=== PATIENT | female | born 1970 | race Caucasian/White ===

== ENCOUNTER 2017-10-16 14:58 | Emergency (ER) | payer MEDICAID, SELFPAY ==
[2017-10-16 15:04] VITALS: BP 108/72; PULSE 95; RESP 22; TEMP 36.6; O2SAT 100
--- NOTE | 2017-10-16 15:13 | DI.REPORT_ITS ---
SYMPTOM/DIAGNOSIS: CHEST PAIN PA AND LATERAL CHEST: Comparison is made with 03/29/12. The heart is normal in size. The lungs are clear. The mediastinal structures and pleura appear intact. CONCLUSION: Normal chest.
--- NOTE | 2017-10-16 15:18 | ED.GENADUL ---
Disposition Clinical Impression: Lightheadedness, Headache Disposition: HOME Condition: Good Instructions: Dehydration (ED), General Headache (ED) Additional Instructions: Please drink 8-10 cups of water per day. If you notice any worsening of your symptoms, or any new symptoms such as vomiting, diarrhea, fever, chills, shortness of breath, chest pain, numbness, weakness, or fainting , please return immediately to the emergency department for reevaluation. Please follow up with your primary care provider as soon as possible for reassessment and reevaluation. As always, it was a pleasure participating in your medical care today. Referrals: Margaret Luz NP [Primary Care Provider] - Medical Decision Making - Medical Decision Making This is a 47-year-old female who presents with symptoms of very mild headache, brief tingling in her fingertips, lightheadedness and mild dizziness. It occurred while she was working, and improved when she laid down. On EMS arrival her Accu-Chek was normal, vital signs are stable, no signs of tachycardia dysrhythmia, or significant physical exam findings of concern. Currently the patient's physical exam does appear benign. She denies any red flags for potential PE, cardiac disease, or intracranial aneurysm. She demonstrates no evidence of meningitis, nuchal rigidity. His headache is actually very mild compared to normal. She does have multiple allergies which does limit our central migraine cocktail that we can utilize. We will perform a cardiac workup, rehydrate the patient reevaluate. With normal neurologic exam, and symptoms which appear more vasovagal than neurologic I feel that there is no indication for CT scan at this time. Clinically the patient does not demonstrate the signs and symptoms suggestive of an intracranial aneurysm is this would be inconsistent with her current clinical presentation. EKG 15: 13 Rate 82, AR 174, QTc 439, QRS 98, sinus rhythm, no ST elevations or depressions. No Q waves. No T-wave inversions. 4: 30 Patient's laboratory workup has returned normal, her headache is significantly improved. She was rehydrated and is feeling much better. She has no cardiac risk factors, she is low risk for Wells, and negative for per criterion. I feel her symptoms are secondary to a component of anxiety, as well as mild dehydration. She is demonstrated no hemodynamic instability, she is low risk on the [place] syncope rule. I feel she can be safely discharged home with close follow-up with her primary care provider. And a long discussion with her regarding the importance of close follow-up with her PCP and the patient understands. I have extensively reviewed the treatment plan and discharge instructions with the patient. I have addressed all patient concerns at this time. The patient was made aware of what symptoms to monitor for that would warrant a return to the emergency department. Discussed the plan with the patient, they demonstrate verbal understanding and agreement with our assessment and plan at this time. History of Present Illness - General Chief complaint: Headache Stated complaint: CAS Time Seen by Provider: 10/16/17 15:03 - History of Present Illness Initial comments: This is a 47-year-old female with a past medical history of PTSD, bipolar disorder, notable anxiety, chronic headaches for which she takes Topamax, polycystic ovarian syndrome, and multiple allergies. She presents today for lightheadedness. Patient states that she was at work when she developed a mild headache that was not thunderclap or sudden in onset. It is much less severe than her normal headaches. She states that with this she eventually developed some symptoms of palpitations, mild dizziness, and eventual tingling in her fingertips and hands bilaterally. Patient laid down on the ground and her symptoms notably improved. She does note that she has not been drinking much over the last 24 hours. She did describes a brief episode of chest tightness with this, but no significant arm pain neck pain or shoulder pain. There was no exertional chest pain, no pleuritic component. Patient denies any recent medication changes, any recent trauma. She denies any history of stroke or myocardial infarction. She denies any cardiac risk factors aside from mild obesity. She does not smoke, she denies IV illicit drug use. She denies a family history of cardiac disease. Denies PE risk factors such as recent long car rides, immobilization, recent surgery, prior history of DVT or PE, family history of PE or DVT, morbid obesity, exogenous estrogen and smoking, hemoptysis, history of cancer. Past surgical history is positive for left knee surgery and hysterectomy. Patient denies any pertinent family history. Patient denies any other complaints at this time. - Related Data Epinephrine [Epipen 2-Sandeep] 0.3 mg IM ONCE #2 syringe 11/02/16 Prochlorperazine Maleate 5 mg PO Q8H PRN PRN #30 tab-cap 01/20/17 Sumatriptan Succinate 100 mg PO PRN #30 tab-cap 01/20/17 Clonazepam 0.5 mg PO PRN #30 tab-cap 03/09/17 Prazosin HCl 4 mg PO HS #30 tab-cap 03/09/17 Venlafaxine HCl [Venlafaxine HCl ER] 150 mg PO DAILY #30 tab-cap 03/09/17 Zolpidem Tartrate [Ambien] 10 mg PO HS #30 tab-cap 03/09/17 Amitriptyline [Elavil] 25 mg PO DAILY #30 tab-cap 07/22/17 Oxybutynin Chloride [Oxybutynin Chloride ER] 5 mg PO DAILY #30 tab-cap 09/02/17 Topiramate [Topamax] 100 mg PO DIRECTED #90 tab-cap 09/20/17 Allergies Allergy/AdvReac Type Severity Reaction Status Date / Time acetaminophen [From Tylenol] Allergy Severe Anaphylaxsi Unverified 07/22/17 10:35 s aspirin Allergy Severe Anaphylaxsi Unverified 07/22/17 10:35 s egg Allergy Severe Unverified 07/22/17 10:35 ibuprofen Allergy Severe Anaphylaxsi Unverified 07/22/17 10:35 s naproxen sodium [From Aleve] Allergy Severe Anaphylaxsi Unverified 07/22/17 10:35 s avocado [Avocado] Allergy Unverified 07/22/17 10:35 diphenhydramine HCl Allergy Hives Unverified 07/22/17 10:35 [From Benadryl] kiwi Allergy Unverified 07/22/17 10:35 latex Allergy Skin Rash Unverified 07/22/17 10:35 wheat Allergy throat Unverified 07/22/17 10:35 swells oxycodone [Oxycodone] AdvReac Intermediate BAD JEFFERSON Unverified 07/22/17 10:35 zonisamide AdvReac Intermediate NIGHTMARES Unverified 07/22/17 10:35 Review of Systems Other: 10 point review of systems was performed, pertinent positives and negatives are noted in the history of present illness. 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 3.ENT: Atraumatic external nose and ears. Moist MM. Neck: Symmetric, trachea midline, No thyromegaly. Patient demonstrates good movement of cervical neck. There is no nuchal rigidity, no nuchal tenderness. Patient is able to flex the neck without any difficulty or significant pain. Negative Kernig's and Brudzinski sign. Cerebellar function testing is normal. The patient demonstrates a normal hints exam with no findings concerning for a central event. No vertical nystagmus. The head impulse test is negative for any significant central abnormality. Normal test of skew. No suggestion of a central cerebellar event. 4.CVS: +S1/S2, No murmurs or gallops. Peripheral pulses 2+ and equal in all extremities. Brisk capillary refill in all extremities. Minimal reproducible sternal chest pain. 5.RESP: Unlabored respiratory effort. Clear to auscultation bilaterally. No wheezes rales or rhonchi 6.GI: Soft, Nontender/Nondistended, No hepatosplenomegaly. No guarding or rebound. 7.MSK: Normocephalic/Atraumatic, Extremities w/o deformity or ttp No cyanosis or clubbing, Normal movement of all extremities 8.Skin: Warm, Dry. No rashes or lesions. 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 Sensation grossly intact, no focal neurologic deficits. All 6 cardinal planes of vision or fully intact. No evidence of horizontal or vertical nystagmus. The patient demonstrated a normal mbhupn-sbhk-oshwoz, good dexterity. There was no evidence of dysdiadochokinesia. Patient was able to ambulate without difficulty. There was no wide-based gait. Romberg, and yznx-hq-uqof are both normal on testing. Sensation was intact bilaterally as well as muscle strength bilaterally for all extremities. Patient was able to verbalize butter cup with no slurring, or miss pronunciation. 10.Psych: (AAO) x3. Appropriate mood and affect, however the patient does appear mildly anxious. Course Vital Signs - 24 hr 10/16/17 15:04 Temperature 36.6 C Pulse 95 H Respiratory 22 Rate Blood Pressure 108/72 Pulse Oximetry 100
--- NOTE | 2017-10-16 15:21 | ED.GENADUL_ITS ---
Disposition Clinical Impression: Lightheadedness, Headache Disposition: HOME Condition: Good Instructions: Dehydration (ED), General Headache (ED) Additional Instructions: Please drink 8-10 cups of water per day. If you notice any worsening of your symptoms, or any new symptoms such as vomiting, diarrhea, fever, chills, shortness of breath, chest pain, numbness, weakness, or fainting , please return immediately to the emergency department for reevaluation. Please follow up with your primary care provider as soon as possible for reassessment and reevaluation. As always, it was a pleasure participating in your medical care today. Referrals: Margaret Luz NP [Primary Care Provider] - Medical Decision Making - Medical Decision Making This is a 47-year-old female who presents with symptoms of very mild headache, brief tingling in her fingertips, lightheadedness and mild dizziness. It occurred while she was working, and improved when she laid down. On EMS arrival her Accu-Chek was normal, vital signs are stable, no signs of tachycardia dysrhythmia, or significant physical exam findings of concern. Currently the patient's physical exam does appear benign. She denies any red flags for potential PE, cardiac disease, or intracranial aneurysm. She demonstrates no evidence of meningitis, nuchal rigidity. His headache is actually very mild compared to normal. She does have multiple allergies which does limit our central migraine cocktail that we can utilize. We will perform a cardiac workup, rehydrate the patient reevaluate. With normal neurologic exam , and symptoms which appear more vasovagal than neurologic I feel that there is no indication for CT scan at this time. Clinically the patient does not demonstrate the signs and symptoms suggestive of an intracranial aneurysm is this would be inconsistent with her current clinical presentation. EKG 15: 13 Rate 82, IN 174, QTc 439, QRS 98, sinus rhythm, no ST elevations or depressions. No Q waves. No T-wave inversions. 4: 30 Patient's laboratory workup has returned normal, her headache is significantly improved. She was rehydrated and is feeling much better. She has no cardiac risk factors, she is low risk for Wells, and negative for per criterion. I feel her symptoms are secondary to a component of anxiety, as well as mild dehydration. She is demonstrated no hemodynamic instability, she is low risk on the [place] syncope rule. I feel she can be safely discharged home with close follow-up with her primary care provider. And a long discussion with her regarding the importance of close follow-up with her PCP and the patient understands. I have extensively reviewed the treatment plan and discharge instructions with the patient. I have addressed all patient concerns at this time. The patient was made aware of what symptoms to monitor for that would warrant a return to the emergency department. Discussed the plan with the patient, they demonstrate verbal understanding and agreement with our assessment and plan at this time. History of Present Illness - General Chief complaint: Headache Stated complaint: CAS Time Seen by Provider: 10/16/17 15:03 - History of Present Illness Initial comments: This is a 47-year-old female with a past medical history of PTSD, bipolar disorder, notable anxiety, chronic headaches for which she takes Topamax , polycystic ovarian syndrome, and multiple allergies. She presents today for lightheadedness. Patient states that she was at work when she developed a mild headache that was not thunderclap or sudden in onset. It is much less severe than her normal headaches. She states that with this she eventually developed some symptoms of palpitations, mild dizziness, and eventual tingling in her fingertips and hands bilaterally. Patient laid down on the ground and her symptoms notably improved. She does note that she has not been drinking much over the last 24 hours. She did describes a brief episode of chest tightness with this, but no significant arm pain neck pain or shoulder pain. There was no exertional chest pain, no pleuritic component. Patient denies any recent medication changes, any recent trauma. She denies any history of stroke or myocardial infarction. She denies any cardiac risk factors aside from mild obesity. She does not smoke, she denies IV illicit drug use. She denies a family history of cardiac disease. Denies PE risk factors such as recent long car rides, immobilization, recent surgery, prior history of DVT or PE, family history of PE or DVT, morbid obesity, exogenous estrogen and smoking, hemoptysis , history of cancer. Past surgical history is positive for left knee surgery and hysterectomy. Patient denies any pertinent family history. Patient denies any other complaints at this time. - Related Data Epinephrine [Epipen 2-Sandeep] 0.3 mg IM ONCE #2 syringe 11/02/16 Prochlorperazine Maleate 5 mg PO Q8H PRN PRN #30 tab-cap 01/20/17 Sumatriptan Succinate 100 mg PO PRN #30 tab-cap 01/20/17 Clonazepam 0.5 mg PO PRN #30 tab-cap 03/09/17 Prazosin HCl 4 mg PO HS #30 tab-cap 03/09/17 Venlafaxine HCl [Venlafaxine HCl ER] 150 mg PO DAILY #30 tab-cap 03/09/17 Zolpidem Tartrate [Ambien] 10 mg PO HS #30 tab-cap 03/09/17 Amitriptyline [Elavil] 25 mg PO DAILY #30 tab-cap 07/22/17 Oxybutynin Chloride [Oxybutynin Chloride ER] 5 mg PO DAILY #30 tab-cap 09/02/17 Topiramate [Topamax] 100 mg PO DIRECTED #90 tab-cap 09/20/17 Allergies Allergy/AdvReac Type Severity Reaction Status Date / Time acetaminophen [From Tylenol] Allergy Severe Anaphylaxsi Unverified 07/22/17 10: 35 s aspirin Allergy Severe Anaphylaxsi Unverified 07/22/17 10:35 s egg Allergy Severe Unverified 07/22/17 10:35 ibuprofen Allergy Severe Anaphylaxsi Unverified 07/22/17 10:35 s naproxen sodium [From Aleve] Allergy Severe Anaphylaxsi Unverified 07/22/17 10: 35 s avocado [Avocado] Allergy Unverified 07/22/17 10:35 diphenhydramine HCl Allergy Hives Unverified 07/22/17 10:35 [From Benadryl] kiwi Allergy Unverified 07/22/17 10:35 latex Allergy Skin Rash Unverified 07/22/17 10:35 wheat Allergy throat Unverified 07/22/17 10:35 swells oxycodone [Oxycodone] AdvReac Intermediate BAD JEFFERSON Unverified 07/22/17 10:35 zonisamide AdvReac Intermediate NIGHTMARES Unverified 07/22/17 10:35 Review of Systems Other: 10 point review of systems was performed, pertinent positives and negatives are noted in the history of present illness. 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 3.ENT: Atraumatic external nose and ears. Moist MM. Neck: Symmetric, trachea midline, No thyromegaly. Patient demonstrates good movement of cervical neck. There is no nuchal rigidity, no nuchal tenderness. Patient is able to flex the neck without any difficulty or significant pain. Negative Kernig's and Brudzinski sign. Cerebellar function testing is normal. The patient demonstrates a normal hints exam with no findings concerning for a central event. No vertical nystagmus. The head impulse test is negative for any significant central abnormality. Normal test of skew. No suggestion of a central cerebellar event. 4.CVS: +S1/S2, No murmurs or gallops. Peripheral pulses 2+ and equal in all extremities. Brisk capillary refill in all extremities. Minimal reproducible sternal chest pain. 5.RESP: Unlabored respiratory effort. Clear to auscultation bilaterally. No wheezes rales or rhonchi 6.GI: Soft, Nontender/Nondistended, No hepatosplenomegaly. No guarding or rebound. 7.MSK: Normocephalic/Atraumatic, Extremities w/o deformity or ttp No cyanosis or clubbing, Normal movement of all extremities 8.Skin: Warm, Dry. No rashes or lesions. 9.Neuro: tire layer II-XII grossly intact. Sensation grossly intact, no focal neurologic deficits. All 6 cardinal planes of vision or fully intact. No evidence of horizontal or vertical nystagmus. The patient demonstrated a normal mvreby-ykzg-ftnuch, good dexterity. There was no evidence of dysdiadochokinesia. Patient was able to ambulate without difficulty. There was no wide-based gait. Romberg, and dexk-eu-tboz are both normal on testing. Sensation was intact bilaterally as well as muscle strength bilaterally for all extremities. Patient was able to verbalize butter cup with no slurring, or miss pronunciation. 10.Psych: (AAO) x3. Appropriate mood and affect, however the patient does appear mildly anxious. Course Vital Signs - 24 hr 10/16/17 15:04 Temperature 36.6 C Pulse 95 H Respiratory 22 Rate Blood Pressure 108/72 Pulse Oximetry 100
[2017-10-16] MEDS: Normal Saline 1,000 ML 1000 ML IV (15:22)
[2017-10-16] MEDS: methylPREDNISolone SUCC 125 MG VIAL IVP (15:23)
[2017-10-16] MEDS: Metoclopramide 10 MG/2 ML VIAL IVP (15:23)
[2017-10-16 15:26] LABS: Absolute Basophil Count 0.02 k/cumm (0.0-0.2); Absolute Eosinophil Count 0.15 k/cumm (0.0-0.7); Absolute Lymphocyte Count 1.85 k/cumm (1.2-3.4); Absolute Monocyte Count 0.41 k/cumm (0.11-0.7); Absolute Neutrophil Count 2.19 k/cumm (1.2-6.7); Basophils % 0.4; Eosinophils % 3.2; HCT 38.6 % (36.0-46.0); HGB 13.1 g/dL (12.0-15.5); Mean Corp. HGB Concentration 33.9 g/dL (32.0-36.0); Mean Corpuscular Hemoglobin 31.7 pg (27.0-33.0); Mean Corpuscular Volume 93.5 fL (80-95); Mean Platelet Volume 10.1 fL (8.0-11.0); Monocytes % 8.9; Neutrophils % 47.5; Platelet Count 139 x1000/uL (130-400); RBC 4.13 m/cumm (4.00-5.20); RBC Distribution Width 12.6 % (11.7-14.6); White Blood Cell Count 4.62 k/cumm (4.4-10.8)
[2017-10-16 15:46] LABS: ALT 21 U/L (12-78); AST 14 U/L (15-37); Albumin 3.1 g/dL (3.4-5.0); Alkaline Phosphatase 115 U/L (46-116); BUN 9 mg/dL (7-18); Bilirubin, Total 0.2 mg/dL (0.2-1.0); CREATININE 0.86 mg/dL (0.55-1.02); Calcium 8.1 mg/dL (8.5-10.1); Chloride 111 mmol/L (98-107); Glucose 149 mg/dL (70-100); Potassium 3.6 mmol/L (3.5-5.1); Sodium 144 mmol/L (136-145); TSH 1.66 uIU/mL (0.358-3.74); Total Protein 6.2 g/dL (6.4-8.2)
[2017-10-16 15:50] LABS: Troponin I < 0.02 ng/mL (0.00-0.06)
--- NOTE | 2017-10-16 16:35 | DI.VRAD_ITS ---
EXAM: XR Chest, 2 Views CLINICAL HISTORY: 47 years old, female; Pain; Chest pain; Type not specified TECHNIQUE: Frontal and lateral views of the chest. COMPARISON: CR - CHEST 2 VIEWS PA,LAT 2012-03-29 08:17 FINDINGS: Lungs: Hilar shadows unchanged. No focal consolidation. Pleural space: No pneumothorax. Heart: Cardiac shadow unchanged. Mediastinum: Mediastinal contour is unchanged. Bones/joints: Mild skeletal degenerative changes. Soft tissues: Metallic structures overlie the breasts bilaterally which may be related to jewelry. Correlation suggested. IMPRESSION: 1. No focal consolidation or pneumothorax. 2.Metallic structures overlie the breasts bilaterally which may be related to jewelry. Correlation suggested. Dictated and Authenticated by: Hyacinth Hunt MD. Ordering:SAM BAILON MD
== END 2017-10-16 17:10 | disposition home or self-care (01) ==
PROVIDERS: Emergency Provider Student in an Organized Health Care Education/Training Program; PCP Nurse Practitioner
DX: R42 Dizziness and giddiness (principal); R51 Headache; R20.2 Paresthesia of skin; R00.2 Palpitations
CPT/HCPCS: 36415; 80053; 93005; 96361; 96374; 96375; 99285; 71046; 84443; 84484; 85025; 93010; 99284; J2765; J2930

== ENCOUNTER 2017-11-11 08:03 | Outpatient (RCR) | payer MEDICAID, SELFPAY ==
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
== END 2017-11-12 23:59 | disposition home or self-care (01) ==
LOC: PT 08:03
PROVIDERS: PCP Nurse Practitioner; Referring Provider Urology; Visit Provider Urology
DX: N36.44 Muscular disorders of urethra (principal); N39.3 Stress incontinence (female) (male)
CPT/HCPCS: 97161

== ENCOUNTER 2018-01-25 14:05 | Outpatient (CLI) | payer MEDICAID, SELFPAY ==
--- NOTE | 2018-01-25 14:52 | DI.RAD_ITS ---
SYMPTOMS/DIAGNOSIS: LEFT SHOULDER PAIN, M25.512; RIGHT SHOULDER PAIN, M25.511 LEFT SHOULDER: Five views. No bone or joint abnormality is identified. The soft tissues are unremarkable. No radiopaque foreign bodies are seen in the soft tissues. IMPRESSION: Negative left shoulder. RIGHT SHOULDER: Four views. Mild hypertrophic changes are seen at the acromioclavicular joint. The glenohumeral joint appears well maintained. The bones are intact and normally mineralized. The soft tissues are unremarkable. IMPRESSION: Mild degenerative changes of the right AC joint.
== END 2018-01-25 14:25 ==
PROVIDERS: PCP Nurse Practitioner; Visit Provider Nurse Practitioner
DX: M25.512 Pain in left shoulder (principal); M25.511 Pain in right shoulder; M19.011 Primary osteoarthritis, right shoulder
CPT/HCPCS: 73030

== ENCOUNTER 2018-05-12 09:19 | Outpatient (CLI) | payer MEDICAID, SELFPAY ==
[2018-05-12 10:52] LABS: ALT 21 U/L (12-78); AST 14 U/L (15-37); Albumin 3.5 g/dL (3.4-5.0); Alkaline Phosphatase 136 U/L (46-116); Anion Gap 6.2 mmol/L (3-11); BUN 8 mg/dL (7-18); Bilirubin, Total 0.6 mg/dL (0.2-1.0); CO2 27.8 mmol/L (21.0-32.0); CREATININE 0.86 mg/dL (0.55-1.02); Calcium 8.8 mg/dL (8.5-10.1); Chloride 108 mmol/L (98-107); Cholesterol 259 mg/dL (50-200); Glucose 130 mg/dL (70-100); HDL Cholesterol 46 mg/dL (40-60); LDL CHOLESTEROL 178 mg/dL (<100); Potassium 4.4 mmol/L (3.5-5.1); Sodium 142 mmol/L (136-145); Total Protein 6.7 g/dL (6.4-8.2); Triglyceride 203 mg/dL (30-150)
== END 2018-05-12 09:39 ==
PROVIDERS: PCP Nurse Practitioner; Visit Provider Nurse Practitioner
DX: E11.9 Type 2 diabetes mellitus without complications (principal); E78.00 Pure hypercholesterolemia, unspecified; F32.9 Major depressive disorder, single episode, unspecified; R73.01 Impaired fasting glucose; E66.9 Obesity, unspecified
CPT/HCPCS: 36415; 80053; 80061; 83721; 83036

== ENCOUNTER 2018-06-06 07:05 | Day surgery (SDC) | payer MEDICAID, SELFPAY ==
--- NOTE | 2018-06-06 07:00 | W.COLOREPORT ---
Date of service: 06/06/18 Time of Service: 08:06 Colonoscopy Report Date of procedure: 06/06/18 Pre-op diagnosis general: Colon Cancer Screening Post-op diagnosis procedure note: other (Colorectal polyps) Procedure: Colonoscopy with polypectomy by hot snare and cold forceps Surgeon: Xiao Shah Anesthesia proc note operative: other (General/ ASA 2/ Kelly Tapia, CARY) Estimated blood loss (mL): 5 Pathology: other (Ascending polyp, transverse polyp, sigmoid polyps x3) Complications: None Disposition: same day Indications: Mrs. Hensley is a pleasant 48 year old female seen in the office for a screening colonoscopy. Risks, benefits and complications have been reviewed. Complications include but are not limited to bleeding, pain, perforation, missed small lesion/polyp, sore throat, aspiration and adverse reaction to the medications. Questions were entertained and answered to their satisfaction and they wished to proceed. No guarantees were given or implied. She did have some trouble with the prep. She ended doing 2 x the amount of Miralax to get her bowel moving. Will either need Go-lytley or add Mag Citrate to her miralax prep for the next colonoscopy Prep: Miralax/Dulcolax Procedure Start Time: 08:06 Procedure End Time: 08:51 Retraction Time: 21 minutes Findings: 5 polyps removed. No diverticula and no hemorrhoids Procedure Description: After informed consent was obtained the patient was taken to the procedure room and placed in a left decubitous position. Monitors were applied and a time out was done. The patients name, date of , procedure, allergies to medications and metal in their body was reviewed. The patient was then sedated. Once sedated and comfortable a rectal exam was done. External exam was normal. Internal exam revealed a normal sphincter tone and no palpable masses. The scope was then introduced and retro-flexed. No internal hemorrhoids were identified. The scope was then advanced to the cecum with some difficulty. The patient had to have abdominal pressre, and we had to place her on her back in order to be able to move the scope to the cecum. The TI and appendiceal orifice were identified. The prep was good. The scope was then slowly retracted over 21 minutes back into the rectum. Polyps were removed with a hot snare in the ascending and transverse colon and with cold forceps in the sigmoid colon. The scope was removed and the patient was woken up and taken back to Same day surgery in stable condition. The patient tolerated the procedure well and there were no immediate complications. Follow up: The patient should follow up in 3-5 years depending on final pathology, unless they develop changes in bowel habits or other new gastrointestinal complaints.
--- NOTE | 2018-06-06 07:02 | W.PM.DSUDISC ---
Discharge Plan Disposition Patient Disposition: HOME Condition: Good Discharge Details Reason For Visit: Colon Cancer Screening Attending Provider: Xiao Shah Primary Care Provider: Margaret Luz Home Meds and New Rx's Prescriptions: Continued lamotrigine [Lamictal] 25 mg tablet 100 mg PO HS RF: 0 omeprazole 40 mg capsule,delayed release(DR/EC) 40 mg PO DAILY RF: 0 venlafaxine [Effexor XR] 150 mg capsule,extended release 24hr 150 mg PO DAILY RF: 0 atorvastatin 20 mg tablet 20 mg PO QHS Qty: 90 RF: 3 epinephrine [EpiPen 2-Sandeep] 0.3 MG/0.3 ML auto-injector 0.3 mg IM ONCE Qty: 2 RF: 12 prochlorperazine maleate 5 MG tablet 5 mg PO Q8H PRN PRNQty: 30 RF: 3 zolpidem [Ambien] 10 MG tablet 10 mg PO HS Qty: 30 RF: 1 clonazepam 0.5 MG tablet,disintegrating 0.5 mg PO PRN Qty: 30 RF: 0 amitriptyline 25 mg tablet 25 mg PO DAILY Qty: 30 RF: 3 topiramate [Topamax] 100 mg tablet 100 mg PO .QAM RF: 0 topiramate [Topamax] 200 mg Tablet 200 mg PO HS RF: 0 sumatriptan succinate 100 mg tablet 100 mg PO PRN RF: 0 Discontinued polyethylene glycol 3350 17 gram/dose powder 238 g PO ONCE Qty: 238 RF: 0 bisacodyl [Dulcolax (bisacodyl)] 5 mg tablet,delayed release (DR/EC) 5 mg PO ONCE Qty: 4 RF: 0 Discharge Instructions Instructions: Colonoscopy (DC), Colorectal Polyps (DC) Additional Instructions: Findings: 5 polyps Follow up: 3-5 years depending on final pathology results. I will send a letter with results Please call if you develop: fevers >101.5 Nausea or Vomiting Abdominal pain that is not transient DAY SURGERY UNIT POST COLONOSCOPY INSTRUCTIONS 1. Because there will be medication in your system for the next 24 hours, you may feel a little sleepy. Your coordination will be affected. Therefore: a. Do not drive or operate dangerous equipment for 24 hours. b. Do not drink alcohol beverages for 24 hours (not even beer). c. Plan to go home and rest for the day. 2. Generally there are no restrictions on your activity after a day or so has gone by, but you may feel a bit fatigued for a few days. 3 After you arrive home you may have a light meal and return to a normal diet as you can tolerate it without feeling sick to your stomach. 4. After surgery, you may feel pain or discomfort. This should be only transient, but if it persists please contact your doctor. 5. If there are any questions regarding the findings of your procedure, please feel free to contact your doctor. 6. If you are unable to contact your doctor with a problem, contact the hospital at [phone]. 7. Continue all your regular medications unless directed otherwise. I understand the above instructions and have no questions. Signature of Patient or Responsible Adult Escort Date/Time Name of Responsible Adult Escort Signature of Nurse Date/Time Activity:: Activity as Tolerated Diet:: As Tolerated Discharge Orders Discharge Orders: Discharge Order (Routine); Ordered 06/06/18 Ordered By: Xiao Shah DS: Diagnosis Discharge Diagnosis (1) S/P colonoscopy: Status: Acute (2) Colorectal polyps: Status: Acute
[2018-06-06 07:15] VITALS: BP 129/78; PULSE 87; RESP 16; TEMP 36; O2SAT 99
[2018-06-06] MEDS: Lactated Ringers 1,000 ML 80 ML IV (07:53)
--- NOTE | 2018-06-06 08:35 | BOWEL_PTH ---
PATIENT: Chely Michael LOC: [facility] U#:[id number] AGE/SX: 48/F ROOM: RE06/06/[address]: Xiao Shah MD : 1970 BED: DIS: 06/06/2018 SPEC #: [id number] RECD: 06/06/18 13:02 STATUS: RICK LAGUERRE #: [id number] PATTI: 06/06/18 08:[address]: Xiao Shah DEPT: Surgical Specimen RECD BY: Gala Britt ENTERED: 06/06/18 13:03 SP TYPE: Bowel OTHR DR: Margaret Luz APRN Tissues: 1 - BIOPSY BOWEL 2 - BIOPSY BOWEL 3 - BIOPSY BOWEL Procedures: GROSS AND MICRO LEVEL 4 Comments: [id number]
[2018-06-06 09:40] VITALS: BP 112/75; PULSE 64; RESP 16; TEMP 36.2; O2SAT 99
== END 2018-06-06 10:00 | disposition home or self-care (01) ==
LOC: SUR 07:05
PROVIDERS: PCP Nurse Practitioner; Visit Provider Surgery
PROC: 0DJD8ZZ Inspection of Lower Intestinal Tract, Via Natural or Artificial Opening Endoscopic (ICD-10-PCS; CPT 45378; principal; 2018-06-06 08:00)
DX: Z12.11 Encounter for screening for malignant neoplasm of colon (principal); D12.2 Benign neoplasm of ascending colon; K63.5 Polyp of colon; K21.9 Gastro-esophageal reflux disease without esophagitis; G47.33 Obstructive sleep apnea (adult) (pediatric)
CPT/HCPCS: 45385; 45380; 88305

== ENCOUNTER 2018-06-07 18:41 | Emergency (ER) | payer MEDICAID, SELFPAY ==
[2018-06-07 18:35] VITALS: BP 119/71; PULSE 75; RESP 18; TEMP 36.6; O2SAT 100
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
--- NOTE | 2018-06-07 19:44 | DI.CT_ITS ---
SYMPTOMS/DIAGNOSIS: LEFT RIB AND UPPER ABDOMINAL PAIN S/P TRAUMA/FALL CT OF THE CHEST, ABDOMEN AND PELVIS: CHEST CT: There is no evidence of pneumothorax, pleural or pericardial effusion. The heart size is normal. There is no evidence of aortic aneurysm or dissection. No infiltrates are seen. IMPRESSION: Negative chest CT. ABDOMINAL AND PELVIC CT: The liver, gallbladder, pancreas, spleen and kidneys are unremarkable. Small nodules are noted on the adrenal glands, likely adenomas. The bladder is unremarkable. The patient is status post hysterectomy. No fractures are identified. There is no free air or free fluid. IMPRESSION: Negative CT of the abdomen and pelvis. CT OF THE LUMBAR SPINE: The exam was reconstructed from the abdominal and pelvic CT. There is no evidence of fracture. Degenerative disc changes are seen at L5-S1. There are also facet degenerative changes, greatest at L5-S1. There is no significant central canal stenosis. There is bilateral neural foraminal narrowing at L5-S1. IMPRESSION: Degenerative changes. No acute abnormality. CT OF THE THORACIC SPINE: The exam was reconstructed from the chest CT. There is no evidence of fracture. The alignment appears normal. No paraspinal soft tissue swelling is seen. There is no central canal stenosis or gross evidence of disc herniation. There are mild degenerative changes in the mid thoracic spine. IMPRESSION: Mild degenerative changes. No acute abnormality.
[2018-06-07] MEDS: MORPHine 10 MG/ML VIAL 2 MG IVP (20:20)
[2018-06-07 20:54] LABS: ALT 24 U/L (12-78); AST 10 U/L (15-37); Albumin 3.2 g/dL (3.4-5.0); Alkaline Phosphatase 141 U/L (46-116); Anion Gap 9.9 mmol/L (3-11); BUN 14 mg/dL (7-18); Bilirubin, Total 0.2 mg/dL (0.2-1.0); CO2 23.1 mmol/L (21.0-32.0); Calcium 8.4 mg/dL (8.5-10.1); Chloride 109 mmol/L (98-107); Glucose 162 mg/dL (70-100); Potassium 3.6 mmol/L (3.5-5.1); Sodium 142 mmol/L (136-145); Total Protein 6.2 g/dL (6.4-8.2)
[2018-06-07 20:56] LABS: Abs Immature Grans 0.01 k/cumm (0.0-0.09); Absolute Basophil Count 0.02 k/cumm (0.0-0.2); Absolute Eosinophil Count 0.13 k/cumm (0.0-0.7); Absolute Lymphocyte Count 1.88 k/cumm (1.2-3.4); Absolute Neutrophil Count 3.36 k/cumm (1.2-6.7); Basophils % 0.3; Eosinophils % 2.2; HCT 40.9 % (36.0-46.0); Immature Grans % 0.2; Lymphocytes % 31.3; Mean Corp. HGB Concentration 34.2 g/dL (32.0-36.0); Mean Corpuscular Hemoglobin 31.7 pg (27.0-33.0); Mean Corpuscular Volume 92.5 fL (80-95); Mean Platelet Volume 11.1 fL (8.0-11.0); Platelet Count 145 x1000/uL (130-400); RBC 4.42 m/cumm (4.00-5.20)
[2018-06-07] MEDS: Omnipaque 350 MG/ML 100 ML BTL IV (21:32)
[2018-06-07] MEDS: Normal Saline Flush 10 ML SYR IVP (21:35)
[2018-06-07] MEDS: Omnipaque 350 MG/ML 50 ML BTL IJ (21:36)
--- NOTE | 2018-06-07 22:04 | DI.VRAD_ITS ---
EXAM: CT Chest With Contrast EXAM DATE/TIME: 06/07/2018 7:51 PM CLINICAL HISTORY: 48 years old, female; Injury or trauma; Fall; Initial encounter; Blunt; Llq; Blunt trauma (contusions or hematomas); Injury date: 06/07/18; Injury details: Fell on ice landing on left side, left rib pain and luq pain; Prior surgery; Surgery date: 6+ months; Surgery type: Hysterectomy 10 years ago, colonoscopy yesterday; Patient HX: Fall on ice with l side rib pain TECHNIQUE: Imaging protocol: Axial computed tomography images of the chest with intravenous contrast. Coronal and sagittal reformatted images were created and reviewed. Radiation optimization: All CT scans at this facility use at least one of these dose optimization techniques: automated exposure control; mA and/or kV adjustment per patient size (includes targeted exams where dose is matched to clinical indication); or iterative reconstruction. Contrast material: Omnipaque 350 Contrast volume: 125 ml Contrast route: IV COMPARISON: CT ABD/PELVIS WO W CONTRAST 07/19/2017 8:25 AM FINDINGS: Lungs: Normal. No consolidation. No masses. Pleural space: Normal. No pneumothorax. No pleural effusion. Heart: Normal. No cardiomegaly. No pericardial effusion. Aorta: Normal. No aortic aneurysm. Lymph nodes: Unremarkable. No enlarged lymph nodes. Bones/joints: Unremarkable. No acute fracture. Soft tissues: Unremarkable. IMPRESSION: No acute findings. EXAM: CT Abdomen and Pelvis With Contrast EXAM DATE/TIME: 06/07/2018 7:51 PM CLINICAL HISTORY: 48 years old, female; Injury or trauma; Fall; Initial encounter; Blunt; Llq; Blunt trauma (contusions or hematomas); Injury date: 06/07/18; Injury details: Fell on ice landing on left side, left rib pain and luq pain; Prior surgery; Surgery date: 6+ months; Surgery type: Hysterectomy 10 years ago, colonoscopy yesterday; Patient HX: Fall on ice with l side rib pain TECHNIQUE: Imaging protocol: Axial computed tomography images of the abdomen and pelvis with intravenous contrast. Coronal and sagittal reformatted images were created and reviewed. Radiation optimization: All CT scans at this facility use at least one of these dose optimization techniques: automated exposure control; mA and/or kV adjustment per patient size (includes targeted exams where dose is matched to clinical indication); or iterative reconstruction. Contrast material: Omnipaque 350 Contrast volume: 125 ml Contrast route: IV COMPARISON: CT ABD/PELVIS WO W CONTRAST 07/19/2017 8:25 AM FINDINGS: Lower thorax: No acute findings. ABDOMEN: Liver: Normal. No mass. Gallbladder and bile ducts: Normal. No calcified stones. No ductal dilation. Pancreas: Normal. No ductal dilation. Spleen: Normal. No splenomegaly. Adrenals: Indeterminate bilateral adrenal nodules possibly adenomas, 9 mm on the right and 1.5 cm on the left. Kidneys and ureters: Normal. No hydronephrosis. Stomach and bowel: Normal. No obstruction. No mucosal thickening. Appendix: No evidence of appendicitis. PELVIS: Bladder: Unremarkable as visualized. Reproductive: Unremarkable as visualized. ABDOMEN and PELVIS: Intraperitoneal space: Small amount of free pelvic fluid. Bones/joints: No acute fracture. No dislocation. Soft tissues: Unremarkable. Vasculature: Normal. No abdominal aortic aneurysm. Lymph nodes: Normal. No enlarged lymph nodes. IMPRESSION: No acute abnormality identified. Dictated and Authenticated by: Myles Shahid MD. Ordering:CHAMP Perez MD
[2018-06-07 22:22] VITALS: BP 116/79; PULSE 86; TEMP 36.7; O2SAT 100
--- NOTE | 2018-06-07 22:22 | NUR.NOTE ---
patient sleeping upon reassessment,patient voided on bedside commode with assistance Nursing Note:
== END 2018-06-07 23:06 | disposition home or self-care (01) ==
PROVIDERS: Emergency Provider Emergency Medicine; PCP Nurse Practitioner
DX: S20.212A Contusion of left front wall of thorax, initial encounter (principal); W00.0XXA Fall on same level due to ice and snow, initial encounter
CPT/HCPCS: 36415; 74177; 80053; 96374; 99285; 71260; 85025; 99284; J2270; J3490; Q9967

== ENCOUNTER 2018-07-20 12:51 | Emergency (ER) | payer MEDICAID, SELFPAY ==
--- NOTE | 2018-07-20 13:02 | ED.GENADUL_ITS ---
Discharge Plan Disposition Patient Disposition: HOME Condition: Good Discharge Details Chief Complaint: FlankPain Clinical Impression: Muscle strain, Abdominal pain Primary Care Provider: Margaret Luz ED Provider: Osmani [place] Home Meds and New Rx's Prescriptions: New cyclobenzaprine 10 mg tablet 10 mg PO TID Qty: 14 RF: 0 lidocaine [Lidoderm] 1 PATCH patch 1 patch Topical Q24H Qty: 4 RF: 0 No Action lamotrigine [Lamictal] 25 mg tablet 100 mg PO HS RF: 0 omeprazole 40 mg capsule,delayed release(DR/EC) 40 mg PO DAILY RF: 0 venlafaxine [Effexor XR] 150 mg capsule,extended release 24hr 150 mg PO DAILY RF: 0 atorvastatin 20 mg tablet 20 mg PO QHS Qty: 90 RF: 3 prochlorperazine maleate 5 mg tablet 5 mg PO Q8H PRN PRN (Reason: headache and nausea) Qty: 30 RF: 6 sumatriptan succinate 100 mg tablet 100 mg PO PRN Qty: 10 RF: 6 topiramate [Topamax] 100 mg tablet 100 mg PO .QAM Qty: 90 RF: 5 epinephrine [EpiPen 2-Sandeep] 0.3 MG/0.3 ML auto-injector 0.3 mg IM ONCE Qty: 2 RF: 12 zolpidem [Ambien] 10 MG tablet 10 mg PO HS Qty: 30 RF: 1 clonazepam 0.5 MG tablet,disintegrating 0.5 mg PO PRN Qty: 30 RF: 0 amitriptyline 25 mg tablet 25 mg PO DAILY Qty: 30 RF: 3 Discharge Instructions Instructions: Muscle Strain (ED), Abdominal Pain (ED) Additional Instructions: Your CT scan is negative at this time for any life-threatening etiology, your laboratory work-up shows no concerning signs of severe infection, bad urinary tract infection or other abnormality. Calcium is slightly low we recommend that you take a daily calcium supplement. Please take the medication as directed. Please follow-up closely with your primary care provider for reassessment in the next 7 days. If you notice any worsening of your symptoms, or any new symptoms such as vomiting, diarrhea, fever, chills, shortness of breath, chest pain, numbness, weakness, or fainting , please return immediately to the emergency department for reevaluation. Please follow up with your primary care provider as soon as possible for reassessment and reevaluation. As always, it was a pleasure participating in your medical care today. Referrals: Margaret Luz NP [Primary Care Provider] - Discharge Data Discharge Date/Time-TO BE ENTERED AT DEPARTURE: 07/20/18 15:27 Medical Decision Making This is a pleasant 48-year-old female who presents for evaluation of left flank pain. Patient states that the pain is been present for the last 3 days. She did suffer an injury to her left ribs greater than a week ago, she states that this pain is separate from that. It is located in her left lower abdomen and left flank. It is particularly worse with movement. Seems to be improved by nothing. She has not taken any NSAIDs secondary to multiple allergies. SHe denies any symptoms of dysuria, hematuria or frequency. She denies any vomiting or bike diarrhea. She denies any neurologic symptoms of numbness tingling or weakness. Signs and symptoms appear clinically inconsistent with ACS, dissection, mesenteric ischemia, or severe pneumothorax. However because of her atypical pain symptoms CT scan was ordered for evaluation of acute infectious or traumatic process. She has a history of a total hysterectomy and so portion and pelvic pathology currently unlikely to the differential. Laboratory work-up demonstrates no drop in hemoglobin, no significant leukocytosis. No renal dysfunction. The calcium is slightly low, however no other significant abnormalities. CT scan of the abdomen and pelvis with the lower component of the chest demonstrates no acute traumatic or infectious process. There is bilateral kidney stones, however there is no evidence of stone in the ureters bladder. Patient was given a Lidoderm patch, and she is feeling slightly better at this time. I discussed potential musculoskeletal etiologies with the patient and this certainly may be a cause of her symptoms. No evidence of acute life-threatening pathology, no clinical evidence of surgical abdomen otherwise benign laboratory work-up and negative urinalysis feel that she can be safely discharged home. I did discuss with her the absolute importance of close follow-up as well as prompt return if she has any change or worsening of her symptoms. I have extensively reviewed the treatment plan and discharge instructions with the patient. I have addressed all patient concerns at this time. The patient was made aware of what symptoms to monitor for that would warrant a return to the emergency department. Discussed the plan with the patient, they demonstrate verbal understanding and agreement with our assessment and plan at this time. HPI General Date/Time Provider Initiated Documentation: 07/20/18 13:00 . HPI Narrative: This is a 48-year-old female with a past medical history of PTSD, bipolar disorder, notable anxiety, chronic headaches for which she takes Topamax, polycystic ovarian syndrome, hysterectomy with oophorectomy, And multiple allergies. She presents today for evaluation of left-sided abdominal pain. She presents with 3 days of left-sided flank pain. She does not recall the specific inciting event. She did bruise her ribs few weeks ago in that similar space. Symptoms are worse with movement, due to her multiple allergies she has not taken NSAIDs. She denies any associated vomiting or diarrhea. She denies any pleuritic chest pain, cough, hemoptysis, fever, chills. She denies any dysuria or hematuria. She does have a history of kidney stones and states that this feels very different. She denies any other recent traumas to the area or other complaints. No other modifying factors. She denies any tearing sensation or ripping sensation. She denies any radiation to the right side, groin, or any other areas Related Data Home Medications Medication Instructions Recorded Confirmed epinephrine [EpiPen 2-Sandeep] 0.3 mg IM ONCE #2 syringe 11/02/16 07/20/18 clonazepam 0.5 mg PO PRN #30 tab-cap 03/09/17 07/20/18 zolpidem [Ambien] 10 mg PO HS #30 tab-cap 03/09/17 07/20/18 amitriptyline 25 mg tablet 25 mg PO DAILY #30 tab-cap 04/28/18 07/20/18 atorvastatin 20 mg tablet 20 mg PO QHS #90 tab 05/18/18 07/20/18 lamotrigine 25 mg tablet 100 mg PO HS tab 05/30/18 07/20/18 omeprazole 40 mg capsule,delayed 40 mg PO DAILY 05/30/18 07/20/18 release venlafaxine ER 150 mg 150 mg PO DAILY 05/30/18 07/20/18 capsule,extended release 24 hr cyclobenzaprine 10 mg PO TID #14 tab 07/20/18 lidocaine [Lidoderm] 1 patch TOPICAL Q24H #4 patch 07/20/18 prochlorperazine maleate 5 mg 5 mg PO Q8H PRN PRN #30 tab-cap 07/20/18 07/20/18 tablet sumatriptan 100 mg tablet 100 mg PO PRN #10 tab 07/20/18 07/20/18 topiramate 100 mg tablet 100 mg PO .QAM #90 tab 07/20/18 07/20/18 Previous Rx's Medication Instructions Recorded clonazepam 0.5 mg PO PRN #30 tab-cap 03/09/17 zolpidem [Ambien] 10 mg PO HS #30 tab-cap 03/09/17 amitriptyline 25 mg tablet 25 mg PO DAILY #30 tab-cap 04/28/18 atorvastatin 20 mg tablet 20 mg PO QHS #90 tab 05/18/18 cyclobenzaprine 10 mg PO TID #14 tab 07/20/18 lidocaine [Lidoderm] 1 patch TOPICAL Q24H #4 patch 07/20/18 prochlorperazine maleate 5 mg 5 mg PO Q8H PRN PRN #30 tab-cap 07/20/18 tablet sumatriptan 100 mg tablet 100 mg PO PRN #10 tab 07/20/18 topiramate 100 mg tablet 100 mg PO .QAM #90 tab 07/20/18 Allergies Allergy/AdvReac Type Severity Reaction Status Date / Time acetaminophen [From Tylenol] Allergy Severe Anaphylaxsi Verified 07/20/18 13:06 s aspirin Allergy Severe Anaphylaxsi Verified 07/20/18 13:06 s diphenhydramine HCl Allergy Severe Hives, Verified 07/20/18 13:06 [From Benadryl] throat closes egg Allergy Severe Verified 07/20/18 13:06 ibuprofen Allergy Severe Anaphylaxsi Verified 07/20/18 13:06 s lactase [From Dairy Aid] Allergy Severe anaphylaxis Verified 07/20/18 13:06 naproxen sodium [From Aleve] Allergy Severe Anaphylaxsi Verified 07/20/18 13:06 s rice Allergy Severe Anaphylaxsi Verified 07/20/18 13:06 s wheat Allergy Severe throat Verified 07/20/18 13:06 swells avocado [Avocado] Allergy Intermediate unknown Verified 07/20/18 13:06 latex Allergy Intermediate Skin Rash Verified 07/20/18 13:06 kiwi Allergy Unknown unknown Verified 07/20/18 13:06 gluten AdvReac Severe throat Verified 07/20/18 13:06 closes up oxycodone [Oxycodone] AdvReac Intermediate BAD JEFFERSON Verified 07/20/18 13:06 zonisamide AdvReac Intermediate NIGHTMARES Verified 07/20/18 13:06 General LIBBY: 2 Review of Systems Review of Systems All systems reviewed & are unremarkable except as noted in HPI and below PFSH Social History Smoking/Tobacco Use Status: Never Alcohol Intake: never Drug use: Occasionally Substance use type: does not use Household members: other Details: 3 adults Housing: house Number of Children: 2 current occupation: works at [email or web address] What type of physical activity do you participate in: walking and regular exercise Duration: 15-30 minutes/day Frequency: 1-2 times per week Do you feel safe at home: Yes Do you feel safe in your relationship?: Yes Exam Narrative Exam Narrative: 1.Const: Well-nourished, Well-developed, appearing stated age 2.Eyes: PERRL, no conjunctival injection, and symmetrical lids. 3.ENT: Atraumatic external nose and ears. Moist MM. Neck: Symmetric, trachea midline, No thyromegaly. 4.CVS: +S1/S2, No murmurs or gallops. Peripheral pulses 2+ and equal in all extremities. Brisk capillary refill in all extremities. 5.RESP: Unlabored respiratory effort. Clear to auscultation bilaterally. No wheezes rales or rhonchi 6.GI: Soft, Nondistended, No hepatosplenomegaly. No guarding or rebound. Mild left-sided abdominal tenderness. No pain at McBurney's point, negative Sands sign. No CVA tenderness. No evidence of significant deformity or abnormality. No pain out of proportion. No suprapubic tenderness or pelvic tenderness on palpation. 7.MSK: Normocephalic/Atraumatic, Extremities w/o deformity or ttp No cyanosis or clubbing, Normal movement of all extremities 8.Skin: Warm, Dry. No rashes or lesions. 9.Neuro: circuit court judge II-XII grossly intact. Sensation grossly intact, no focal neurologic deficits. 10.Psych: (AAO) x3. Appropriate mood and affect
[2018-07-20 13:03] VITALS: BP 126/81; PULSE 96; RESP 20; TEMP 36.8; O2SAT 98
--- NOTE | 2018-07-20 13:13 | DI.CT_ITS ---
SYMPTOMS/DIAGNOSIS: NOTABLE LEFT FLANK PAIN AND LEFT LOWER QUADRANT PAIN CT SCAN OF THE ABDOMEN AND PELVIS: CT scan of the abdomen and pelvis was performed without intravenous or oral contrast material. Comparison is 07/19/17. The visualized lung bases are clear. The lack of IV contrast does limit evaluation of the abdominal and pelvic organs. The unenhanced liver, spleen and pancreas are unremarkable. The gallbladder is negative. There is no biliary ductal dilatation. There are hypodense nodules seen on the adrenal glands, which appear stable and likely reflect adenomas. There is a single nonobstructing stone in each kidney, the largest is in the left mid pole and measures 3 mm in diameter. No ureterolithiasis or hydronephrosis is identified. The urinary bladder is intact. The patient appears to be status post hysterectomy. The bowel shows no evidence of obstruction or inflammation. There is a normal appendix present. No significant abdominal or pelvic adenopathy, ascites or pneumoperitoneum is seen. The aorta is of normal caliber. Degenerative changes are seen in the spine, particularly at L5-S1. IMPRESSION: 1. Bilateral nephrolithiasis. 2. No evidence of renal obstruction. 3. No evidence of an acute abdomen. The findings were discussed with the Emergency Department on the date of the examination.
[2018-07-20] MEDS: Normal Saline 1,000 ML 1000 ML IV (13:51)
[2018-07-20] MEDS: MORPHine 10 MG/ML VIAL 4 MG IVP (13:55)
[2018-07-20 13:59] LABS: Abs Immature Grans 0.01 k/cumm (0.0-0.09); Absolute Basophil Count 0.02 k/cumm (0.0-0.2); Absolute Lymphocyte Count 1.43 k/cumm (1.2-3.4); Absolute Neutrophil Count 5.37 k/cumm (1.2-6.7); Basophils % 0.3; Eosinophils % 2.7; HCT 41.6 % (36.0-46.0); HGB 13.9 g/dL (12.0-15.5); Immature Grans % 0.1; Mean Corp. HGB Concentration 33.4 g/dL (32.0-36.0); Mean Corpuscular Hemoglobin 31.6 pg (27.0-33.0); Mean Corpuscular Volume 94.5 fL (80-95); Mean Platelet Volume 10.4 fL (8.0-11.0); Monocytes % 6.6; Neutrophils % 71.3; Platelet Count 166 x1000/uL (130-400); White Blood Cell Count 7.53 k/cumm (4.4-10.8)
[2018-07-20 14:16] LABS: ALT 30 U/L (12-78); AST 16 U/L (15-37); Albumin 3.3 g/dL (3.4-5.0); Alkaline Phosphatase 175 U/L (46-116); Anion Gap 4.5 mmol/L (3-11); BUN 13 mg/dL (7-18); Bilirubin, Total 0.4 mg/dL (0.2-1.0); CO2 28.5 mmol/L (21.0-32.0); CREATININE 0.86 mg/dL (0.55-1.02); Chloride 108 mmol/L (98-107); Glucose 139 mg/dL (70-100); Lipase 185 U/L (73-393); Potassium 3.7 mmol/L (3.5-5.1); Sodium 141 mmol/L (136-145); Total Protein 6.5 g/dL (6.4-8.2)
[2018-07-20 14:23] LABS: Calcium 8.1 mg/dL (8.5-10.1)
[2018-07-20 14:34] LABS: Bilirubin Negative (Negative); Blood Negative (Negative); Clarity Cloudy; Glucose Negative (Negative); Ketones Negative (Negative); Leukocyte Esterase Negative (Negative); Nitrite Negative (Negative)
[2018-07-20] MEDS: Lidocaine 5% Patch 1 PATCH TP (14:34)
[2018-07-20 15:13] VITALS: BP 115/71; PULSE 75; RESP 18; TEMP 36.6; O2SAT 98
[2018-07-20] MEDS: Cyclobenzaprine 10 MG TAB PO (15:24)
== END 2018-07-20 15:27 | disposition home or self-care (01) ==
PROVIDERS: Emergency Provider Student in an Organized Health Care Education/Training Program; PCP Nurse Practitioner
DX: R10.12 Left upper quadrant pain (principal); R10.32 Left lower quadrant pain; S39.012A Strain of muscle, fascia and tendon of lower back, initial encounter; X58.XXXA Exposure to other specified factors, initial encounter; E83.51 Hypocalcemia; Z87.442 Personal history of urinary calculi
CPT/HCPCS: 36415; 80053; 83690; 96361; 96374; 99284; 74176; 81003; 85025; J2270

== ENCOUNTER 2018-08-18 02:00 | Outpatient (CLI) | payer MEDICAID, SELFPAY ==
[2018-08-18 13:51] LABS: ALT 35 U/L (12-78); AST 21 U/L (15-37); Albumin 3.4 g/dL (3.4-5.0); Alkaline Phosphatase 189 U/L (46-116); Anion Gap 7.9 mmol/L (3-11); BUN 10 mg/dL (7-18); Bilirubin, Total 0.6 mg/dL (0.2-1.0); CO2 26.1 mmol/L (21.0-32.0); CREATININE 0.84 mg/dL (0.55-1.02); Calcium 8.4 mg/dL (8.5-10.1); Calculated LDL 110; Chloride 110 mmol/L (98-107); Cholesterol 189 mg/dL (50-200); Glucose 126 mg/dL (70-100); HDL Cholesterol 63 mg/dL (40-60); Potassium 4.3 mmol/L (3.5-5.1); Sodium 144 mmol/L (136-145); Total Protein 6.3 g/dL (6.4-8.2); Triglyceride 80 mg/dL (30-150)
== END 2018-08-18 02:20 ==
PROVIDERS: PCP Nurse Practitioner; Visit Provider Nurse Practitioner
DX: E78.00 Pure hypercholesterolemia, unspecified (principal)
CPT/HCPCS: 36415; 80053; 80061; 83721

== ENCOUNTER 2018-08-24 00:51 | Outpatient (CLI) | payer MEDICAID, SELFPAY ==
--- NOTE | 2018-08-24 11:45 | DI.MAMMO_ITS ---
SYMPTOM/DIAGNOSIS: SCREENING, Z12.31 MAMMOGRAMS: Mammograms were interpreted according to the usual protocol including computer analysis with CAD system, tomosynthesis and C view imaging. Comparison is with prior examinations. There are scattered fibronodular densities in the breast, which appear stable. No suspicious masses or microcalcifications are seen. There has been no significant change compared to the prior examinations. IMPRESSION: No evidence for malignancy. Yearly mammography is recommended. Category 1, breast density B. SA ASSESSMENT OF FINDINGS: Negative. Category 1. Patient will receive a letter notifying them of these results. BI-RADS category B. There are scattered areas of fibroglandular density.
== END 2018-08-24 01:11 ==
PROVIDERS: PCP Nurse Practitioner; Visit Provider Nurse Practitioner
DX: Z12.31 Encounter for screening mammogram for malignant neoplasm of breast (principal)
CPT/HCPCS: 77063; 77067

== ENCOUNTER 2018-08-31 15:25 | Outpatient (CLI) | payer MEDICAID, SELFPAY | END 2018-08-31 15:45 | PROVIDERS: PCP Nurse Practitioner; Visit Provider Nurse Practitioner | DX: R74.8 Abnormal levels of other serum enzymes (principal); R79.9 Abnormal finding of blood chemistry, unspecified | CPT/HCPCS: 36415; 82977; 84075; 84080 ==

== ENCOUNTER 2018-09-05 14:24 | Outpatient (CLI) | payer MEDICAID, SELFPAY ==
[2018-09-05 17:11] LABS: Vitamin D 25 Total 21.6 ng/ml (30-100)
[2018-09-06 10:13] LABS: Parathyroid Hormone,Intact 70 pg/ml (19-88)
== END 2018-09-05 14:44 ==
PROVIDERS: PCP Nurse Practitioner; Visit Provider Nurse Practitioner
DX: R74.8 Abnormal levels of other serum enzymes (principal); R79.9 Abnormal finding of blood chemistry, unspecified
CPT/HCPCS: 36415; 82306; 83970

== ENCOUNTER 2018-12-06 00:34 | Emergency (ER) | payer MEDICAID, SELFPAY ==
[2018-12-06 00:37] VITALS: BP 150/85; PULSE 75; RESP 18; TEMP 36.6; O2SAT 98
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
[2018-12-06] MEDS: Lactated Ringers 1,000 ML 1000 ML IV (00:58)
[2018-12-06] MEDS: Ketorolac 30 MG/ML VIAL IVP (00:58)
[2018-12-06 01:19] LABS: Abs Immature Grans 0.01 k/cumm (0.0-0.09); Absolute Basophil Count 0.04 k/cumm (0.0-0.2); Absolute Eosinophil Count 0.24 k/cumm (0.0-0.7); Absolute Lymphocyte Count 2.84 k/cumm (1.2-3.4); Absolute Monocyte Count 0.66 k/cumm (0.11-0.7); Absolute Neutrophil Count 2.73 k/cumm (1.2-6.7); Basophils % 0.6; Eosinophils % 3.7; HCT 40.9 % (36.0-46.0); Immature Grans % 0.2; Lymphocytes % 43.6; Mean Corp. HGB Concentration 34.2 g/dL (32.0-36.0); Mean Corpuscular Hemoglobin 31.4 pg (27.0-33.0); Mean Corpuscular Volume 91.7 fL (80-95); Mean Platelet Volume 10.6 fL (8.0-11.0); Monocytes % 10.1; Neutrophils % 41.8; Platelet Count 168 x1000/uL (130-400); RBC 4.46 m/cumm (4.00-5.20); White Blood Cell Count 6.52 k/cumm (4.4-10.8)
[2018-12-06 01:24] LABS: ALT 25 U/L (14-59); AST 23 U/L (15-37); Albumin 3.7 g/dL (3.4-5.0); Alkaline Phosphatase 153 U/L (46-116); Anion Gap 8.6 mmol/L (3-11); BUN 15 mg/dL (7-18); Bilirubin, Total 0.5 mg/dL (0.2-1.0); CO2 25.4 mmol/L (21.0-32.0); Calcium 8.6 mg/dL (8.5-10.1); Chloride 108 mmol/L (98-107); Glucose 141 mg/dL (70-100); Lipase 245 U/L (73-393); Potassium 3.8 mmol/L (3.5-5.1); Sodium 142 mmol/L (136-145); Total Protein 6.8 g/dL (6.4-8.2)
[2018-12-06 01:35] LABS: Bilirubin Negative (Negative); Blood Negative (Negative); Clarity Clear (Clear); Glucose Negative (Negative); Ketones Negative (Negative); Leukocyte Esterase Small (Negative); Nitrite Negative (Negative)
[2018-12-06 01:42] LABS: Bacteria Rare HPF (Negative); C & S Indicated? No/Sq. Contamination; Casts Negative LPF (Negative); Crystals Many Amorphous HPF (Negative); Epithelial Cells Moderate HPF (Negative); Mucus Negative (Negative); RBC 0-2 (0-2); WBC 0-2 HPF (0-5)
[2018-12-06] MEDS: ACETAMINOPHEN 1,000 MG/100 ML BTL 400 MG IVPB (01:57)
[2018-12-06 02:49] VITALS: BP 124/77; PULSE 87; RESP 18; TEMP 36.9; O2SAT 97
== END 2018-12-06 02:48 | disposition home or self-care (01) ==
PROVIDERS: Emergency Provider Emergency Medicine; PCP Nurse Practitioner
DX: R10.11 Right upper quadrant pain (principal)
CPT/HCPCS: 36415; 80053; 83690; 96361; 96374; 96375; 99284; 81003; 81015; 85025; J0131; J1885

== ENCOUNTER 2018-12-07 01:03 | Outpatient (CLI) | payer MEDICAID, SELFPAY ==
--- NOTE | 2018-12-07 07:20 | DI.US_ITS ---
EXAM: US ABDOMEN CLINICAL HISTORY: Generalized abdominal pain after eating,R10.9, RUQ AND EPIGASTRIC PAIN TECHNIQUE: Ultrasound performed using standard protocol. COMPARISON: RENAL ULTRASOUND(P) from 07/09/2017 FINDINGS: The aorta and vena cava are normal. The liver is echogenic consistent with fatty infiltration and no evidence of hepatomegaly. The gallbladder wall is 3-5 mm in thickness. There is a positive Sands's sign. There are multiple small gallstones in the gallbladder, the largest measuring up to 7 mm. There is no evidence of pericholecystic fluid. There is no evidence of ductal dilatation. The pancreas is unremarkable. The spleen is top limits of normal size in size to mildly enlarged. The kidneys are unremarkable. There is no evidence of abdomin al mass or free fluid. IMPRESSION: Note is made of multiple small gallstones in the gallbladder. There is no evidence of pericholecystic fluid. Fatty infiltration of the liver is evident.
[2018-12-07 08:18] LABS: HCT 41.2 % (36.0-46.0); Mean Corpuscular Hemoglobin 31.4 pg (27.0-33.0); Mean Corpuscular Volume 92.4 fL (80-95); Mean Platelet Volume 10.1 fL (8.0-11.0); Platelet Count 137 x1000/uL (130-400); RBC 4.46 m/cumm (4.00-5.20); RBC Distribution Width 12.8 % (11.7-14.6); White Blood Cell Count 5.38 k/cumm (4.4-10.8)
[2018-12-07 08:32] LABS: PTT Activated 25.9 sec (21.0-31.4); Prothrombin Time 10.1 sec (9.3-11.0)
== END 2018-12-07 01:23 ==
PROVIDERS: PCP Nurse Practitioner; Visit Provider Nurse Practitioner
DX: T14.8XXA Other injury of unspecified body region, initial encounter; R10.11 Right upper quadrant pain; R10.13 Epigastric pain; K80.70 Calculus of gallbladder and bile duct without cholecystitis without obstruction; K76.0 Fatty (change of) liver, not elsewhere classified
CPT/HCPCS: 36415; 85027; 76700; 85610; 85730

== ENCOUNTER 2018-12-20 06:17 | Day surgery (SDC) | payer MEDICAID, SELFPAY ==
[2018-12-20] VITALS (9 sets, daily range): BP systolic 107–127; BP diastolic 60–78; PULSE 73–86; RESP 16–23; TEMP 36.1–36.6; O2SAT 95–100
[2018-12-20] MEDS: Lactated Ringers 1,000 ML 80 ML IV (07:00)
[2018-12-20] MEDS: ceFAZolin 2 GM/50 ML BAG IVPB (07:42)
--- NOTE | 2018-12-20 08:35 | GB_PTH ---
PATIENT: Chely Michael LOC: [facility] U#:[id number] AGE/SX: 48/F ROOM: RE12/20/[address]: Bhargavi Menjivar MD : [id number] BED: DIS: 12/20/2018 SPEC #: [id number] RECD: 12/20/18 12:39 STATUS: RICK REQ #: [id number] PATTI: 12/20/18 08:[address]: Bhargavi Menjivar DEPT: Surgical Specimen RECD BY: Gala Britt ENTERED: 12/20/18 12:39 SP TYPE: GB OTHR DR: Margaret Luz APRN Tissues: 1 - GALLBLADDER Procedures: GROSS AND MICRO LEVEL 3 Comments: [id number]
--- NOTE | 2018-12-20 08:46 | PDOC.DSDIS_ITS ---
Discharge Plan Disposition Patient Disposition: HOME Condition: Good Discharge Details Reason For Visit: Laparoscopic cholecystectomy Attending Provider: Bhargavi Menjivar Primary Care Provider: Margaret Luz Home Meds and New Rx's Prescriptions: New acetaminophen-codeine 120 mg-12 mg /5 mL (5 mL) Solution 10 ml PO Q4H PRN PRN (Reason: pain) Qty: 200 RF: 0 Continued lamotrigine [Lamictal] 25 mg tablet 100 mg PO HS RF: 0 omeprazole 40 mg capsule,delayed release(DR/EC) 40 mg PO DAILY RF: 0 venlafaxine [Effexor XR] 150 mg capsule,extended release 24hr 150 mg PO DAILY RF: 0 atorvastatin 20 mg tablet 20 mg PO QHS Qty: 90 RF: 3 prochlorperazine maleate 5 mg tablet 5 mg PO Q8H PRN PRN (Reason: headache and nausea) Qty: 30 RF: 6 sumatriptan succinate 100 mg tablet 100 mg PO PRN Qty: 10 RF: 6 topiramate [Topamax] 100 mg tablet 100 mg PO .QAM Qty: 90 RF: 5 zolpidem [Ambien] 10 MG tablet 10 mg PO HS Qty: 30 RF: 1 clonazepam 0.5 MG tablet,disintegrating 0.5 mg PO PRN Qty: 30 RF: 0 epinephrine [EpiPen 2-Sandeep] 0.3 mg/0.3 mL auto-injector 0.3 mg IM DAILY PRN (Reason: hypersensitivity reaction) Qty: 2 RF: 6 amitriptyline 25 mg tablet 25 mg PO DAILY Qty: 30 RF: 3 cholecalciferol (vitamin D3) [Vitamin D3] 2,000 unit Tablet 2,000 unit PO DAILY RF: 0 calcium carbonate [Calcium 500] 500 mg calcium (1,250 mg) Tablet 500 mg PO DAILY RF: 0 Discharge Instructions Additional Instructions: The top bandage can be removed tomorrow. The steri strips will usually stick for about a week. When the edges start to curl up, they can be removed. It is okay to shower tomorrow, the water can run over the steri strips Do not swim or soak in a tub for two weeks Call for any concerns including fever, increased pain, vomiting, incision redness or drainage. Do not lift more than 15 pounds for two weeks. Walking and stairs are fine. Do not drive if on narcotic pain meds or if limited by pain. May use Tylenol alternating with ibuprofen for pain control. Ice is also an option. The maximum dose for Tylenol is 4000 mg/day. May use ibuprofen 800 mg every 8 hours as needed. If concerned about constipation, you may use a stool softener or milk of magnesia. Referrals: Bhargavi Menjivar MD [ [facility] STAFF PHYSICIAN] - (Return in 10-14 days for postop check) Activity:: Do not lift more than 15 pounds for two weeks Remove Dressings/Wound Care:: 24 hours Shower/Bathe:: 24 hours Diet:: Low fat for two weeks Discharge Orders Discharge Orders: Discharge Order (Routine); Ordered 12/20/18 Ordered By: Bhargavi Menjivar DS: Diagnosis Discharge Diagnosis (1) Cholelithiasis: Status: Acute
--- NOTE | 2018-12-20 10:26 | ROE_ITS ---
DATE OF PROCEDURE: December 20, 2018 PREOPERATIVE DIAGNOSIS: Symptomatic cholelithiasis. POSTOPERATIVE DIAGNOSIS: Same. PROCEDURE: Laparoscopic cholecystectomy. SURGEON: Bhargavi Menjivar M.D. POSTAL DELIVERY OFFICER: Sheryl Shepherd ANESTHESIA: Local and general. INDICATIONS: This is a 48-year-old woman with right upper quadrant pain worsened by eating. Gallbladder ultrasound shows stones. PROCEDURE: She was placed supine on the operating table and under general anesthetic was prepped and draped sterilely. A 5 mm incision was made to the left of the umbilicus and the abdomen entered under direct visualization. A CO2 pneumoperitoneum was begun and she was placed in reverse Trendelenburg position. The epigastric and two lateral ports were placed under direct visualization after injecting local anesthetic. The gallbladder was not acutely inflamed. The patient was noted to have a large left liver lobe, but this did not significantly impact visualization. The fundus was pulled up over the liver. Some omental adhesions were taken down with hook cautery. The peritoneum overlying the [place] of [place] was dissected free with hook cautery. The infundibulum was retracted laterally. The cystic artery was visualized going directly onto the gallbladder and was isolated using [place] instrument. Two clips were applied proximally and one distally and the artery divided. The cystic duct was isolated and visualized going directly onto the gallbladder. There were some stones within the neck of the gallbladder that were milked out with a [place] dissector. The cystic duct was slightly wide at this point, probably because I was close to the infundibulum. I used the large clip dry cell assembly supervisor to place two clips distally, one proximally and then divided it. There was also a small vascular branch that was clipped and may have been actually part of the omentum that had been adherent. The gallbladder was then dissected off the liver bed with hook cautery. A small vascular branch in the gallbladder fossa was clipped. Inspection of the operative site revealed no bleeding or bile leak. The gallbladder was removed through the epigastric incision in an EndoCatch bag. The ports were removed with no evidence of port site bleeding. The CO2 was released. The skin at all port sites was closed with a #4-0 Monocryl subcuticular stitch. She tolerated the procedure well and was stable to recovery. cc: Margaret Luz N.P.
== END 2018-12-20 11:40 | disposition home or self-care (01) ==
PROVIDERS: PCP Nurse Practitioner; Visit Provider Surgery
PROC: 0FT44ZZ Resection of Gallbladder, Percutaneous Endoscopic Approach (ICD-10-PCS; CPT 47562; principal; 2018-12-20 07:30)
DX: K80.10 Calculus of gallbladder with chronic cholecystitis without obstruction (principal); K21.9 Gastro-esophageal reflux disease without esophagitis; G47.33 Obstructive sleep apnea (adult) (pediatric)
CPT/HCPCS: 47562; 88304; J0131; J0690; J1100; J1885; J2405; J3475

== ENCOUNTER 2018-12-21 16:02 | Emergency (ER) | payer MEDICAID, SELFPAY ==
[2018-12-21 16:11] VITALS: BP 154/89; PULSE 90; RESP 16; TEMP 36.5; O2SAT 99
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
--- NOTE | 2018-12-21 17:40 | W.PM.PROGNOT ---
Date of Service Date of service: 12/21/18 Time of Service: 17:40 Assessment and Plan Assessment and plan (1) Cholelithiasis: Status: Acute (2) GERD (gastroesophageal reflux disease): Status: Chronic (3) S/P laparoscopic cholecystectomy: Status: Acute Assessment and plan: labs and CT are nl. Favor poor postOp pain control. Pt should get Rx for ultram filled in am. She is going to get fluids/ pain meds and antiemetics tonight. I don't see any signs of infections- I don't see that she requires abx. I don't see any concern for DVT or UTI. Will check back w/ her tomorrow and see how she is feeling. -She is also very constipated on CT and needs to take some MOM. Will also add in stool softner Subjective Subjective Interval history since last seen: pt is crying; appears to be in lost of pain. She c/o pain from chest to lower abdom. She has been vomiting and can't keep fluids down. She was on codeine for pain control. She has intolerance of tylenol and NSAID's. She is also intolerant of oxycodone. I did call in an Rx for ultram 50mg earlier today. Her abdom is not distended. Incisions are c/d/i. Her bowel sounds are hypoactive. She is c/o chest pain. Her lungs are CTA b/l. she denies any burning when she urinates. She is not c/o pain in her LE. Exam Narrative Exam Narrative: see above Objective Objective Clinical Data: Vital Signs Temperature 36.5 C 12/21/18 16:11 Temperature Source Temporal Artery Scan 12/21/18 16:11 Pulse 90 12/21/18 16:11 Respiratory Rate 16 12/21/18 16:11 Respiratory Effort 12/21/18 16:16 Blood Pressure 154/89 H 12/21/18 16:11 Blood Pressure Position Sitting 12/21/18 16:11 Pulse Oximetry 99 12/21/18 16:11 Oxygen Delivery Method Room Air 12/21/18 16:11 Oxygen Flow Rate 0 12/21/18 16:11 Pain Level 10 12/21/18 16:11 Intake & Output 12/20/18 12/21/18 12/21/18 23:59 11:59 23:59 Weight 104.78 kg
[2018-12-21] MEDS: Ondansetron 4 MG/2 ML VIAL IVP (17:51)
[2018-12-21] MEDS: Normal Saline 1,000 ML 1000 ML IV (17:52)
[2018-12-21 17:53] LABS: Abs Immature Grans 0.02 k/cumm (0.0-0.09); Absolute Basophil Count 0.03 k/cumm (0.0-0.2); Absolute Eosinophil Count 0.28 k/cumm (0.0-0.7); Absolute Lymphocyte Count 2.32 k/cumm (1.2-3.4); Absolute Monocyte Count 0.79 k/cumm (0.11-0.7); Absolute Neutrophil Count 5.85 k/cumm (1.2-6.7); Basophils % 0.3; HCT 43.2 % (36.0-46.0); HGB 14.7 g/dL (12.0-15.5); Immature Grans % 0.2; Mean Corpuscular Hemoglobin 31.3 pg (27.0-33.0); Mean Corpuscular Volume 91.9 fL (80-95); Mean Platelet Volume 10.6 fL (8.0-11.0); Monocytes % 8.5; Platelet Count 150 x1000/uL (130-400); RBC Distribution Width 12.5 % (11.7-14.6); White Blood Cell Count 9.29 k/cumm (4.4-10.8)
[2018-12-21 18:04] LABS: ALT 44 U/L (14-59); AST 49 U/L (15-37); Albumin 3.4 g/dL (3.4-5.0); Alkaline Phosphatase 154 U/L (46-116); Anion Gap 7.6 mmol/L (3-11); BUN 9 mg/dL (7-18); Bilirubin, Total 0.7 mg/dL (0.2-1.0); CO2 26.4 mmol/L (21.0-32.0); CREATININE 0.91 mg/dL (0.55-1.02); Calcium 8.3 mg/dL (8.5-10.1); Chloride 110 mmol/L (98-107); Glucose 122 mg/dL (70-100); Lipase 149 U/L (73-393); Magnesium 1.9 mg/dL (1.8-2.4); Potassium 3.6 mmol/L (3.5-5.1); Sodium 144 mmol/L (136-145); Total Protein 6.5 g/dL (6.4-8.2)
[2018-12-21] MEDS: Omnipaque 350 MG/ML 100 ML BTL IJ (19:07)
--- NOTE | 2018-12-21 19:15 | DI.CT_ITS ---
EXAM: CT ABDOMEN PELVIS W CLINICAL HISTORY: Postoperative abdominal pain. TECHNIQUE: COMPARISON: CT ABDOMEN PELVIS W from 07/20/2018 FINDINGS: CT examination of the abdomen and pelvis was performed with intravenous infusion of 100 cc of Omnipaq ue 350. Trace pneumoperitoneum and gas in the anterior abdominal wall noted consistent with recent c holecystectomy. Lung bases are clear except for minimal atelectasis. Mild edema in gallbladder gricelda a with vascular clips present. No fluid collection seen in the gallbladder fossa or elsewhere in the abdominal cavity. Liver spleen and pancreas appear normal. No biliary dilatation. Nonobstructing left renal stone noted. Low-attenuation bilateral subcentimeter adrenal nodules noted consistent wit h adenoma. Abdominal aorta of normal diameter with no major vascular abnormality seen. No significa nt abdominal wall hernia seen. No abdominal or pelvic adenopathy. Normal appendix. No focal bowel pathology seen. IMPRESSION: Findings consistent with recent cholecystectomy. No significant fluid collection or other evidence o f pathologic process.
--- NOTE | 2018-12-21 19:28 | DI.VRAD_ITS ---
PROCEDURE INFORMATION: Exam: CT Abdomen And Pelvis With Contrast Exam date and time: 12/21/2018 19:09 Clinical history: 48 years old, female; Abdominal pain; Generalized; Prior surgery; Surgery date: Post-operative (0-2 days); Surgery type: S/P elise yesterday. TECHNIQUE: Imaging protocol: Computed tomography of the abdomen and pelvis with intravenous contrast. Radiation optimization: All CT scans at this facility use at least one of these dose optimization techniques: automated exposure control; mA and/or kV adjustment per patient size (includes targeted exams where dose is matched to clinical indication); or iterative reconstruction. Contrast material: OMNIPAQUE 350; Contrast volume: 100 ml; Contrast route: IV; COMPARISON: CT ABDOMEN PELVIS W 07/20/2018 13:53 FINDINGS: Lungs: Minimal dependent subsegmental atelectasis. Liver: No hepatic masses. Minimal periportal edema in the liver. Gallbladder and bile ducts: Cholecystectomy. Expected mild edema in the gallbladder fossa, no biloma, seroma, abscess or hematoma. Small amount of pneumoperitoneum consistent with recent cholecystectomy. No significant biliary dilation or radiopaque stones in the biliary tree. Pancreas: No ductal dilation. No masses. Spleen: Mild splenomegaly is again seen. Adrenals: Subcentimeter nodules in the adrenal glands, statistically probably adenomas. Follow-up as per institutional protocol. Kidneys and ureters: Subcentimeter left nephrolithiasis. No renal masses or hydronephrosis bilaterally. Nonobstructive right nephrolithiasis. Stomach and bowel: No obstruction. No mucosal thickening. Appendix: No evidence of appendicitis. Intraperitoneal space: No free air. No significant fluid collection. Vasculature: No abdominal aortic aneurysm. Lymph nodes: No significantly enlarged lymph nodes. Bladder: Unremarkable as visualized. Reproductive: Hysterectomy. Bones/joints: Degenerative changes in the spine. No acute fracture or subluxation. Soft tissues: Minor subcutaneous edema in the ventral abdominal wall compatible with recent surgery. IMPRESSION: 1. Cholecystectomy. Expected mild edema in the gallbladder fossa, no postoperative collections. 2. Small amount of pneumoperitoneum consistent with recent cholecystectomy. 3. Incidental findings as described. Dictated and Authenticated by: Stacy Walsh MD. Ordering:WINSOME Pedro MD
[2018-12-21 19:58] LABS: Amylase 47 U/L (25-115)
[2018-12-21 20:09] LABS: Bilirubin Negative (Negative); Blood Negative (Negative); Clarity Clear (Clear); Glucose Negative (Negative); Ketones Negative (Negative); Leukocyte Esterase Negative (Negative); Nitrite Negative (Negative); Urobilinogen 0.2 EU/dL (Up TO 0.2)
== END 2018-12-21 20:30 | disposition home or self-care (01) ==
PROVIDERS: Emergency Provider Nurse Practitioner Family; PCP Nurse Practitioner
DX: G89.18 Other acute postprocedural pain (principal); R10.9 Unspecified abdominal pain
CPT/HCPCS: 36415; 80053; 83690; 96361; 96374; 96375; 99285; NC; 74177; 81003; 82150; 83735; 85025; 99284; J2405; J3490

== ENCOUNTER 2019-01-04 00:26 | Outpatient (CLI) | payer MEDICAID, SELFPAY ==
--- NOTE | 2019-01-04 16:27 | DI.DEXA_ITS ---
EXAM: XR DEXA BONE DENSITY W/WO LAMBERTO INDICATION: elevated bone alk phos, R79.89 ABNORMAL FINDINGS BLOOD CHEMISTRY. COMPARISON: No exams were available for comparison TECHNIQUE: 2D digital imaging was performed. FINDINGS: The scanogram is unremarkable. For the left hip, a T-score of 0 and a Z-score of 0.5 are within the n ormal range. For the lumbar spine, a T-score of 1.0 and a Z-score of 1.8 are within the normal range . For the left forearm, a T-score of 1.1 and a Z-score of 1.8 are within the normal range.
== END 2019-01-04 00:46 ==
PROVIDERS: PCP Nurse Practitioner; Visit Provider Nurse Practitioner
DX: R79.89 Other specified abnormal findings of blood chemistry (principal); Z13.820 Encounter for screening for osteoporosis
CPT/HCPCS: 77080

== ENCOUNTER 2019-02-23 11:10 | Outpatient (CLI) | payer MEDICAID, SELFPAY ==
[2019-02-23 13:11] LABS: Alkaline Phosphatase 126 U/L (46-116)
== END 2019-02-23 11:30 ==
PROVIDERS: PCP Nurse Practitioner; Visit Provider Nurse Practitioner
DX: R79.89 Other specified abnormal findings of blood chemistry (principal)
CPT/HCPCS: 36415; 84075

== ENCOUNTER 2019-03-28 10:50 | Outpatient (REF) | payer MEDICAID, SELFPAY | END 2019-03-28 11:10 | LOC: LBN 10:50 | PROVIDERS: PCP Nurse Practitioner; Visit Provider Nurse Practitioner Gerontology | DX: N30.10 Interstitial cystitis (chronic) without hematuria (principal); N32.89 Other specified disorders of bladder | CPT/HCPCS: 87077; 87086; 87186 ==

== ENCOUNTER 2019-04-05 16:54 | Inpatient (IN) | payer MEDICAID, SELFPAY ==
[2019-04-05 16:59] VITALS: BP 136/85; PULSE 84; RESP 18; TEMP 35.3; O2SAT 99
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
[2019-04-05 18:29] LABS: Abs Immature Grans 0.01 k/cumm (0.0-0.09); Absolute Basophil Count 0.04 k/cumm (0.0-0.2); Absolute Eosinophil Count 0.25 k/cumm (0.0-0.7); Absolute Monocyte Count 0.53 k/cumm (0.11-0.7); Absolute Neutrophil Count 3.42 k/cumm (1.2-6.7); Basophils % 0.6; Eosinophils % 3.8; HCT 42.9 % (36.0-46.0); HGB 14.5 g/dL (12.0-15.5); Immature Grans % 0.2 %; Lymphocytes % 35.1; Mean Corp. HGB Concentration 33.8 g/dL (32.0-36.0); Mean Corpuscular Hemoglobin 30.6 pg (27.0-33.0); Mean Corpuscular Volume 90.5 fL (80-95); Mean Platelet Volume 10.3 fL (8.0-11.0); Monocytes % 8.1; Neutrophils % 52.2; Platelet Count 161 x1000/uL (130-400); RBC 4.74 m/cumm (4.00-5.20); RBC Distribution Width 12.8 % (11.7-14.6); White Blood Cell Count 6.55 k/cumm (4.4-10.8)
[2019-04-05 18:43] LABS: Salicylate < 2.8 mg/dL (2.8-20.0)
[2019-04-05 18:44] LABS: ALT 31 U/L (14-59); AST 19 U/L (15-37); Albumin 3.8 g/dL (3.4-5.0); Alkaline Phosphatase 155 U/L (46-116); Anion Gap 9.6 mmol/L (3-11); BUN 11 mg/dL (7-18); Bilirubin, Total 0.7 mg/dL (0.2-1.0); CO2 24.4 mmol/L (21.0-32.0); CREATININE 0.72 mg/dL (0.55-1.02); Calcium 8.5 mg/dL (8.5-10.1); Chloride 109 mmol/L (98-107); Glucose 134 mg/dL (74-106); Potassium 3.5 mmol/L (3.5-5.1); Sodium 143 mmol/L (136-145); TSH (W/Ref FT4) 1.14 uIU/mL (0.36-3.74); Total Protein 6.7 g/dL (6.4-8.2)
[2019-04-05 18:57] LABS: Acetaminophen < 2 ug/mL (10-30)
[2019-04-05 19:09] LABS: Bilirubin Negative (Negative); Blood Negative (Negative); Clarity Cloudy (Clear); Glucose Negative (Negative); Ketones Negative (Negative); Leukocyte Esterase Negative (Negative); Nitrite Negative (Negative)
--- NOTE | 2019-04-05 19:14 | PDOC.MHCN_ITS ---
Mental Health Crisis Note Presenting Issue How did you arrive at the ED and why did you come: Nuria came with SI. Nuria has Dissociative Identity Disorder. One of the clt's others was cutting herself in [facility] parking lot in [place], [place]. Nuria lives in [facility] and was taken to [facility] for further assessment. Precipitating Factors Clsonya doesn't think in her current state of mind that she is unable to contract for safety in an unsecured settings. Nuria is requesting to be placed in a secure psych to keep herself safe. Disposition BEHAVIOR: Nuria has been cooperative but withdrawn at times. EYE CONTACT: Eye contact was intermittent. MOOD: The clt appeared anxious. AFFECT: clt's affect was sad. APPETITE: Appetite unk SLEEP(trouble falling/staying asleep: Unk Plan Clt is willing to be voluntarily placed in a secure psych to get appropriate treatment.
[2019-04-05 19:20] LABS: *AMPHETAMINES SCREEN URINE Negative (Negative); *BARBITURATES SCREEN URINE Negative (Negative); *BENZODIAZEPINES SCREEN URINE Negative (Negative); Cannabinoids THC POSITIVE (Negative); Cocaine Screen,Urine Negative (Negative); METHADONE URINE SCREEN Negative (Negative); OPIATES URINE SCREEN Negative (Negative)
--- NOTE | 2019-04-05 19:30 | PDOC.MHCN ---
Mental Health Crisis Note <Annie Manning - Last Filed: 04/12/19 11:50> Presenting Issue How did you arrive at the ED and why did you come: Nuria came to ED with SI issues with a plan to cut. Clt had made superficial cuts on arm. Clt has a dx of Dissociative Disorder. Clt claims that one of the alters is suicidal. Precipitating Factors Clsonya has been claiming that her alters have been hijacking her body causing her cut. Disposition BEHAVIOR: Nuria's behavior has been erratic. She was fairly stable initially but started having bounds of tearful and displaying an anxious sad affect. EYE CONTACT: Eye contact was intermittent. MOOD: Anxious AFFECT: Her affect has been sad at times APPETITE: Good appetite SLEEP(trouble falling/staying asleep: Sleeping good Plan Nuria is willing to go to psych unit under voluntary status. We are presently looking. Em Joyner appears to be interested.
[2019-04-05 19:33] LABS: Tricyclic Antidepressants POSITIVE (Negative)
--- NOTE | 2019-04-05 20:29 | NUR.NOTE ---
Nursing Note: Assumed care at 1999. In with mental health care worker to check patient's sports bra. Nothing found in bra. Patient given her colored paper and felt tip pen. Cap to pen kept with patient's belongings.
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
[2019-04-05 22:41] VITALS: BP 145/87; PULSE 79; RESP 18; TEMP 36.4; O2SAT 99
[2019-04-05] MEDS: Zolpidem 10 MG TAB PO (23:55)
[2019-04-05] MEDS: lamoTRIgine 100 MG TAB PO (23:55)
[2019-04-05] MEDS: Atorvastatin 20 MG TAB PO (23:55)
[2019-04-06] MEDS: Topiramate 100 MG TAB 200 MG PO ×2 (00:13→23:01)
[2019-04-06 00:42] VITALS: BP 145/87; PULSE 79; RESP 18; TEMP 36.4; O2SAT 99
[2019-04-06] MEDS: Omeprazole 20 MG CAPCR 40 MG PO (07:39)
[2019-04-06] MEDS: Cholecalciferol (Vitamin D3) 1,000 UNIT TAB 2000 UNITS PO (07:39)
[2019-04-06] MEDS: Calcium Carbonate 1.25 GM TAB PO (07:40)
[2019-04-06] MEDS: Topiramate 100 MG TAB PO (07:40)
[2019-04-06] MEDS: Amitriptyline 25 MG TAB 50 MG PO (07:40)
[2019-04-06] MEDS: Cephalexin 500 MG CAP PO ×3 (07:41→19:37)
--- NOTE | 2019-04-06 08:01 | PHARADMIT ---
Addendum entered by Dang Lema 04/11/19 13:36: HR-109 other VS okay no labs nursing mentioned pt wanted estrogen cream ordered during morning report, no med changes so far today but watch for possible order if pt remains here waiting for bed to become available Addendum entered by Dang Lema 04/10/19 16:13: HR-92 other VS okay no labs lidocaine patch discontinued yesterday, no med changes so far today waiting for be to open up for placement Addendum entered by Dang Lema 04/08/19 13:21: BP-140/95 HR-96 other VS okay no labs cephalexin continues, per nursing note on home med this should have been completed 04/05/2019. Made DOOR WORKER aware, watch for possible d/c. no med changes so far today waiting for placement Original Note: Admission Pharmacy Clinical Review SUICIDAL Code Status Full Code Current Weight Wgt-103.4 kg Renally Cleared and Narrow Therapeutic Index Meds CrCl~ 80.9 mL/min Meds-OK QTc Value / Action Taken QTc-445 (Elavil,Prilosec,Effexor, Tramadol) BP Control, Fever BP-145/87 Tmax- 36.4C Electrolytes reviewed Na-143 K+3.3 DVT Prophylaxis NONE Opiate Usage / Scheduled Bowel Regimen Ordered Yes NoNONE Plt/SCr for Heparin / Enoxaparin Plts-161 SCr-0.72 INR for Warfarin NA H/H stable, WBC/Bands H&H- 14.5/42.9 WBC-6.55 Antibiotic appropriateness Keflex Cultures and Sensitivities none Surgical ABX d/c within 24 hr NA DM control / Insulin Dosing BP-134 Heart Failure (Check EF%) (MAYI's, B-Block, Diuretics) none IV to PO Switch No Home Meds Reviewed Yes Home Meds Not Ordered Oxybutinin, Prazosin, Sumatriptan, EpiPen, Premarin tabs Comments
[2019-04-06 08:30] VITALS: BP 115/83; PULSE 83; RESP 18; TEMP 36.1; O2SAT 100
[2019-04-06] MEDS: Venlafaxine 150 MG CAPCR PO (08:40)
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
[2019-04-06 16:10] VITALS: BP 124/70; PULSE 76; RESP 18; TEMP 36.6; O2SAT 99
--- NOTE | 2019-04-06 17:09 | PGE_ITS ---
Date of Service Date of service: 04/06/19 Time of Service: 16:30 Assessment and Plan Assessment and plan (1) Depression: Status: Chronic Assessment and plan: patient has agreed to voluntary inpatient psychiatric care at [facility]. patient remains medically stable. is on suicidal precautions. there have been no behavioral issues. bed availability pending. will continue current medications and close monitoring (2) Discharge planning issues: Status: Acute Assessment and plan: [facility] when bed available. case management and mental health following. Subjective Subjective Patient reports: no new complaints Interval history since last seen: patient remains medically stable and denies any c/o. Exam Const General: cooperative, comfortable and no acute distress Nutritional Appearance: overweight Orientation: alert, awake, oriented to person and oriented to place HENMT Head: normal to inspection, normocephalic and atraumatic Mouth: oral mucosae normal Resp Effort & Inspection: normal respiratory effort Cardio Rate: regular rate Rhythm: regular rhythm GI Inspection: normal to inspection Palpation: soft Auscultation: normal bowel sounds Neuro General: alert, awake and oriented x3 Extrem General: normal to inspection and full ROM Psych Appearance: grossly normal Speech and Movement: speech and movement normal Affect: blunted Attitude: cooperative Thought Process: loose association Insight: poor Judgment: poor Objective Objective Clinical Data: Abnormal lab results 04/05/19 04/05/19 04/05/19 Range/Units 18:13 19:05 19:05 Chloride 109 H (98-107) mmol/L Glucose 134 H (74-106) mg/dL Alkaline Phosphatase 155 H (46-116) U/L Urine Urobilinogen 2.0 H (Up TO 0.2) EU/dL Ur Tricyclics Screen Positive A (Negative) Ur THC Screen Positive A (Negative) Vital Signs Temperature 36.6 C 04/06/19 16:10 Temperature Source Tympanic 04/06/19 16:10 Pulse 76 04/06/19 16:10 Pulse Rhythm Regular 04/06/19 14:53 Respiratory Rate 18 04/06/19 16:10 Respiratory Effort Non-Labored 04/06/19 14:53 Respiratory Depth Normal 04/06/19 14:53 Respiratory Pattern Normal 04/06/19 14:53 Blood Pressure 124/70 04/06/19 16:10 Pulse Oximetry 99 04/06/19 16:10 Oxygen Delivery Method Room Air 04/06/19 16:10 Oxygen Flow Rate 0 04/06/19 16:10 Pain Level 0 04/06/19 16:10 Intake & Output 04/05/19 04/06/19 04/06/19 23:59 11:59 23:59 Weight 103.419 kg Other: Urine Appearance Clear Clear Comment void x 1 in toilet during the night. Voiding Methods Toilet Laboratory Results WBC 6.55 k/cumm (4.4-10.8) 04/05/19 18:13 RBC 4.74 m/cumm (4.00-5.20) 04/05/19 18:13 Hgb 14.5 g/dL (12.0-15.5) 04/05/19 18:13 Hct 42.9 % (36.0-46.0) 04/05/19 18:13 MCV 90.5 fL (80-95) 04/05/19 18:13 MCH 30.6 pg (27.0-33.0) 04/05/19 18:13 MCHC 33.8 g/dL (32.0-36.0) 04/05/19 18:13 RDW 12.8 % (11.7-14.6) 04/05/19 18:13 Plt Count 161 x1000/uL (130-400) 04/05/19 18:13 MPV 10.3 fL (8.0-11.0) 04/05/19 18:13 Immature Gran % 0.2 % 04/05/19 18:13 Neutrophils % 52.2 04/05/19 18:13 Lymphocytes % 35.1 04/05/19 18:13 Monocytes % 8.1 04/05/19 18:13 Eosinophils % 3.8 04/05/19 18:13 Basophils % 0.6 04/05/19 18:13 Absolute Neutrophils 3.42 k/cumm (1.2-6.7) 04/05/19 18:13 Absolute Lymphocytes 2.30 k/cumm (1.2-3.4) 04/05/19 18:13 Absolute Monocytes 0.53 k/cumm (0.11-0.7) 04/05/19 18:13 Absolute Eosinophils 0.25 k/cumm (0.0-0.7) 04/05/19 18:13 Absolute Basophils 0.04 k/cumm (0.0-0.2) 04/05/19 18:13 Sodium 143 mmol/L (136-145) 04/05/19 18:13 Potassium 3.5 mmol/L (3.5-5.1) 04/05/19 18:13 Chloride 109 mmol/L (98-107) H 04/05/19 18:13 Carbon Dioxide 24.4 mmol/L (21.0-32.0) 04/05/19 18:13 Anion Gap 9.6 mmol/L (3-11) 04/05/19 18:13 BUN 11 mg/dL (7-18) 04/05/19 18:13 Creatinine 0.72 mg/dL (0.55-1.02) 04/05/19 18:13 Estimated GFR/1.73 m2 >= 60.00 (mL/min/1.73m2) 04/05/19 18:13 Glucose 134 mg/dL (74-106) H 04/05/19 18:13 Calcium 8.5 mg/dL (8.5-10.1) 04/05/19 18:13 Total Bilirubin 0.7 mg/dL (0.2-1.0) 04/05/19 18:13 AST 19 U/L (15-37) 04/05/19 18:13 ALT 31 U/L (14-59) 04/05/19 18:13 Alkaline Phosphatase 155 U/L (46-116) H 04/05/19 18:13 Total Protein 6.7 g/dL (6.4-8.2) 04/05/19 18:13 Albumin 3.8 g/dL (3.4-5.0) 04/05/19 18:13 TSH 1.14 uIU/mL (0.36-3.74) 04/05/19 18:13 Urine Color Yellow (Yellow) 04/05/19 19:05 Urine Clarity Cloudy (Clear) 04/05/19 19:05 Urine pH 7.0 (5-8) 04/05/19 19:05 Ur Specific [place] 1.020 (1.005-1.025) 04/05/19 19:05 Urine Protein Negative mg/dL (Negative) 04/05/19 19:05 Urine Ketones Negative mg/dL (Negative) 04/05/19 19:05 Urine Blood Negative (Negative) 04/05/19 19:05 Urine Nitrite Negative (Negative) 04/05/19 19:05 Urine Bilirubin Negative (Negative) 04/05/19 19:05 Urine Urobilinogen 2.0 EU/dL (Up TO 0.2) H 04/05/19 19:05 Ur Leukocyte Esterase Negative (Negative) 04/05/19 19:05 Urine Glucose Negative mg/dL (Negative) 04/05/19 19:05 Salicylates < 2.8 mg/dL (2.8-20.0) 04/05/19 18:13 Urine Opiates Screen Negative (Negative) 04/05/19 19:05 Urine Methadone Screen Negative (Negative) 04/05/19 19:05 Acetaminophen < 2 ug/mL (10-30) 04/05/19 18:13 Ur Barbiturates Screen Negative (Negative) 04/05/19 19:05 Ur Tricyclics Screen Positive (Negative) A 04/05/19 19:05 Ur Amphetamines Screen Negative (Negative) 04/05/19 19:05 U Benzodiazepines Scrn Negative (Negative) 04/05/19 19:05 Urine Cocaine Screen Negative (Negative) 04/05/19 19:05 Ur THC Screen Positive (Negative) A 04/05/19 19:05
[2019-04-06] MEDS: Atorvastatin 20 MG TAB PO (19:36)
[2019-04-06] MEDS: traMADol 50 MG TAB PO (19:36)
[2019-04-06 21:55] VITALS: BP 122/71; PULSE 78; RESP 18; TEMP 36.8; O2SAT 99
[2019-04-06] MEDS: lamoTRIgine 100 MG TAB PO (23:00)
[2019-04-06] MEDS: Zolpidem 10 MG TAB PO (23:00)
[2019-04-07] MEDS: Amitriptyline 25 MG TAB 50 MG PO (08:01)
[2019-04-07] MEDS: Omeprazole 20 MG CAPCR 40 MG PO (08:01)
[2019-04-07] MEDS: Calcium Carbonate 1.25 GM TAB PO (08:02)
[2019-04-07] MEDS: Cholecalciferol (Vitamin D3) 1,000 UNIT TAB 2000 UNITS PO (08:03)
[2019-04-07] MEDS: Cephalexin 500 MG CAP PO ×3 (08:03→20:54)
[2019-04-07] MEDS: Venlafaxine 150 MG CAPCR PO (08:04)
[2019-04-07] MEDS: Topiramate 100 MG TAB PO (08:04)
[2019-04-07 08:25] VITALS: BP 115/76; PULSE 94; RESP 20; TEMP 36.6; O2SAT 100
--- NOTE | 2019-04-07 09:18 | W.INMHPGNOTE ---
Date of service: 04/07/19 Time of Service: 09:19 Mental Health Crisis Note Presenting Issue How did you arrive at the ED and why did you come: Edelmira came to the ER via her ex-'s [id number]. She was seeking hospital placement. Precipitating Factors Today I spoke with Ivon who reports that she still has thoughts on not being here and that she needs treatment. Disposition BEHAVIOR: Ivon is quiet and tearful and excessively worried about her medications, children, car, work, alters, court and finances. She wants Francine and Millie to be gone from her. She reported that Millie came out last night and was worried about what she may have done. After checking with care management I learned that Millie might have just been angry internally because nursing notes say cooperative and guarded on the 2nd shift and slept uninterrupted on the 3rd. Ivon became a bit agitated when she noticed her communication pen not with her paperwork. The nurse asked if the pen she had was it and Ivon told her yes. Nurse said it needs to be a felt tip pen and she needs to check to be sure it is okay she have this. I reassured the nurse the pen is approved and in Yesica's safety plan. Nurse was satisfied with this. EYE CONTACT: Eye contact is good. MOOD: Ivon presents as depressed and withdrawn as well as soft spoken. AFFECT: Her affect is tearful and withdrawn. APPETITE: Ivon reported they have been eating. SLEEP(trouble falling/staying asleep: Ivon believes they slept and nursing notes confirm restful sleep. Plan Will continue to seek hospital admission. As of this morning, No availability due to accuity of unit, no beds and [facility] is still reviewing. Signature Clinician's Name/Title: Daisy Low MS, [facility] Emergency Services Clinician
[2019-04-07] MEDS: traMADol 50 MG TAB PO (09:48)
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
--- NOTE | 2019-04-07 14:03 | W.NUTCONSULT ---
Date of service: 04/07/19 Time of Service: 14:03 Nutritional Consult ASSESSMENT: 49 year old female with depression awaiting discharge to [facility]. Following gluten free, lactose free diet with excellent intake. Not considered at nutritional risk. Time Spent in Nutritional Counseling and Treatment: 0 time spent face to face
[2019-04-07 15:46] VITALS: BP 101/69; PULSE 89; RESP 17; TEMP 36.6; O2SAT 100
--- NOTE | 2019-04-07 15:48 | W.PM.PROGNOT ---
Date of Service Date of service: 04/07/19 Time of Service: 15:48 Assessment and Plan Assessment and plan (1) Depression: Status: Chronic Assessment and plan: patient has agreed to voluntary inpatient psychiatric care at [facility]. patient remains medically stable. is on suicidal precautions. there have been no behavioral issues. bed availability pending. will continue current medications and close monitoring (2) Discharge planning issues: Status: Acute Assessment and plan: [facility] when bed available. case management and mental health following Subjective Subjective Patient reports: no new complaints Interval history since last seen: eating and drinking, remains medically stable, hemodynamically stable. Exam Const General: cooperative, healthy appearing, comfortable and no acute distress Nutritional Appearance: average body habitus Orientation: alert and oriented x3 HENMT Head: normal to inspection, normocephalic and atraumatic Mouth: oral mucosae normal Resp Effort & Inspection: normal respiratory effort and able to speak in complete sentences Auscultation: clear to auscultation bilaterally Cardio Rate: regular rate Rhythm: regular rhythm GI Inspection: normal to inspection Palpation: soft Auscultation: normal bowel sounds Skin General skin exam: no rashes or lesions noted Lesions: no lesions Rashes: no rashes Neuro General: alert, awake and oriented x3 Cognition: normal cognition Speech: speech normal Extrem General: normal to inspection, full ROM and no pedal edema Objective Objective Clinical Data: Vital Signs Temperature 36.6 C 04/07/19 15:46 Temperature Source Tympanic 04/07/19 15:46 Pulse 89 04/07/19 15:46 Pulse Rhythm Regular 04/07/19 15:43 Respiratory Rate 17 04/07/19 15:46 Respiratory Effort 04/07/19 15:43 Respiratory Depth Normal 04/07/19 15:43 Respiratory Pattern Normal 04/07/19 15:43 Blood Pressure 101/69 04/07/19 15:46 Pulse Oximetry 100 04/07/19 15:46 Oxygen Delivery Method Room Air 04/07/19 15:46 Oxygen Flow Rate 0 04/07/19 15:46 Pain Level 6 04/07/19 15:46 Intake & Output 04/06/19 04/07/19 04/07/19 23:59 11:59 23:59 Intake Total 240 / 240 300 / 540 240 / 540 Balance 240 / 240 300 / 540 240 / 540 Intake: Oral 240 / 240 300 / 540 240 / 540 Other: Urine Appearance Clear Comment voids independently Voiding Methods Toilet Toilet Laboratory Results WBC 6.55 k/cumm (4.4-10.8) 04/05/19 18:13 RBC 4.74 m/cumm (4.00-5.20) 04/05/19 18:13 Hgb 14.5 g/dL (12.0-15.5) 04/05/19 18:13 Hct 42.9 % (36.0-46.0) 04/05/19 18:13 MCV 90.5 fL (80-95) 04/05/19 18:13 MCH 30.6 pg (27.0-33.0) 04/05/19 18:13 MCHC 33.8 g/dL (32.0-36.0) 04/05/19 18:13 RDW 12.8 % (11.7-14.6) 04/05/19 18:13 Plt Count 161 x1000/uL (130-400) 04/05/19 18:13 MPV 10.3 fL (8.0-11.0) 04/05/19 18:13 Immature Gran % 0.2 % 04/05/19 18:13 Neutrophils % 52.2 04/05/19 18:13 Lymphocytes % 35.1 04/05/19 18:13 Monocytes % 8.1 04/05/19 18:13 Eosinophils % 3.8 04/05/19 18:13 Basophils % 0.6 04/05/19 18:13 Absolute Neutrophils 3.42 k/cumm (1.2-6.7) 04/05/19 18:13 Absolute Lymphocytes 2.30 k/cumm (1.2-3.4) 04/05/19 18:13 Absolute Monocytes 0.53 k/cumm (0.11-0.7) 04/05/19 18:13 Absolute Eosinophils 0.25 k/cumm (0.0-0.7) 04/05/19 18:13 Absolute Basophils 0.04 k/cumm (0.0-0.2) 04/05/19 18:13 Sodium 143 mmol/L (136-145) 04/05/19 18:13 Potassium 3.5 mmol/L (3.5-5.1) 04/05/19 18:13 Chloride 109 mmol/L (98-107) H 04/05/19 18:13 Carbon Dioxide 24.4 mmol/L (21.0-32.0) 04/05/19 18:13 Anion Gap 9.6 mmol/L (3-11) 04/05/19 18:13 BUN 11 mg/dL (7-18) 04/05/19 18:13 Creatinine 0.72 mg/dL (0.55-1.02) 04/05/19 18:13 Estimated GFR/1.73 m2 >= 60.00 (mL/min/1.73m2) 04/05/19 18:13 Glucose 134 mg/dL (74-106) H 04/05/19 18:13 Calcium 8.5 mg/dL (8.5-10.1) 04/05/19 18:13 Total Bilirubin 0.7 mg/dL (0.2-1.0) 04/05/19 18:13 AST 19 U/L (15-37) 04/05/19 18:13 ALT 31 U/L (14-59) 04/05/19 18:13 Alkaline Phosphatase 155 U/L (46-116) H 04/05/19 18:13 Total Protein 6.7 g/dL (6.4-8.2) 04/05/19 18:13 Albumin 3.8 g/dL (3.4-5.0) 04/05/19 18:13 TSH 1.14 uIU/mL (0.36-3.74) 04/05/19 18:13 Urine Color Yellow (Yellow) 04/05/19 19:05 Urine Clarity Cloudy (Clear) 04/05/19 19:05 Urine pH 7.0 (5-8) 04/05/19 19:05 Ur Specific [place] 1.020 (1.005-1.025) 04/05/19 19:05 Urine Protein Negative mg/dL (Negative) 04/05/19 19:05 Urine Ketones Negative mg/dL (Negative) 04/05/19 19:05 Urine Blood Negative (Negative) 04/05/19 19:05 Urine Nitrite Negative (Negative) 04/05/19 19:05 Urine Bilirubin Negative (Negative) 04/05/19 19:05 Urine Urobilinogen 2.0 EU/dL (Up TO 0.2) H 04/05/19 19:05 Ur Leukocyte Esterase Negative (Negative) 04/05/19 19:05 Urine Glucose Negative mg/dL (Negative) 04/05/19 19:05 Salicylates < 2.8 mg/dL (2.8-20.0) 04/05/19 18:13 Urine Opiates Screen Negative (Negative) 04/05/19 19:05 Urine Methadone Screen Negative (Negative) 04/05/19 19:05 Acetaminophen < 2 ug/mL (10-30) 04/05/19 18:13 Ur Barbiturates Screen Negative (Negative) 04/05/19 19:05 Ur Tricyclics Screen Positive (Negative) A 04/05/19 19:05 Ur Amphetamines Screen Negative (Negative) 04/05/19 19:05 U Benzodiazepines Scrn Negative (Negative) 04/05/19 19:05 Urine Cocaine Screen Negative (Negative) 04/05/19 19:05 Ur THC Screen Positive (Negative) A 04/05/19 19:05
[2019-04-07] MEDS: Prochlorperazine 5 MG TAB PO (16:00)
[2019-04-07] MEDS: clonazePAM 0.5 MG TAB PO (16:01)
[2019-04-07] MEDS: Zolpidem 10 MG TAB PO (20:53)
[2019-04-07] MEDS: Atorvastatin 20 MG TAB PO (20:54)
[2019-04-07] MEDS: lamoTRIgine 100 MG TAB PO (20:54)
[2019-04-07] MEDS: Topiramate 100 MG TAB 200 MG PO (21:00)
[2019-04-08 08:00] VITALS: BP 140/95; PULSE 96; RESP 16; TEMP 36.9; O2SAT 96
[2019-04-08] MEDS: Topiramate 100 MG TAB PO (09:07)
[2019-04-08] MEDS: Cephalexin 500 MG CAP PO (09:07)
[2019-04-08] MEDS: Venlafaxine 150 MG CAPCR PO (09:07)
[2019-04-08] MEDS: Calcium Carbonate 1.25 GM TAB PO (09:07)
[2019-04-08] MEDS: Cholecalciferol (Vitamin D3) 1,000 UNIT TAB 2000 UNITS PO (09:07)
[2019-04-08] MEDS: Amitriptyline 25 MG TAB 50 MG PO (09:07)
[2019-04-08] MEDS: Omeprazole 20 MG CAPCR 40 MG PO (09:08)
--- NOTE | 2019-04-08 12:42 | W.PM.PROGNOT ---
Date of Service Date of service: 04/08/19 Time of Service: 12:42 Assessment and Plan Assessment and plan (1) Depression: Start date: 04/08/19 Start time: 12:44 Status: Chronic Assessment and plan: voluntary. patient remains medically stable. is on suicidal precautions. there have been no behavioral issues. bed availability pending for [place]. will continue current medications and close monitoring (2) Discharge planning issues: Status: Acute [facility]. case management and mental health following Subjective Subjective Patient reports: no new complaints Interval history since last seen: Does not want to talk to anyone today. Medically stable. Waiting bed placement. Exam Const General: cooperative, healthy appearing, comfortable and no acute distress Nutritional Appearance: average body habitus and overweight Orientation: alert, awake, oriented x3, oriented to person and oriented to place HENMO Head: normal to inspection, normocephalic and atraumatic Mouth: oral mucosae normal Resp Effort & Inspection: normal respiratory effort and able to speak in complete sentences Auscultation: clear to auscultation bilaterally Cardio Rate: regular rate Rhythm: regular rhythm GI Inspection: normal to inspection Palpation: soft Auscultation: normal bowel sounds Skin General skin exam: no rashes or lesions noted Lesions: no lesions Rashes: no rashes Neuro General: alert, awake and oriented x3 Cognition: normal cognition Speech: speech normal Extrem General: normal to inspection, full ROM and no pedal edema Psych Appearance: grossly normal Speech and Movement: speech and movement normal Affect: blunted Attitude: cooperative Thought Process: loose association Insight: poor Judgment: poor Objective Objective Clinical Data: Vital Signs Temperature 36.9 C 04/08/19 08:00 Temperature Source Tympanic 04/08/19 08:00 Pulse 96 H 04/08/19 08:00 Pulse Rhythm Regular 04/08/19 01:46 Respiratory Rate 16 04/08/19 08:00 Respiratory Effort Non-Labored 04/08/19 01:46 Respiratory Depth Normal 04/08/19 01:46 Respiratory Pattern Normal 04/08/19 01:46 Blood Pressure 140/95 H 04/08/19 08:00 Pulse Oximetry 96 04/08/19 08:00 Oxygen Delivery Method Room Air 04/08/19 08:00 Oxygen Flow Rate 0 04/08/19 08:00 Pain Level 0 04/08/19 08:00 Intake & Output 04/07/19 04/08/19 04/08/19 23:59 11:59 23:59 Intake Total 600 / 900 550 / 550 Balance 600 / 900 550 / 550 Intake: Oral 600 / 900 550 / 550 Other: Urine Appearance Clear Voiding Methods Toilet Toilet Laboratory Results WBC 6.55 k/cumm (4.4-10.8) 04/05/19 18:13 RBC 4.74 m/cumm (4.00-5.20) 04/05/19 18:13 Hgb 14.5 g/dL (12.0-15.5) 04/05/19 18:13 Hct 42.9 % (36.0-46.0) 04/05/19 18:13 MCV 90.5 fL (80-95) 04/05/19 18:13 MCH 30.6 pg (27.0-33.0) 04/05/19 18:13 MCHC 33.8 g/dL (32.0-36.0) 04/05/19 18:13 RDW 12.8 % (11.7-14.6) 04/05/19 18:13 Plt Count 161 x1000/uL (130-400) 04/05/19 18:13 MPV 10.3 fL (8.0-11.0) 04/05/19 18:13 Immature Gran % 0.2 % 04/05/19 18:13 Neutrophils % 52.2 04/05/19 18:13 Lymphocytes % 35.1 04/05/19 18:13 Monocytes % 8.1 04/05/19 18:13 Eosinophils % 3.8 04/05/19 18:13 Basophils % 0.6 04/05/19 18:13 Absolute Neutrophils 3.42 k/cumm (1.2-6.7) 04/05/19 18:13 Absolute Lymphocytes 2.30 k/cumm (1.2-3.4) 04/05/19 18:13 Absolute Monocytes 0.53 k/cumm (0.11-0.7) 04/05/19 18:13 Absolute Eosinophils 0.25 k/cumm (0.0-0.7) 04/05/19 18:13 Absolute Basophils 0.04 k/cumm (0.0-0.2) 04/05/19 18:13 Sodium 143 mmol/L (136-145) 04/05/19 18:13 Potassium 3.5 mmol/L (3.5-5.1) 04/05/19 18:13 Chloride 109 mmol/L (98-107) H 04/05/19 18:13 Carbon Dioxide 24.4 mmol/L (21.0-32.0) 04/05/19 18:13 Anion Gap 9.6 mmol/L (3-11) 04/05/19 18:13 BUN 11 mg/dL (7-18) 04/05/19 18:13 Creatinine 0.72 mg/dL (0.55-1.02) 04/05/19 18:13 Estimated GFR/1.73 m2 >= 60.00 (mL/min/1.73m2) 04/05/19 18:13 Glucose 134 mg/dL (74-106) H 04/05/19 18:13 Calcium 8.5 mg/dL (8.5-10.1) 04/05/19 18:13 Total Bilirubin 0.7 mg/dL (0.2-1.0) 04/05/19 18:13 AST 19 U/L (15-37) 04/05/19 18:13 ALT 31 U/L (14-59) 04/05/19 18:13 Alkaline Phosphatase 155 U/L (46-116) H 04/05/19 18:13 Total Protein 6.7 g/dL (6.4-8.2) 04/05/19 18:13 Albumin 3.8 g/dL (3.4-5.0) 04/05/19 18:13 TSH 1.14 uIU/mL (0.36-3.74) 04/05/19 18:13 Urine Color Yellow (Yellow) 04/05/19 19:05 Urine Clarity Cloudy (Clear) 04/05/19 19:05 Urine pH 7.0 (5-8) 04/05/19 19:05 Ur Specific [place] 1.020 (1.005-1.025) 04/05/19 19:05 Urine Protein Negative mg/dL (Negative) 04/05/19 19:05 Urine Ketones Negative mg/dL (Negative) 04/05/19 19:05 Urine Blood Negative (Negative) 04/05/19 19:05 Urine Nitrite Negative (Negative) 04/05/19 19:05 Urine Bilirubin Negative (Negative) 04/05/19 19:05 Urine Urobilinogen 2.0 EU/dL (Up TO 0.2) H 04/05/19 19:05 Ur Leukocyte Esterase Negative (Negative) 04/05/19 19:05 Urine Glucose Negative mg/dL (Negative) 04/05/19 19:05 Salicylates < 2.8 mg/dL (2.8-20.0) 04/05/19 18:13 Urine Opiates Screen Negative (Negative) 04/05/19 19:05 Urine Methadone Screen Negative (Negative) 04/05/19 19:05 Acetaminophen < 2 ug/mL (10-30) 04/05/19 18:13 Ur Barbiturates Screen Negative (Negative) 04/05/19 19:05 Ur Tricyclics Screen Positive (Negative) A 04/05/19 19:05 Ur Amphetamines Screen Negative (Negative) 04/05/19 19:05 U Benzodiazepines Scrn Negative (Negative) 04/05/19 19:05 Urine Cocaine Screen Negative (Negative) 04/05/19 19:05 Ur THC Screen Positive (Negative) A 04/05/19 19:05
[2019-04-08] MEDS: traMADol 50 MG TAB PO ×2 (13:16→19:14)
[2019-04-08 15:50] VITALS: BP 116/82; PULSE 93; RESP 20; TEMP 37; O2SAT 98
[2019-04-08] MEDS: Lidocaine 5% Patch 1 PATCH TP (16:26)
--- NOTE | 2019-04-08 17:50 | CMSP_ITS ---
- If Service Date Differs Date of service: 04/08/19 Time of Service: 17:50 Care Management Safety Plan Safety plan has been established with patient, and care team, to adhere to patient goals, identify restrictions based on behavioral status, address nutrition, and determine allowed personal belongings, tools for hygiene and personal care, and to determine level of activity including ambulation, level of supervision, visitors, and determine privileges based on behaviors and level of engagement by pt. Huddle participants: Radha, Nursing Electrical Panel Builder; Saniya RN; ALYSSIA Clements and WINNIE Goodwin. Placement: Referrals have been faxed to [facility] (no beds), [facility] (no beds), [place] and [place]: declined referral or review and consideration. [facility] [place] is still reviewing the application but also has no beds. Follow up phone calls were made by [place] screener both morning and afternoon with no change in bed status.. SAFETY PLAN: 1. Will remain on suicide precautions, in paper clothes, permitted her sports bra. 2. Will remain under direct supervision of one-on-one staff at all times provided by CPSO; KVNG, JAVA SECURITY ARCHITECT tennis camp instructor, able to ambulate outside of room, in transition area per RN discretion. 3. May have paper cups, paper plates, and finger foods. 4. Follow [facility] Management of the Admitted Behavioral Health Patient policy. 5. Permitted use of shower room with escort at RN discretion. 6. Permitted to wear her sports bra, and have her soft art materials per RN discretion; NO SHARPS, No clipboards or any metal. She may also have crayons. 7. Visitors- No visitors at this time 8. Activities: Television, remote, felt tip pen and paper permitted, no sharps, no metals. [place] tip pen is identified by pt as a 'talking stick' and helps to regulate her behaviors and keep her calm. 9. Bathroom available in room without limitations. 10. Phone: incoming and outgoing phone calls permitted per RN discretion with supervision. 11. Due to trauma history, only female staff support should be prioritized and utilized whenever possible. Due to VOLUNTARY status, if patient wishes to leave [facility], the [facility] early childhood worker must be contacted to re-evaluate patient prior to patient exiting the building. Patient is currently voluntarily at [facility] and seeking inpatient admission when a bed becomes available. [facility] Frontline Narrative Writer will continue seeking placement. Please contact the Insulating Machine Operator Wet Pour Mixer ([phone]) and [facility] Narrative Writer ([phone]) for any needed changes in the Safety Plan. Safety plan has been provided to interdepartmental care team.
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
[2019-04-08] MEDS: Atorvastatin 20 MG TAB PO (20:59)
[2019-04-08] MEDS: Zolpidem 10 MG TAB PO (20:59)
[2019-04-08] MEDS: lamoTRIgine 100 MG TAB PO (20:59)
[2019-04-08] MEDS: Topiramate 100 MG TAB 200 MG PO (20:59)
[2019-04-09 00:10] VITALS: BP 110/73; PULSE 80; RESP 16; TEMP 37.1; O2SAT 95
[2019-04-09] MEDS: clonazePAM 0.5 MG TAB PO ×2 (00:17→18:41)
[2019-04-09] MEDS: Patch Removal 1 EACH TD (03:18)
[2019-04-09 07:45] VITALS: BP 125/84; PULSE 78; RESP 16; TEMP 36.6; O2SAT 97
[2019-04-09] MEDS: Cholecalciferol (Vitamin D3) 1,000 UNIT TAB 2000 UNITS PO (09:20)
[2019-04-09] MEDS: Calcium Carbonate 1.25 GM TAB PO (09:20)
[2019-04-09] MEDS: Venlafaxine 150 MG CAPCR PO (09:20)
[2019-04-09] MEDS: Omeprazole 20 MG CAPCR 40 MG PO (09:20)
[2019-04-09] MEDS: Amitriptyline 25 MG TAB 50 MG PO (09:20)
[2019-04-09] MEDS: traMADol 50 MG TAB PO (09:21)
[2019-04-09] MEDS: Topiramate 100 MG TAB PO (09:24)
[2019-04-09] MEDS: Polyethylene Glycol 3350 17 GM PACKET PO (11:18)
[2019-04-09] MEDS: predniSONE 20 MG TAB 60 MG PO (11:19)
--- NOTE | 2019-04-09 13:08 | W.PM.PROGNOT ---
Date of Service Date of service: 04/09/19 Time of Service: 13:09 Assessment and Plan Assessment and plan (1) Depression: Start date: 04/09/19 Start time: 13:10 Status: Chronic Assessment and plan: voluntary. patient remains medically stable. is on suicidal precautions. there have been no behavioral issues. did c/o cramping to legs with sciatic pain. Given 60 mg steroid burst. Slo mag BID for cramping. [facility] will continue current medications and close monitoring (2) Discharge planning issues: Start date: 04/09/19 Start time: 13:12 Status: Acute Assessment and plan: [facility] when bed available. case management and mental health following Subjective Subjective Patient reports: other Interval history since last seen: C/o cramping and sciatic pain to back radiating down buttock to hip. States 2 of her personalities are complaining of pain and other c/o constipation. Will give 60 mg PO steroid for sciatic with magnesium PO for cramps, and mirlax for constipation. Exam Const General: cooperative, healthy appearing, comfortable and no acute distress Nutritional Appearance: average body habitus and overweight Orientation: alert, awake, oriented x3, oriented to person and oriented to place HENPR Head: normal to inspection, normocephalic and atraumatic Mouth: oral mucosae normal Resp Effort & Inspection: normal respiratory effort and able to speak in complete sentences Auscultation: clear to auscultation bilaterally Cardio Rate: regular rate Rhythm: regular rhythm GI Inspection: normal to inspection Palpation: soft Auscultation: normal bowel sounds Skin General skin exam: no rashes or lesions noted Lesions: no lesions Rashes: no rashes Neuro General: alert, awake and oriented x3 Cognition: normal cognition Speech: speech normal Extrem General: normal to inspection, full ROM and no pedal edema Psych Appearance: grossly normal Speech and Movement: speech and movement normal Affect: blunted Attitude: cooperative Thought Process: loose association Insight: poor Judgment: poor Objective Objective Clinical Data: Vital Signs Temperature 36.6 C 04/09/19 07:45 Temperature Source Tympanic 04/09/19 07:45 Pulse 78 04/09/19 07:45 Pulse Rhythm Regular 04/09/19 10:05 Respiratory Rate 16 04/09/19 07:45 Respiratory Effort Non-Labored 04/09/19 10:05 Respiratory Depth Normal 04/09/19 10:05 Respiratory Pattern Normal 04/09/19 10:05 Blood Pressure 125/84 04/09/19 07:45 Pulse Oximetry 97 04/09/19 07:45 Oxygen Delivery Method Room Air 04/09/19 07:45 Oxygen Flow Rate 0 04/09/19 07:45 Pain Level 10 04/09/19 10:21 Intake & Output 04/08/19 04/09/19 04/09/19 23:59 11:59 23:59 Intake Total 1350 / 1900 500 / 500 Balance 1350 / 1900 500 / 500 Intake: Oral 1350 / 1900 500 / 500 Other: Comment pt voiding independently in the bathroom Voiding Methods Toilet Toilet Laboratory Results WBC 6.55 k/cumm (4.4-10.8) 04/05/19 18:13 RBC 4.74 m/cumm (4.00-5.20) 04/05/19 18:13 Hgb 14.5 g/dL (12.0-15.5) 04/05/19 18:13 Hct 42.9 % (36.0-46.0) 04/05/19 18:13 MCV 90.5 fL (80-95) 04/05/19 18:13 MCH 30.6 pg (27.0-33.0) 04/05/19 18:13 MCHC 33.8 g/dL (32.0-36.0) 04/05/19 18:13 RDW 12.8 % (11.7-14.6) 04/05/19 18:13 Plt Count 161 x1000/uL (130-400) 04/05/19 18:13 MPV 10.3 fL (8.0-11.0) 04/05/19 18:13 Immature Gran % 0.2 % 04/05/19 18:13 Neutrophils % 52.2 04/05/19 18:13 Lymphocytes % 35.1 04/05/19 18:13 Monocytes % 8.1 04/05/19 18:13 Eosinophils % 3.8 04/05/19 18:13 Basophils % 0.6 04/05/19 18:13 Absolute Neutrophils 3.42 k/cumm (1.2-6.7) 04/05/19 18:13 Absolute Lymphocytes 2.30 k/cumm (1.2-3.4) 04/05/19 18:13 Absolute Monocytes 0.53 k/cumm (0.11-0.7) 04/05/19 18:13 Absolute Eosinophils 0.25 k/cumm (0.0-0.7) 04/05/19 18:13 Absolute Basophils 0.04 k/cumm (0.0-0.2) 04/05/19 18:13 Sodium 143 mmol/L (136-145) 04/05/19 18:13 Potassium 3.5 mmol/L (3.5-5.1) 04/05/19 18:13 Chloride 109 mmol/L (98-107) H 04/05/19 18:13 Carbon Dioxide 24.4 mmol/L (21.0-32.0) 04/05/19 18:13 Anion Gap 9.6 mmol/L (3-11) 04/05/19 18:13 BUN 11 mg/dL (7-18) 04/05/19 18:13 Creatinine 0.72 mg/dL (0.55-1.02) 04/05/19 18:13 Estimated GFR/1.73 m2 >= 60.00 (mL/min/1.73m2) 04/05/19 18:13 Glucose 134 mg/dL (74-106) H 04/05/19 18:13 Calcium 8.5 mg/dL (8.5-10.1) 04/05/19 18:13 Total Bilirubin 0.7 mg/dL (0.2-1.0) 04/05/19 18:13 AST 19 U/L (15-37) 04/05/19 18:13 ALT 31 U/L (14-59) 04/05/19 18:13 Alkaline Phosphatase 155 U/L (46-116) H 04/05/19 18:13 Total Protein 6.7 g/dL (6.4-8.2) 04/05/19 18:13 Albumin 3.8 g/dL (3.4-5.0) 04/05/19 18:13 TSH 1.14 uIU/mL (0.36-3.74) 04/05/19 18:13 Urine Color Yellow (Yellow) 04/05/19 19:05 Urine Clarity Cloudy (Clear) 04/05/19 19:05 Urine pH 7.0 (5-8) 04/05/19 19:05 Ur Specific [place] 1.020 (1.005-1.025) 04/05/19 19:05 Urine Protein Negative mg/dL (Negative) 04/05/19 19:05 Urine Ketones Negative mg/dL (Negative) 04/05/19 19:05 Urine Blood Negative (Negative) 04/05/19 19:05 Urine Nitrite Negative (Negative) 04/05/19 19:05 Urine Bilirubin Negative (Negative) 04/05/19 19:05 Urine Urobilinogen 2.0 EU/dL (Up TO 0.2) H 04/05/19 19:05 Ur Leukocyte Esterase Negative (Negative) 04/05/19 19:05 Urine Glucose Negative mg/dL (Negative) 04/05/19 19:05 Salicylates < 2.8 mg/dL (2.8-20.0) 04/05/19 18:13 Urine Opiates Screen Negative (Negative) 04/05/19 19:05 Urine Methadone Screen Negative (Negative) 04/05/19 19:05 Acetaminophen < 2 ug/mL (10-30) 04/05/19 18:13 Ur Barbiturates Screen Negative (Negative) 04/05/19 19:05 Ur Tricyclics Screen Positive (Negative) A 04/05/19 19:05 Ur Amphetamines Screen Negative (Negative) 04/05/19 19:05 U Benzodiazepines Scrn Negative (Negative) 04/05/19 19:05 Urine Cocaine Screen Negative (Negative) 04/05/19 19:05 Ur THC Screen Positive (Negative) A 04/05/19 19:05
--- NOTE | 2019-04-09 17:13 | CMSP_ITS ---
- If Service Date Differs Date of service: 04/09/19 Time of Service: 17:13 Care Management Safety Plan Safety plan has been established with patient, and care team, to adhere to patient goals, identify restrictions based on behavioral status, address nutrition, and determine allowed personal belongings, tools for hygiene and personal care, and to determine level of activity including ambulation, level of supervision, visitors, and determine privileges based on behaviors and level of engagement by pt. Huddle participants: Radha, Nursing Edge Inker Uppers; Yang RN; ALYSSIA Clements and WINNIE Goodwin. Placement: Referrals have been faxed to [facility] (no beds), [facility] (no beds), [place] and [place]: declined referral or review and consideration. Per Devonte from [facility], [facility] has completed their review and feel that [facility] would be a good fit. They have no bed today but hope to have one tomorrow. SAFETY PLAN: 1. Will remain on suicide precautions, in paper clothes, permitted her sports bra. 2. Will remain under direct supervision of one-on-one staff at all times provided by [employer]; KVNG, LABORER BROODER FARM radio station operator, able to ambulate outside of room, in transition area per RN discretion. 3. May have paper cups, paper plates, and finger foods. 4. Follow [facility] Management of the Admitted Behavioral Health Patient policy. 5. Permitted use of shower room with escort at RN discretion. 6. Permitted to wear her sports bra, and have her soft art materials per RN discretion; NO SHARPS, No clipboards or any metal. She may also have crayons. 7. Visitors- No visitors at this time 8. Activities: Television, remote, felt tip pen and paper permitted, no sharps, no metals. [place] tip pen is identified by pt as a 'talking stick' and helps to regulate her behaviors and keep her calm. 9. Bathroom available in room without limitations. 10. Phone: incoming and outgoing phone calls permitted per RN discretion with supervision. 11. Due to trauma history, only female staff support should be prioritized and utilized whenever possible. Due to VOLUNTARY status, if patient wishes to leave [facility], the [facility] wallboard worker must be contacted to re-evaluate patient prior to patient exiting the building. Patient is currently voluntarily at [facility] and seeking inpatient admission when a bed becomes available. [facility] Frontline Or Nurse Manager will continue seeking placement. Please contact the Fabrication And Assembly Supervisor Bearing Maker ([phone]) and [facility] Or Nurse Manager ([phone]) for any needed changes in the Safety Plan. Safety plan has been provided to interdepartmental care team.
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
[2019-04-09] MEDS: Magnesium Chloride 64 MG TABCR PO (20:58)
[2019-04-09] MEDS: Zolpidem 10 MG TAB PO (20:58)
[2019-04-09] MEDS: Atorvastatin 20 MG TAB PO (20:58)
[2019-04-09] MEDS: lamoTRIgine 100 MG TAB PO (20:58)
[2019-04-09] MEDS: Topiramate 100 MG TAB 200 MG PO (20:58)
[2019-04-09 21:16] VITALS: BP 122/75; PULSE 101; RESP 18; TEMP 36.8; O2SAT 96
[2019-04-10 08:08] VITALS: BP 124/84; PULSE 92; RESP 18; TEMP 36.6; O2SAT 99
[2019-04-10] MEDS: Cholecalciferol (Vitamin D3) 1,000 UNIT TAB 2000 UNITS PO (09:16)
[2019-04-10] MEDS: Magnesium Chloride 64 MG TABCR PO ×2 (09:17→20:02)
[2019-04-10] MEDS: Topiramate 100 MG TAB PO (09:17)
[2019-04-10] MEDS: Omeprazole 20 MG CAPCR 40 MG PO (09:18)
[2019-04-10] MEDS: Calcium Carbonate 1.25 GM TAB PO (09:18)
[2019-04-10] MEDS: Venlafaxine 150 MG CAPCR PO (09:18)
[2019-04-10] MEDS: Polyethylene Glycol 3350 17 GM PACKET PO (09:18)
[2019-04-10] MEDS: Amitriptyline 25 MG TAB 50 MG PO (09:19)
--- NOTE | 2019-04-10 11:23 | W.INMHPGNOTE ---
Date of service: 04/10/19 Time of Service: 11:23 Mental Health Crisis Note Presenting Issue How did you arrive at the ED and why did you come: Edelmira was admitted on 04/05/2019 after reporting SI and seeking a psychiatric admission. Precipitating Factors Edelmira still endorses SI at this time. She rates her SI on a scale of 0-10 at a 10 today. Disposition BEHAVIOR: Edelmira has been reported to have been a non behavioral Pt all weekend. When I entered the room Edelmira was asleep. She reports that she is Ivon this morning. She reported that she has extra food for snacks in the room. It is obsserved she has fruit. EYE CONTACT: Edelmira makes good eye contact. MOOD: Edelmira's mood is tired and child like. She is also very depressed. AFFECT: Her affect appears tired. APPETITE: Edelmira reports she has been eating. SLEEP(trouble falling/staying asleep: Edelmira reported that she did not sleep well last night. Plan I will continue to seek placement but as of late this morning there are no beds available. Signature Clinician's Name/Title: Daisy Low MS, [facility] Emergency Services Clinician
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
--- NOTE | 2019-04-10 16:33 | PGE_ITS ---
Date of Service Date of service: 04/10/19 Time of Service: 16:33 Assessment and Plan Assessment and plan (1) Depression: Status: Chronic Assessment and plan: voluntary. patient remains medically stable. is on suicidal precautions. there have been no behavioral issues. awaiting bed at [facility]. (2) Discharge planning issues: Status: Acute Assessment and plan: discharge to [facility] for inpatient psychiatric treatment once bed available. Subjective Subjective Patient reports: no new complaints Interval history since last seen: medically stable, awaiting psychiatric bed. Exam Const General: cooperative, healthy appearing, comfortable and no acute distress Nutritional Appearance: average body habitus Orientation: alert, awake and oriented x3 HENMT Head: normal to inspection, normocephalic and atraumatic Mouth: oral mucosae normal Resp Effort & Inspection: normal respiratory effort Auscultation: clear to auscultation bilaterally Cardio Rate: regular rate Rhythm: regular rhythm GI Inspection: normal to inspection Palpation: soft Auscultation: normal bowel sounds Skin General skin exam: no rashes or lesions noted Neuro General: alert, awake and oriented x3 Extrem General: normal to inspection, full ROM and no pedal edema Objective Objective Clinical Data: Vital Signs Temperature 36.6 C 04/10/19 08:08 Temperature Source Tympanic 04/10/19 08:08 Pulse 92 H 04/10/19 08:08 Pulse Rhythm Regular 04/09/19 21:16 Respiratory Rate 18 04/10/19 08:08 Respiratory Effort Non-Labored 04/09/19 21:16 Respiratory Depth Normal 04/09/19 21:16 Respiratory Pattern Normal 04/09/19 21:16 Blood Pressure 124/84 04/10/19 08:08 Pulse Oximetry 99 04/10/19 08:08 Oxygen Delivery Method Room Air 04/10/19 08:08 Oxygen Flow Rate 0 04/10/19 08:08 Pain Level 0 04/10/19 08:08 Comment 04/09/19 21:16 Intake & Output 04/09/19 04/10/19 04/10/19 23:59 11:59 23:59 Intake Total 480 / 480 Balance 480 / 480 Intake: Oral 480 / 480 Other: Urine Color Yellow Urine Appearance Clear Comment Voiding independently in toilet Stool Size Small Stool Characteristics Hard Voiding Methods Toilet Laboratory Results WBC 6.55 k/cumm (4.4-10.8) 04/05/19 18:13 RBC 4.74 m/cumm (4.00-5.20) 04/05/19 18:13 Hgb 14.5 g/dL (12.0-15.5) 04/05/19 18:13 Hct 42.9 % (36.0-46.0) 04/05/19 18:13 MCV 90.5 fL (80-95) 04/05/19 18:13 MCH 30.6 pg (27.0-33.0) 04/05/19 18:13 MCHC 33.8 g/dL (32.0-36.0) 04/05/19 18:13 RDW 12.8 % (11.7-14.6) 04/05/19 18:13 Plt Count 161 x1000/uL (130-400) 04/05/19 18:13 MPV 10.3 fL (8.0-11.0) 04/05/19 18:13 Immature Gran % 0.2 % 04/05/19 18:13 Neutrophils % 52.2 04/05/19 18:13 Lymphocytes % 35.1 04/05/19 18:13 Monocytes % 8.1 04/05/19 18:13 Eosinophils % 3.8 04/05/19 18:13 Basophils % 0.6 04/05/19 18:13 Absolute Neutrophils 3.42 k/cumm (1.2-6.7) 04/05/19 18:13 Absolute Lymphocytes 2.30 k/cumm (1.2-3.4) 04/05/19 18:13 Absolute Monocytes 0.53 k/cumm (0.11-0.7) 04/05/19 18:13 Absolute Eosinophils 0.25 k/cumm (0.0-0.7) 04/05/19 18:13 Absolute Basophils 0.04 k/cumm (0.0-0.2) 04/05/19 18:13 Sodium 143 mmol/L (136-145) 04/05/19 18:13 Potassium 3.5 mmol/L (3.5-5.1) 04/05/19 18:13 Chloride 109 mmol/L (98-107) H 04/05/19 18:13 Carbon Dioxide 24.4 mmol/L (21.0-32.0) 04/05/19 18:13 Anion Gap 9.6 mmol/L (3-11) 04/05/19 18:13 BUN 11 mg/dL (7-18) 04/05/19 18:13 Creatinine 0.72 mg/dL (0.55-1.02) 04/05/19 18:13 Estimated GFR/1.73 m2 >= 60.00 (mL/min/1.73m2) 04/05/19 18:13 Glucose 134 mg/dL (74-106) H 04/05/19 18:13 Calcium 8.5 mg/dL (8.5-10.1) 04/05/19 18:13 Total Bilirubin 0.7 mg/dL (0.2-1.0) 04/05/19 18:13 AST 19 U/L (15-37) 04/05/19 18:13 ALT 31 U/L (14-59) 04/05/19 18:13 Alkaline Phosphatase 155 U/L (46-116) H 04/05/19 18:13 Total Protein 6.7 g/dL (6.4-8.2) 04/05/19 18:13 Albumin 3.8 g/dL (3.4-5.0) 04/05/19 18:13 TSH 1.14 uIU/mL (0.36-3.74) 04/05/19 18:13 Urine Color Yellow (Yellow) 04/05/19 19:05 Urine Clarity Cloudy (Clear) 04/05/19 19:05 Urine pH 7.0 (5-8) 04/05/19 19:05 Ur Specific [place] 1.020 (1.005-1.025) 04/05/19 19:05 Urine Protein Negative mg/dL (Negative) 04/05/19 19:05 Urine Ketones Negative mg/dL (Negative) 04/05/19 19:05 Urine Blood Negative (Negative) 04/05/19 19:05 Urine Nitrite Negative (Negative) 04/05/19 19:05 Urine Bilirubin Negative (Negative) 04/05/19 19:05 Urine Urobilinogen 2.0 EU/dL (Up TO 0.2) H 04/05/19 19:05 Ur Leukocyte Esterase Negative (Negative) 04/05/19 19:05 Urine Glucose Negative mg/dL (Negative) 04/05/19 19:05 Salicylates < 2.8 mg/dL (2.8-20.0) 04/05/19 18:13 Urine Opiates Screen Negative (Negative) 04/05/19 19:05 Urine Methadone Screen Negative (Negative) 04/05/19 19:05 Acetaminophen < 2 ug/mL (10-30) 04/05/19 18:13 Ur Barbiturates Screen Negative (Negative) 04/05/19 19:05 Ur Tricyclics Screen Positive (Negative) A 04/05/19 19:05 Ur Amphetamines Screen Negative (Negative) 04/05/19 19:05 U Benzodiazepines Scrn Negative (Negative) 04/05/19 19:05 Urine Cocaine Screen Negative (Negative) 04/05/19 19:05 Ur THC Screen Positive (Negative) A 04/05/19 19:05
[2019-04-10 18:15] VITALS: BP 113/74; PULSE 94; RESP 18; TEMP 36.8; O2SAT 99
[2019-04-10 18:46] LABS: Bilirubin Negative (Negative); Blood Trace-intact (Negative); Clarity Cloudy (Clear); Glucose Negative (Negative); Ketones Negative (Negative); Leukocyte Esterase Trace (Negative); Nitrite Negative (Negative); Specific Gravity >= 1.030 (1.005-1.025); Urobilinogen 0.2 EU/dL (Up TO 0.2); pH 5.5 (5-8)
[2019-04-10 18:54] LABS: Bacteria Moderate HPF (Negative); C & S Indicated? No/Sq. Contamination; Epithelial Cells Many HPF (Negative); WBC 20-50 HPF (0-5)
[2019-04-10] MEDS: Atorvastatin 20 MG TAB PO (20:02)
[2019-04-10] MEDS: clonazePAM 0.5 MG TAB PO (20:02)
[2019-04-10] MEDS: Topiramate 100 MG TAB 200 MG PO (20:10)
[2019-04-10] MEDS: Zolpidem 10 MG TAB PO (20:11)
[2019-04-10] MEDS: lamoTRIgine 100 MG TAB PO (20:11)
[2019-04-11] VITALS: BP 118/77; PULSE 80; RESP 16; TEMP 37; O2SAT 96
[2019-04-11] MEDS: traMADol 50 MG TAB PO (02:12)
[2019-04-11] MEDS: Topiramate 100 MG TAB PO (08:39)
[2019-04-11] MEDS: Omeprazole 20 MG CAPCR 40 MG PO (08:39)
[2019-04-11] MEDS: Cholecalciferol (Vitamin D3) 1,000 UNIT TAB 2000 UNITS PO (08:39)
[2019-04-11] MEDS: Magnesium Chloride 64 MG TABCR PO ×2 (08:39→22:02)
[2019-04-11] MEDS: Venlafaxine 150 MG CAPCR PO (08:40)
[2019-04-11] MEDS: Calcium Carbonate 1.25 GM TAB PO (08:40)
[2019-04-11] MEDS: Amitriptyline 25 MG TAB 50 MG PO (08:40)
[2019-04-11] MEDS: Polyethylene Glycol 3350 17 GM PACKET PO (08:41)
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
--- NOTE | 2019-04-11 10:02 | MHPN_ITS ---
Date of service: 04/11/19 Time of Service: 10:02 Mental Health Crisis Note Presenting Issue How did you arrive at the ED and why did you come: Edelmira arrived on Wednesday of last week for a voluntary admission to a psychiatric admission. Precipitating Factors Edelmira continues to endorse SI rating her SI on a scale of 0-10 at a 6. Disposition BEHAVIOR: Ivon who I am speaking wiht today had a personality change last night due to nursing not reading her safety plan prior to entering her room and removing her communication stick. They read her safety plan after and returned the communication stick (i.e. pen) and all was fine again. Dispite Millie emerging she was not physically aggressive only verbally upset. This was no fault of hers. EYE CONTACT: Ivon makes good eye contact today. MOOD: Ivon still appears depressed and endorses SI. AFFECT: Ivon's affect is flat and withdrawn. APPETITE: Ivon is eating well. SLEEP(trouble falling/staying asleep: Ivon reported her sleep is poor as she was in pain and she believes she passed a kidney stone last night. Plan Ivon is still seeking a voluntary admission. Signature Clinician's Name/Title: Daisy Stephen MS, [facility] Emergency Services Clinician
[2019-04-11 10:08] VITALS: BP 136/83; PULSE 109; RESP 18; TEMP 37.4; O2SAT 97
--- NOTE | 2019-04-11 16:31 | PGE_ITS ---
Date of Service Date of service: 04/11/19 Time of Service: 16:31 Assessment and Plan Assessment and plan (1) Depression: Status: Chronic Assessment and plan: voluntary. patient remains medically stable. is on suicidal precautions. there have been no behavioral issues. awaiting bed at [facility]. (2) Vaginal dryness: Status: Acute Assessment and plan: restart estogen cream (3) Discharge planning issues: Status: Acute Assessment and plan: discharge to [facility] for inpatient psychiatric treatment once bed available. Subjective Subjective Patient reports: no new complaints Interval history since last seen: patient remains medically stable. she reports she is eating and drinking and bowels and bladder functioning well. she denies nausea or abdominal pain or constipation. Exam Const General: cooperative, healthy appearing, comfortable and no acute distress Nutritional Appearance: average body habitus and well nourished Orientation: alert, awake and oriented x3 HENMT Head: normal to inspection, normocephalic and atraumatic Mouth: oral mucosae normal Resp Effort & Inspection: normal respiratory effort Auscultation: clear to auscultation bilaterally Cardio Rate: regular rate Rhythm: regular rhythm GI Inspection: normal to inspection Palpation: soft Auscultation: normal bowel sounds Skin General skin exam: no rashes or lesions noted Neuro General: alert, awake and oriented x3 Psych Appearance: grossly normal Affect: sad and blunted Attitude: cooperative Thought Process: loose association Insight: poor Judgment: poor Objective Objective Clinical Data: Abnormal lab results 04/10/19 Range/Units 18:30 Ur Specific [place] >= 1.030 H (1.005-1.025) Urine Blood Trace-intact H (Negative) Ur Leukocyte Esterase Trace H (Negative) Urine WBC 20-50 H (0-5) HPF Vital Signs Temperature 37.4 C 04/11/19 10:08 Temperature Source Tympanic 04/11/19 00:00 Pulse 109 H 04/11/19 10:08 Pulse Rhythm Regular 04/11/19 10:56 Respiratory Rate 18 04/11/19 10:08 Respiratory Effort Non-Labored 04/11/19 10:56 Respiratory Depth Normal 04/11/19 10:56 Respiratory Pattern Normal 04/11/19 10:56 Blood Pressure 136/83 04/11/19 10:08 Pulse Oximetry 97 04/11/19 10:08 Oxygen Delivery Method Room Air 04/11/19 10:08 Oxygen Flow Rate 0 04/11/19 10:08 Pain Level 3 04/11/19 10:08 Comment 04/09/19 21:16 Intake & Output 04/10/19 04/11/19 04/11/19 23:59 11:59 23:59 Intake Total 250 / 500 250 / 500 Output Total 100 / 100 Balance -100 / 380 250 / 500 250 / 500 Intake: Oral 250 / 500 250 / 500 Output: Urine 100 / 100 Other: Urine Color Yellow Urine Appearance Clear Comment pT independent with bathroom use. Voiding Methods Toilet Toilet Laboratory Results WBC 6.55 k/cumm (4.4-10.8) 04/05/19 18:13 RBC 4.74 m/cumm (4.00-5.20) 04/05/19 18:13 Hgb 14.5 g/dL (12.0-15.5) 04/05/19 18:13 Hct 42.9 % (36.0-46.0) 04/05/19 18:13 MCV 90.5 fL (80-95) 04/05/19 18:13 MCH 30.6 pg (27.0-33.0) 04/05/19 18:13 MCHC 33.8 g/dL (32.0-36.0) 04/05/19 18:13 RDW 12.8 % (11.7-14.6) 04/05/19 18:13 Plt Count 161 x1000/uL (130-400) 04/05/19 18:13 MPV 10.3 fL (8.0-11.0) 04/05/19 18:13 Immature Gran % 0.2 % 04/05/19 18:13 Neutrophils % 52.2 04/05/19 18:13 Lymphocytes % 35.1 04/05/19 18:13 Monocytes % 8.1 04/05/19 18:13 Eosinophils % 3.8 04/05/19 18:13 Basophils % 0.6 04/05/19 18:13 Absolute Neutrophils 3.42 k/cumm (1.2-6.7) 04/05/19 18:13 Absolute Lymphocytes 2.30 k/cumm (1.2-3.4) 04/05/19 18:13 Absolute Monocytes 0.53 k/cumm (0.11-0.7) 04/05/19 18:13 Absolute Eosinophils 0.25 k/cumm (0.0-0.7) 04/05/19 18:13 Absolute Basophils 0.04 k/cumm (0.0-0.2) 04/05/19 18:13 Sodium 143 mmol/L (136-145) 04/05/19 18:13 Potassium 3.5 mmol/L (3.5-5.1) 04/05/19 18:13 Chloride 109 mmol/L (98-107) H 04/05/19 18:13 Carbon Dioxide 24.4 mmol/L (21.0-32.0) 04/05/19 18:13 Anion Gap 9.6 mmol/L (3-11) 04/05/19 18:13 BUN 11 mg/dL (7-18) 04/05/19 18:13 Creatinine 0.72 mg/dL (0.55-1.02) 04/05/19 18:13 Estimated GFR/1.73 m2 >= 60.00 (mL/min/1.73m2) 04/05/19 18:13 Glucose 134 mg/dL (74-106) H 04/05/19 18:13 Calcium 8.5 mg/dL (8.5-10.1) 04/05/19 18:13 Total Bilirubin 0.7 mg/dL (0.2-1.0) 04/05/19 18:13 AST 19 U/L (15-37) 04/05/19 18:13 ALT 31 U/L (14-59) 04/05/19 18:13 Alkaline Phosphatase 155 U/L (46-116) H 04/05/19 18:13 Total Protein 6.7 g/dL (6.4-8.2) 04/05/19 18:13 Albumin 3.8 g/dL (3.4-5.0) 04/05/19 18:13 TSH 1.14 uIU/mL (0.36-3.74) 04/05/19 18:13 Urine Color Yellow (Yellow) 04/10/19 18:30 Urine Clarity Cloudy (Clear) 04/10/19 18:30 Urine pH 5.5 (5-8) 04/10/19 18:30 Ur Specific [place] >= 1.030 (1.005-1.025) H 04/10/19 18:30 Urine Protein Negative mg/dL (Negative) 04/10/19 18:30 Urine Ketones Negative mg/dL (Negative) 04/10/19 18:30 Urine Blood Trace-intact (Negative) H 04/10/19 18:30 Urine Nitrite Negative (Negative) 04/10/19 18:30 Urine Bilirubin Negative (Negative) 04/10/19 18:30 Urine Urobilinogen 0.2 EU/dL (Up TO 0.2) 04/10/19 18:30 Ur Leukocyte Esterase Trace (Negative) H 04/10/19 18:30 Urine RBC Not Applicable 04/10/19 18:30 Urine WBC 20-50 HPF (0-5) H 04/10/19 18:30 Ur Epithelial Cells Many HPF (Negative) 04/10/19 18:30 Urine Crystals Not Applicable 04/10/19 18:30 Urine Bacteria Moderate HPF (Negative) 04/10/19 18:30 Urine Mucus Not Applicable 04/10/19 18:30 Ur Culture Indicated? No/sq. contamination 04/10/19 18:30 Urine Glucose Negative mg/dL (Negative) 04/10/19 18:30 Salicylates < 2.8 mg/dL (2.8-20.0) 04/05/19 18:13 Urine Opiates Screen Negative (Negative) 04/05/19 19:05 Urine Methadone Screen Negative (Negative) 04/05/19 19:05 Acetaminophen < 2 ug/mL (10-30) 04/05/19 18:13 Ur Barbiturates Screen Negative (Negative) 04/05/19 19:05 Ur Tricyclics Screen Positive (Negative) A 04/05/19 19:05 Ur Amphetamines Screen Negative (Negative) 04/05/19 19:05 U Benzodiazepines Scrn Negative (Negative) 04/05/19 19:05 Urine Cocaine Screen Negative (Negative) 04/05/19 19:05 Ur THC Screen Positive (Negative) A 04/05/19 19:05
[2019-04-11 18:00] VITALS: BP 105/71; PULSE 93; RESP 18; TEMP 36.5; O2SAT 97
[2019-04-11] MEDS: Atorvastatin 20 MG TAB PO (22:01)
[2019-04-11] MEDS: Zolpidem 10 MG TAB PO (22:01)
[2019-04-11] MEDS: Topiramate 100 MG TAB 200 MG PO (22:01)
[2019-04-11] MEDS: lamoTRIgine 100 MG TAB PO (22:02)
[2019-04-12 05:23] VITALS: BP 112/81; PULSE 88; RESP 16; TEMP 36.7; O2SAT 97
[2019-04-12 07:40] VITALS: BP 140/93; PULSE 87; RESP 16; TEMP 36.8; O2SAT 98
[2019-04-12] MEDS: Cholecalciferol (Vitamin D3) 1,000 UNIT TAB 2000 UNITS PO (08:21)
[2019-04-12] MEDS: Venlafaxine 150 MG CAPCR PO (08:22)
[2019-04-12] MEDS: Amitriptyline 25 MG TAB 50 MG PO (08:22)
[2019-04-12] MEDS: Omeprazole 20 MG CAPCR 40 MG PO (08:22)
[2019-04-12] MEDS: Magnesium Chloride 64 MG TABCR PO (08:22)
[2019-04-12] MEDS: Polyethylene Glycol 3350 17 GM PACKET PO (08:23)
[2019-04-12] MEDS: Topiramate 100 MG TAB PO (08:23)
[2019-04-12] MEDS: Calcium Carbonate 1.25 GM TAB PO (08:25)
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
--- NOTE | 2019-04-12 11:54 | PDOC.MHCN ---
Mental Health Crisis Note Presenting Issue How did you arrive at the ED and why did you come: Clt came because of cutting behavior and SI. Precipitating Factors The clt has a dx of dissociative disorder. She claimed that her alters have been exhibiting SI. Disposition BEHAVIOR: Clt was cooperative and supportive of voluntary placement. AFFECT: Sad somewhat guarded APPETITE: Eating good SLEEP(trouble falling/staying asleep: Sleeping good. Plan Placement under voluntary status at [facility]. Transport will be done with [employer]. One of the [employer] will be female because the clt was issues with males.
--- NOTE | 2019-04-12 14:01 | CMDISCH_ITS ---
LACE Index Scoring Tool - Questions: Length of Stay (in days): 7 - 13 Acuity (Admit via E.D.?): Yes E.D. Visits: 5 - Answers: Total Score: 12 Risk of Readmission: High Risk Care Management Discharge Reason for Hospitalization: Suicidal Ideation Discharge Plan: Chely eugene transfer to [facility] via [employer] transport coordinated by this auto service writer and funded by [facility]. Patient/Family Education Needs: Review discharge instructions, discuss Ask Me Three. Services Needed at Discharge: Psychiatric Facility ([facility]), Transportation ([facility] coordinated by this auto service writer, funded by [facility]) - MH Services (Omit if N/A) Current MH Services: [facility])
--- NOTE | 2019-04-12 14:01 | PDOC.CMDIS ---
LACE Index Scoring Tool - Questions: Length of Stay (in days): 7 - 13 Acuity (Admit via E.D.?): Yes E.D. Visits: 5 - Answers: Total Score: 12 Risk of Readmission: High Risk Care Management Discharge Reason for Hospitalization: Suicidal Ideation Discharge Plan: Chely eugene transfer to [facility] via [employer] transport coordinated by this conventional mortgage underwriter and funded by [facility]. Patient/Family Education Needs: Review discharge instructions, discuss Ask Me Three. Services Needed at Discharge: Psychiatric Facility ([facility]), Transportation ([facility] coordinated by this conventional mortgage underwriter, funded by [facility]) - MH Services (Omit if N/A) Current MH Services: [facility])
== END 2019-04-12 14:45 | disposition short-term general hospital (02) | DRG 881 ==
LOC: ER 21:58 → MS 22:29
PROVIDERS: Internal Medicine; Student in an Organized Health Care Education/Training Program; Admitting Provider General Practice; Emergency Provider Emergency Medicine; PCP Nurse Practitioner; Visit Provider Family Medicine
DX: F32.9 Major depressive disorder, single episode, unspecified (principal); R45.851 Suicidal ideations; F44.81 Dissociative identity disorder; F31.9 Bipolar disorder, unspecified; K59.00 Constipation, unspecified; R25.2 Cramp and spasm; N95.9 Unspecified menopausal and perimenopausal disorder; Z75.1 Person awaiting admission to adequate facility elsewhere; S41.119A Laceration without foreign body of unspecified upper arm, initial encounter; X78.9XXA Intentional self-harm by unspecified sharp object, initial encounter
CPT/HCPCS: 36415; 80053; 80307; 93005; 99222; 99225; 99232; 99233; 99239; 99285; 80329; 81003; 81015; 84443; 85025; 93010; 99218; 99224; 99226; 99284; G0378; J3490; J7512

== ENCOUNTER 2019-04-18 16:17 | Outpatient (CLI) | payer MEDICAID, SELFPAY | END 2019-04-18 16:37 | PROVIDERS: PCP Nurse Practitioner; Visit Provider Nurse Practitioner Gerontology | DX: R30.0 Dysuria (principal) | CPT/HCPCS: 36415; 87077; 87086; 87186 ==

== ENCOUNTER 2019-05-08 10:03 | Outpatient (REF) | payer MEDICAID, SELFPAY | END 2019-05-08 10:23 | LOC: LBN 10:03 | PROVIDERS: PCP Nurse Practitioner; Visit Provider Nurse Practitioner Gerontology | DX: R30.0 Dysuria (principal) | CPT/HCPCS: 87077; 87086; 87186 ==

== ENCOUNTER 2019-05-12 10:05 | Emergency (ER) | payer MEDICAID, SELFPAY ==
[2019-05-12 10:08] VITALS: BP 158/79; PULSE 101; RESP 18; TEMP 36.7; O2SAT 99
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
[2019-05-12 10:37] LABS: Bilirubin Negative (Negative); Blood Negative (Negative); Clarity Clear (Clear); Glucose Negative (Negative); Ketones Negative (Negative); Leukocyte Esterase Negative (Negative); Nitrite Negative (Negative); Specific Gravity 1.025 (1.005-1.025); Urobilinogen 0.2 EU/dL (Up TO 0.2); pH 7.5 (5-8)
[2019-05-12] MEDS: cefTRIAXone 1 GM VIAL IM (11:07)
--- NOTE | 2019-05-12 11:28 | NUR.NOTE ---
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
--- NOTE | 2019-05-12 14:58 | NUR.NOTE ---
Referral faxed to specialty clinic, urology Claribel Rodríguez.Nursing Note:
== END 2019-05-12 11:26 | disposition home or self-care (01) ==
PROVIDERS: Emergency Provider Emergency Medicine; PCP Nurse Practitioner
DX: R30.0 Dysuria (principal)
CPT/HCPCS: 96372; 99284; 81003; 87086; 99283; J0696

== ENCOUNTER 2019-05-18 11:26 | Outpatient (REF) | payer MEDICAID, SELFPAY ==
[2019-05-19 15:17] LABS: Chlamydia Result Negative (Negative); GC Result Negative (Negative)
== END 2019-05-18 11:46 ==
LOC: LBN 11:26
PROVIDERS: PCP Nurse Practitioner; Visit Provider Nurse Practitioner Gerontology
DX: R30.0 Dysuria (principal); Z11.3 Encounter for screening for infections with a predominantly sexual mode of transmission
CPT/HCPCS: 87491; 87591

== ENCOUNTER 2019-07-14 08:44 | Outpatient (CLI) | payer MEDICAID, SELFPAY ==
[2019-07-15 14:01] LABS: COVID-19 RT-PCR UVMMC Result Negative (Negative)
== END 2019-07-14 09:04 ==
PROVIDERS: PCP Nurse Practitioner; Visit Provider Nurse Practitioner
DX: J02.9 Acute pharyngitis, unspecified (principal); R51 Headache
CPT/HCPCS: U0003

== ENCOUNTER 2019-07-25 13:33 | Outpatient (CLI) | payer MEDICAID, SELFPAY | END 2019-07-25 13:53 | PROVIDERS: PCP Nurse Practitioner; Visit Provider Nurse Practitioner | DX: R00.2 Palpitations (principal); R00.0 Tachycardia, unspecified; E78.5 Hyperlipidemia, unspecified | CPT/HCPCS: 93225 ==

== ENCOUNTER 2019-07-28 08:38 | Outpatient (CLI) | payer MEDICAID, SELFPAY ==
--- NOTE | 2019-07-31 08:48 | W.HOLTRPT ---
Date of service: 07/31/19 Time of Service: 08:48 Holter Monitor Report Holter Monitor Note: This is a 48-hour Holter monitor ordered for indication of palpitations. ?Patient was in normal sinus rhythm for majority of the recording. ?There were rare PACs and no episodes of SVT. ?There were no episodes of ventricular tachycardia and 5 total single ventricular ectopic beats. ?There was no evidence of atrial fibrillation no pauses greater than 3 seconds and no episodes of high degree heart block. ?There were no patient triggered events.
== END 2019-07-28 08:58 ==
PROVIDERS: PCP Nurse Practitioner; Visit Provider Nurse Practitioner
DX: R00.2 Palpitations (principal); R00.0 Tachycardia, unspecified; E78.5 Hyperlipidemia, unspecified
CPT/HCPCS: 93226

== ENCOUNTER 2019-08-14 01:27 | Outpatient (CLI) | payer MEDICAID, SELFPAY ==
--- NOTE | 2019-08-14 07:33 | DI.US_ITS ---
APPROVED REPORT EXAM: Comprehensive 2D, Doppler, and color-flow Echocardiogram Patient Location: Out-Patient Lawn Technician: Brooklyn Reaves RDCS (AE) Conclusion Normal left ventricular wall thickness and chamber size. Normal left ventricular systolic function. Estimated ejection fraction is 55 to 60%. There are no segmental wall motion abnormalities There is no chamber enlargement There are no structural valvular abnormalities Wall motion Left Ventricle The left ventricle is normal size. The left ventricular systolic function is normal. The left ventric ular ejection fraction is within the normal range. There is normal left ventricular wall thickness. T here is normal LV segmental wall motion. There is no ventricular septal defect visualized. LVEF is 55 %.-60% Right Ventricle The right ventricle is normal size. The right ventricular systolic function is normal. Atria The left atrium size is normal. The right atrium size is normal. The interatrial septum is intact wit h no evidence for an atrial septal defect. Aortic Valve Aortic valve is trileaflet. There is no aortic valvular stenosis. No aortic regurgitation is present. Mitral Valve The mitral valve is normal in structure. No evidence of mitral valve stenosis. Trace mitral regurgita tion. Tricuspid Valve The tricuspid valve is normal in structure. There is no tricuspid valve stenosis. Trace tricuspid reg urgitation. Pulmonic Valve The pulmonary valve is normal in structure. There is no pulmonic valvular stenosis. There is no pulmo ruth valvular regurgitation. Great Vessels The aortic root is normal in size. The ascending aorta is mildly dilated. Aortic arch is normal in ca liber. IVC is normal in size and collapses >50% with inspiration. Pericardium There is no pericardial effusion. 2D Dimensions IVSD d PLAX 0.84 cm F: 0.6-1.0 LV Vol A2C d MOD 114.3 mL LVPW d PLAX 0.84 cm F: 0.6 - 1.0 LV Vol A4C d MOD 96.7 mL LVID d PLAX 4.94 cm F: 3.8 - 5.2 LA vol/ BSA A2C s A-L 32.9 mL/m2 LVDs 3.45 cm F: 2.2 - 3.5 LA vol/ BSA A4C s A-L 16.7 mL/m2 Ao Root d 2.58 cm F: 2.7 - 3.3 LA Vol/ BSA Biplane s A-L 24.6 mL/m2 RA Area A4C 11.23 cm2 LA Area A4C s MOD 14.51 cm2 RA Vol/ BSA A4C s A-L 12.4 mL/m2 LA Area A2C s MOD 21.44 cm2 Ao Asc Diam d 3.43 cm F: 2.3 - 3.1 LV EF A4C MOD 54.8 % LV EF Teichholz 56.9 % LV EF A2C MOD 53.6 % LVEF (Schulz's) 52.98 % F: 54 - 74 LV EF Biplane MOD 53.0 % LV Volume 77.58 mL F: 46 - 106 SV 56.40 mL LV Volume Index 35.58 mL/m2 F: 29 - 61 SV Index 25.81 mL/m2 LV Vol Biplane MOD 106.5 mL FS 29.90 % M-Mode TAPSE 2.51 cm (M/F) >1.7 LV Diastology MV E' lateral 0.140 (>0.1 m/s) Aortic Valve LVOT Area 3.59 cm2 AoV Area Vmax 2.99 cm2 LVOT Vmax 1.21 m/s AoV Area/ BSA (Vmax) 1.37 cm2/m2 LVOT Mean Jadon. 0.70 m/s TESS Mean Jadon. 2.45 cm2 LVOT Peak Grad 5.9 mmHg TESS Mean Jadon. Index 1.12 cm2/m2 LVOT Mean Grad 2.4 mmHg LVOT VTI 0.203 m LVOT Diam s 2.10 cm AoV Vmax 1.45 m/s Velocity Ratio 0.83 AoV Mean Jadon. 1.03 m/s AoV Peak Grad 8.5 mmHg LVOT SV 73.07 mL AoV Mean Grad 4.8 mmHg AoV VTI 0.252 m AoV Area VTI 2.90 cm2 AoV Area/ BSA (VTI) 1.33 cm/m2 Pulmonary Valve PV Vmax 1.09 (0.5-1.5 m/s) RVOT Peak Gr. 2.08 mmHg PV Peak Grad 4.8 mmHg RVOT Mean Gr. 1.10 mmHg PV Mean Grad 2.4 mmHg RVOT VTI 0.154 m PV VTI 0.190 m RVOT Vmax 0.72 m/s Tricuspid Valve TR Peak Grad 18.7 mmHg TR Vmax 2.16 m/s RA Pressure 3.00 mmHg RVSP (TR) 21.7 mmHg
--- NOTE | 2019-08-14 09:00 | ETT_ITS ---
APPROVED REPORT Exam: Exercise Treadmill Patient Location: Out-Patient Room/Bed: Stress Nurse: Randee Mercado RN BMI: 37.58 Baseline Rhythm: Sinus Rhythm Indications: Patient reports palpitations over the last 6-8 months that happen ???out of the blue??? and feels like she cannot breathe. She states she also gets dizzy and has to sit down otherwise she f eels like she is going to fall to the floor. She reports these episodes occur approximately 3 times p er month and last between 5-15 minutes; they will go away with sitting down, relaxing and trying not to panic. 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 Cardiac Medications: Atorvastatin. Allergies: Acetaminophen, Aspirin, Diphenhydramine, Ibuprofen, Lactase, Gluten, Oxycodone, Zonisamide , Rice. Cardiac Risk Factors: Hyperlipidemia Previous Cardiac Procedures: None Pretest Chest Pain Characteristics: None Exercise History: Physically active Physical Disabilities: None Lung Sounds: Clear to auscultation Heart Sounds: Regular Stress Test Details Test: Exercise stress testing was performed using a Ralph protocol. Rest Stress HR Resting HR Supine: 92 bpm Max Heart Rate (APMHR): 169 bpm Resting HR Standin bpm Target HR (85% APMHR): 143 bpm Max HR Achieved: 164 bpm % of APMHR: 97 HR response to stress: Normal HR response to stress BP Resting BP Supine: 130/84 mmHg Resting BP Standin/90 mmHg Max BP: 170/80 mmHg BP response to stress: Abnormal hypotensive response to stress. ECG Resting ECG: Sinus Rhythm Stress ECG: Sinus Tachycardia ST Change: Normal Arrhythmia: None Recovery ECG: Sinus Rhythm, normal EKG Recovery Arrhythmia: None Clinical Reason for Termination: Fatigue Stress Symptoms: None Exercise duration: 6 min4 sec Highest Stage Reached: Stage 3: 3.4 mph at 14% grade. Exercise capacity: 7.15 METs Functional Capacity: Average Capacity Stress ECG Conclusion 1. Patient exercised on a Ralph protocol and completed a workload of 7.15 METS and achieved 97% of pr edicted heart rate for age 2. There were no symptoms to suggest angina 3. Normal heart rate and blood pressure response to exercise 4. Electrocardiographically negative for myocardial ischemia 5. There were no dysrhythmias 6. Szymanski treadmill score is 7 which is low risk Stress Test Summary STAGE Time (mins) Speed (mph) Grade (%) HR BP SYMPTOMS METS Supine 92 130/84 Standing 111 130/90 1 3 1.7 10 148 120/68 4.6 2 6 2.5 12 164 122/70 7 1 min recovery 160 150/76 3 min recovery 121 170/80 6 min recovery 110 140/80
== END 2019-08-14 01:47 ==
PROVIDERS: PCP Nurse Practitioner; Visit Provider Nurse Practitioner
DX: R00.2 Palpitations (principal); R00.0 Tachycardia, unspecified; E78.5 Hyperlipidemia, unspecified; R42 Dizziness and giddiness; K21.9 Gastro-esophageal reflux disease without esophagitis; F31.9 Bipolar disorder, unspecified
CPT/HCPCS: 93017; 93306

== ENCOUNTER 2019-08-22 09:19 | Outpatient (CLI) | payer MEDICAID, SELFPAY ==
--- NOTE | 2019-09-25 12:22 | W.ZIOMONITOR ---
Date of service: 09/25/19 Time of Service: 12:22 [employer] Patch Insurance Billing Specialist Note: This was a ZIO Patch monitor ordered for a duration of 14 days Predominant rhythm was sinus. Average heart rate was 93 bpm. Minimum heart rate was 63 and maximum 182 There were very rare atrial and ventricular ectopic beats There were 2 runs of supraventricular tachycardia, the longest of which was 14 beats in length Patient symptoms corresponded to SVT There was no atrial fibrillation There were no pauses greater than 2 seconds
== END 2019-08-22 09:39 ==
PROVIDERS: PCP Nurse Practitioner; Visit Provider Nurse Practitioner
DX: R00.0 Tachycardia, unspecified (principal); R00.2 Palpitations; E78.5 Hyperlipidemia, unspecified
CPT/HCPCS: 0296T

== ENCOUNTER 2019-09-12 15:48 | Outpatient (REF) | payer MEDICAID, SELFPAY | END 2019-09-12 16:08 | LOC: LBN 15:48 | PROVIDERS: PCP Nurse Practitioner; Visit Provider Nurse Practitioner Gerontology | DX: N30.10 Interstitial cystitis (chronic) without hematuria (principal) | CPT/HCPCS: 87077; 87086; 87186 ==

== ENCOUNTER 2019-10-01 17:49 | Emergency (ER) | payer MEDICAID, SELFPAY ==
[2019-10-01] VITALS (32 sets, daily range): BP systolic 107–129; BP diastolic 66–92; PULSE 70–107; RESP 9–29; TEMP 36.8; O2SAT 96–100
--- NOTE | 2019-10-01 17:45 | RT.EKG_ITS ---
APPROVED REPORT Exam: Resting ECG Patient Location: E HR:97 bpm ECG Measurements Heart Rate 97 AXIS TX 152 P 51 QRSd 87 QRS -7 QT 347 T 37 QTc 442 <Conclusion> Sinus rhythm...normal P axis, V-rate 50- 99 nondiagnostic
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
[2019-10-01] MEDS: Normal Saline 1,000 ML 1000 ML IV (18:52)
--- NOTE | 2019-10-01 19:05 | DI.RAD_ITS ---
EXAM: XR PORTABLE CHEST AP CLINICAL HISTORY: palpitation TECHNIQUE: 2D digital imaging was performed. COMPARISON: No exams were available for comparison FINDINGS: MEDIASTINUM: Normal. HEART: Normal. PULMONARY VASCULATURE: Normal. LUNGS: Clear. PLEURAL SPACE: No pleural effusion or pneumothorax. BONE:Normal. OTHER FINDINGS:Normal. IMPRESSION: No acute pulmonary findings. DATA REPOSITORY: RADIATION DOSE DELIVERED:
--- NOTE | 2019-10-01 19:17 | DI.VRAD_ITS ---
PROCEDURE INFORMATION: Exam: XR Chest, 1 View Exam date and time: 10/01/2019 7:03 PM Age: 49 years old Clinical indication: Other: Palpitations TECHNIQUE: Imaging protocol: XR of the chest Views: 1 view. COMPARISON: CR CHEST 2 VIEWS PA,LAT 10/16/2017 4:02 PM FINDINGS: Lungs: No significant consolidation. Pleural space: No pleural effusion. No pneumothorax. Heart/Mediastinum: No significant cardiomegaly. Bones/joints: Unremarkable. IMPRESSION: No acute findings. Dictated and Authenticated by: Florencio Carpio MD. Ordering:PIEDAD Hogan MD
[2019-10-01 19:29] LABS: Abs Immature Grans 0.01 k/cumm (0.0-0.09); Absolute Basophil Count 0.02 k/cumm (0.0-0.2); Absolute Eosinophil Count 0.06 k/cumm (0.0-0.7); Absolute Lymphocyte Count 2.26 k/cumm (1.2-3.4); Absolute Monocyte Count 0.59 k/cumm (0.11-0.7); Absolute Neutrophil Count 3.15 k/cumm (1.2-6.7); Basophils % 0.3; HGB 14.9 g/dL (12.0-15.5); Immature Grans % 0.2 %; Lymphocytes % 37.1; Mean Corp. HGB Concentration 34.7 g/dL (32.0-36.0); Mean Corpuscular Hemoglobin 31.8 pg (27.0-33.0); Mean Corpuscular Volume 91.9 fL (80-95); Mean Platelet Volume 10.9 fL (8.0-11.0); Monocytes % 9.7; Neutrophils % 51.7; Platelet Count 140 x1000/uL (130-400); RBC 4.68 m/cumm (4.00-5.20); RBC Distribution Width 12.9 % (11.7-14.6); White Blood Cell Count 6.09 k/cumm (4.4-10.8)
[2019-10-01 20:39] LABS: ALT 68 U/L (14-59); AST 51 U/L (15-37); Albumin 3.3 g/dL (3.4-5.0); Alkaline Phosphatase 137 U/L (46-116); Anion Gap 9.2 mmol/L (3-11); BUN 13 mg/dL (7-18); Bilirubin, Total 0.3 mg/dL (0.2-1.0); CO2 25.8 mmol/L (21.0-32.0); CREATININE 0.92 mg/dL (0.55-1.02); Calcium 8.2 mg/dL (8.5-10.1); Chloride 107 mmol/L (98-107); Glucose 141 mg/dL (74-106); Potassium 3.8 mmol/L (3.5-5.1); Sodium 142 mmol/L (136-145); TSH 4.17 uIU/mL (0.36-3.74); Total Protein 6.3 g/dL (6.4-8.2)
[2019-10-01 20:41] LABS: Troponin I < 0.05 ng/mL (<0.06)
== END 2019-10-01 21:55 | disposition home or self-care (01) ==
PROVIDERS: Emergency Provider Nurse Practitioner Acute Care; PCP Nurse Practitioner
DX: R00.2 Palpitations (principal)
CPT/HCPCS: 36415; 80053; 93005; 96360; 99285; 71045; 83735; 84443; 84484; 85025; 93010; 99284

== ENCOUNTER 2019-10-17 07:53 | Outpatient (CLI) | payer MEDICAID, SELFPAY ==
[2019-10-18 22:24] LABS: SARS-CoV-2 RNA Undetected (Undetected)
== END 2019-10-17 08:13 ==
PROVIDERS: PCP Nurse Practitioner; Visit Provider Nurse Practitioner
DX: Z11.59 Encounter for screening for other viral diseases (principal)
CPT/HCPCS: U0003

== ENCOUNTER 2019-12-12 07:24 | Outpatient (CLI) | payer MEDICAID, SELFPAY ==
[2019-12-15 07:39] LABS: Patient Race White; SARS-CoV-2 RNA Undetected (Undetected); SARS-CoV-2 Specimen Source Nasal
== END 2019-12-12 07:44 ==
PROVIDERS: PCP Nurse Practitioner; Visit Provider Nurse Practitioner Family
DX: Z11.59 Encounter for screening for other viral diseases (principal)
CPT/HCPCS: U0003

== ENCOUNTER 2019-12-22 21:35 | Inpatient (IN) | payer MEDICAID, SELFPAY ==
--- NOTE | 2019-12-22 21:45 | DI.CT_ITS ---
EXAM: CT ABDOMEN PELVIS W CLINICAL HISTORY: rlq pain, r/o appe / cysts TECHNIQUE: Imaging Protocol: Axial computed tomography images with coronal and sagittal reformatted images were created and reviewed CONTRAST MATERIAL: Intravenous: Omnipaque 350 Contrast volume:100 mL Oral: No COMPARISON: CT CT ABDOMEN PELVIS W from 12/21/2018 FINDINGS: ABDOMEN: Lung Bases: Normal where visualized. Liver: Diffuse fatty infiltration. No measurable mass. Portal, Superior Mesenteric, and Splenic Veins: Unremarkable. Gallbladder and Biliary Tract: Status post cholecystectomy. No significant biliary ductal dilatation . Pancreas: Normal density, no abnormal calcifications or inflammatory process. Spleen: Normal. Adrenals: Stable adrenal nodules. These likely reflect adenomas. Kidneys: Normal size, contour and axis. Nonobstructing 3 mm left renal stone. A 4 mm right UVJ stone causing [id number] hydronephrosis. No masses seen. Abdominal Aorta: Abdominal portion non-dilated. Bowel: No obstruction or bowel wall thickening. Appendix is unremarkable. Peritoneal Cavity: No ascites, collection or mesenteric inflammatory response. Lymph Nodes: Within normal limits. Bones: Unremarkable. Soft Tissues: Unremarkable. PELVIS: Bladder: Incompletely distended but no gross abnormality is identified. Reproductive Organs: Status post hysterectomy. Lymph Nodes: Within normal limits. Bones: Degenerative changes. Mild left convex thoracolumbar scoliosis. IMPRESSION: 4 mm right UVJ stone causing [id number] hydronephrosis. Normal appendix. RADIATION DOSE DELIVERED: 1,493.63mGy.cm Total DLP DATA REPOSITORY: All CT scans at this facility are submitted to the National Radiology Data Registry (NRDR) Dose Index Registry (DIR) with the [employer] (A[employer]). RADIATION OPTIMIZATION: All CT scans at this facility use at least one of these dose optimization te chniques: automated exposure control; mA and/or kV adjustment per patient size (includes targeted exa ms where dose is matched to clinical indication); or iterative reconstruction.
[2019-12-22 21:51] VITALS: BP 151/88; PULSE 79; RESP 16; TEMP 36.5; O2SAT 96
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
[2019-12-22 21:54] LABS: Bilirubin Small (Negative); Blood Large (Negative); Clarity Sl Cloudy (Clear); Glucose Negative (Negative); Ketones Negative (Negative); Leukocyte Esterase Negative (Negative); Nitrite Negative (Negative); Specific Gravity >= 1.030 (1.005-1.025); pH 5.5 (5-8)
[2019-12-22 21:56] LABS: Bacteria Rare HPF (Negative); C & S Indicated? No; Casts Negative LPF (Negative); Crystals Negative HPF (Negative); Epithelial Cells Rare HPF (Negative); Mucus Negative (Negative); WBC Negative HPF (0-5)
[2019-12-22 22:17] LABS: Abs Immature Grans 0.02 10^3/uL (0.0-0.06); Absolute Basophil Count 0.04 10^3/uL (0.0-0.2); Absolute Eosinophil Count 0.06 10^3/uL (0.0-0.7); Absolute Monocyte Count 0.53 10^3/uL (0.1-0.8); Absolute Neutrophil Count 4.63 10^3/uL (1.2-6.7); Basophils % 0.5; Eosinophils % 0.8; HCT 44.4 % (36.0-46.0); HGB 15.1 g/dL (11.2-15.7); Immature Grans % 0.3; Lymphocytes % 28.5; MCH 31.5 pg (27.0-33.0); MCV 92.7 fL (80-95); MPV 10.8 fL (8.0-11.0); Monocytes % 7.2; Neutrophils % 62.7; Nucleated RBC 0 %; Platelet Count 150 10^3/uL (130-400); RBC 4.79 10^6/uL (3.93-5.22); RDW 12.3 % (11.7-14.6); RDW-SD 42.1 fL; WBC 7.38 10^3/uL (4.4-10.8)
[2019-12-22] MEDS: Normal Saline 1,000 ML 1000 ML IV (22:17)
[2019-12-22] MEDS: Normal Saline Flush 10 ML SYR IVP (22:22)
[2019-12-22] MEDS: Normal Saline - Diluent 50 ML VIAL IV (22:23)
[2019-12-22] MEDS: Ondansetron 4 MG/2 ML VIAL (22:24)
[2019-12-22 22:38] LABS: ALT 32 U/L (14-59); AST 39 U/L (15-37); Albumin 3.5 g/dL (3.4-5.0); Alkaline Phosphatase 151 U/L (46-116); BUN 18 mg/dL (7-18); Bilirubin, Total 0.4 mg/dL (0.2-1.0); CREATININE 1.02 mg/dL (0.55-1.02); Calcium 8.9 mg/dL (8.5-10.1); Chloride 106 mmol/L (98-107); Estimated GFR 57.13 (mL/min/1.73m2); Glucose 219 mg/dL (74-106); Lipase 121 U/L (73-393); Potassium 4.9 mmol/L (3.5-5.1); Sodium 139 mmol/L (136-145); Total Protein 7.1 g/dL (6.4-8.2)
[2019-12-22] MEDS: Omnipaque 350 MG/ML 100 ML BTL IJ (22:48)
[2019-12-22] MEDS: Tamsulosin 0.4 MG CAPCR PO (23:10)
[2019-12-22] MEDS: HYDROmorphone 2 MG/ML VIAL 1 MG IVP (23:11)
[2019-12-22 23:14] VITALS: BP 158/91; PULSE 93; RESP 20; O2SAT 100
--- NOTE | 2019-12-23 | DI.US_ITS ---
EXAM: US RENAL CLINICAL HISTORY: r/o hydronephrosis. TECHNIQUE: Downs scale, color and spectral Doppler were used. COMPARISON: CT CT ABDOMEN PELVIS W from 12/22/[address] ABDOMEN PELVIS W from 12/22/2019 FINDINGS: Renal size in cm: Right: 12. Left: 11.6. Echogenicity: Normal. Hydronephrosis: Mild to moderate right hydronephrosis Cyst or mass: No. Nephrolithiasis: No. Other findings: None. Bladder:Normal. Ureteral jets: Right: Not visualized. This is likely secondary to the patient's known right UVJ calculus. Left: Visualized and unremarkable. Prevoid vol:247 cc Postvoid vol:The patient was unable to void. Renal color flow: Symmetric and within normal limits. IMPRESSION: Persistent right hydronephrosis. The degree of dilatation appears decreased compared to the examinat ion from 12/22/2019. DATA REPOSITORY:
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
[2019-12-23] MEDS: Normal Saline 1,000 ML 150 ML IV ×4 (00:37→19:42)
[2019-12-23 00:58] VITALS: BP 160/99; PULSE 98; RESP 17; TEMP 36.1; O2SAT 99
[2019-12-23] MEDS: HYDROmorphone 2 MG/ML VIAL IVP ×5 (01:32→19:39)
[2019-12-23 07:34] VITALS: BP 127/81; PULSE 90; RESP 20; TEMP 36.6; O2SAT 96
[2019-12-23 09:15] LABS: Magnesium 2.2 mg/dL (1.8-2.4)
[2019-12-23 09:15] LABS: Anion Gap 4.9 mmol/L (3-11); BUN 15 mg/dL (7-18); CO2 27.1 mmol/L (21.0-32.0); CREATININE 0.99 mg/dL (0.55-1.02); Calcium 7.9 mg/dL (8.5-10.1); Chloride 112 mmol/L (98-107); Estimated GFR 59.14 (mL/min/1.73m2); Glucose 170 mg/dL (74-106); Potassium 3.8 mmol/L (3.5-5.1); Sodium 144 mmol/L (136-145)
[2019-12-23] MEDS: Amitriptyline 25 MG TAB 50 MG PO (09:21)
[2019-12-23] MEDS: Venlafaxine 150 MG CAPCR PO (09:21)
[2019-12-23] MEDS: Topiramate 100 MG TAB PO (09:21)
[2019-12-23] MEDS: Omeprazole 20 MG CAPCR 40 MG PO (09:21)
[2019-12-23] MEDS: Venlafaxine 37.5 MG CAPCR 75 MG PO (09:22)
--- NOTE | 2019-12-23 09:38 | RESPIRATORY ---
RT spoke with patient concerning her history of sleep apnea to see if she uses a machine for it. Patient reported she does have a machine but doesn't use it as its very uncomfortable to wear and she doesn't like anything around her head. RT asked if she wanted to bring the machine in and have RT try to better fit her mask. Patient refused and is not interested in wearing any device during her hospital stay. RT informed patient that her best bet is to contact her DME concerning the mask being uncomfortable to see if they can fit her for a different type.
--- NOTE | 2019-12-23 11:21 | PGE_ITS ---
Date of Service Date of service: 12/23/19 Time of Service: 11:21 Assessment and Plan Assessment and plan (1) Kidney stone on right side: Start date: 12/23/19 Start time: 11:27 Status: Acute Assessment and plan: She has not passed stone yet. CT showing 4 mm stone on the RT UVJ with mild to moderate hydronephrosis. Will obtain renal u/s PVR if greater than 300 notify provider Analgesics for pain She may require transfer to tertiary center if she has severe hydronephrosis. Though her BUN and creatinine are normal. BMP in am. (2) Hyperlipidemia: Start date: 12/23/19 Start time: 11:29 Status: Acute Assessment and plan: Continue statins (3) Multiple personalities: Start date: 12/23/19 Start time: 11:30 Status: Acute Assessment and plan: No behavioral at this time, continue home psych medications (4) Anxiety: Start date: 12/23/19 Start time: 11:30 Status: Acute Assessment and plan: Continue medication for anxiety. Above case discussed with Dr. Russell who is in agreement. Subjective Subjective Patient reports: still having pain Interval history since last seen: C/o pain to CVA on right side. She also states she feels like after she voids she still has to go. Will check PVR, if retaining we will need to consider tertiary care at this time urology is not available. CT showed mild - moderate hydronephrosis. Renal u/s to see if hydronephrosis present and how much. If she is able to void with little residual, pain improves, she could stay in house. At this time she is comfortable, she has just received pain medication. Exam Const General: cooperative, healthy appearing and no acute distress Orientation: alert, oriented x3 and oriented to person Eyes Sclera: sclerae normal Pupils: PERRL EOM: EOM intact bilaterally Neck Neck: normal visual inspection, full ROM and no JVD Lymphatic: no lymphadenopathy noted Resp Effort & Inspection: normal respiratory effort Auscultation: clear to auscultation bilaterally Cardio Jugular venous pressure: no JVD Rate: regular rate Rhythm: regular rhythm GI Palpation: soft and no hepatosplenomegaly General: CVA tenderness on the right Back/Spine/Pelvis Back: CVA tenderness and back tenderness Thoracic/Lumbar Spine: thoracic and lumbar spine normal to inspection Skin General skin exam: no rashes or lesions noted Wounds: no wounds Neuro General: patient alert, patient awake and patient oriented x3 Extrem General: normal to inspection, full ROM and no clubbing, cyanosis or edema Psych Appearance: grossly normal Mental Status: mental status grossly normal Mood: congruent mood Affect: normal affect Attitude: cooperative Objective Last Vital Signs Temp 36.6 C 12/23/19 07:34 Pulse 90 12/23/19 07:34 Resp 20 12/23/19 07:34 BP 127/81 12/23/19 07:34 Pulse Ox 96 12/23/19 07:34 Laboratory Results - last 24 hr 12/22/19 12/22/19 12/22/19 21:45 22:05 22:05 WBC 7.38 RBC 4.79 Hgb 15.1 Hct 44.4 MCV 92.7 MCH 31.5 MCHC 34.0 RDW 12.3 Plt Count 150 MPV 10.8 Immature Gran % 0.3 Neutrophils % 62.7 Lymphocytes % 28.5 Monocytes % 7.2 Eosinophils % 0.8 Basophils % 0.5 Nucleated RBC % 0 Absolute Neutrophils 4.63 Absolute Lymphocytes 2.10 Absolute Monocytes 0.53 Absolute Eosinophils 0.06 Absolute Basophils 0.04 Sodium 139 Potassium 4.9 Chloride 106 Carbon Dioxide 22.0 Anion Gap 11.0 BUN 18 Creatinine 1.02 Estimated GFR/1.73 m2 57.13 Glucose 219 H Calcium 8.9 Magnesium Total Bilirubin 0.4 AST 39 H ALT 32 Alkaline Phosphatase 151 H Total Protein 7.1 Albumin 3.5 Lipase 121 Free T4 Urine Color Yellow Urine Clarity Sl cloudy Urine pH 5.5 Ur Specific [place] >= 1.030 H Urine Protein 30 H Urine Ketones Negative Urine Blood Large H Urine Nitrite Negative Urine Bilirubin Small H Urine Urobilinogen 1.0 H Ur Leukocyte Esterase Negative Urine RBC 10-20 H Urine WBC Negative Ur Epithelial Cells Rare Urine Crystals Negative Urine Bacteria Rare Urine Casts Negative Urine Mucus Negative Ur Culture Indicated? No Urine Glucose Negative 12/23/19 12/23/19 12/23/19 08:39 08:53 08:53 WBC RBC Hgb Hct MCV MCH MCHC RDW Plt Count MPV Immature Gran % Neutrophils % Lymphocytes % Monocytes % Eosinophils % Basophils % Nucleated RBC % Absolute Neutrophils Absolute Lymphocytes Absolute Monocytes Absolute Eosinophils Absolute Basophils Sodium 144 Potassium 3.8 D Chloride 112 H Carbon Dioxide 27.1 Anion Gap 4.9 BUN 15 Creatinine 0.99 Estimated GFR/1.73 m2 59.14 Glucose 170 H Calcium 7.9 L Magnesium 2.2 Total Bilirubin AST ALT Alkaline Phosphatase Total Protein Albumin Lipase Free T4 0.70 L Urine Color Urine Clarity Urine pH Ur Specific [place] Urine Protein Urine Ketones Urine Blood Urine Nitrite Urine Bilirubin Urine Urobilinogen Ur Leukocyte Esterase Urine RBC Urine WBC Ur Epithelial Cells Urine Crystals Urine Bacteria Urine Casts Urine Mucus Ur Culture Indicated? Urine Glucose
[2019-12-23 12:18] LABS: COVID-19 RT-PCR UVMMC Result Negative (Negative)
[2019-12-23] MEDS: Normal Saline Flush 10 ML SYR IVP ×2 (13:23→19:41)
--- NOTE | 2019-12-23 13:54 | PHA.REVIEW ---
Pharmacy Admission Review - Admission Clinical Review (Last Reviewed 12/23/19 @ 00:04 by Myles Last MD) Kidney stone on right side (Acute) Hyperlipidemia (Acute) Multiple personalities (Acute) Anxiety (Acute 03/12/16) acetaminophen [From Tylenol] Allergy (Severe, Verified 07/20/19 11:56) Anaphylaxsis aspirin Allergy (Severe, Verified 07/20/19 11:56) Anaphylaxsis bee venom protein (honey bee) Allergy (Severe, Unverified 10/01/19 18:09) Anaphylaxsis diphenhydramine HCl [From Benadryl] Allergy (Severe, Verified 07/20/19 11:56) Hives, throat closes ibuprofen Allergy (Severe, Verified 07/20/19 11:56) Anaphylaxsis lactase [From Dairy Aid] Allergy (Severe, Verified 07/20/19 11:56) anaphylaxis naproxen sodium [From Aleve] Allergy (Severe, Verified 07/20/19 11:56) Anaphylaxsis latex Allergy (Verified 07/20/19 11:56) gluten Adverse Reaction (Severe, Verified 07/20/19 11:56) throat closes up oxycodone [Oxycodone] Adverse Reaction (Intermediate, Verified 07/20/19 11:56) zonisamide Adverse Reaction (Intermediate, Verified 07/20/19 11:56) NIGHTMARES Height 5 ft 7 in Weight 112.491 kg - Renal Dosing Renal Dosing: BUN 15 mg/dL (7-18) 12/23/19 08:39 Creatinine 0.99 mg/dL (0.55-1.02) 12/23/19 08:39 Medications needing adjustments: Reviewed (crcl ~63ml/min) - Anticoagulation Anticoagulation: Hgb 15.1 g/dL (11.2-15.7) 12/22/19 22:05 Hct 44.4 % (36.0-46.0) 12/22/19 22:05 Plt Count 150 10^3/uL (130-400) 12/22/19 22:05 Creatinine 0.99 mg/dL (0.55-1.02) 12/23/19 08:39 DVT Prohphylaxis: Intervened (will ask provider if appropriate) Therapeutic Anticoagulation: N/A - Relevant Labs Sodium 144 mmol/L (136-145) 12/23/19 08:39 Potassium 3.8 mmol/L (3.5-5.1) D 12/23/19 08:39 Chloride 112 mmol/L (98-107) H 12/23/19 08:39 Magnesium 2.2 mg/dL (1.8-2.4) 12/23/19 08:53 Electrolytes, C-Reactive P, ESR: Reviewed - DM Control DM Control: Glucose 170 mg/dL (74-106) H 12/23/19 08:39 Insulin Dosing: N/A - BP Control BP Control: Blood Pressure 127/81 If elevated: N/A - Home Meds Home Med List reviewed: Intervened (lamotrigine dose different than last dose filled. notified provider) - Current meds Current Medication Order Review: Intervened (tamsulosin daily started after one dose in ED) - Comments Comments/Follow Ups: may need to transfer to another facility
[2019-12-23] MEDS: Tamsulosin 0.4 MG CAPCR PO (15:01)
[2019-12-23 15:12] VITALS: BP 94/60; PULSE 100; RESP 18; TEMP 36.8; O2SAT 92
[2019-12-23] MEDS: lamoTRIgine 100 MG TAB PO (21:57)
[2019-12-24] MEDS: Normal Saline 1,000 ML 150 ML IV ×4 (02:05→21:29)
[2019-12-24 03:30] VITALS: BP 127/77; PULSE 101; RESP 18; TEMP 37; O2SAT 95
[2019-12-24 07:22] LABS: BUN 10 mg/dL (7-18); CREATININE 0.87 mg/dL (0.55-1.02); Calcium 7.5 mg/dL (8.5-10.1); Chloride 108 mmol/L (98-107); Glucose 176 mg/dL (74-106); Potassium 3.5 mmol/L (3.5-5.1); Sodium 138 mmol/L (136-145)
[2019-12-24] MEDS: HYDROmorphone 2 MG/ML VIAL IVP (07:22)
[2019-12-24] MEDS: Normal Saline Flush 10 ML SYR IVP (07:23)
[2019-12-24 07:40] VITALS: BP 125/80; PULSE 91; RESP 17; TEMP 36.9; O2SAT 94
[2019-12-24] MEDS: Amitriptyline 25 MG TAB 50 MG PO (07:42)
[2019-12-24] MEDS: Topiramate 100 MG TAB PO (07:42)
[2019-12-24] MEDS: Venlafaxine 150 MG CAPCR PO (07:42)
[2019-12-24] MEDS: Omeprazole 20 MG CAPCR 40 MG PO (07:42)
[2019-12-24] MEDS: Venlafaxine 37.5 MG CAPCR 75 MG PO (07:42)
[2019-12-24] MEDS: Tamsulosin 0.4 MG CAPCR PO (07:42)
--- NOTE | 2019-12-24 09:25 | W.PM.PROGNOT ---
Date of Service Date of service: 12/24/19 Time of Service: 09:25 Assessment and Plan Assessment and plan (1) Kidney stone on right side: Start date: 12/24/19 Start time: 09:30 Status: Acute Assessment and plan: She has not passed stone yet. CT showing 4 mm stone on the RT UVJ with mild to moderate hydronephrosis. u/s retained revealing Persistent right hydronephrosis. The degree of dilatation appears decreased compared to the examination from 12/22/2019. Flomax started Trial Ketorlac for pain, PVR less than 100 ml over 24 hours. not retaining. will d/c At this time I don't feel she needs to be transferred, BUN and Creatinine normal. Symptoms improving will consult Dr. Mares for recommendations. BMP in am (2) Hyperlipidemia: Start date: 12/24/19 Start time: 09:32 Status: Acute Assessment and plan: Continue statins (3) Multiple personalities: Start date: 12/24/19 Start time: 09:33 Status: Acute Assessment and plan: No behavioral at this time, continue home psych medications (4) Anxiety: Start date: 12/24/19 Start time: 09:33 Status: Acute Assessment and plan: Continue medication for anxiety. Above case discussed with Dr. Russell who is in agreement. Subjective Subjective Patient reports: feels better Interval history since last seen: Sitting up in chair feeling better. Pain is improved. Tolerating diet. PVR with 17 ml. She has not passed stone at this time. she denies CP, SOB, N/v/d Exam Const General: cooperative, healthy appearing and no acute distress Orientation: alert, oriented x3 and oriented to person Eyes Sclera: sclerae normal Pupils: PERRL EOM: EOM intact bilaterally Neck Neck: normal visual inspection, full ROM and no JVD Lymphatic: no lymphadenopathy noted Resp Effort & Inspection: normal respiratory effort Auscultation: clear to auscultation bilaterally Cardio Jugular venous pressure: no JVD Rate: regular rate Rhythm: regular rhythm GI Palpation: soft and no hepatosplenomegaly General: CVA tenderness on the right Back/Spine/Pelvis Back: CVA tenderness and back tenderness Thoracic/Lumbar Spine: thoracic and lumbar spine normal to inspection Skin General skin exam: no rashes or lesions noted Wounds: no wounds Neuro General: patient alert, patient awake and patient oriented x3 Extrem General: normal to inspection, full ROM and no clubbing, cyanosis or edema Psych Appearance: grossly normal Mental Status: mental status grossly normal Mood: congruent mood Affect: normal affect Attitude: cooperative Objective Last Vital Signs Temp 36.9 C 12/24/19 07:40 Pulse 91 H 12/24/19 07:40 Resp 17 12/24/19 07:40 BP 125/80 12/24/19 07:40 Pulse Ox 94 12/24/19 07:40 Laboratory Results - last 24 hr 12/23/19 12/23/19 12/24/19 00:40 08:53 06:09 Sodium 138 Potassium 3.5 Chloride 108 H Carbon Dioxide 22.0 Anion Gap 8.0 BUN 10 Creatinine 0.87 Estimated GFR/1.73 m2 >= 60.00 Glucose 176 H Calcium 7.5 L Free T4 0.70 L COVID-19 PCR Negative Nasopharyn COVID-19 PCR Not Applicable Ref Test Perform Site [facility]
[2019-12-24] MEDS: Levothyroxine 175 MCG TAB PO (10:12)
[2019-12-24] MEDS: Ketorolac 30 MG/ML VIAL IVP ×3 (10:12→21:10)
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
[2019-12-24 15:25] VITALS: BP 124/80; PULSE 76; RESP 17; TEMP 36.6; O2SAT 98
[2019-12-24] MEDS: Topiramate 100 MG TAB 200 MG PO (20:00)
[2019-12-24 20:06] VITALS: BP 130/74; PULSE 83; RESP 18; TEMP 36.5; O2SAT 96
[2019-12-24] MEDS: lamoTRIgine 100 MG TAB PO (21:10)
[2019-12-24] MEDS: lamoTRIgine 25 MG TAB 50 MG PO (21:10)
[2019-12-25] MEDS: Normal Saline 1,000 ML 150 ML IV (03:30)
[2019-12-25] MEDS: Ketorolac 30 MG/ML VIAL IVP ×2 (03:31→10:02)
[2019-12-25 03:35] VITALS: BP 102/65; PULSE 69; RESP 17; TEMP 36.7; O2SAT 95
[2019-12-25] MEDS: Levothyroxine 100 MCG TAB PO (06:03)
[2019-12-25] MEDS: HYDROmorphone 2 MG/ML VIAL IVP (06:18)
[2019-12-25 06:37] LABS: Anion Gap 9.1 mmol/L (3-11); BUN 11 mg/dL (7-18); CO2 20.9 mmol/L (21.0-32.0); CREATININE 0.88 mg/dL (0.55-1.02); Calcium 7.6 mg/dL (8.5-10.1); Chloride 112 mmol/L (98-107); Glucose 171 mg/dL (74-106); Potassium 3.8 mmol/L (3.5-5.1); Sodium 142 mmol/L (136-145)
[2019-12-25 07:40] VITALS: BP 129/84; PULSE 81; RESP 18; TEMP 36.1; O2SAT 97
[2019-12-25] MEDS: Tamsulosin 0.4 MG CAPCR PO (07:59)
[2019-12-25] MEDS: Amitriptyline 25 MG TAB 50 MG PO (07:59)
[2019-12-25] MEDS: Venlafaxine 150 MG CAPCR PO (07:59)
[2019-12-25] MEDS: Topiramate 100 MG TAB PO (07:59)
[2019-12-25] MEDS: Venlafaxine 37.5 MG CAPCR 75 MG PO (07:59)
[2019-12-25] MEDS: Omeprazole 20 MG CAPCR 40 MG PO (07:59)
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
[2019-12-25] MEDS: Normal Saline Flush 10 ML SYR IVP (10:02)
--- NOTE | 2019-12-25 13:54 | PDOC.CMDIS ---
- If Service Date Differs Date of service: 12/25/19 Time of Service: 13:54 LACE Index Scoring Tool - Questions: Length of Stay (in days): 2 Acuity (Admit via E.D.?): Yes E.D. Visits: 4 - Answers: Total Score: 9 Risk of Readmission: Low Risk Care Management Discharge Reason for Hospitalization: Renal calculi Discharge Plan: Chely will return home with no additional services at this time. Her daughter will drive her home via private vehicle when ready. She will follow up with her PCP and discharge plan of care. Patient/Family Education Needs: Review discharge instructions regarding activity levels and medications, discussion of self care needs including ask me three.
[2019-12-25 15:29] VITALS: BP 118/64; PULSE 75; RESP 18; TEMP 36.8; O2SAT 94
--- NOTE | 2019-12-28 16:03 | DI.VRAD_ITS ---
PROCEDURE INFORMATION: Exam: US Retroperitoneal; Complete; Kidneys and Bladder Exam date and time: 12/23/2019 8:54 AM Age: 49 years old Clinical indication: Other: Right flank pain, known stone, R/O hydronephrosis TECHNIQUE: Imaging protocol: Real-time ultrasound of the retroperitoneum with image documentation. Complete exam focused on the kidneys and bladder. COMPARISON: CT of the abdomen and pelvis from 12/22/2019. FINDINGS: Right kidney: The kidneys are normal in size and echogenicity. There continues to be hydronephrosis on the right. Although compared to the from yesterday this appears less prominent. Renal calculus is again seen on the right side. Left kidney: Normal. No stones. No hydronephrosis. Bladder: The bladder demonstrated a left ureteral jet but No right ureteral jet is identified. The pre void bladder volume measures 247.4 cm 3. IMPRESSION: Hydronephrosis on the right kidney without a right ureteral jet identified consistent with the distal right UVJ calculus diagnosed on CT. However the hydronephrosis appears decreased compared to CT. Dictated and Authenticated by: Ava Feliz MD. Ordering:COLT Beltrán MD
--- NOTE | 2019-12-28 16:03 | DI.VRAD_ITS ---
PROCEDURE INFORMATION: Exam: CT Abdomen And Pelvis With Contrast Exam date and time: 12/22/2019 10:43 PM Age: 49 years old Clinical indication: Other: Rlq pain, R/O appe / cysts TECHNIQUE: Imaging protocol: Computed tomography of the abdomen and pelvis with intravenous contrast. Contrast material: OMNIPAQUE 350; Contrast volume: 100 ml; Contrast route: INTRAVENOUS (IV); COMPARISON: CT ABDOMEN PELVIS W 11/22/2018 19:07 FINDINGS: Liver: Normal. No mass. Gallbladder and bile ducts: Cholecystectomy. Pancreas: Normal. No ductal dilation. Spleen: Normal. No splenomegaly. Adrenals: Normal. No mass. Kidneys and ureters: Left nephrolithiasis. Right hydroureteronephrosis secondary to distal ureteral vesicle junction stone series 4, image 82. The distal right ureteral vesicle junction stone measures 0.4 cm. Right perirenal and periureteral fat infiltration. Stomach and bowel: Unremarkable. No obstruction. No mucosal thickening. Appendix: No evidence of appendicitis. Intraperitoneal space: Unremarkable. No free air. No significant fluid collection. Vasculature: Unremarkable. No abdominal aortic aneurysm. Lymph nodes: Unremarkable. No enlarged lymph nodes. Urinary bladder: Decompressed urinary bladder. Reproductive: The uterus and ovaries are not identified. Bones/joints: Multilevel degenerative changes of the thoracic and lumbar spine. Degenerative changes of the thoracic and lumbar spine. Soft tissues: Umbilical hernia. IMPRESSION: Right hydroureteronephrosis secondary to distal right ureteral vesicle junction stone. Dictated and Authenticated by: María Elena Carlisle MD. Ordering:SAM Keen MD
== END 2019-12-25 16:09 | disposition home or self-care (01) | DRG 694 ==
LOC: ER 12-23 00:22 → MS 12-23 00:43
PROVIDERS: Nurse Practitioner Family; Admitting Provider General Practice; Emergency Provider Student in an Organized Health Care Education/Training Program; PCP Nurse Practitioner; Visit Provider General Practice
DX: N13.2 Hydronephrosis with renal and ureteral calculous obstruction (principal); E03.9 Hypothyroidism, unspecified; E78.5 Hyperlipidemia, unspecified; F41.9 Anxiety disorder, unspecified; F44.81 Dissociative identity disorder; G43.909 Migraine, unspecified, not intractable, without status migrainosus; R33.9 Retention of urine, unspecified; R73.9 Hyperglycemia, unspecified; F31.9 Bipolar disorder, unspecified; G47.33 Obstructive sleep apnea (adult) (pediatric); K21.9 Gastro-esophageal reflux disease without esophagitis; E55.9 Vitamin D deficiency, unspecified; E50.9 Vitamin A deficiency, unspecified; G43.109 Migraine with aura, not intractable, without status migrainosus; F43.10 Post-traumatic stress disorder, unspecified; E66.9 Obesity, unspecified
CPT/HCPCS: 36415; 76770; 80048; 80053; 83690; 96361; 96374; 96375; 99222; 99233; 99239; 99285; U0003; 74177; 81003; 81015; 83735; 84439; 85025; 99219; 99226; G0378; J1885; J2405; J3490

== ENCOUNTER 2020-01-16 01:15 | Outpatient (CLI) | payer MEDICAID, SELFPAY ==
--- NOTE | 2020-01-16 07:15 | DI.US_ITS ---
EXAM: US RENAL CLINICAL HISTORY: monitoring hydronephrosis,calculus of kidney,n13.30,n20.0. TECHNIQUE: Downs scale, color and spectral Doppler were used. COMPARISON: US US RENAL from 12/23/2019 FINDINGS: Renal size in cm: Right: 9.9. Left: 11.2. Echogenicity: Normal. Hydronephrosis: No. Cyst or mass: No. Nephrolithiasis: 0.6 cm echogenic focus in the midpole of the left kidney which may represent a nonob structing stone. Other findings: None. Bladder:Inadequately prepped. Prevoid volume was only 11 cc. The ureteral jets were not visualized during this examination. Renal color flow: Symmetric and within normal limits. IMPRESSION: 1. No evidence of hydronephrosis. Resolution of the previously noted right hydronephrosis. 2. Urinary bladder was not well visualized due to low volume. DATA REPOSITORY:
[2020-01-19 07:58] LABS: Source: Passed Stone
== END 2020-01-16 01:35 ==
PROVIDERS: PCP Nurse Practitioner; Visit Provider Nurse Practitioner Gerontology
DX: N20.0 Calculus of kidney (principal); Z87.448 Personal history of other diseases of urinary system
CPT/HCPCS: 76770; 82365

== ENCOUNTER 2020-02-16 20:54 | Emergency (ER) | payer MEDICAID, SELFPAY ==
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
[2020-02-16 21:13] VITALS: BP 149/81; PULSE 102; RESP 18; TEMP 36.5; O2SAT 97
[2020-02-16] MEDS: Ondansetron O.D.T. 4 MG TABEF PO (21:35)
[2020-02-16 21:55] LABS: Abs Immature Grans 0.01 10^3/uL (0.0-0.06); Absolute Basophil Count 0.04 10^3/uL (0.0-0.2); Absolute Eosinophil Count 0.31 10^3/uL (0.0-0.7); Absolute Lymphocyte Count 2.43 10^3/uL (1.2-3.4); Absolute Monocyte Count 0.54 10^3/uL (0.1-0.8); Absolute Neutrophil Count 3.22 10^3/uL (1.2-6.7); Basophils % 0.6; Eosinophils % 4.7; HCT 40.1 % (36.0-46.0); HGB 13.5 g/dL (11.2-15.7); Immature Grans % 0.2; Lymphocytes % 37.1; MCH 31.1 pg (27.0-33.0); MCHC 33.7 % (32.0-36.0); MCV 92.4 fL (80-95); MPV 10.5 fL (8.0-11.0); Monocytes % 8.2; Neutrophils % 49.2; Nucleated RBC 0 %; Platelet Count 158 10^3/uL (130-400); RBC 4.34 10^6/uL (3.93-5.22); RDW 11.9 % (11.7-14.6); RDW-SD 40.1 fL; WBC 6.55 10^3/uL (4.4-10.8)
[2020-02-16 22:02] LABS: Bilirubin Negative (Negative); Blood Negative (Negative); Clarity Clear (Clear); Glucose 100 mg/dL (Negative); Ketones Negative (Negative); Leukocyte Esterase Negative (Negative); Nitrite Positive (Negative); Specific Gravity >= 1.030 (1.005-1.025); Urobilinogen 0.2 EU/dL (Up TO 0.2); pH 5.5 (5-8)
[2020-02-16 22:03] LABS: Anion Gap 5.6 mmol/L (3-11); BUN 15 mg/dL (7-18); CO2 27.4 mmol/L (21.0-32.0); CREATININE 1.08 mg/dL (0.55-1.02); Calcium 8.4 mg/dL (8.5-10.1); Chloride 103 mmol/L (98-107); Estimated GFR 53.28 (mL/min/1.73m2); Glucose 212 mg/dL (74-106); Potassium 3.8 mmol/L (3.5-5.1); Sodium 136 mmol/L (136-145)
[2020-02-16 22:04] LABS: Bacteria Moderate HPF (Negative); C & S Indicated? No/Sq. Contamination; Casts Negative LPF (Negative); Crystals Negative HPF (Negative); Epithelial Cells Moderate HPF (Negative); Mucus Negative (Negative); RBC Negative HPF (0-2)
[2020-02-16 22:09] LABS: *AMPHETAMINES SCREEN URINE Negative (Negative); *BARBITURATES SCREEN URINE Negative (Negative); *BENZODIAZEPINES SCREEN URINE Negative (Negative); Cannabinoids THC Negative (Negative); Cocaine Screen,Urine Negative (Negative); METHADONE URINE SCREEN Negative (Negative); OPIATES URINE SCREEN Negative (Negative)
[2020-02-16 22:13] LABS: Tricyclic Antidepressants POSITIVE (Negative)
--- NOTE | 2020-02-16 22:17 | DI.CT_ITS ---
EXAM: CT HEAD CERVICAL SPINE WO COMPARISON: No exams were available for comparison FINDINGS: CT examination of the cervical spine was performed without contrast administration. Mild degenerative changes of the midcervical spine noted. There is no evidence of acute cervical spine fracture or dislocation. Intervertebral disc spaces are well maintained. Tracheolaryngeal structures appear intact. No cervical mass or adenopathy. Noncontrast cranial CT was performed. Ventricular system is normal in appearance. No evidence of acute intracranial hemorrhage, mass effect, or midline shift. No calvarial fracture. The orbital and temporal bone structures appear intact. Visualized mastoid air cells and paranasal sinuses appear clear. IMPRESSION: No evidence of acute cervical spine injury. No evidence of acute intracranial injury. RADIATION DOSE DELIVERED: 1,472.04mGy.cm Total DLP 1,472.04mGy.cm Total DLP DATA REPOSITORY: All CT scans at this facility are submitted to the National Radiology Data Registry (NRDR) Dose Index Registry (DIR) with the [employer] (A[employer]). RADIATION OPTIMIZATION: All CT scans at this facility use at least one of these dose optimization te chniques: automated exposure control; mA and/or kV adjustment per patient size (includes targeted exa ms where dose is matched to clinical indication); or iterative reconstruction.
[2020-02-16 22:20] LABS: ETHANOL BLOOD < 3.0 mg/dL (<3)
--- NOTE | 2020-02-16 22:25 | DI.VRAD_ITS ---
PROCEDURE INFORMATION: Exam: CT Head Without Contrast Exam date and time: 02/16/2020 9:08 PM Age: 50 years old Clinical indication: Injury or trauma; Fall; Blunt trauma (contusions or hematomas); Injury date: 02/16/20; Injury details: Chair broke while sitting in it, PT fell backwards onto floor. TECHNIQUE: Imaging protocol: Computed tomography of the head without contrast. Radiation optimization: All CT scans at this facility use at least one of these dose optimization techniques: automated exposure control; mA and/or kV adjustment per patient size (includes targeted exams where dose is matched to clinical indication); or iterative reconstruction. COMPARISON: [email or web address] HD 3D/C SCREEN BILAT 08/13/2015 7:17 AM FINDINGS: Brain: Normal. No hemorrhage. Unremarkable white matter. No mass effect. Cerebral ventricles: No ventriculomegaly. Bones/joints: Unremarkable. No acute fracture. Paranasal sinuses: Visualized sinuses are unremarkable. No fluid levels. Mastoid air cells: Visualized mastoid air cells are well aerated. Soft tissues: Unremarkable. IMPRESSION: No acute intracranial abnormality. PROCEDURE INFORMATION: Exam: CT Cervical Spine Without Contrast Exam date and time: 02/16/2020 9:08 PM Age: 50 years old Clinical indication: Injury or trauma; Fall; Blunt trauma (contusions or hematomas); Injury date: 02/16/20; Injury details: Chair broke while sitting in it, PT fell backwards onto floor. TECHNIQUE: Imaging protocol: Computed tomography images of the cervical spine without contrast. Radiation optimization: All CT scans at this facility use at least one of these dose optimization techniques: automated exposure control; mA and/or kV adjustment per patient size (includes targeted exams where dose is matched to clinical indication); or iterative reconstruction. COMPARISON: [email or web address] [facility] HD 3D/C SCREEN BILAT 08/13/2015 7:17 AM FINDINGS: Vertebrae: No acute fracture. Normal alignment. Lower cervical predominant degenerative disk disease and facet arthropathy with neuroforaminal and canal stenosis. Soft tissues: Unremarkable. Lungs: Lung apices are normal. IMPRESSION: No acute findings. Dictated and Authenticated by: Yonis Medrano MD. Ordering:PIEDAD Hogan MD
--- NOTE | 2020-02-16 22:25 | DI.RAD_ITS ---
EXAM: XR LUMBAR SPINE AP, LAT CLINICAL HISTORY: trauma low back pain TECHNIQUE: COMPARISON: CR XR DEXA BONE DENSITY W/WO LAMBERTO from 01/04/2019 FINDINGS: Three views were obtained. There is a mild right convex lumbar scoliosis. There are mild degenerati ve changes of the SI joints bilaterally. There is some loss of disc height of L4-5 and L5-S1 consist ent with disc degeneration. There are mild degenerative hypertrophic changes of the lower lumbar spi ne involving the facet joints and endplates. There is no evidence of acute fracture or dislocation. IMPRESSION: RADIATION DOSE DELIVERED: Total DLP Total DLP
--- NOTE | 2020-02-16 22:33 | DI.VRAD_ITS ---
PROCEDURE INFORMATION: Exam: XR Lumbosacral Spine, 2 or 3 Views Exam date and time: 02/16/2020 10:26 PM Age: 50 years old Clinical indication: Injury or trauma; Fall; Blunt trauma (contusions or hematomas); Injury date: 02/16/20; Injury details: Chair broke while sitting in it, fell backwards onto floor. Lower back pain TECHNIQUE: Imaging protocol: XR of the lumbosacral spine, 2 or 3 views. COMPARISON: CT ABDOMEN PELVIS W 12/22/2019 10:22 PM FINDINGS: Bones/joints: Lower lumbar discogenic change and facet arthropathy. No acute fracture. Normal alignment. Soft tissues: Unremarkable. IMPRESSION: No acute findings. Dictated and Authenticated by: Yonis Medrano MD. Ordering:PIEDAD Hogan MD
== END 2020-02-16 23:10 | disposition home or self-care (01) ==
PROVIDERS: Emergency Provider Nurse Practitioner Acute Care; PCP Nurse Practitioner
DX: S09.8XXA Other specified injuries of head, initial encounter (principal); M54.2 Cervicalgia; M54.5 Low back pain; R51.9 Headache, unspecified; W07.XXXA Fall from chair, initial encounter; E11.9 Type 2 diabetes mellitus without complications; Z79.84 Long term (current) use of oral hypoglycemic drugs
CPT/HCPCS: 36415; 80048; 80307; 99284; 70450; 72100; 72125; 80320; 81003; 81015; 85025

== ENCOUNTER 2020-03-12 03:26 | Outpatient (CLI) | payer MEDICAID, SELFPAY ==
[2020-03-12 16:08] LABS: Anion Gap 7.8 mmol/L (3-11); BUN 12 mg/dL (7-18); CO2 27.2 mmol/L (21.0-32.0); CREATININE 0.97 mg/dL (0.55-1.02); Calcium 8.8 mg/dL (8.5-10.1); Chloride 105 mmol/L (98-107); FREE T4 0.85 ng/dL (0.76-1.46); Glucose 142 mg/dL (74-106); Sodium 140 mmol/L (136-145); TSH 2.02 uIU/mL (0.36-3.74)
== END 2020-03-12 03:46 ==
PROVIDERS: PCP Nurse Practitioner; Visit Provider Nurse Practitioner
DX: R79.89 Other specified abnormal findings of blood chemistry (principal)
CPT/HCPCS: 36415; 80048; 84439; 84443

== ENCOUNTER 2020-03-19 18:17 | Inpatient (IN) | payer MEDICAID, SELFPAY ==
[2020-03-19] VITALS (29 sets, daily range): BP systolic 117–130; BP diastolic 81–88; PULSE 89–123; RESP 15–27; TEMP 36.4; O2SAT 96–128
--- NOTE | 2020-03-19 18:15 | RT.EKG_ITS ---
APPROVED REPORT Exam: Resting ECG Patient Location: E HR:117 bpm ECG Measurements Heart Rate 117 AXIS AK 158 P 63 QRSd 84 QRS 9 QT 323 T 50 QTc 450 Conclusion Sinus tachycardia...rate> 99 Anteroseptal infarct, old...Q >40mS, V1-V2 I have reviewed and interpreted ECG and agree with software generated interpretation.
--- NOTE | 2020-03-19 18:45 | DI.RAD_ITS ---
EXAM: XR CHEST 2V PA LATERAL CLINICAL HISTORY: palpitatoins TECHNIQUE: 2D digital imaging was performed. COMPARISON: No exams were available for comparison FINDINGS: MEDIASTINUM: Normal. HEART: Normal. PULMONARY VASCULATURE: Normal. LUNGS: Clear. PLEURAL SPACE: No pleural effusion or pneumothorax. BONE:Within normal limits for the patient's age. OTHER FINDINGS:Normal. IMPRESSION: No acute pulmonary findings. DATA REPOSITORY: RADIATION DOSE DELIVERED:
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
[2020-03-19 19:14] LABS: Abs Immature Grans 0.03 10^3/uL (0.0-0.06); Absolute Basophil Count 0.05 10^3/uL (0.0-0.2); Absolute Eosinophil Count 0.25 10^3/uL (0.0-0.7); Absolute Lymphocyte Count 2.39 10^3/uL (1.2-3.4); Absolute Monocyte Count 0.48 10^3/uL (0.1-0.8); Absolute Neutrophil Count 5.42 10^3/uL (1.2-6.7); Basophils % 0.6; Eosinophils % 2.9; HGB 14.6 g/dL (11.2-15.7); Immature Grans % 0.3; Lymphocytes % 27.7; MCHC 33.2 % (32.0-36.0); MCV 93.4 fL (80-95); MPV 10.7 fL (8.0-11.0); Monocytes % 5.6; Neutrophils % 62.9; Nucleated RBC 0 %; Platelet Count 157 10^3/uL (130-400); RBC 4.71 10^6/uL (3.93-5.22); RDW-SD 41.4 fL; WBC 8.62 10^3/uL (4.4-10.8)
[2020-03-19 19:33] LABS: ALT 48 U/L (14-59); AST 21 U/L (15-37); Albumin 3.6 g/dL (3.4-5.0); Alkaline Phosphatase 166 U/L (46-116); Anion Gap 8.1 mmol/L (3-11); BUN 18 mg/dL (7-18); Bilirubin, Total 0.3 mg/dL (0.2-1.0); CO2 26.9 mmol/L (21.0-32.0); CREATININE 1.25 mg/dL (0.55-1.02); Calcium 8.7 mg/dL (8.5-10.1); Chloride 104 mmol/L (98-107); Estimated GFR 45.01 (mL/min/1.73m2); Glucose 227 mg/dL (74-106); Magnesium 1.7 mg/dL (1.8-2.4); Potassium 3.7 mmol/L (3.5-5.1); Sodium 139 mmol/L (136-145); TSH 2.73 uIU/mL (0.36-3.74); Total Protein 6.9 g/dL (6.4-8.2)
--- NOTE | 2020-03-19 19:33 | DI.VRAD_ITS ---
PROCEDURE INFORMATION: Exam: XR Chest, 2 Views Exam date and time: 03/19/2020 6:59 PM Age: 50 years old Clinical indication: Other: Chest tightness TECHNIQUE: Imaging protocol: XR of the chest Views: 2 views. COMPARISON: CR XR PORTABLE CHEST AP 10/01/2019 6:56 PM FINDINGS: Lungs: Unremarkable. No consolidation. Pleural space: Unremarkable. No pleural effusion. No pneumothorax. Heart/Mediastinum: Unremarkable. No cardiomegaly. Bones/joints: Mild bilateral acromioclavicular joint degenerative changes. IMPRESSION: No acute cardiopulmonary abnormality. Dictated and Authenticated by: Myles Sorto MD. Ordering:ASHLYN Tinoco MD
[2020-03-19 19:35] LABS: Troponin I < 0.05 ng/mL (<0.06)
[2020-03-19] MEDS: Normal Saline Flush 10 ML SYR IVP (20:23)
[2020-03-19] MEDS: Normal Saline 1,000 ML 1000 ML IV (20:24)
[2020-03-19 20:43] LABS: D-Dimer 558 ng/mlFEU (<500)
--- NOTE | 2020-03-19 20:45 | DI.CT_ITS ---
EXAM: CT CHEST PE CTA CLINICAL HISTORY: elevated dimer, pleuritic CP. TECHNIQUE: Imaging Protocol: CT angiography of the chest was performed using pulmonary embolus madelyn col. Multi planar reconstructions were performed. CONTRAST MATERIAL: Intravenous: Omnipaque 350 Contrast volume: 100 cc COMPARISON: CT CT ABDOMEN PELVIS W from 12/22/2019. visualized lower lung walker at that time appe ar unremarkable FINDINGS: CHEST: PULMONARY ARTERIES: There are no intraluminal filling defects to suggest acute pulmonary emboli. LUNGS: There is no evidence of pulmonary infarction.. There are increased markings in both lung base s posterior basal segment both lower lobes, symmetrical in appearance. No associated pleural effusio ns. No nodules. None no significant focal findings in the trachea and mainstem bronchi. MEDIASTINUM: There is no hilar nor mediastinal adenopathy. Visualized thyroid unremarkable. CARDIAC: Heart size is normal. There is no pericardial effusion.Caliber of the thoracic aorta is wit hin normal limits. There is no evidence of shift of the interventricular septum. PARTIALLY VISUALIZED UPPERMOST ABDOMEN: There is a nodule in the left adrenal gland which is unchange d from the prior CT scan of December 2019, this measuring 2 centimetres by 1.6 centimetres. The oppos ite-right adrenal gland is unremarkable. Gallbladder surgically absent. OSSEOUS: No significant osseous lesions.. IMPRESSION: 1. No evidence of acute pulmonary emboli. No evidence of pulmonary infarction.However, there are mil d increased markings in both lung bases. These appear quite symmetrical and are not associated with pleural effusions. Possibly related to mild infiltrates +less than optimal inspiratory effort. Russ mmend follow-up noninfused CT scan after appropriate clinical interval. 2. There is no intrathoracic adenopathy. 3. Unchanged 2 x 1.6 cm left adrenal gland nodule. RADIATION DOSE DELIVERED: LINK-TO-SR Total DLP DATA REPOSITORY: All CT scans at this facility are submitted to the National Radiology Data Registry (NRDR) Dose Index Registry (DIR) with the [employer] (A[employer]). RADIATION OPTIMIZATION: All CT scans at this facility use at least one of these dose optimization te chniques: automated exposure control; mA and/or kV adjustment per patient size (includes targeted exa ms where dose is matched to clinical indication); or iterative reconstruction.
[2020-03-19 20:48] LABS: Bilirubin Negative (Negative); Blood Negative (Negative); Clarity Clear (Clear); Glucose Negative (Negative); Ketones Negative (Negative); Leukocyte Esterase Trace (Negative); Nitrite Positive (Negative); pH 5.5 (5-8)
[2020-03-19 21:00] LABS: Bacteria Many HPF (Negative); C & S Indicated? Yes; Casts Negative LPF (Negative); Crystals Negative HPF (Negative); Epithelial Cells Negative HPF (Negative); Mucus Negative (Negative); Other Cells Negative (Negative); RBC Negative HPF (0-2)
--- NOTE | 2020-03-19 21:45 | RT.EKG_ITS ---
APPROVED REPORT Exam: Resting ECG Patient Location: E HR:93 bpm ECG Measurements Heart Rate 93 AXIS HI 165 P 45 QRSd 94 QRS -2 QT 370 T 39 QTc 460 Conclusion Sinus rhythm...normal P axis, V-rate 60- 99
[2020-03-19] MEDS: Omnipaque 350 MG/ML 100 ML BTL IJ (21:50)
[2020-03-19] MEDS: Normal Saline - Diluent 50 ML VIAL IV (22:05)
--- NOTE | 2020-03-19 22:30 | DI.VRAD_ITS ---
PROCEDURE INFORMATION: Exam: CT Angiography Chest With Contrast Exam date and time: 03/19/2020 10:02 PM Age: 50 years old Clinical indication: Pain and abnormal findings; Abnormal diagnostic tests; Elevated d-dimer; Pleuordynia; Patient HX: Elevated d dimer 558 TECHNIQUE: Imaging protocol: Computed tomographic angiography of the chest with intravenous contrast. 3D rendering (Not supervised by radiologist): MIP and/or 3D reconstructed images were created by the technologist. COMPARISON: CT CHEST/ABD/PEL W 06/07/2018 9:07 PM FINDINGS: Pulmonary arteries: Normal. No pulmonary emboli. Aorta: Unremarkable. No aortic aneurysm. No aortic dissection. Lungs: Patchy ground-glass opacities in bilateral lower lobes. Pleural space: Unremarkable. No pneumothorax. No pleural effusion. Heart: Unremarkable. No cardiomegaly. No pericardial effusion. Lymph nodes: Unremarkable. No enlarged lymph nodes. Gallbladder and bile ducts: Prior cholecystectomy. Bones/joints: Unremarkable. No acute fracture. Soft tissues: Unremarkable. IMPRESSION: 1. No pulmonary embolism. 2. Bilateral lower lobe ground-glass opacities, concerning for multifocal pneumonia. Dictated and Authenticated by: Myles Sorto MD. Ordering:ASHLYN Tinoco MD
[2020-03-19 23:02] LABS: Troponin I 0.19 ng/mL (<0.06)
[2020-03-19] MEDS: nitroGLYcerin 0.4 MG TAB SL (23:22)
[2020-03-20] VITALS (57 sets, daily range): BP systolic 91–156; BP diastolic 36–91; PULSE 78–144; RESP 14–29; TEMP 36.3–36.6; O2SAT 91–100
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
[2020-03-20] MEDS: AZITHROMYCIN 500 MG in Normal Saline 250 ML 250 MG IVPB (00:29)
[2020-03-20] MEDS: Clopidogrel 300 MG TAB PO (00:30)
[2020-03-20 00:47] LABS: Source Nasopharynx
[2020-03-20 00:50] LABS: PTT Activated 23.5 sec (21.0-27.5)
--- NOTE | 2020-03-20 00:51 | NUR.NOTE ---
Pt reports pain 7/10 across chest, nitro titrated per protocol. meds infusing a/o. plan for admission to ICU. pt aware of and agreeable to plan
[2020-03-20 01:25] LABS: Influenza A PCR Negative (Negative); Influenza B PCR Negative (Negative); RSV PCR Negative (Negative)
[2020-03-20 01:35] LABS: COVID-19 PCR Negative (Negative)
[2020-03-20] MEDS: cefTRIAXone 2 GM/50 ML BAG IVPB (01:46)
[2020-03-20 03:08] LABS: Troponin I 0.27 ng/mL (<0.06)
[2020-03-20] MEDS: lamoTRIgine 100 MG TAB PO (03:24)
[2020-03-20] MEDS: lamoTRIgine 25 MG TAB 50 MG PO (03:24)
[2020-03-20 06:59] LABS: Anion Gap 8.2 mmol/L (3-11); BUN 13 mg/dL (7-18); CO2 25.8 mmol/L (21.0-32.0); CREATININE 0.88 mg/dL (0.55-1.02); Calcium 7.9 mg/dL (8.5-10.1); Chloride 106 mmol/L (98-107); Glucose 178 mg/dL (74-106); Potassium 3.8 mmol/L (3.5-5.1); Sodium 140 mmol/L (136-145)
--- NOTE | 2020-03-20 07:45 | RT.EKG_ITS ---
APPROVED REPORT Exam: Resting ECG Patient Location: I HR:86 bpm ECG Measurements Heart Rate 86 AXIS NC 159 P 52 QRSd 86 QRS -6 QT 377 T 36 QTc 452 Conclusion Sinus rhythm...normal P axis, V-rate 60- 99
[2020-03-20] MEDS: Omeprazole 20 MG CAPCR 40 MG PO (07:59)
[2020-03-20] MEDS: Venlafaxine 150 MG CAPCR PO (07:59)
[2020-03-20] MEDS: Amitriptyline 25 MG TAB 50 MG PO (07:59)
[2020-03-20 08:00] LABS: Abs Immature Grans 0.03 10^3/uL (0.0-0.06); Absolute Basophil Count 0.03 10^3/uL (0.0-0.2); Absolute Eosinophil Count 0.29 10^3/uL (0.0-0.7); Absolute Lymphocyte Count 2.72 10^3/uL (1.2-3.4); Absolute Monocyte Count 0.65 10^3/uL (0.1-0.8); Absolute Neutrophil Count 3.38 10^3/uL (1.2-6.7); Basophils % 0.4; Eosinophils % 4.1; HCT 36.8 % (36.0-46.0); HGB 12.3 g/dL (11.2-15.7); Immature Grans % 0.4; Lymphocytes % 38.3; MCH 31.1 pg (27.0-33.0); MCHC 33.4 % (32.0-36.0); MCV 92.9 fL (80-95); MPV 11.3 fL (8.0-11.0); Monocytes % 9.2; Neutrophils % 47.6; Nucleated RBC 0 %; Platelet Count 146 10^3/uL (130-400); RBC 3.96 10^6/uL (3.93-5.22); RDW 12.2 % (11.7-14.6); RDW-SD 41.7 fL
[2020-03-20] MEDS: Cholecalciferol (Vitamin D3) 1,000 UNIT TAB 2000 UNITS PO (08:01)
[2020-03-20] MEDS: Venlafaxine 37.5 MG CAPCR 75 MG PO (08:01)
[2020-03-20 08:17] LABS: NT-proBNP 79 pg/mL (<300)
--- NOTE | 2020-03-20 08:17 | W.PM.PROGNOT ---
Subjective Subjective Interval history since last seen: 5-10 chest pain. On nitro drip - uptitration did not relieve chest pain. On heparin gtt. Thinks it is related to pneumonia, worse with a deep breath. Has a headache. No cough, 96% on RA, no fever. 36.6. No arrhythmias, in NSR, 88 currently, 80s to 90's, highest 102. 124/69. COVID-neg, but PUI for now. Objective Last Vital Signs Temp 36.6 C 03/20/20 03:43 Pulse 86 03/20/20 07:30 Resp 19 03/20/20 07:30 BP 120/75 03/20/20 07:30 Pulse Ox 97 03/20/20 03:43 Laboratory Results - last 24 hr 03/19/20 03/19/20 03/19/20 18:50 18:50 18:50 WBC 8.62 RBC 4.71 Hgb 14.6 Hct 44.0 MCV 93.4 MCH 31.0 MCHC 33.2 RDW 12.0 Plt Count 157 MPV 10.7 Immature Gran % 0.3 Neutrophils % 62.9 Lymphocytes % 27.7 Monocytes % 5.6 Eosinophils % 2.9 Basophils % 0.6 Nucleated RBC % 0 Absolute Neutrophils 5.42 Absolute Lymphocytes 2.39 Absolute Monocytes 0.48 Absolute Eosinophils 0.25 Absolute Basophils 0.05 PT INR APTT D-Dimer 558 H Sodium 139 Potassium 3.7 Chloride 104 Carbon Dioxide 26.9 Anion Gap 8.1 BUN 18 Creatinine 1.25 H Estimated GFR/1.73 m2 45.01 Glucose 227 H Calcium 8.7 Magnesium 1.7 L Total Bilirubin 0.3 AST 21 ALT 48 Alkaline Phosphatase 166 H Troponin I < 0.05 Total Protein 6.9 Albumin 3.6 TSH 2.73 Urine Color Urine Clarity Urine pH Ur Specific [place] Urine Protein Urine Ketones Urine Blood Urine Nitrite Urine Bilirubin Urine Urobilinogen Ur Leukocyte Esterase Urine RBC Urine WBC Ur Epithelial Cells Urine Crystals Urine Bacteria Urine Casts Urine Mucus Urine Other Ur Culture Indicated? Urine Glucose COVID-19 Source SARS-CoV-2 (PCR) Influenza Type A (PCR) Influenza Type B (PCR) RSV (PCR) 03/19/20 03/19/20 03/20/20 20:37 21:58 00:15 WBC RBC Hgb Hct MCV MCH MCHC RDW Plt Count MPV Immature Gran % Neutrophils % Lymphocytes % Monocytes % Eosinophils % Basophils % Nucleated RBC % Absolute Neutrophils Absolute Lymphocytes Absolute Monocytes Absolute Eosinophils Absolute Basophils PT 10.0 INR 1.0 APTT 23.5 D-Dimer Sodium Potassium Chloride Carbon Dioxide Anion Gap BUN Creatinine Estimated GFR/1.73 m2 Glucose Calcium Magnesium Total Bilirubin AST ALT Alkaline Phosphatase Troponin I 0.19 H* Total Protein Albumin TSH Urine Color Yellow Urine Clarity Clear Urine pH 5.5 Ur Specific [place] 1.020 Urine Protein Negative Urine Ketones Negative Urine Blood Negative Urine Nitrite Positive H Urine Bilirubin Negative Urine Urobilinogen 1.0 H Ur Leukocyte Esterase Trace H Urine RBC Negative Urine WBC 5-10 Ur Epithelial Cells Negative Urine Crystals Negative Urine Bacteria Many Urine Casts Negative Urine Mucus Negative Urine Other Negative Ur Culture Indicated? Yes Urine Glucose Negative COVID-19 Source SARS-CoV-2 (PCR) Influenza Type A (PCR) Influenza Type B (PCR) RSV (PCR) 03/20/20 03/20/20 03/20/20 00:37 01:00 02:30 WBC RBC Hgb Hct MCV MCH MCHC RDW Plt Count MPV Immature Gran % Neutrophils % Lymphocytes % Monocytes % Eosinophils % Basophils % Nucleated RBC % Absolute Neutrophils Absolute Lymphocytes Absolute Monocytes Absolute Eosinophils Absolute Basophils PT INR APTT D-Dimer Sodium Potassium Chloride Carbon Dioxide Anion Gap BUN Creatinine Estimated GFR/1.73 m2 Glucose Calcium Magnesium Total Bilirubin AST ALT Alkaline Phosphatase Troponin I Cancelled 0.27 H* Total Protein Albumin TSH Urine Color Urine Clarity Urine pH Ur Specific [place] Urine Protein Urine Ketones Urine Blood Urine Nitrite Urine Bilirubin Urine Urobilinogen Ur Leukocyte Esterase Urine RBC Urine WBC Ur Epithelial Cells Urine Crystals Urine Bacteria Urine Casts Urine Mucus Urine Other Ur Culture Indicated? Urine Glucose COVID-19 Source Nasopharynx SARS-CoV-2 (PCR) Negative Influenza Type A (PCR) Negative Influenza Type B (PCR) Negative RSV (PCR) Negative 03/20/20 03/20/20 03/20/20 03:19 06:25 06:25 WBC RBC Hgb Hct MCV MCH MCHC RDW Plt Count MPV Immature Gran % Neutrophils % Lymphocytes % Monocytes % Eosinophils % Basophils % Nucleated RBC % Absolute Neutrophils Absolute Lymphocytes Absolute Monocytes Absolute Eosinophils Absolute Basophils PT INR APTT D-Dimer Sodium 140 Potassium 3.8 Chloride 106 Carbon Dioxide 25.8 Anion Gap 8.2 BUN 13 Creatinine 0.88 Estimated GFR/1.73 m2 >= 60.00 Glucose 178 H Calcium 7.9 L Magnesium Total Bilirubin AST ALT Alkaline Phosphatase Troponin I Cancelled 0.20 H* Total Protein Albumin TSH Urine Color Urine Clarity Urine pH Ur Specific [place] Urine Protein Urine Ketones Urine Blood Urine Nitrite Urine Bilirubin Urine Urobilinogen Ur Leukocyte Esterase Urine RBC Urine WBC Ur Epithelial Cells Urine Crystals Urine Bacteria Urine Casts Urine Mucus Urine Other Ur Culture Indicated? Urine Glucose COVID-19 Source SARS-CoV-2 (PCR) Influenza Type A (PCR) Influenza Type B (PCR) RSV (PCR) 03/20/20 06:25 WBC 7.10 RBC 3.96 Hgb 12.3 D Hct 36.8 MCV 92.9 MCH 31.1 MCHC 33.4 RDW 12.2 Plt Count 146 MPV 11.3 H Immature Gran % 0.4 Neutrophils % 47.6 Lymphocytes % 38.3 Monocytes % 9.2 Eosinophils % 4.1 Basophils % 0.4 Nucleated RBC % 0 Absolute Neutrophils 3.38 Absolute Lymphocytes 2.72 Absolute Monocytes 0.65 Absolute Eosinophils 0.29 Absolute Basophils 0.03 PT INR APTT D-Dimer Sodium Potassium Chloride Carbon Dioxide Anion Gap BUN Creatinine Estimated GFR/1.73 m2 Glucose Calcium Magnesium Total Bilirubin AST ALT Alkaline Phosphatase Troponin I Total Protein Albumin TSH Urine Color Urine Clarity Urine pH Ur Specific [place] Urine Protein Urine Ketones Urine Blood Urine Nitrite Urine Bilirubin Urine Urobilinogen Ur Leukocyte Esterase Urine RBC Urine WBC Ur Epithelial Cells Urine Crystals Urine Bacteria Urine Casts Urine Mucus Urine Other Ur Culture Indicated? Urine Glucose COVID-19 Source SARS-CoV-2 (PCR) Influenza Type A (PCR) Influenza Type B (PCR) RSV (PCR)
[2020-03-20 08:27] LABS: Procalcitonin < 0.1 ng/mL
[2020-03-20 08:28] LABS: PTT Activated 43.9 sec (21.0-27.5)
[2020-03-20] MEDS: MAGNESIUM SULFATE 2 GM/50 ML BAG IVPB (09:34)
[2020-03-20] MEDS: Normal Saline Flush 10 ML SYR IVP ×3 (09:34→21:38)
[2020-03-20] MEDS: Insulin Aspart 300 UNITS/3 ML PEN SC ×2 (11:59→17:03)
[2020-03-20] MEDS: MORPHine 2 MG/ML SYR IVP ×3 (12:24→21:17)
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
[2020-03-20] MEDS: cefTRIAXone 1 GM/50 ML BAG IVPB (13:48)
--- NOTE | 2020-03-20 14:16 | CMPROGNOTE_ITS ---
- If Service Date Differs Date of service: 03/20/20 Time of Service: 14:16 Care Management Progress Note S/O: Chely presented with chest pain with palpatations. She was on PUI precautions, therefore CM was unable to meet with her. Per RN, she did have a phone in the room, and was communicating with family members. While inpatient, her triponins were trending up, so a transfer was initiated. She was accepted for transfer at [facility], and was transported via ambulance. Per RN, the patient does not have any concerns at this time. CM will continue to follow. A: Chely is a 50 year old female admitted to [facility] on 03/20/19 with Chest Pain. P: Chely was transferred to [facility], as she is having either an NSTEMI vs myocarditis. She was transported via ambulance. She was stable for transfer, and agreed to transfer. CM will continue to follow, in case concerns arise prior to her departure.
--- NOTE | 2020-03-20 15:51 | CHAPLAIN ---
Chely is a PUI, so I did not visit with her. Her nurse, Jaky Ram RN, said she has been accepted to [facility] and is awaiting transfer. I gave Jaky a prayer shawl to give to Chely.
[2020-03-20] MEDS: clonazePAM 0.5 MG TAB PO (21:38)
== END 2020-03-20 20:30 | disposition short-term general hospital (02) | DRG 281 ==
LOC: ER 03-20 00:44 → ICU 03-20 02:11
PROVIDERS: Internal Medicine; Admitting Provider Family Medicine; Emergency Provider Physician Assistant; PCP Nurse Practitioner; Visit Provider Family Medicine
DX: I21.4 Non-ST elevation (NSTEMI) myocardial infarction (principal); N39.0 Urinary tract infection, site not specified; N17.9 Acute kidney failure, unspecified; F31.30 Bipolar disorder, current episode depressed, mild or moderate severity, unspecified; E11.9 Type 2 diabetes mellitus without complications; Z79.84 Long term (current) use of oral hypoglycemic drugs; F41.9 Anxiety disorder, unspecified; G43.909 Migraine, unspecified, not intractable, without status migrainosus; K21.9 Gastro-esophageal reflux disease without esophagitis; E58 Dietary calcium deficiency; E78.5 Hyperlipidemia, unspecified; G47.00 Insomnia, unspecified; E66.9 Obesity, unspecified; F43.10 Post-traumatic stress disorder, unspecified
CPT/HCPCS: 36415; 71275; 80048; 80053; 84145; 87077; 93005; 96361; 96365; 96375; 99223; 99239; 99285; 71046; 81003; 81015; 83735; 83880; 84443; 84484; 85025; 85379; 85610; 85730; 87086; 87186; 93010; 93306; 99236; J0456; J0696; J2270; J3490

== ENCOUNTER 2020-05-02 02:55 | Outpatient (CLI) | payer MEDICAID, SELFPAY ==
[2020-05-02 09:59] LABS: HGB 14.5 g/dL (11.2-15.7); MCH 32.1 pg (27.0-33.0); MCHC 33.7 % (32.0-36.0); MCV 95.1 fL (80-95); MPV 10.4 fL (8.0-11.0); Platelet Count 146 10^3/uL (130-400); RBC 4.52 10^6/uL (3.93-5.22); RDW 12.8 % (11.7-14.6); RDW-SD 44.7 fL; WBC 7.52 10^3/uL (4.4-10.8)
[2020-05-02 10:51] LABS: ALT 50 U/L (14-59); AST 21 U/L (15-37); Albumin 3.7 g/dL (3.4-5.0); Alkaline Phosphatase 160 U/L (46-116); Anion Gap 10.1 mmol/L (3-11); BUN 11 mg/dL (7-18); Bilirubin, Total 0.5 mg/dL (0.2-1.0); CO2 24.9 mmol/L (21.0-32.0); CREATININE 1.1 mg/dL (0.55-1.02); Calcium 9.1 mg/dL (8.5-10.1); Chloride 107 mmol/L (98-107); Estimated GFR 52.16 (mL/min/1.73m2); Glucose 117 mg/dL (74-106); Sodium 142 mmol/L (136-145); Total Protein 6.5 g/dL (6.4-8.2)
== END 2020-05-02 02:56 | disposition home or self-care (01) ==
LOC: LBO 02:55
PROVIDERS: PCP Nurse Practitioner; Visit Provider Nurse Practitioner
DX: E11.9 Type 2 diabetes mellitus without complications (principal); N17.9 Acute kidney failure, unspecified; I47.1 Supraventricular tachycardia
CPT/HCPCS: 36415; 80053; 85027

== ENCOUNTER 2020-05-02 08:37 | Outpatient (CLI) | payer MEDICAID, SELFPAY ==
--- NOTE | 2020-05-02 08:15 | DI.RAD_ITS ---
EXAM: XR KNEE RT 3V AP,LAT,CULLEN CLINICAL HISTORY: right knee pain. TECHNIQUE: 2D digital imaging was performed. COMPARISON: CR XR KNEE LT 3V AP,LAT,CULLEN from 05/02/2020 FINDINGS: There is no evidence of fracture. There is a small joint effusion. Mild-moderate degenerative garcia es. No osseous lesions. IMPRESSION: DATA REPOSITORY: RADIATION DOSE DELIVERED:
--- NOTE | 2020-05-02 08:15 | DI.RAD_ITS ---
EXAM: XR KNEE LT 3V AP,LAT,CULLEN CLINICAL HISTORY: left knee pain. TECHNIQUE: 2D digital imaging was performed. COMPARISON: CR LEFT KNEE 3 VIEW COMPLETE from 10/18/2013 FINDINGS: There is stable appearance of the components of the prosthesis with no fracture or loosening no radio graphic evidence of osteomyelitis. However, there are now calcified loose intra-articular bodies rianna dent in the anterior suprapatellar bursa region just behind the quadriceps. Also another similar siz e calcification is seen related to the articular side of the inferior pole of the patella, either bon y excrescence at this level extending into the region of the Hoffa fat pad or another calcified intra -articular body at this level. No evidence of loosening of the prosthesis seen. IMPRESSION: DATA REPOSITORY: RADIATION DOSE DELIVERED:
--- NOTE | 2020-05-02 09:00 | DI.RAD_ITS ---
EXAM: XR HIP LT COMPLETE AP PELVIS CLINICAL HISTORY: left hip pain. TECHNIQUE: 2D digital imaging was performed. COMPARISON: CR XR DEXA BONE DENSITY W/WO LAMBERTO from 01/04/2019 FINDINGS: There is no evidence of pelvic or hip fracture. No obvious degenerative changes in the hips. Additi onal lateral view of the left hip appears unremarkable. Bone density is normal. No osseous lesions. IMPRESSION: DATA REPOSITORY: RADIATION DOSE DELIVERED:
== END 2020-05-02 08:38 | disposition home or self-care (01) ==
PROVIDERS: PCP Nurse Practitioner; Referring Provider Nurse Practitioner; Visit Provider Student in an Organized Health Care Education/Training Program
DX: M25.552 Pain in left hip (principal); M25.561 Pain in right knee; M25.461 Effusion, right knee; M17.11 Unilateral primary osteoarthritis, right knee; M25.562 Pain in left knee; Z96.652 Presence of left artificial knee joint
CPT/HCPCS: 73562; 73502

== ENCOUNTER 2020-05-28 11:23 | Outpatient (REF) | payer MEDICAID, SELFPAY | END 2020-05-28 11:24 | disposition home or self-care (01) | LOC: LBN 11:23 | PROVIDERS: PCP Nurse Practitioner; Visit Provider Nurse Practitioner | DX: R10.2 Pelvic and perineal pain (principal); R82.998 Other abnormal findings in urine | CPT/HCPCS: 87077; 87086; 87186 ==

== ENCOUNTER 2020-05-29 02:29 | Outpatient (CLI) | payer MEDICAID, SELFPAY ==
[2020-05-29 13:43] LABS: Abs Immature Grans 0.01 10^3/uL (0.0-0.06); Absolute Basophil Count 0.04 10^3/uL (0.0-0.2); Absolute Eosinophil Count 0.39 10^3/uL (0.0-0.7); Absolute Lymphocyte Count 1.95 10^3/uL (1.2-3.4); Absolute Monocyte Count 0.45 10^3/uL (0.1-0.8); Absolute Neutrophil Count 3.45 10^3/uL (1.2-6.7); Basophils % 0.6; Eosinophils % 6.2; HCT 43.8 % (36.0-46.0); HGB 14.7 g/dL (11.2-15.7); Immature Grans % 0.2; MCH 32.2 pg (27.0-33.0); MCHC 33.6 % (32.0-36.0); MCV 95.8 fL (80-95); MPV 10.5 fL (8.0-11.0); Monocytes % 7.2; Neutrophils % 54.8; Nucleated RBC 0 %; Platelet Count 145 10^3/uL (130-400); RBC 4.57 10^6/uL (3.93-5.22); RDW 12.6 % (11.7-14.6); RDW-SD 44.6 fL; WBC 6.29 10^3/uL (4.4-10.8)
[2020-05-29 15:41] LABS: ALT 52 U/L (14-59); AST 28 U/L (15-37); Albumin 3.7 g/dL (3.4-5.0); Alkaline Phosphatase 151 U/L (46-116); Anion Gap 10.6 mmol/L (3-11); BUN 12 mg/dL (7-18); Bilirubin, Total 0.4 mg/dL (0.2-1.0); CO2 25.4 mmol/L (21.0-32.0); CREATININE 1.1 mg/dL (0.55-1.02); Calcium 8.5 mg/dL (8.5-10.1); Chloride 106 mmol/L (98-107); Estimated GFR 52.16 (mL/min/1.73m2); Glucose 136 mg/dL (74-106); Lipase 133 U/L (73-393); Potassium 3.7 mmol/L (3.5-5.1); Sodium 142 mmol/L (136-145); Total Protein 6.5 g/dL (6.4-8.2)
== END 2020-05-29 02:30 | disposition home or self-care (01) ==
LOC: LBO 02:29
PROVIDERS: PCP Nurse Practitioner; Visit Provider Nurse Practitioner
DX: R10.9 Unspecified abdominal pain (principal); R10.2 Pelvic and perineal pain; R11.0 Nausea; R68.81 Early satiety
CPT/HCPCS: 36415; 80053; 83690; 85025

== ENCOUNTER 2020-07-22 01:41 | Outpatient (CLI) | payer MEDICAID, SELFPAY ==
--- NOTE | 2020-07-22 14:47 | DI.MAMMO_ITS ---
Exam(s) MAMMO SCREENING EXAM: MAMMO SCREENING CLINICAL HISTORY: screening,Z12.39. TECHNIQUE: Bilateral full field digital CC and MLO mammographic images were obtained with 3D tomosyn thesis and utilizing computer aided detection (CAD). COMPARISON: Prior mammograms dating back to 2011, the most recent being August 2018. FINDINGS: Asymmetric tissue laterally in the left breast is unchanged from prior studies. Benign-appearing microcalcification group medially in the right breast is unchanged. There are no new spiculated masses nor malignant appearing microcalcification groups. There is no significant architectural distortion nor skin thickening-retraction. IMPRESSION: No radiographic evidence of malignancy. Stable benign findings BI-RADS Category 2 - Benign Findings Breast Density - Category B - Scattered areas of fibroglandular density Breast density Category C or D implies that the patient has dense breast tissue. Dense breast tissue can make it harder to find cancer on a mammogram. Dense breast tissue is also associated with an incr eased risk of breast cancer. This information about the result of the mammogram report was provided to the patient to raise their awareness. Use this report when you speak with the patient about their risks for breast cancer, which includes their family history. At that time, you may recommend additional screening tests (Ultrasoun d or MRI) as these tests may add significant information. A negative radiographic report should not delay biopsy if a dominant or clinically suspicious mass is present. Up to ten percent of cancers are not identified on mammography. A negative report may reinforce clinical impression. Adenosis and dense breasts may obscure an underlying neoplasm. False positive reports average 6 to 10%. Patient will receive a letter notifying them of these results.
== END 2020-07-22 02:01 ==
PROVIDERS: PCP Nurse Practitioner; Visit Provider Nurse Practitioner
DX: Z12.31 Encounter for screening mammogram for malignant neoplasm of breast (principal); N60.81 Other benign mammary dysplasias of right breast
CPT/HCPCS: 77063; 77067

== ENCOUNTER 2020-08-12 23:11 | Outpatient (REF) | payer MEDICAID, SELFPAY ==
[2020-08-14 14:59] LABS: COVID-19 RT-PCR UVMMC Result Negative (Negative)
== END 2020-08-12 23:12 | disposition home or self-care (01) ==
LOC: NCHCN 23:11
PROVIDERS: PCP Nurse Practitioner; Visit Provider Nurse Practitioner Family
DX: Z20.822 Contact with and (suspected) exposure to COVID-19 (principal); J02.9 Acute pharyngitis, unspecified
CPT/HCPCS: U0003

== ENCOUNTER 2020-11-28 01:32 | Outpatient (CLI) | payer MEDICAID, SELFPAY ==
--- NOTE | 2020-11-28 14:40 | DI.RAD_ITS ---
Exam(s) RF JOINT INJECTION FLUORO GUID EXAM: RF JOINT INJECTION FLUORO GUID CLINICAL HISTORY: L HIP INJECTION UNDER FLUORO, LEFT HIP PAIN, M25.552 TECHNIQUE: 2D and realtime digital imaging was performed. CONTRAST MATERIAL: Water soluble contrast was administered. COMPARISON: No exams were available for comparison FINDINGS: Fluoroscopy was provided for Dr. Reid during the performance of a left hip injection. Please re ella to the procedure report for complete details. RADIATION DOSE DELIVERED: jody Magallanes=14.5 mGy
[2020-11-28] MEDS: methylPREDNISolone ACETATE 80 MG/ML VIAL IM (16:22)
[2020-11-28] MEDS: Omnipaque 300 MG/ML 10 ML BTL IJ (16:22)
[2020-11-28] MEDS: Bupivacaine 0.5% Pres-Free 10 ML VIAL 5 ML IJ (16:23)
--- NOTE | 2020-11-30 06:12 | OPPNE_ITS ---
Date of service: 11/28/20 Time of Service: 15:12 Procedure Note Date of procedure: 11/30/20 Procedure: Left Hip Injection with Fluoroscopic Guidance Surgeon/Proceduralist/Physician: Asad Reid Procedure Diagnosis: Left Hip Impingement Procedure Indications: Yesica has had persistent pain of the LEFT hip and groin. Noninvasive measures have been tried. To serve as both diagnostic and therapeutic, an injection under fluoroscopy was recommended. I had discussed the risks of the procedure and the patient elected to proceed. Procedure Description: Yesica was greeted in the flouroscopy room. The correct side was identified and the consent was reviewed with the patient and signed. The patient was then placed in the supine position on the fluoroscopy table. The LEFT hip was then prepped with Chloraprep. The anterolateral injection starting point was identiifed by bony landmarks and fluoroscopy. The skin and soft tissue in the tract of the injection was anesthetized with 1% Lidocaine. A spinal needle was then inserted deep into the hip joint at the level of the lateral femoral neck under fluoroscopic guidance. A small amount of Omnipaque solution was injected to confirm intraarticular placement. Once confirmed, the hip was injected with 6cc of 0.5% Bupivicaine and 80mg of Depo- Medrol. A bandaid was placed on the injection site.
== END 2020-11-28 01:52 ==
PROVIDERS: PCP Nurse Practitioner; Visit Provider Student in an Organized Health Care Education/Training Program
DX: M25.552 Pain in left hip (principal); M25.852 Other specified joint disorders, left hip; R10.32 Left lower quadrant pain
CPT/HCPCS: 20610; 77002; J1040

== ENCOUNTER 2021-02-21 10:14 | Outpatient (CLI) | payer MEDICAID, SELFPAY ==
--- NOTE | 2021-02-21 09:45 | DI.RAD_ITS ---
Exam(s) XR PELVIS AP EXAM: XR PELVIS AP CLINICAL HISTORY: L WILDA planning. TECHNIQUE: 2D digital imaging was performed. COMPARISON: CR XR HIP LT COMPLETE AP PELVIS from 05/02/2020 CR XR HIP LT COMPLETE AP PELVIS from 05/02/2020 FINDINGS: BONES: No acute fracture is present. No bony destructive lesion is seen. JOINTS: No dislocation present. No joint space narrowing is present. SOFT TISSUE: Normal. IMPRESSION: Stable appearance of the pelvis. DATA REPOSITORY: RADIATION DOSE DELIVERED:
== END 2021-02-21 10:15 | disposition home or self-care (01) ==
LOC: DIORS 10:14
PROVIDERS: PCP Nurse Practitioner; Referring Provider Nurse Practitioner; Visit Provider Physician Assistant
DX: M25.851 Other specified joint disorders, right hip (principal); M25.852 Other specified joint disorders, left hip
CPT/HCPCS: 72170

== ENCOUNTER 2021-02-24 03:53 | Outpatient (CLI) | payer MEDICAID, SELFPAY ==
[2021-02-24 10:51] LABS: HCT 44.2 % (36.0-46.0); HGB 14.5 g/dL (11.2-15.7); MCHC 32.8 % (32.0-36.0); MCV 94.6 fL (80-95); MPV 10.9 fL (8.0-11.0); Platelet Count 161 10^3/uL (130-400); RBC 4.67 10^6/uL (3.93-5.22); RDW 12.2 % (11.7-14.6); RDW-SD 42.5 fL; WBC 4.78 10^3/uL (4.4-10.8)
[2021-02-24 16:13] LABS: Source Nasal/Nares
[2021-02-24 21:40] LABS: COVID-19 PCR Negative (Negative)
== END 2021-02-24 03:54 | disposition home or self-care (01) ==
LOC: LBO 03:53
PROVIDERS: PCP Nurse Practitioner; Visit Provider Student in an Organized Health Care Education/Training Program
DX: M16.12 Unilateral primary osteoarthritis, left hip (principal); Z01.818 Encounter for other preprocedural examination; Z20.822 Contact with and (suspected) exposure to COVID-19
CPT/HCPCS: 36415; 85027; 86850; 86900; 86901; 87635

== ENCOUNTER 2021-02-25 06:06 | Day surgery (SDC) | payer MEDICAID, SELFPAY ==
[2021-02-25] VITALS (9 sets, daily range): BP systolic 87–128; BP diastolic 54–87; PULSE 73–101; RESP 15–23; TEMP 36–36.5; O2SAT 98–100; BMI 35.5
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
[2021-02-25] MEDS: Lactated Ringers 1,000 ML 80 ML IV (06:56)
--- NOTE | 2021-02-25 07:00 | DI.RAD_ITS ---
Exam(s) XR HIP LT IN OR EXAM: XR HIP LT IN OR CLINICAL HISTORY: FEMOROACETABULAR IMPINGEMENT LEFT HIP TECHNIQUE: 2D and realtime digital imaging was performed. CONTRAST MATERIAL: Refer to procedure report. COMPARISON: CR XR PELVIS AP from 02/21/2021 CR XR PELVIS AP from 02/21/2021 FINDINGS: Fluoroscopy was provided for Dr. Reid during the performance of a left hip prosthesis placement. Please refer to the procedure report for complete details. Ka,r=7.28 mGy IMPRESSION: RADIATION DOSE DELIVERED:
--- NOTE | 2021-02-25 07:37 | W.PM.DSUDISC ---
Discharge Plan Disposition Patient Disposition: HOME Condition: Improving Discharge Details Reason For Visit: Left Hip IFRAH and Arthritis Attending Provider: Asad Reid Primary Care Provider: Margaret Luz Home Meds and New Rx's Prescriptions: New docusate sodium [Colace] 100 mg capsule 100 mg PO BID PRNQty: 10 RF: 0 oxycodone 5 mg tablet 5 mg PO Q4H Qty: 18 RF: 0 dexamethasone [Decadron] 4 mg tablet 4 mg PO DAILY Qty: 2 RF: 0 rivaroxaban 10 mg tablet 10 mg PO DAILY Qty: 35 RF: 0 Continued amitriptyline 50 mg tablet 50 mg PO DAILY Qty: 90 RF: 3 (DME) blood-glucose meter Misc See Rx Instructions .ROUTE .MEDSUPPLY Qty: 1 RF: 0 (DME) Blood Glucose Test Strip See Rx Instructions .ROUTE .MEDSUPPLY Qty: 100 RF: 3 (DME) lancets Misc See Rx Instructions .ROUTE .MEDSUPPLY Qty: 100 RF: 3 venlafaxine 75 mg capsule,extended release 24hr 75 mg PO DAILY RF: 0 atorvastatin 40 mg tablet 40 mg PO QHS Qty: 90 RF: 3 metformin 500 mg tablet 1,000 mg PO BID Qty: 180 RF: 3 ondansetron HCl [Zofran] 4 mg tablet 4 mg PO TID PRN (Reason: nausea and vomiting) RF: 0 prochlorperazine maleate 10 mg tablet 10 mg PO Q8H PRN (Reason: headaches) Qty: 30 RF: 3 Aimovig Autoinjector 140 mg/mL auto-injector 140 mg subcut QMONTH Qty: 3 RF: 3 calcium carbonate [Calcium 500] 500 mg calcium (1,250 mg) tablet 500 mg PO DAILY Qty: 90 RF: 3 cholecalciferol (vitamin D3) [Vitamin D3] 50 mcg (2,000 unit) tablet 2,000 unit PO DAILY Qty: 90 RF: 3 epinephrine [EpiPen 2-Sandeep] 0.3 mg/0.3 mL auto-injector 0.3 mg IM DAILY PRN (Reason: hypersensitivity reaction) Qty: 2 RF: 0 Premarin 0.625 mg/gram cream 0.625 mg VG DIRECTED Qty: 90 RF: 4 omeprazole 40 mg capsule,delayed release(DR/EC) 40 mg PO DAILY Qty: 90 RF: 3 topiramate 100 mg tablet 100 mg PO QHS Qty: 90 RF: 3 clonazepam 0.5 mg tablet 0.5 mg PO BID PRNRF: 0 trazodone 150 mg tablet 150 mg PO QHS PRNRF: 0 Discharge Instructions Additional Instructions: Total Hip Discharge Instructions Activity: The most important activity is to walk. You should try to take short walks a few times a day. You have no restrictions on movement or positioning, but do not try to force what you do. You will find some stiffness and weakness with hip flexion (lifting your knee). Do not try to strengthen this too early, continue to practice walking and stairs and this will come. - Outpatient physical therapy can be helpful to help return you to a normal gait and improve your flexibility and strength. This can start around 2 weeks. For some patients, it?s not necessary. Usually this is determined at the time of discharge or at the first post-operative visit. - You should wear the CORY hose on both legs for 2 weeks. Dressing: Keep the surgical dressing in place for at least one week. After the first week it may be removed and replace with light gauze and tape or nothing. It may get wet after 3 days but avoid soaking the dressing. If it gets wet, just lightly pat dry. It is important to always keep some gauze between skin folds, especially when you are sitting. Spend some time with the wound exposed when you are lying flat as the incision does wrinkle onto itself. Medications: - You have been prescribed a stronger pain medication Oxycodone for breakthrough pain, take as needed as prescribed. - You may apply ice and/or heat as well as massage or use topical Voltaren for other pain management. - You should continue your stomach acid reduction agent Omeprazole to help reduce stomach acid and reflux. - You will be taking Rivaroxaban for DVT prevention unless instructed otherwise. - If you have constipation you should take Colace or Miralax (both [id number]). It takes most people 3-4 days to have a bowel movement. Follow-up: 2 weeks If you have any acute concerns or questions, please do not hesitate to contact the office at [phone]. You may contact Dr. Reid with any questions after hours through the hospital at [phone] or on his cell phone at [phone]. Stand Alone Forms: Anesthesia Discharge Inst. Referrals: Asad Reid MD [ [facility]YSICIAN] - Activity:: Activity as Tolerated Remove Dressings/Wound Care:: Do Not Remove Shower/Bathe:: Cover Diet:: As Tolerated Discharge Orders Discharge Orders: Discharge Order (Routine); Ordered 02/25/21 Ordered By: Asad Reid DS: Diagnosis Discharge Diagnosis (1) Femoroacetabular impingement of left hip: Status: Acute
--- NOTE | 2021-02-25 07:46 | NUR.NOTE ---
Refused Tylenol and Celebrex Pre-op. Nursing Note:
[2021-02-25] MEDS: ceFAZolin 2 GM/50 ML BAG IVPB (07:47)
[2021-02-25] MEDS: Bupivacaine 0.25% Pres-Free 30 ML VIAL (08:54)
[2021-02-25] MEDS: Ketorolac 30 MG/ML VIAL (08:54)
--- NOTE | 2021-02-25 09:09 | W.PM.OP ---
Date of service: 02/25/21 Time of Service: 09:09 Operative Note Operative Note DATE OF PROCEDURE: 02/25/21 PRE-OP DIAGNOSIS: Left Hip Osteoarthritis and Femoroacetabular Impingement POST-OP DIAGNOSIS: same PROCEDURE: Left Anterior Total Hip Arthroplasty with Intraoperative Navigation SURGEON: Asad Reid DOUBLE BOTTOM DRIVER: Sergio Palafox ANESTHESIA TYPE: Spinal Refer to Anesthesia Record ESTIMATED BLOOD LOSS: 200 PATHOLOGY: none sent TOURNIQUET TIME: 0 COMPLICATIONS: None Patient was transported to: PACU Patient's condition: stable Implants: 1. Depuy Adams Run Acetabular Component, 52mm 2. Depuy Acetabular Liner, [id number] 3. Depuy Corail Standard Collared Femoral Stem, Size 12 4. Depuy Altrx Ceramic Femoral Head, Size 36+1.5mm Indications: I have seen Yesica in clinic for symptoms of focal hip arthritis from IFRAH, confirmed with radiographic findings and intra-articular injection. Yesica has exhausted nonoperative methods and was having significant limitations in daily function and desired better function and less pain. I discussed the technical details of a hip replacement. I explained the risks of the procedure to include, but not limited to, bleeding, infection, pain, stiffness, fracture, damage to nerves and vessels, damage to muscles and tendons, loosening, instability, leg length inequality, need for repeat procedure, blood clot and cardiopulmonary demise. Despite these risks, Yesica elected to proceed. Findings: There was focal area of complete cartilage loss over the superior femoral head. Procedure Description: Yesica was greeted in the preoperative holding area where the correct side was identified and marked. The consent was reviewed with the patient and signed. The history and physical was updated. All questions were answered. She was taken back to the operating room. A spinal anesthestic was then administered. The feet were wrapped with cast padding and Coban and then placed into the boot liners and then into the boots. Care was taken to protect the skin and make sure the heels were fully down and the boots were stable. The patient was then positioned onto the HANA table. Both legs were held in a neutral position. SCDs were applied. The patient was then slid down onto a peroneal post. Prophylactic antibiotics in the form of Cefazolin were administered. 1g of Tranxemic Acid was given intravenously within 30 minutes of incision. The left leg was then prepped with Chloraprep and draped in a standard fashion. A second prep with Chloraprep was performed prior to placement of a shower-curtain type drape with Iodine impregnated skin protection. A timeout to confirm correct identity, side and site, procedure, allergies, anesthesia, and medical concerns was performed. An obliquely oriented incision was made starting lateral to the ASIS and running distal over the Tensor Fascia Brook (TFL) muscle belly toward the fibular head, approximately 10cm. The skin and soft tissue was dissected sharply, through Tung?s fascia, and to the fascia of the TFL. With the fascia and superior border of the IT band identified, the fascia was incised with a new knife just above any perforators from the IT band. The TFL muscle belly was bluntly dissected away from the fascia and moved laterally. The fat between TFL and rectus was identified to ensure the dissection was not within the TFL. Blunt dissection created space between abductors and the capsule and retractor was placed over the lateral femoral neck. The fibers of the rectus femoris tendon were identified and these were freed from the anterior capsule. A second cobra retractor was placed around the medial femoral neck. The TFL was further retracted laterally to show the deep fascia. Careful dissection through this layer identified three main crossing vessels of the lateral femoral circumflex. These were cauterized in multiple locations and then cut without any noticeable bleeding. The TFL was further released bluntly from the deep fascia to expose anterior hip capsule and fat The Mike orthopaedic retractor was then placed beneath the TFL and against sartorius and medial soft tissues to protect and retract the soft tissues. A T-capsulotomy was then performed starting at the superior lateral acetabulum and moving distally to the intertrochanteric ridge. These capsular flaps were tagged with a No. 1 Ethibond and elevated from within. The capsular flaps were released to the shoulder of the lateral neck and to the lesser trochanter to give excellent visualization of the proximal femur. A neck osteotomy was performed using an oscillating saw based on preoperative templates. This cut started in the shoulder and of the lateral neck and exited medially. The saw was at all times directed medially to avoid injury to the greater trochanter. Gross traction was applied to the leg and the osteotomy opened. The femoral head was removed with a corkscrew, making sure to protect the TFL on its exit. Traction was released after head removal. This was measured on the back table to determine the starting reamer size. Portions of the rectus obscuring visualization were minimally elevated off the superior acetabulum. An anterior retractor was placed over the anterior wall between capsule and labrum and attached to the Gripper retraction system. The femur was rotated to 90 degrees and medial capsule was fully released until the lesser trochanter was palpable and visible; the femur was returned to 30 degrees. A posterior retractor was placed similarly between capsule and labrum. This provided excellent visualization. The contents of the cotyloid fossa were removed with electrocautery and the labrum was removed with a knife. There was some chondromalacia of the superior/lateral aspect of the acetabulum. Acetabular reaming began with a 46mm reamer. This first reaming was directed anterior to posterior and medial to get down to the true floor. This was inspected and reamed until the true floor was reached. The anterior retractor was then released and entry and exit was provided by traction on the capsular flaps. I then reamed sequentially up to a 52mm reamer where good fit was obtained. The larger reamers were oriented based on anatomical reference of the anterior and lateral milan to ensure proper abduction and anteversion. Positioning and size was confirmed with the fluoroscopy. A 52mm Depuy Adams Run acetabular component was selected. The acetabulum was reamed around the periphery with the selected acetabular size to prevent a rim fit. The deep tissues were irrigated. The acetabular component was then impacted in a position of about 40-45 degrees of abduction and 15-20 degrees of anteversion, using the patient?s anatomy as the ultimate landmark. Fluoroscopy was used to confirm this. There was excellent director of institutional research of the acetabular component and the inserting handle was removed. The acetabular liner, Depuy [id number] polyethylene liner, was inserted and lined up with the tines of the acetabular component. There was no soft tissue interposition. The liner was then impacted into position and confirmed to be well-seated. A portion of the magalie-articular cocktail was then injected around the acetabulum into the capsule and periosteum. This cocktail consisted of 50cc of 0.25% Bupivicaine and 20cc of Exparel and 30mg of Ketorolac. The leg was rotated to 120 degrees. Any remaining medial capsule was released until the lesser trochanter was easily palpable. A retractor was placed medially. The lateral capsule was further released into the shoulder to allow access to the greater trochanter. A Harrison retractor was placed over the greater trochanter which allowed the trochanter to flip in front of the capsule for excellent exposure. The leg was brought down into maximal extension and 20 degrees of adduction while ensuring there was no impingement on the acetabulum. Any remnant capsule within the trochanter was released. Piriformis and obturator externis were identified and protected. There was excellent access to the proximal femur. The lateral neck remnant was removed with a rongeur. A blunt canal probe was used to identify the canal and trajectory for later broaching. A box osteotome initiated the broach course. A small curved rasp and a curved curette were used to work laterally. Broaching then began with a size 8 Corail broach. This was inserted manually around the trochanter and into the canal before mallet blows. The broach was seated to a few millimeters below the cut level based on the neck cut and the preoperative template. Sequential broaching was continued with the [employer] pneumatic broaching device until a tight fit was obtained with good rotational control of the femur. A trial 135 short neck was inserted along with a +5 trial head. The leg was brought out of extension and adduction and then reduced with traction and internal rotation. The leg was stable anteriorly in a position of 30 degrees of extension and 90 degrees of external rotation. Fluoroscopy was used to ensure there was no fracture and the stem was seated well. Leg lengths were checked with an AP pelvis and pelvic reference points. [employer] navigation system was used to confirm appropriate positioning and leg length and offset. This corrected the offset but under-corrected leglength but this would be improved by going to a +8.5 with a short neck or a +1.5 on a standard stem. Once content with the desired offset and leg lengths, the leg was brought back into extension, external rotation and adduction. The periosteum and surrounding tissue was injected with remaining portion of the magalie-articular cocktail. The proximal femur was irrigated as well as the deep tissues. The Depuy Corail standard collared stem, size 12, was then manually inserted into the proximal femur making sure to control rotation. It was then malleted into position with light blows, giving breaks to allow bone expansion and decrease risk of fracture. The selected Depuy Altrx Ceramic Head, size 36+1.5mm, was then placed onto the clean and dry trunnion and secured with impaction onto the tapered fit. The leg was brought back out of extension and adduction and reduced with traction and internal rotation. Stability was confirmed with no shuck at 90 degrees of external rotation and 30 degrees of extension. No impingement through range of motion arc. Final x-ray images were obtained with fluoroscopy to confirm adequate positioning and no intraoperative fracture. The deep tissues were thoroughly irrigated with Irrisept chlorhexadine solution. The second dose of TXA 1g was administered intravenously.The capsule was then reapproximated with the previously placed Ethibond sutures. The TFL fascia was finally closed with a No. 2 Stratafix, barbed suture. Deep tissues were then reapproximated with 0 Vicryl and a running 2-0 Vicryl. The skin was closed with a running 4-0 Monocryl in a subcuticular fashion. This was reinforced with skin glue. A Mepilex silver dressing was applied. At the end of the case, all counts were correct. Yesica was transferred to the hospital bed without difficulty and suffering no apparent complication. Yesica has a good prognosis. Physical therapy will start today and without restrictions, weight-bearing as tolerated. Rivaroxaban 10mg daily will be used for DVT prophylaxis.
--- NOTE | 2021-02-25 10:00 | W.ANESPOSTOP ---
Postoperative Evaluation Date, Time and Location Date Performed: 02/25/21 Time Performed: 10:00 Patient Location: PACU Vital Signs Most Recent Imported Vital Signs: Most Recent Vital Signs Temp Pulse Resp BP Pulse Ox 36.2 C L 76 17 96/63 L 98 02/25/21 09:46 02/25/21 09:46 02/25/21 09:46 02/25/21 09:46 02/25/21 09:46 Pain Score Most Recent Pain Score: Most Recent Pain Score Pain Level 0 02/25/21 09:46 Assessment Mental Status: Awake (Alert & Oriented to Patient Baseline) Airway and Respiratory Function: Patent airway with normal (patient baseline) respiratory exam Cardiovascular Function: Hemodynamically Stable Hydration Status: Adequately Hydrated Nausea & Vomiting: No Nausea or Vomiting Pain: Pt. Denies Any Pain Peripheral Nerve Block: Patient did not receive a nerve block
--- NOTE | 2021-02-25 12:30 | PT.INIE ---
Date of service: 02/25/21 Time of Service: 11:15 PT Notes Visit Reasons: Left Hip IFRAH and Arthritis Physical Therapy Day Surgery Initial Evaluation Date: 02/25/2021 Referring Doctor: GRETCHEN Allen PT Orders: PT CONSULT: S/P Ortho Surgery Precautions: WBAT on left LE with AD. Patient Profile/Admitting Diagnosis: Perla is a 51-year-old female with left hip femoroacetabular impingement and arthritis status post left total hip arthroplasty on postoperative day 0. PMHX: Medical History (Updated 02/21/21 @ 10:34 by GRETCHEN Allen) Anxiety Calcium deficiency Chronic migraine (08/22/14) CPAP (continuous positive airway pressure) dependence (10/28/16) mild RUPERT Dysuria GERD (gastroesophageal reflux disease) Obesity RUPERT (obstructive sleep apnea) Vitamin D deficiency Surgical History Arthroplasty of knee (02/22/13) Left EGD - MAC (04/23/17) 04/23/17 Dr Henderson, eosinophilic esophagitis S/P laparoscopic cholecystectomy 12/20/18 Tonsillectomy Total Hysterectomy (08/13/09) Social History/Home Situation: Lives with ex- in a private home with no steps to enter. Has 9 steps leading to a landing and another 4-5 steps to the bedroom on the second floor. Independent with all ADLs prior to surgery. No longer works. Equipment Owned/DME: [facility] Subjective: On the first attempt at mobility assessment, patient reported that the lower half of her body was floating and expressed that she does not feel safe taking any step from where she was standing. Reported numbness and awkwardness of both her legs and is anxious about walking. On the second attempt after about an hour, patient felt okay and was agreeeable to trying out her walker. Objective: . General Observation: Mepilex Ag over surgical incision. IV in L UE. TEDS on B LE. Mental Status: Alert and oriented x 4 Pain: Denies ROM: Right Lower Extremity: Hip flexion WFL. Hip abduction WFL. Knee flexion WFL. Ankle dorsiflexion WFL. Ankle plantarflexion WFL. Left Lower Extremity: Hip flexion WFL. Hip abduction WFL. Knee flexion WFL. Ankle dorsiflexion WFL. Ankle plantarflexion WFL. Strength: Right Lower Extremity: Hip flexors 4/5. Hip abductors 4/5. Knee flexors 5/5. Knee extensors 4/5. Ankle dorsiflexors 5/5. Ankle plantarflexors 5/5. Left Lower Extremity:Hip flexors 5/5. Hip abductors 5/5. Knee flexors 5/5. Knee extensors 5/5. Ankle dorsiflexors 5/5. Ankle plantarflexors 5/5. Sensation: Reported numbness from the waist down on first attempt, almost resolved numbness on second attempt after an hour Bed Mobility/Transfers: Supine to sit standby assist Sit to stand contact-guard assist Stand to sit standby assist Bed to chair standby assist Gait: Was initially anxious about taking a step on the first attempt at mobility assessment. Was more confident after some encouragement at trying out her walker on the second attempt and was able to cover a distance of 100 feet with stand by assist only, step through gait pattern with no report of pain, dizziness, lightheadedness and chest pain. Stairs: Up and down 6 x 4-inch steps and 4 x 6-inch steps while holding onto B rails with step-to gait pattern. Balance: Static Sitting: Normal Dynamic Sitting: Normal Static Standing: Fair Dynamic Standing: Fair Special Tests: Mobility Limitations Standardized Measure [facility] 6 clicks Basic Mobility Inpatient Short Form: Raw Score: 24 CMS Score: 0% deficit Informed Consent/Education: Patient instructed in purpose of PT consult. Education and training on initial set of exercises that can be done at home have been completed with patient. Assessment: Perla requires the use of a front wheeled walker to maximize independence and reduce fall risk during all mobility ADL performance. Will have the support of her ex- each as she recovers at home. Patient presents with clinical signs and symptoms consistent with current/admitting diagnoses that have resulted to mobility limitations, gait instability, generalized weakness, and impairment of motor control as demonstrated by the following impairment level findings: 1. Decreased strength to left hip major muscle groups 2. Impaired standing balance Impairments are contributing to the following functional limitations: 1. Inability to safely ambulate without assistive device 2. Increase completion time for mobility ADL performance 3. Increased fall risk Patient is assessed as a 36400 moderate complexity based on the following: History: 51-year-old female with impairment level findings, functional limitations, and past medical history as indicated above Examination: Demonstrable impairment in strength, balance, and mobility level with underlying impairments and functional limitations as documented above Presentation: Evolving Decision Makin moderate complexity Goals: N/A. PT evaluation and 1-2 treatment sessions only for functional mobility training using recommended AD and for HEP instruction. Plan of Care/Treatment Plan: N/A. PT evaluation and 1-2 treatment session only for functional mobility training using recommended AD and for HEP instruction. DISCHARGE RECOMMENDATIONS: [] Home with no services [] [] Home with services [specify] [X] Home with outpatient PT. Home when medically cleared by orthopedics to regain premorbid independent community ambulation without an assistive and maximize overall functional outcome. [] SNF for continued rehabilitation [] [] [facility] [] [] SNF versus LTC based on ability to participate and progress [] TREATMENT CODE/TIME: 9716 2 x 25 minutes, 9753 0 x 20 minutes beginning at 11:15 AM and 12:30 PM. Thank you for the opportunity to participate in the care of this patient. Tamica Priest PT, DPT, CLT [facility] [place], [place]
--- NOTE | 2021-02-25 13:50 | NUR.NOTE ---
Up to BR independently with walker. Voided. States ride will take up to an hour to arrive. Anesthesia notified for final assessment of spinal anesthesia. Taking juice well. Nursing Note:
--- NOTE | 2021-02-28 07:59 | PDOC.ANES ---
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 Hensley has residual numbness. In my followup phone call, I learned that Ms. Hensley is walking laps around the inside of her house as well as completing all her Physical Therapy. She has no incontinence or parathesia type pain. Her numbness to the touch is in buttocks down through her thighs and stops at her knees bilaterally. She does describe pain in my hip bones, more so on the left. Educated patient about spinal anesthesia. I discussed my findings with Dr. Reid. Will call the patient on Wednesday.
--- NOTE | 2021-03-03 12:01 | PDOC.ANES ---
Date of service: 03/03/21 Time of Service: 12:01 Anesthesia Note Report Anesthesia Note: I called to follow up with Yesica in regards to her residual numbness. Since her last phone call (see note from DH below) her right sided numbness has resolved, but she still has left sided numbness. She states that it is her left upper leg on the sides/buttocks/front/back. She denies any motor involvement and is not having any issues getting around. I discussed that I am unsure as to why she still has residual numbness in that type of distribution to her leg. We discussed that it should come back, but that it may not. She is okay with this answer at this time, she states that with her previous knee surgery she was left with a lot of numbness on the outside of her leg and that this just happens to her. I told her we may follow back up with her after her upcoming appointment with Jeanette on 03/11. 02/28/21 DH: TRAVEL REGISTERED NURSE ONCOLOGY learned in post op day 1 follow up phone call, that Ms. Hensley has residual numbness. In my followup phone call, I learned that Ms. Hensley is walking laps around the inside of her house as well as completing all her Physical Therapy. She has no incontinence or parathesia type pain. Her numbness to the touch is in buttocks down through her thighs and stops at her knees bilaterally. She does describe pain in my hip bones, more so on the left. Educated patient about spinal anesthesia. I discussed my findings with Dr. Reid. Will call the patient on Wednesday.
== END 2021-02-25 14:35 | disposition home or self-care (01) ==
PROVIDERS: PCP Nurse Practitioner; Visit Provider Student in an Organized Health Care Education/Training Program
PROC: (CPT 27130; principal; 2021-02-25 07:30)
DX: M16.12 Unilateral primary osteoarthritis, left hip (principal); M25.852 Other specified joint disorders, left hip
CPT/HCPCS: 27130; 20985; 97162; 97530; 73501; J0690; J1885; J2001; J2250; J2405

== ENCOUNTER 2021-03-13 08:06 | Outpatient (CLI) | payer MEDICAID, SELFPAY ==
--- NOTE | 2021-03-13 08:00 | DI.RAD_ITS ---
Exam(s) XR HIP LT COMPLETE AP PELVIS EXAM: XR HIP LT COMPLETE AP PELVIS CLINICAL HISTORY: 1st post op L WILDA. TECHNIQUE: 2D digital imaging was performed. COMPARISON: CR XR HIP LT COMPLETE AP PELVIS from 05/02/2020 CR XR PELVIS AP from 02/21/2021 CR XR PELVIS AP from 02/21/2021 FINDINGS: There is satisfactory position alignment of the components of the recently placed left hip prosthesis . There is no fracture nor loosening evident. IMPRESSION: DATA REPOSITORY: RADIATION DOSE DELIVERED:
== END 2021-03-13 08:07 | disposition home or self-care (01) ==
LOC: DIORS 08:06
PROVIDERS: PCP Nurse Practitioner; Referring Provider Nurse Practitioner; Visit Provider Physician Assistant
DX: Z96.642 Presence of left artificial hip joint (principal); Z47.1 Aftercare following joint replacement surgery
CPT/HCPCS: 73502

== ENCOUNTER → 2021-04-23 10:02 | Outpatient (BNVA) | payer MEDICARE, MEDICAID, SELFPAY | PROVIDERS: PCP Nurse Practitioner; Referring Provider Nurse Practitioner; Visit Provider Nurse Practitioner Adult Health | DX: G43.009 Migraine without aura, not intractable, without status migrainosus (principal); G43.109 Migraine with aura, not intractable, without status migrainosus | CPT/HCPCS: 99214 ==

== ENCOUNTER 2021-04-24 15:21 | Outpatient (REF) | payer MEDICARE, MEDICAID, SELFPAY | END 2021-04-24 15:22 | disposition home or self-care (01) | LOC: LBN 15:21 | PROVIDERS: PCP Nurse Practitioner; Visit Provider Physician Assistant Medical | DX: R82.998 Other abnormal findings in urine (principal) | CPT/HCPCS: 87077; 87086; 87186 ==

== ENCOUNTER 2021-05-30 01:34 | Outpatient (CLI) | payer MEDICARE, MEDICAID, SELFPAY ==
[2021-05-30 10:40] LABS: Abs Immature Grans 0.01 10^3/uL (0.0-0.06); Absolute Basophil Count 0.04 10^3/uL (0.0-0.2); Absolute Eosinophil Count 0.56 10^3/uL (0.0-0.7); Absolute Lymphocyte Count 2.01 10^3/uL (1.2-3.4); Absolute Monocyte Count 0.45 10^3/uL (0.1-0.8); Absolute Neutrophil Count 3.22 10^3/uL (1.2-6.7); Basophils % 0.6; Eosinophils % 8.9; HCT 42.3 % (36.0-46.0); HGB 13.9 g/dL (11.2-15.7); Immature Grans % 0.2; MCH 31.2 pg (27.0-33.0); MCHC 32.9 % (32.0-36.0); MCV 95.1 fL (80-95); MPV 10.5 fL (8.0-11.0); Monocytes % 7.2; Neutrophils % 51.1; Nucleated RBC 0 %; Platelet Count 159 10^3/uL (130-400); RBC 4.45 10^6/uL (3.93-5.22); RDW 11.9 % (11.7-14.6); RDW-SD 41.9 fL; WBC 6.29 10^3/uL (4.4-10.8)
[2021-05-30 11:26] LABS: Hemoglobin A1C 6.7 % (<5.7)
[2021-05-30 11:38] LABS: ALT 43 U/L (14-59); AST 21 U/L (15-37); Albumin 3.5 g/dL (3.4-5.0); Alkaline Phosphatase 153 U/L (46-116); Anion Gap 9.5 mmol/L (3-11); BUN 10 mg/dL (7-18); Bilirubin, Total 0.6 mg/dL (0.2-1.0); CO2 26.5 mmol/L (21.0-32.0); CREATININE 1.2 mg/dL (0.55-1.02); Calcium 9.2 mg/dL (8.5-10.1); Calculated LDL 104 mg/dL (<100); Chloride 106 mmol/L (98-107); Cholesterol 193 mg/dL (<200); Estimated GFR 46.99 (mL/min/1.73m2); Glucose 169 mg/dL (74-106); HDL Cholesterol 41 mg/dL (40-60); Potassium 4.6 mmol/L (3.5-5.1); Sodium 142 mmol/L (136-145); Total Protein 6.3 g/dL (6.4-8.2); Triglyceride 244 mg/dL (<150)
[2021-06-02 09:41] LABS: HIV-1/2 Ag & Ab Screen Negative (Negative)
[2021-06-02 12:04] LABS: Hepatitis C Ab w Rflx HCV PCR Negative (Negative)
[2021-06-02 13:09] LABS: IgA 433 mg/dL (85-499); Interpretation (See Note); Tissue Transglutaminase IgA <1.2 U/mL (<4.0)
== END 2021-05-30 01:35 | disposition home or self-care (01) ==
LOC: LBO 01:34
PROVIDERS: PCP Nurse Practitioner; Visit Provider Nurse Practitioner
DX: E11.9 Type 2 diabetes mellitus without complications (principal); E78.5 Hyperlipidemia, unspecified; J45.909 Unspecified asthma, uncomplicated; Z11.59 Encounter for screening for other viral diseases; R10.9 Unspecified abdominal pain; Z11.4 Encounter for screening for human immunodeficiency virus [HIV]
CPT/HCPCS: 36415; 80053; 80061; 82784; 83516; 86803; 87389; 83036; 85025

== ENCOUNTER → 2021-06-10 08:59 | Outpatient (BNVA) | payer MEDICARE, MEDICAID, SELFPAY | PROVIDERS: PCP Nurse Practitioner; Referring Provider Nurse Practitioner; Visit Provider Nurse Practitioner Gerontology | DX: N28.9 Disorder of kidney and ureter, unspecified (principal) | CPT/HCPCS: 99443 ==

== ENCOUNTER 2021-08-23 16:18 | Emergency (ER) | payer MEDICARE, MEDICAID, SELFPAY ==
[2021-08-23 16:30] VITALS: BP 157/99; PULSE 90; RESP 18; TEMP 36.3; O2SAT 98
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
[2021-08-23] MEDS: Amoxicillin 875/Clav. 125 TAB PO (16:53)
[2021-08-23 17:15] VITALS: BP 157/99; PULSE 90; RESP 18; TEMP 36.3; O2SAT 98
== END 2021-08-23 17:28 | disposition home or self-care (01) ==
PROVIDERS: Emergency Provider Emergency Medicine; PCP Nurse Practitioner
DX: R68.84 Jaw pain (principal); K08.89 Other specified disorders of teeth and supporting structures; E11.9 Type 2 diabetes mellitus without complications
CPT/HCPCS: 99283

== ENCOUNTER 2021-08-24 15:08 | Emergency (ER) | payer MEDICARE, MEDICAID, SELFPAY ==
[2021-08-24] VITALS (10 sets, daily range): BP systolic 140–176; BP diastolic 80–103; PULSE 74–91; RESP 2–16; TEMP 36.3; O2SAT 95–98
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
[2021-08-24 15:33] LABS: Abs Immature Grans 0.03 10^3/uL (0.0-0.06); Absolute Basophil Count 0.06 10^3/uL (0.0-0.2); Absolute Eosinophil Count 0.22 10^3/uL (0.0-0.7); Absolute Lymphocyte Count 1.96 10^3/uL (1.2-3.4); Absolute Monocyte Count 0.41 10^3/uL (0.1-0.8); Absolute Neutrophil Count 5.87 10^3/uL (1.2-6.7); Basophils % 0.7; Eosinophils % 2.6; HCT 46.4 % (36.0-46.0); HGB 15.5 g/dL (11.2-15.7); Immature Grans % 0.4; Lymphocytes % 22.9; MCH 30.3 pg (27.0-33.0); MCHC 33.4 % (32.0-36.0); MCV 91 fL (80-95); MPV 10.6 fL (8.0-11.0); Monocytes % 4.8; Neutrophils % 68.6; Platelet Count 192 10^3/uL (130-400); RBC 5.11 10^6/uL (3.93-5.22); RDW 11.7 % (11.7-14.6); WBC 8.55 10^3/uL (4.4-10.8)
[2021-08-24] MEDS: Normal Saline 1,000 ML 1000 ML IV (15:34)
[2021-08-24] MEDS: Ondansetron 4 MG/2 ML VIAL IVP (15:34)
[2021-08-24] MEDS: HYDROmorphone 2 MG/ML VIAL 0.5 MG IVP ×2 (15:34→19:53)
[2021-08-24 15:35] LABS: Source Nasal/Nares
[2021-08-24 15:49] LABS: ALT 22 U/L (14-59); AST 16 U/L (15-37); Albumin 3.6 g/dL (3.4-5.0); Alkaline Phosphatase 131 U/L (46-116); Anion Gap 10.7 mmol/L (3-11); BUN 12 mg/dL (7-18); Bilirubin, Direct 0.2 mg/dL (0.0-0.2); Bilirubin, Total 0.7 mg/dL (0.2-1.0); CO2 25.3 mmol/L (21.0-32.0); CREATININE 1.3 mg/dL (0.55-1.02); Calcium 9.1 mg/dL (8.5-10.1); Chloride 104 mmol/L (98-107); Estimated GFR 42.85 (mL/min/1.73m2); Glucose 271 mg/dL (74-106); Lipase 154 U/L (73-393); Magnesium 1.8 mg/dL (1.8-2.4); Potassium 4.1 mmol/L (3.5-5.1); Sodium 140 mmol/L (136-145); Total Protein 7.5 g/dL (6.4-8.2)
--- NOTE | 2021-08-24 15:50 | DI.CT_ITS ---
Exam(s) CT RENAL COLIC WO EXAM: CT RENAL COLIC WO CLINICAL HISTORY: left sided abdominal pain and back pain. TECHNIQUE: Imaging Protocol: Axial computed tomography images with coronal and sagittal reformatted images were created and reviewed. CONTRAST MATERIAL: Noncontrast COMPARISON: CT CT ABDOMEN PELVIS W from 12/22/[address] CHEST PE CTA from 03/19/2020 FINDINGS: ABDOMEN: Lung Bases: Normal where visualized. Small hiatal hernia. Liver: Normal attenuation. No measurable mass. Gallbladder and biliary tract: Status post cholecystectomy. No radiodense calculus or dilation. Pancreas: Normal density, no calcifications or inflammatory process. Spleen: Normal. Kidneys: Normal size, contour and axis. Not there is a 9 x 5 millimeter stone in the proximal left ur eter causing moderate hydronephrosis. There is a small small amount of stranding around the left kid kirstie. Bilateral nonobstructing renal calculi.. 5 millimeter calcification within or adjacent to the the right distal ureter, near the UVJ. No masses seen. Adrenal glands: 1.3 centimeter left adrenal adenoma. 1.4 centimeter right adrenal adenoma.. Abdominal Aorta: Abdominal portion non-dilated. PELVIS: Bladder: Nearly empty. No gross wall thickening. No visible calculi. Bowel: No obstruction or bowel wall thickening. Appendix normal. Peritoneal cavity: No ascites, collection or mesenteric inflammatory response. Bones: Left hip prosthesis. Degenerative changes lower lumbar spine. IMPRESSION: Moderate left hydronephrosis secondary to a 9 millimeter stone in the upper left ureter. Calcificati on at the distal right ureter without hydronephrosis versus phlebolith. RADIATION DOSE DELIVERED: 999.06mGy.cm Total DLP DATA REPOSITORY: All CT scans at this facility are submitted to the National Radiology Data Registry (NRDR) Dose Index Registry (DIR) with the [employer] (ACR). RADIATION OPTIMIZATION: All CT scans at this facility use at least one of these dose optimization te chniques: automated exposure control; mA and/or kV adjustment per patient size (includes targeted exa ms where dose is matched to clinical indication); or iterative reconstruction.
[2021-08-24] MEDS: Ketorolac 15 MG/ML VIAL IVP ×2 (16:22→19:54)
--- NOTE | 2021-08-24 16:22 | DI.VRAD_ITS ---
PROCEDURE INFORMATION: Exam: CT Abdomen And Pelvis Without Contrast Exam date and time: 08/24/2021 3:45 PM Age: 51 years old Clinical indication: Abdominal pain; Flank; Patient HX: Left sided pain and back pain. TECHNIQUE: Imaging protocol: Computed tomography of the abdomen and pelvis without contrast. Radiation optimization: All CT scans at this facility use at least one of these dose optimization techniques: automated exposure control; mA and/or kV adjustment per patient size (includes targeted exams where dose is matched to clinical indication); or iterative reconstruction. COMPARISON: CT ABDOMEN PELVIS W 12/22/2019 10:22 PM FINDINGS: Lungs: Lung bases are clear. Diaphragm: A small hiatal hernia is present. Liver: Visualized liver unremarkable. Gallbladder and bile ducts: Prior cholecystectomy. Mild intra-and extrahepatic biliary ductal dilation is most likely the sequela of prior cholecystectomy in the absence of clinical symptomatology. Pancreas: Normal. No ductal dilation. Spleen: Normal. No splenomegaly. Adrenal glands: 1.3 cm left adrenal nodule with Hounsfield units of-6.7, compatible with a benign adenoma. No follow-up warranted. 1.4 cm right adrenal nodule with Hounsfield units of-7.4, also compatible with a benign adenoma. No follow-up is warranted. Adrenal glands are otherwise unremarkable. Kidneys and ureters: 9 mm by 5 mm stone impacted in the proximal left ureter. Proximal moderate left hydroureter. There is moderate left hydronephrosis. There is inflammatory left perinephric stranding. 5 mm by 5 mm stone within the distal right ureter. No significant right hydroureter. There are multiple right renal collecting system calcifications. The right kidney is otherwise unremarkable. Stomach and bowel: No bowel obstruction or significant bowel wall thickening. There is mildly excessive colonic stool content. Appendix: A normal appendix is identified. Intraperitoneal space: No free fluid, fluid collections, or pneumoperitoneum. Vasculature: Unremarkable. No abdominal aortic aneurysm. Lymph nodes: No retroperitoneal, pelvic, or mesenteric adenopathy. Urinary bladder: The bladder is decompressed. Reproductive: There has been a hysterectomy. Bones/joints: Complete left hip arthroplasty without complications. No acute skeletal pathology. Mild multilevel degenerative changes of the spine, as manifested by multilevel anterior osteophytes and multilevel decrease in intervertebral disc space. Soft tissues: No acute body wall soft tissue findings. IMPRESSION: 1. Moderate acute left obstructive uropathy caused by a 9 mm x 5 mm stone impacted in the proximal left ureter. 2. 5 mm x 5 mm stone partially impacted in the distal right ureter causing no significant right obstructive uropathy. 3. Incidental findings as above. Dictated and Authenticated by: Corbin Parra MD. Ordering:MIRIAN Somers MD
[2021-08-24 16:29] LABS: COVID-19 PCR Negative (Negative)
[2021-08-24 17:09] LABS: Bilirubin Negative (Negative); Blood Large (Negative); Clarity Cloudy (Clear); Glucose 500 mg/dL (Negative); Ketones Negative (Negative); Leukocyte Esterase Negative (Negative); Nitrite Negative (Negative); Specific Gravity >= 1.030 (1.005-1.025); Urobilinogen 0.2 EU/dL (Up TO 0.2); pH 5.5 (5-8)
[2021-08-24 17:18] LABS: Bacteria Few HPF (Negative); C & S Indicated? No/Sq. Contamination; Crystals Negative HPF (Negative); Epithelial Cells Many HPF (Negative); Mucus Negative (Negative); RBC >50 HPF (0-2)
== END 2021-08-24 20:08 | disposition short-term general hospital (02) ==
PROVIDERS: Emergency Provider Emergency Medicine; PCP Nurse Practitioner
DX: N13.2 Hydronephrosis with renal and ureteral calculous obstruction (principal); Z87.442 Personal history of urinary calculi; R10.9 Unspecified abdominal pain; M54.9 Dorsalgia, unspecified
CPT/HCPCS: 36415; 80053; 83690; 87635; 96361; 96374; 96375; 96376; 99285; 74176; 81003; 81015; 82248; 83735; 85025; J1885; J2405

== ENCOUNTER → 2021-09-01 08:25 | Outpatient (BNVA) | payer MEDICARE, MEDICAID, SELFPAY | PROVIDERS: PCP Nurse Practitioner; Referring Provider Nurse Practitioner; Visit Provider Nurse Practitioner Gerontology | DX: R30.0 Dysuria (principal); N20.0 Calculus of kidney; N89.8 Other specified noninflammatory disorders of vagina; N30.10 Interstitial cystitis (chronic) without hematuria | CPT/HCPCS: 81003; 99215 ==

== ENCOUNTER 2021-09-22 03:08 | Outpatient (CLI) | payer MEDICARE, MEDICAID, SELFPAY | END 2021-09-22 03:09 | disposition home or self-care (01) | LOC: LBO 03:17 | PROVIDERS: PCP Nurse Practitioner; Visit Provider Nurse Practitioner ==

== ENCOUNTER → 2021-09-30 00:58 | Outpatient (CLI) | payer MEDICARE, MEDICAID, SELFPAY ==
--- NOTE | 2021-09-30 07:15 | DI.US_ITS ---
Exam(s) US RENAL EXAM: US RENAL CLINICAL HISTORY: monitoring hydro after procedure, kidney stone, N20.0 TECHNIQUE: Ultrasound of both kidneys performed using standard protocol. COMPARISON: CT CT RENAL COLIC WO from 08/24/2021 FINDINGS: RIGHT KIDNEY: Measures 10.5 cm in length. No cysts evident. Normal cortical thickness and corticomedullary differen tiation .No solid masses No intrarenal calculi nor hydronephrosis. LEFT KIDNEY: Measures 10.1 cm in length. No cysts evident. Normal cortical thickness and corticomedullary differe ntiaion. No solids masses. No intrarenal calculi nor hydonephrosis. URINARY BLADDER: Prevoid volume is 195 cc Postvoid volume is 0 cc No evidence of bladder mass nor diverticuli. No shadowing calculi in the urinary bladder Ureterovesical jets: Both identified and appear symmetrical IMPRESSION: 1. No significant ultrasound findings in the kidneys. 2. No hydronephrosis on either side. No obvious shadowing calculi in the kidneys at this time. No obvious shadowing calculi in the urinary bladder. DATA REPOSITORY:
== END ==
PROVIDERS: PCP Nurse Practitioner; Visit Provider Nurse Practitioner Gerontology
DX: N20.0 Calculus of kidney (principal)
CPT/HCPCS: 76770

== ENCOUNTER → 2021-10-02 13:51 | Outpatient (BNVA) | payer MEDICARE, MEDICAID, SELFPAY | PROVIDERS: PCP Nurse Practitioner; Referring Provider Nurse Practitioner; Visit Provider Nurse Practitioner Gerontology | DX: N20.0 Calculus of kidney (principal); N89.8 Other specified noninflammatory disorders of vagina; N30.10 Interstitial cystitis (chronic) without hematuria | CPT/HCPCS: 99213 ==

== ENCOUNTER → 2021-10-22 10:30 | Outpatient (BNVA) | payer MEDICARE, MEDICAID, SELFPAY | PROVIDERS: PCP Nurse Practitioner; Referring Provider Nurse Practitioner; Visit Provider Nurse Practitioner Adult Health | DX: G43.009 Migraine without aura, not intractable, without status migrainosus (principal); G43.109 Migraine with aura, not intractable, without status migrainosus | CPT/HCPCS: 99213 ==

== ENCOUNTER 2021-12-06 14:20 | Observation (INO) | payer MEDICARE, MEDICAID, SELFPAY ==
--- NOTE | 2021-12-06 14:15 | RT.EKG_ITS ---
APPROVED REPORT Exam: Resting ECG Reason for Exam: heart palpitations Patient Location: E HR:103 bpm ECG Measurements Heart Rate 103 AXIS KS 212 P 45 QRSd 88 QRS 3 QT 340 T 37 QTc 446 Conclusion Sinus tachycardia...rate> 99 Prolonged KS interval...KS >205, V-rate 91-120 Anteroseptal infarct, old...Q >40mS, V1-V2
[2021-12-06 14:25] VITALS: PULSE 113; TEMP 36.8; O2SAT 98
[2021-12-06 14:27] VITALS: RESP 16; O2SAT 98
--- NOTE | 2021-12-06 14:30 | DI.CT_ITS ---
Exam(s) CT HEAD - STROKE PROTOCOL EXAM: CT HEAD - STROKE PROTOCOL CLINICAL HISTORY: slurrred speech. TECHNIQUE: Imaging Protocol: Axial computed tomography images with coronal and sagittal reformatted images were created and reviewed COMPARISON: CT CT HEAD CERVICAL SPINE WO from 02/16/2020 FINDINGS: There is mild generalized cerebral atrophy and there are patchy areas of decreased attenuation in pe riventricular white matter consistent with microvascular ischemic changes.. No evidence of acute intracranial hemorrhage, mass effect, or midline shift. The orbital structures are unremarkable. The temporal bone structures appear intact. Calvarium: Normal. Visualized Paranasal sinuses/Mastoids: Clear. IMPRESSION: No evidence of acute intracranial process. RADIATION DOSE DELIVERED: 756.3mGy.cm Total DLP 756.3mGy.cm Total DLP !Error CTDIvol DATA REPOSITORY: All CT scans at this facility are submitted to the National Radiology Data Registry (NRDR) Dose Index Registry (DIR) with the [employer] (ACR). RADIATION OPTIMIZATION: All CT scans at this facility use at least one of these dose optimization te chniques: automated exposure control; mA and/or kV adjustment per patient size (includes targeted exa ms where dose is matched to clinical indication); or iterative reconstruction.
--- NOTE | 2021-12-06 14:45 | DI.RAD_ITS ---
Exam(s) XR PORTABLE CHEST AP EXAM: XR PORTABLE CHEST AP CLINICAL HISTORY: slurred speech. TECHNIQUE: 2D digital imaging was performed. COMPARISON: CR,XR XR CHEST 2V PA LATERAL from 03/19/2020 FINDINGS: LUNGS: Clear. No pleural abnormality seen. HEART: Normal. MEDIASTINUM: Normal. OTHER FINDINGS: None. IMPRESSION: No acute pulmonary findings. DATA REPOSITORY: RADIATION DOSE DELIVERED: Total DLP
[2021-12-06 14:56] LABS: Abs Immature Grans 0.01 10^3/uL (0.0-0.06); Absolute Basophil Count 0.06 10^3/uL (0.0-0.2); Absolute Eosinophil Count 0.27 10^3/uL (0.0-0.7); Absolute Lymphocyte Count 2.54 10^3/uL (1.2-3.4); Absolute Neutrophil Count 2.95 10^3/uL (1.2-6.7); Basophils % 0.9; Eosinophils % 4.2; HCT 48.4 % (36.0-46.0); HGB 16.3 g/dL (11.2-15.7); Immature Grans % 0.2; Lymphocytes % 39.5; MCH 30.2 pg (27.0-33.0); MCHC 33.7 % (32.0-36.0); MCV 90 fL (80-95); MPV 10.7 fL (8.0-11.0); Monocytes % 9.3; Neutrophils % 45.9; Platelet Count 173 10^3/uL (130-400); RBC 5.39 10^6/uL (3.93-5.22); RDW 13.2 % (11.7-14.6); RDW-SD 43.1 fL; WBC 6.43 10^3/uL (4.4-10.8)
--- NOTE | 2021-12-06 15:05 | DI.VRAD_ITS ---
PROCEDURE INFORMATION: Exam: CT Head Without Contrast Exam date and time: 12/06/2021 2:53 PM Age: 51 years old Clinical indication: Stroke-like symptoms; Other: Slurred speech TECHNIQUE: Imaging protocol: Computed tomography of the head without contrast. Radiation optimization: All CT scans at this facility use at least one of these dose optimization techniques: automated exposure control; mA and/or kV adjustment per patient size (includes targeted exams where dose is matched to clinical indication); or iterative reconstruction. Other technique: STROKE PROTOCOL was implemented. COMPARISON: CT HEAD CERVICAL SPINE WO 02/16/2020 10:13 PM FINDINGS: Brain: Small vessel ischemic changes in the periventricular white matter. No evidence of an acute cortical infarct. Cerebral ventricles: No ventriculomegaly. Paranasal sinuses: Visualized sinuses are unremarkable. No fluid levels. Mastoid air cells: Visualized mastoid air cells are well aerated. Bones/joints: Unremarkable. No acute fracture. Soft tissues: Unremarkable. IMPRESSION: No acute intracranial abnormality. Changes of an acute infarct may not be visible on CT for up to 24 to 48 hours. ASSESSMENT: ASPECTS (Story Stroke Program Early CT Score) is 10. Dictated and Authenticated by: Myles Shahid MD. Ordering:WILLIAM Cedeño MD
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
[2021-12-06 15:22] LABS: ALT 32 U/L (14-59); AST 20 U/L (15-37); Albumin 3.6 g/dL (3.4-5.0); Alkaline Phosphatase 141 U/L (46-116); Anion Gap 9.4 mmol/L (3-11); BUN 24 mg/dL (7-18); Bilirubin, Total 0.5 mg/dL (0.2-1.0); CO2 27.6 mmol/L (21.0-32.0); CREATININE 1.6 mg/dL (0.55-1.02); Calcium 9.5 mg/dL (8.5-10.1); Chloride 100 mmol/L (98-107); Estimated GFR 38.33 (mL/min/1.73m2); Glucose 285 mg/dL (74-106); Magnesium 1.9 mg/dL (1.8-2.4); Potassium 3.8 mmol/L (3.5-5.1); Sodium 137 mmol/L (136-145); TSH (W/Ref FT4) 2.67 uIU/mL (0.36-3.74); Total Protein 7.6 g/dL (6.4-8.2); Troponin I < 50 ng/L (<or=60)
[2021-12-06 15:31] LABS: Bilirubin Negative (Negative); Blood Negative (Negative); Clarity Sl Cloudy (Clear); Glucose 500 mg/dL (Negative); Ketones Negative (Negative); Leukocyte Esterase Negative (Negative); Nitrite Positive (Negative); Specific Gravity 1.025 (1.005-1.025); Urobilinogen 0.2 EU/dL (Up TO 0.2); pH 5.5 (5-8)
--- NOTE | 2021-12-06 15:37 | DI.VRAD_ITS ---
PROCEDURE INFORMATION: Exam: XR Chest Exam date and time: 12/06/2021 3:09 PM Age: 51 years old Clinical indication: Condition or disease; Other: Slurred speech TECHNIQUE: Imaging protocol: Radiologic exam of the chest. Views: 1 view. COMPARISON: CR XR CHEST 2V PA LATERAL 03/19/2020 7:17 PM FINDINGS: Lungs: Unremarkable. No consolidation. Pleural spaces: Unremarkable. No pleural effusion. No pneumothorax. Heart/Mediastinum: Unremarkable. No cardiomegaly. Bones/joints: Unremarkable. IMPRESSION: No acute findings. Dictated and Authenticated by: Myles Shahid MD. Ordering:WILLIAM Cedeño MD
[2021-12-06 15:44] LABS: RBC 0-2 HPF (0-2)
[2021-12-06 15:45] LABS: Bacteria Packed HPF (Negative); C & S Indicated? No/Sq. Contamination; Crystals Negative HPF (Negative); Epithelial Cells Many HPF (Negative); Mucus Negative (Negative)
[2021-12-06 15:50] LABS: *AMPHETAMINES SCREEN URINE Negative (Negative); *BARBITURATES SCREEN URINE Negative (Negative); *BENZODIAZEPINES SCREEN URINE Negative (Negative); Cannabinoids THC Negative (Negative); Cocaine Screen,Urine Negative (Negative); METHADONE URINE SCREEN Negative (Negative); OPIATES URINE SCREEN Negative (Negative)
[2021-12-06 15:55] LABS: Tricyclic Antidepressants Positive (Negative)
[2021-12-06 16:12] LABS: Source Nasal/Nares
[2021-12-06 16:29] VITALS: BP 135/91; BP 142/108; BP 149/88; PULSE 110; PULSE 117; PULSE 131
[2021-12-06] MEDS: Normal Saline 1,000 ML 1000 ML IV (16:30)
[2021-12-06 16:44] LABS: D-Dimer 684 ng/mlFEU (<500)
--- NOTE | 2021-12-06 16:45 | DI.CT_ITS ---
Exam(s) CT CHEST PE CTA EXAM: CT CHEST PE CTA CLINICAL HISTORY: syncope/near syncope, elevated dimer. TECHNIQUE: Imaging Protocol: Axial CT angiography was performed with multi-slice acquisition and mu lti-planar and/or 3D reconstructions. CONTRAST MATERIAL: Intravenous: Omnipaque 350 Contrast volume:structured data in ml COMPARISON: CT CT RENAL COLIC WO from 08/24/2021 FINDINGS: CT angiography of the chest was performed with intravenous infusion of 82 cc of Omnipaque 350. The lungs are clear. No pleural effusion. Tracheobronchial tree appears intact. No evidence of pulmonary embolic disease. Thoracic aorta is of normal diameter, no thoracic aortic an eurysm or dissection, major branch vessels appear intact. There is some prominence of mediastinal and hilar lymph nodes, the largest subcarinal nodes measuring up to about 3 cm in diameter. Please correlate clinically.. Images obtained through the upper abdomen show unremarkable appearance of the visualized portions of the liver, spleen, pancreas, adrenals, and kidneys. IMPRESSION: Mild mediastinal and hilar adenopathy, cause uncertain. Please correlate clinically.. No evidence o f pulmonary embolic disease. RADIATION DOSE DELIVERED: 513.25mGy.cm Total DLP 513.25mGy.cm Total DLP !Error CTDIvol DATA REPOSITORY: All CT scans at this facility are submitted to the National Radiology Data Registry (NRDR) Dose Index Registry (DIR) with the [employer] ([employer]). RADIATION OPTIMIZATION: All CT scans at this facility use at least one of these dose optimization te chniques: automated exposure control; mA and/or kV adjustment per patient size (includes targeted exa ms where dose is matched to clinical indication); or iterative reconstruction.
[2021-12-06 17:02] LABS: COVID-19 PCR Negative (Negative)
[2021-12-06] MEDS: Omnipaque 350 MG/ML 100 ML BTL IJ (17:15)
[2021-12-06] MEDS: Lactated Ringers 1,000 ML 1000 ML IV (17:40)
--- NOTE | 2021-12-06 17:52 | DI.VRAD_ITS ---
PROCEDURE INFORMATION: Exam: CTA Chest With Contrast Exam date and time: 12/06/2021 5:15 PM Age: 51 years old Clinical indication: Other: Syncope/near syncope, elevated dimer TECHNIQUE: Imaging protocol: Computed tomographic angiography of the chest with contrast. 3D rendering (Not supervised by radiologist): MIP and/or 3D reconstructed images were created by the technologist. COMPARISON: CT CHEST PE CTA 03/19/2020 9:52 PM FINDINGS: Pulmonary arteries: No pulmonary embolism identified. Aorta: Unremarkable. No aortic aneurysm. No aortic dissection. Lungs: Unremarkable. No consolidation. No masses. Pleural spaces: Unremarkable. No pneumothorax. No pleural effusion. Heart: Unremarkable. No cardiomegaly. No pericardial effusion. Lymph nodes: Bilateral hilar and mediastinal adenopathy largest nodes 3.1 x 1.8 cm. Bones/joints: Unremarkable. No acute fracture. Soft tissues: Unremarkable. IMPRESSION: 1. No pulmonary embolism identified. 2. Bilateral hilar and mediastinal adenopathy largest nodes 3.1 x 1.8 cm. Dictated and Authenticated by: Myles Shahid MD. Ordering:SATISH Clements MD
[2021-12-06 18:47] LABS: Troponin I < 50 ng/L (<or=60)
[2021-12-06 21:18] VITALS: PULSE 90
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
[2021-12-06 21:35] VITALS: BP 139/89; PULSE 90; RESP 16; TEMP 36.2; O2SAT 96
[2021-12-06 22:37] LABS: TSH (W/Ref FT4) 1.88 uIU/mL (0.36-3.74)
[2021-12-06] MEDS: Amitriptyline 25 MG TAB 50 MG PO (22:49)
[2021-12-06] MEDS: Heparin 5,000 UNITS/ML VIAL 5000 UNITS SC (22:50)
[2021-12-06] MEDS: cefTRIAXone 1 GM/50 ML BAG IVPB (23:06)
[2021-12-06] MEDS: Normal Saline Flush 10 ML SYR IVP (23:06)
[2021-12-06 23:10] VITALS: BP 132/84; PULSE 82; RESP 20; TEMP 36.7; O2SAT 97
[2021-12-06] MEDS: Insulin Aspart 300 UNITS/3 ML PEN SC (23:27)
[2021-12-07] VITALS: BP 128/85; PULSE 71; PULSE 76; RESP 16; TEMP 36.5; O2SAT 97
[2021-12-07] MEDS: SODIUM CHLORIDE 0.45% 1,000 ML 100 ML IV (00:15)
[2021-12-07] MEDS: Normal Saline 1,000 ML 100 ML IV ×2 (01:01→10:47)
[2021-12-07 04:10] VITALS: BP 120/83; PULSE 81; RESP 16; TEMP 36; O2SAT 97
[2021-12-07 06:33] LABS: Lactate 1.2 mmol/L (0.9-1.7)
[2021-12-07] MEDS: Heparin 5,000 UNITS/ML VIAL 5000 UNITS SC ×2 (06:41→13:17)
[2021-12-07 06:46] LABS: Abs Immature Grans 0.01 10^3/uL (0.0-0.06); Absolute Basophil Count 0.05 10^3/uL (0.0-0.2); Absolute Eosinophil Count 0.32 10^3/uL (0.0-0.7); Absolute Lymphocyte Count 1.81 10^3/uL (1.2-3.4); Absolute Monocyte Count 0.45 10^3/uL (0.1-0.8); Absolute Neutrophil Count 1.84 10^3/uL (1.2-6.7); Basophils % 1.1; Eosinophils % 7.1; HCT 40.2 % (36.0-46.0); HGB 13.6 g/dL (11.2-15.7); Immature Grans % 0.2; Lymphocytes % 40.4; MCH 30.7 pg (27.0-33.0); MCHC 33.8 % (32.0-36.0); MCV 91 fL (80-95); MPV 10.7 fL (8.0-11.0); Neutrophils % 41.2; Platelet Count 139 10^3/uL (130-400); RBC 4.43 10^6/uL (3.93-5.22); RDW 13.1 % (11.7-14.6); RDW-SD 43.6 fL; WBC 4.48 10^3/uL (4.4-10.8)
[2021-12-07 07:03] LABS: ALT 27 U/L (14-59); AST 17 U/L (15-37); Albumin 2.8 g/dL (3.4-5.0); Alkaline Phosphatase 114 U/L (46-116); Anion Gap 6.8 mmol/L (3-11); BUN 18 mg/dL (7-18); Bilirubin, Total 0.6 mg/dL (0.2-1.0); CO2 27.2 mmol/L (21.0-32.0); CREATININE 1.1 mg/dL (0.55-1.02); Calcium 8.5 mg/dL (8.5-10.1); Chloride 105 mmol/L (98-107); Estimated GFR 60.08 (mL/min/1.73m2); Glucose 191 mg/dL (74-106); Sodium 139 mmol/L (136-145); Total Protein 6.1 g/dL (6.4-8.2); Troponin I < 50 ng/L (<or=60)
[2021-12-07 07:21] VITALS: BP 113/68; PULSE 79; RESP 16; TEMP 36.4; O2SAT 97
[2021-12-07 07:30] VITALS: PULSE 80
[2021-12-07] MEDS: Magnesium Oxide 400 MG TAB PO (08:35)
[2021-12-07] MEDS: Cholecalciferol (Vitamin D3) 1,000 UNIT TAB 2000 UNITS PO (08:35)
[2021-12-07] MEDS: Omeprazole 20 MG CAPCR 40 MG PO (08:35)
[2021-12-07] MEDS: Insulin Aspart 300 UNITS/3 ML PEN SC ×2 (08:36→12:06)
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
[2021-12-07 11:35] VITALS: BP 119/73; PULSE 78; RESP 16; TEMP 36.4; O2SAT 96
[2021-12-07] MEDS: Prochlorperazine 10 MG TAB PO (13:17)
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
[2021-12-07 15:19] VITALS: BP 126/85; PULSE 90; RESP 16; TEMP 36; O2SAT 96
--- NOTE | 2021-12-07 15:49 | CMDISCH_ITS ---
- If Service Date Differs Date of service: 12/07/21 Time of Service: 15:49 LACE Index Scoring Tool - Questions: Length of Stay (in days): 1 Acuity (Admit via E.D.?): Yes Comorbidities: Previous M.I., Diabetes w/o Complication E.D. Visits: 3 - Answers: Total Score: 9 Risk of Readmission: Low Risk Care Management Discharge Reason for Hospitalization: Palpitations with AMS/Speech Difficulties Discharge Plan: Chely is discharged home via private vehicle with family. Chely will follow discharge plan of care as prescribed and follow up with community providers. Pt will call her PCP office Wednesday to schedule a 1-2 week hospital follow up appointment. No [facility] services are ordered. Patient/Family Education Needs: Review discharge instructions, limitations, medications and plan to follow up with community providers. Discuss ask me three.
== END 2021-12-07 16:16 | disposition home or self-care (01) ==
LOC: ER 20:25 → MS 21:05
PROVIDERS: Physician Assistant; Admitting Provider Family Medicine; Emergency Provider Physician Assistant; PCP Nurse Practitioner; Visit Provider Family Medicine
DX: G45.9 Transient cerebral ischemic attack, unspecified (principal); N39.0 Urinary tract infection, site not specified; R00.0 Tachycardia, unspecified; E11.65 Type 2 diabetes mellitus with hyperglycemia; R47.81 Slurred speech; R07.89 Other chest pain; R55 Syncope and collapse; E86.0 Dehydration; R59.0 Localized enlarged lymph nodes; I25.2 Old myocardial infarction; Z20.822 Contact with and (suspected) exposure to COVID-19; F41.9 Anxiety disorder, unspecified; F43.10 Post-traumatic stress disorder, unspecified; F44.81 Dissociative identity disorder; Z79.899 Other long term (current) drug therapy; Z79.84 Long term (current) use of oral hypoglycemic drugs; Z86.16 Personal history of COVID-19; K21.9 Gastro-esophageal reflux disease without esophagitis; E78.5 Hyperlipidemia, unspecified; R79.1 Abnormal coagulation profile; G47.33 Obstructive sleep apnea (adult) (pediatric)
CPT/HCPCS: 36415; 36416; 71275; 80053; 80307; 82962; 87040; 87635; 93005; 96360; 96361; 96372; 96374; 99285; 70450; 71045; 81003; 81015; 83605; 83735; 84443; 84484; 85025; 85379; 87086; 93010; 99217; 99220; J0696; J1644; J3490

== ENCOUNTER 2021-12-18 02:20 | Outpatient (CLI) | payer MEDICARE, MEDICAID, SELFPAY ==
[2021-12-18 09:39] LABS: Anion Gap 8.5 mmol/L (3-11); BUN 17 mg/dL (7-18); CO2 28.5 mmol/L (21.0-32.0); CREATININE 1.3 mg/dL (0.55-1.02); Calcium 8.9 mg/dL (8.5-10.1); Chloride 104 mmol/L (98-107); Estimated GFR 49.17 (mL/min/1.73m2); Glucose 170 mg/dL (74-106); Potassium 3.9 mmol/L (3.5-5.1); Sodium 141 mmol/L (136-145)
== END 2021-12-18 02:21 | disposition home or self-care (01) ==
LOC: LBO 02:20
PROVIDERS: PCP Nurse Practitioner; Visit Provider Nurse Practitioner
DX: E11.9 Type 2 diabetes mellitus without complications (principal)
CPT/HCPCS: 36415; 80048

== ENCOUNTER 2021-12-24 10:57 | Outpatient (REF) | payer MEDICARE, MEDICAID, SELFPAY | END 2021-12-24 10:58 | disposition home or self-care (01) | LOC: LBN 10:57 | PROVIDERS: PCP Nurse Practitioner; Visit Provider Nurse Practitioner | DX: N39.0 Urinary tract infection, site not specified (principal) | CPT/HCPCS: 87077; 87086; 87186 ==

== ENCOUNTER → 2021-12-30 08:47 | Outpatient (BNVA) | payer MEDICARE, MEDICAID, SELFPAY | PROVIDERS: PCP Nurse Practitioner; Referring Provider Nurse Practitioner; Visit Provider Internal Medicine Cardiovascular Disease | DX: F41.9 Anxiety disorder, unspecified (principal); I47.1 Supraventricular tachycardia; I21.4 Non-ST elevation (NSTEMI) myocardial infarction | CPT/HCPCS: 93005; 99214; 93225 ==

== ENCOUNTER 2021-12-30 08:54 | Outpatient (CLI) | payer MEDICARE, MEDICAID, SELFPAY ==
--- NOTE | 2021-12-30 08:45 | RT.EKG_ITS ---
APPROVED REPORT Exam: Resting ECG Reason for Exam: MT Patient Location: O HR:90 bpm ECG Measurements Heart Rate 90 AXIS DE 218 P 55 QRSd 89 QRS -8 QT 364 T 45 QTc 446 Conclusion Sinus rhythm...normal P axis, V-rate 50- 99 Borderline first-degree AV block Poor R wave progression
== END 2021-12-30 08:55 | disposition home or self-care (01) ==
LOC: DI.CARD 08:55
PROVIDERS: PCP Nurse Practitioner; Visit Provider Internal Medicine Cardiovascular Disease
DX: I21.4 Non-ST elevation (NSTEMI) myocardial infarction (principal)
CPT/HCPCS: 93010

== ENCOUNTER 2021-12-30 09:30 | Outpatient (RCR) | payer MEDICARE, MEDICAID, SELFPAY ==
--- NOTE | 2021-12-30 09:30 | HOLTER_ITS ---
APPROVED REPORT Conclusion This is a 48-hour Holter monitor ordered for palpitations Rhythm throughout was sinus with an average heart rate of 95. Minimum was 73, maximum 140 There were very rare atrial and ventricular ectopic beats There was no atrial fibrillation, no high-grade AV block, no pauses greater than 3 seconds, no suprav entricular tachycardia There were no apparent patient symptoms
== END 2022-01-12 23:59 | disposition home or self-care (01) ==
LOC: CARDOPNVT 09:30
PROVIDERS: PCP Nurse Practitioner; Visit Provider Internal Medicine Cardiovascular Disease
DX: R00.2 Palpitations (principal)
CPT/HCPCS: 93227; 93225; 93226

== ENCOUNTER 2022-01-13 03:25 | Outpatient (CLI) | payer MEDICARE, MEDICAID, SELFPAY ==
[2022-01-13 10:43] LABS: ALT 23 U/L (14-59); AST 16 U/L (15-37); Albumin 3.4 g/dL (3.4-5.0); Alkaline Phosphatase 138 U/L (46-116); Anion Gap 9.1 mmol/L (3-11); BUN 22 mg/dL (7-18); Bilirubin, Total 0.5 mg/dL (0.2-1.0); CO2 26.9 mmol/L (21.0-32.0); CREATININE 1.3 mg/dL (0.55-1.02); Calcium 9.3 mg/dL (8.5-10.1); Chloride 106 mmol/L (98-107); Estimated GFR 49.17 (mL/min/1.73m2); Glucose 152 mg/dL (74-106); Potassium 4.3 mmol/L (3.5-5.1); Sodium 142 mmol/L (136-145); Total Protein 7.1 g/dL (6.4-8.2)
== END 2022-01-13 03:26 | disposition home or self-care (01) ==
LOC: LBO 03:25
PROVIDERS: PCP Nurse Practitioner; Visit Provider Nurse Practitioner
DX: E11.9 Type 2 diabetes mellitus without complications (principal); R79.9 Abnormal finding of blood chemistry, unspecified
CPT/HCPCS: 36415; 80053

== ENCOUNTER 2022-01-26 09:55 | Outpatient (CLI) | payer MEDICARE, MEDICAID, SELFPAY ==
--- NOTE | 2022-01-26 09:15 | DI.RAD_ITS ---
Exam(s) XR HIP RT COMPLETE AP PELVIS EXAM: XR HIP RT COMPLETE AP PELVIS INDICATION: right hip pain. COMPARISON: CR XR HIP LT COMPLETE AP PELVIS from 03/13/2021 TECHNIQUE: 2D digital imaging was performed. Two views. FINDINGS: There is a left hip prosthesis which appears unchanged. No surrounding lucencies. The right hip ro nt space is maintained. There is spurring at the superior acetabulum. No significant femoral head s purring. Impression: Mild degenerative changes of the right hip. Stable left hip prosthesis. DATA REPOSITORY: RADIATION DOSE DELIVERED:
== END 2022-01-26 09:56 | disposition home or self-care (01) ==
LOC: DIORS 09:55
PROVIDERS: PCP Nurse Practitioner; Referring Provider Nurse Practitioner; Visit Provider Physician Assistant
DX: M25.851 Other specified joint disorders, right hip (principal); M70.61 Trochanteric bursitis, right hip
CPT/HCPCS: 99213; 73502

== ENCOUNTER → 2022-01-27 08:48 | Outpatient (BNVA) | payer MEDICARE, MEDICAID, SELFPAY | PROVIDERS: PCP Nurse Practitioner; Referring Provider Nurse Practitioner; Visit Provider Surgery | DX: Z86.010 Personal history of colon polyps (principal); Z12.11 Encounter for screening for malignant neoplasm of colon ==

== ENCOUNTER 2022-02-09 07:53 | Day surgery (SDC) | payer MEDICARE, MEDICAID, SELFPAY ==
--- NOTE | 2022-02-09 06:31 | COLE_ITS ---
Date of service: 02/09/22 Time of Service: 08:35 Colonoscopy Report Date of procedure: 02/09/22 Pre-op diagnosis general: Screening, Hx of polyps Post-op diagnosis procedure note: same Procedure: Colonoscopy with polypectomy Surgeon: Xiao Shah Anesthesia Type: General:No Airway Estimated blood loss (mL): 2 Pathology: other (Transverse polyp x2) Complications: None Disposition: same day Indications: The patient? is a pleasant? 52 -year-old female who is here to discuss another screening colonoscopy. ? Her last colonoscopy was in 2019 and she was found to have a sessile serrated adenoma and a few hyperplastic polyps.? She denies any changes in bowel habits, melena, hematochezia, unintentional weight loss or family history of colon cancer.? The procedure and risks were discussed.? The prep was reviewed in detail.? Risks, benefits and complications have been reviewed. Complications include but are not limited to bleeding, pain, perforation, missed small lesion/polyp, sore throat, aspiration and adverse omar ction to the medications. Questions were entertained and answered to their satisfaction and they wished to proceed. No guarantees were given or implied. Prep: Miralax/Dulcolax Procedure Start Time: 08:35 Procedure End Time: 09:10 Retraction Time: 16 minutes Findings: 2 small sessile polyps Procedure Description: After informed consent was obtained the patient was taken to the procedure room and placed in a left decubitous position. Monitors were applied and a time out was done. The patients name, date of , procedure, allergies to medications and metal in their body was reviewed. The patient was then sedated. Once sedated and comfortable a rectal exam was done. External exam was normal. Internal exam revealed a normal sphincter tone and no palpable masses. The scope was then introduced and retro-flexed. no internal hemorrhoids, polyps or masses were identified on retro-flexion. The scope was then advanced to the cecum with difficulty due to a tortuous colon. The ileocecal vlave and appendiceal orifice were identified. The prep was good. The scope was then slowly retracted over 16 minutes back into the rectum. Polyps were removed with cold forceps in the transverse colon. There was no diverticulosis noted. The scope was removed and the patient was woken up and taken back to Same day surgery in stable condition. The patient tolerated the procedure well and there were no immediate complications.
--- NOTE | 2022-02-09 06:32 | W.PM.DSUDISC ---
Date of service: 02/09/22 Time of Service: 08:35 Discharge Plan Disposition Patient Disposition: HOME Condition: Good Discharge Details Reason For Visit: Colon Cancer Screening /hx of polyps Attending Provider: Xiao Shah Primary Care Provider: Margaret Luz Home Meds and New Rx's Prescriptions: Continued (DME) blood-glucose meter Misc See Rx Instructions .ROUTE .MEDSUPPLY Qty: 1 0RF Rx Instructions: As directed to check blood glucose. No insulin. Dispense covered brand. (DME) Blood Glucose Test Strip See Rx Instructions .ROUTE .MEDSUPPLY Qty: 100 3RF Rx Instructions: As directed to check blood glucose daily. No insulin. Dispense covered brand. (DME) lancets Misc See Rx Instructions .ROUTE .MEDSUPPLY Qty: 100 3RF Rx Instructions: As directed to check blood glucose daily. No insulin. Dispense covered brand. cholecalciferol (vitamin D3) [Vitamin D3] 50 mcg (2,000 unit) tablet 2,000 unit PO DAILY Qty: 90 3RF magnesium oxide 500 mg tablet 500 mg PO DAILY Qty: 90 3RF canagliflozin 100 mg tablet 100 mg PO DAILY Qty: 30 6RF nystatin 100,000 unit/gram cream 1 applic topical BID PRN (Reason: perineal rash) Qty: 30 0RF epinephrine [EpiPen 2-Sandeep] 0.3 mg/0.3 mL auto-injector 0.3 mg IM DAILY PRN (Reason: hypersensitivity reaction) Qty: 2 0RF Label Comments: pt. reports months since she used it Premarin 0.625 mg/gram cream 0.625 mg VG DIRECTED Qty: 90 4RF Rx Instructions: Use 0.5 GM in the vaginal at night daily for 2 weeks then to 2-3 times a week at night Aimovig Autoinjector 140 mg/mL auto-injector 140 mg subcut QMONTH Qty: 1 11RF prochlorperazine maleate 10 mg tablet 10 mg PO Q8H PRN (Reason: headaches) Qty: 30 3RF amitriptyline 25 mg tablet See Rx Instructions .ROUTE .COMPLEX Qty: 60 6RF Dose Instruction: TAKE 2 TABLETS BY MOUTH DAILY Rx Instructions: TAKE 2 TABLETS BY MOUTH DAILY metformin 1,000 mg tablet 1,000 mg PO BID Qty: 180 0RF omeprazole 40 mg capsule,delayed release(DR/EC) 40 mg PO DAILY Qty: 90 3RF Discontinued polyethylene glycol 3350 17 gram/dose powder 17 g PO ONCE Qty: 238 0RF Rx Instructions: To be taken as directed by prescriber's office for colonoscopy prep. polyethylene glycol 3350 17 gram/dose powder 238 g PO ONCE Qty: 238 0RF Rx Instructions: take per colonoscopy instructions bisacodyl [Dulcolax (bisacodyl)] 5 mg tablet,delayed release (DR/EC) 5 mg PO ONCE Qty: 4 0RF Rx Instructions: take per colonoscopy instructions Discharge Instructions Additional Instructions: Findings: polyps Follow up: will depend on pathology Please call if you develop: fevers >101.5 Nausea or Vomiting Abdominal pain that is not transient Rectal bleeding that is more then a tbsp A hard abdomen and inability to pass gas DAY SURGERY UNIT POST ENDOSCOPY INSTRUCTIONS Instructions for everyone who is given Anesthesia: For your safety, please do the following for the next 24 Hours: a. Do not drive or operate dangerous equipment b. Do not drink alcohol beverages or use any recreational drugs for the first 24 hours or while taking pain medications. The medications in your body may have a reaction that can be dangerous. c. Do not make any important decisions or sign any important papers 1. Generally there are no restrictions on your activity after a day or so has gone by, but you may feel a bit fatigued for a few days. 2. After you arrive home you may have a light meal and return to a normal diet as you can tolerate it without feeling sick to your stomach. 3. After surgery, you may feel pain or discomfort. This should be only transient, but if it persists please contact your doctor. 4. If there are any questions regarding the findings of your procedure, please feel free to contact your doctor. 6. If you are unable to contact your doctor with a problem, contact the hospital at [phone]. 7. Continue all your regular medications unless directed otherwise. I understand the above instructions and have no questions. Signature of Patient or Responsible Adult Escort Date/Time Name of Responsible Adult Escort Signature of Nurse Date/Time Activity:: Activity as Tolerated Equipment/Supplies:: No Equipment Needed Diet:: As Tolerated
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
[2022-02-09 08:10] VITALS: BP 148/89; PULSE 104; RESP 18; TEMP 36.4; O2SAT 100
[2022-02-09] MEDS: Lactated Ringers 1,000 ML 80 ML IV (08:20)
[2022-02-09 08:25] VITALS: BMI 35.7
--- NOTE | 2022-02-09 09:00 | BOWEL_PTH ---
PATIENT: Chely Michael LOC: [facility] U#:[id number] AGE/SX: 52/F ROOM: RE02/09/[address]: Xiao Shah MD : 1970 BED: DIS: 02/09/2022 SPEC #: [id number] RECD: 02/09/22 12:27 STATUS: RICK REQ #: [id number] PATTI: 02/09/22 09:[address]: Xiao Shah DEPT: Surgical Specimen RECD BY: Gala Britt ENTERED: 02/09/22 12:28 SP TYPE: Bowel OTHR DR: Margaret Luz APRN Tissues: 1 - BIOPSY BOWEL Procedures: GROSS AND MICRO LEVEL 4 Comments: [id number]
[2022-02-09 09:17] VITALS: BP 144/76; PULSE 77; RESP 16; TEMP 36.2; O2SAT 99
--- NOTE | 2022-02-09 09:22 | W.ANESPOSTOP ---
Postoperative Evaluation Date, Time and Location Date Performed: 02/09/22 Time Performed: : Patient Location: Day Surgery Unit Vital Signs Most Recent Imported Vital Signs: Most Recent Vital Signs Temp Pulse Resp BP Pulse Ox 36.4 C L 104 H 18 148/89 H 100 02/09/22 08:10 02/09/22 08:10 02/09/22 08:10 02/09/22 08:10 02/09/22 08:10 Most Recent Manually Entered Vital Signs: Adult Blood Pressure: 144/76 Heart Rate: 79 Respirations: 12 Oxygen Saturation (%): 97 Temperature (C): 36.3 C Pain Score (0-10 Scale): 0 Pain Score Most Recent Pain Score: Most Recent Pain Score Pain Level 0 02/09/22 08:10 Assessment Mental Status: Awake (Alert & Oriented to Patient Baseline) Airway and Respiratory Function: Patent airway with normal (patient baseline) respiratory exam Cardiovascular Function: Hemodynamically Stable Hydration Status: Adequately Hydrated Nausea & Vomiting: No Nausea or Vomiting Pain: Pt. Denies Any Pain Peripheral Nerve Block: Patient did not receive a nerve block
[2022-02-09 09:23] VITALS: BP 144/76; PULSE 79; RESP 12; TEMPC 36.3; O2SAT 97
[2022-02-09] MEDS: Hyoscyamine 0.125 MG SL/ORAL/CHEW SL (09:31)
[2022-02-09 09:53] VITALS: BP 154/94; PULSE 74; RESP 16; TEMP 36.4; O2SAT 99
== END 2022-02-09 10:16 | disposition home or self-care (01) ==
PROVIDERS: PCP Nurse Practitioner; Visit Provider Surgery
PROC: 0DJD8ZZ Inspection of Lower Intestinal Tract, Via Natural or Artificial Opening Endoscopic (ICD-10-PCS; CPT 45378; principal; 2022-02-09 09:00)
DX: Z12.11 Encounter for screening for malignant neoplasm of colon (principal); Z86.010 Personal history of colon polyps; K63.5 Polyp of colon
CPT/HCPCS: 45380; 88305; J3490

== ENCOUNTER → 2022-02-12 02:13 | Outpatient (CLI) | payer MEDICARE, MEDICAID, SELFPAY ==
--- NOTE | 2022-02-12 07:45 | DI.RAD_ITS ---
Exam(s) RF JOINT INJECTION FLUORO GUID EXAM: RF JOINT INJECTION FLUORO GUID CLINICAL HISTORY: R HIP INJ UNDER FLUORO,RT HIP TROCHANTERIC BURSITIS, M70.61 TECHNIQUE: 2D and realtime digital imaging was performed. COMPARISON: No exams were available for comparison FINDINGS: Fluoroscopy was utilized by Dr. Reid. Hard copy shows right hip injection. IMPRESSION: RADIATION DOSE DELIVERED: Ka,r=6.65 mGy Total DLP
--- NOTE | 2022-02-12 13:32 | W.PROCNOTE ---
Date of service: 02/12/22 Time of Service: 13:25 Procedure Note Date of procedure: 02/12/22 Procedure: Right Hip Injection with Fluoroscopic Guidance Surgeon/Proceduralist/Physician: Asad Reid Procedure Diagnosis: Right Hip Femoroacetabular Impingement Procedure Indications: Odette has had persistent pain of the RIGHT hip and groin. Noninvasive measures have been tried. To serve as both diagnostic and therapeutic, an injection under fluoroscopy was recommended. I had discussed the risks of the procedure and the patient elected to proceed. Procedure Description: She was greeted in the flouroscopy room. The correct side was identified and the consent was reviewed with the patient and signed. The patient was then placed in the supine position on the fluoroscopy table. The RIGHT hip was then prepped with Chloraprep. The anterolateral injection starting point was identiifed by bony landmarks and fluoroscopy. The skin and soft tissue in the tract of the injection was anesthetized with 1% Lidocaine. A spinal needle was then inserted deep into the hip joint at the level of the lateral femoral neck under fluoroscopic guidance. A small amount of Omnipaque solution was injected to confirm intraarticular placement. Once confirmed, the hip was injected with 5cc of 0.5% Bupivicaine and 80mg of Depo-Medrol. A bandaid was placed on the injection site. The patient tolerated the procedure well.
[2022-02-12] MEDS: Bupivacaine 0.5% Pres-Free 10 ML VIAL 5 ML IJ (14:33)
[2022-02-12] MEDS: methylPREDNISolone ACETATE 80 MG/ML VIAL IM (14:35)
== END ==
PROVIDERS: PCP Nurse Practitioner; Visit Provider Student in an Organized Health Care Education/Training Program
DX: M70.61 Trochanteric bursitis, right hip (principal)
CPT/HCPCS: 20610; 77002; J1040

== ENCOUNTER 2022-03-02 15:25 | Outpatient (CLI) | payer MEDICARE, MEDICAID, SELFPAY ==
--- NOTE | 2022-03-02 15:15 | DI.RAD_ITS ---
Exam(s) XR HIP LT AP LAT ONLY EXAM: XR HIP LT AP LAT ONLY INDICATION: f/u L WILDA. COMPARISON: CR XR HIP LT COMPLETE AP PELVIS from 03/13/2021 CR XR HIP RT COMPLETE AP PELVIS from 01/26/2022 TECHNIQUE: 2D digital imaging was performed. Two views. FINDINGS: There has been no change in the alignment of the left hip prosthesis. There are no surrounding bony lucencies. The right hip joint space is maintained. There is mild acetabular spurring. DATA REPOSITORY: RADIATION DOSE DELIVERED:
== END 2022-03-02 15:26 | disposition home or self-care (01) ==
LOC: DIORS 15:26
PROVIDERS: PCP Nurse Practitioner; Visit Provider Student in an Organized Health Care Education/Training Program
DX: Z96.649 Presence of unspecified artificial hip joint (principal); M25.851 Other specified joint disorders, right hip
CPT/HCPCS: 99213; 73502

== ENCOUNTER → 2022-04-06 13:32 | Outpatient (BNVA) | payer MEDICARE, MEDICAID, SELFPAY | PROVIDERS: PCP Nurse Practitioner; Referring Provider Nurse Practitioner; Visit Provider Nurse Practitioner Gerontology | DX: Z87.440 Personal history of urinary (tract) infections (principal); M54.9 Dorsalgia, unspecified; Z87.442 Personal history of urinary calculi; N30.10 Interstitial cystitis (chronic) without hematuria; N89.8 Other specified noninflammatory disorders of vagina | CPT/HCPCS: 81003; 99214 ==

== ENCOUNTER 2022-04-06 16:39 | Outpatient (REF) | payer MEDICARE, MEDICAID, SELFPAY | END 2022-04-06 16:40 | disposition home or self-care (01) | LOC: LBN 16:39 | PROVIDERS: PCP Nurse Practitioner; Visit Provider Nurse Practitioner Gerontology | DX: R30.0 Dysuria (principal) | CPT/HCPCS: 87077; 87086; 87186 ==

== ENCOUNTER 2022-04-09 01:01 | Outpatient (CLI) | payer MEDICARE, MEDICAID, SELFPAY ==
--- NOTE | 2022-04-09 07:15 | DI.US_ITS ---
Exam(s) US RENAL EXAM: US RENAL CLINICAL HISTORY: right flank pain, hx of renal calculi,n20.0 TECHNIQUE: Ultrasound of both kidneys performed using standard protocol. COMPARISON: US US RENAL from 09/30/2021 FINDINGS: RIGHT KIDNEY: Measures 10 cm in length. No cysts evident. Normal cortical thickness and corticomedullary differenti ation .No solid masses No intrarenal calculi nor hydronephrosis. LEFT KIDNEY: Measures 10 cm in length. No cysts evident. Normal cortical thickness and corticomedullary different iaion. No solids masses. No intrarenal calculi nor hydonephrosis. URINARY BLADDER: Prevoid volume is 32 cc Postvoid volume is negligible cc No evidence of bladder mass nor diverticuli. Ureterovesical jets: Both identified and appear symmetrical IMPRESSION: 1. No significant ultrasound findings in the kidneys. 2. Urinary bladder only contained 32 cc and therefore difficult to assess accurately. DATA REPOSITORY:
== END 2022-04-09 01:21 ==
LOC: DI 01:01
PROVIDERS: PCP Nurse Practitioner; Visit Provider Nurse Practitioner Gerontology
DX: R10.9 Unspecified abdominal pain (principal); Z87.442 Personal history of urinary calculi
CPT/HCPCS: 76770

== ENCOUNTER 2022-05-21 01:21 | Outpatient (CLI) | payer MEDICARE, MEDICAID, SELFPAY ==
--- NOTE | 2022-05-21 06:45 | DI.MAMMO_ITS ---
Exam(s) MAMMO SCREENING EXAM: MAMMO SCREENING CLINICAL HISTORY: screening,z12.39 TECHNIQUE: Mammograms were interpreted according to the usual protocol including computer analysis w [employer] CAD system, tomosynthesis and C-view imaging. COMPARISON: No exams were available for comparison FINDINGS: The breasts are composed of scattered fibroglandular densities, Breast Density category B. No suspicious masses or suspicious microcalcifications are seen. No skin thickening or abnormal axillary lymph nodes are seen. There has been no significant change from prior exams. IMPRESSION: BI-RADS Category 1, Negative mammogram Yearly screening mammography is recommended. Breast Density - Category B, scattered fibroglandular densities. A negative radiographic report should not delay biopsy if a dominant or clinically suspicious mass is present. Up to ten percent of cancers are not identified on mammography. A negative report may reinforce clinical impression. Adenosis and dense breasts may obscure an underlying neoplasm. False positive reports average 6 to 10%. Patient will receive a letter notifying them of these results.
== END 2022-05-21 01:41 ==
PROVIDERS: PCP Nurse Practitioner; Visit Provider Nurse Practitioner
DX: Z12.31 Encounter for screening mammogram for malignant neoplasm of breast (principal); R92.8 Other abnormal and inconclusive findings on diagnostic imaging of breast
CPT/HCPCS: 77063; 77067

== ENCOUNTER 2022-05-21 03:06 | Outpatient (CLI) | payer MEDICARE, MEDICAID, SELFPAY ==
[2022-05-21 08:23] LABS: COMMENT (LAB VIEW ONLY) 132.47 mg/dL
[2022-05-21 08:23] LABS: Calculated LDL 93 mg/dL (<100); Cholesterol 161 mg/dL (<200); HDL Cholesterol 48 mg/dL (40-60); Triglyceride 101 mg/dL (<150)
== END 2022-05-21 03:07 | disposition home or self-care (01) ==
LOC: LBO 03:06
PROVIDERS: PCP Nurse Practitioner; Visit Provider Nurse Practitioner
DX: E78.5 Hyperlipidemia, unspecified (principal); E11.65 Type 2 diabetes mellitus with hyperglycemia
CPT/HCPCS: 36415; 80061; 82043; 82570

== ENCOUNTER 2022-07-16 00:37 | Outpatient (CLI) | payer MEDICARE, MEDICAID, SELFPAY ==
--- NOTE | 2022-07-16 15:17 | DI.RAD_ITS ---
Exam(s) RF JOINT INJECTION FLUORO GUID EXAM: RF JOINT INJECTION FLUORO GUID CLINICAL HISTORY: pain,inj under fluoro, femoroacetabular impingement rt hip, m25.851 TECHNIQUE: 2D and realtime digital imaging was performed. CONTRAST MATERIAL: Refer to procedure report. COMPARISON: No exams were available for comparison FINDINGS: Fluoroscopy was provided for Dr. Reid during the performance of a right hip injection. Please r efer to the procedure report for complete details. Ka,r=1.83 mGy IMPRESSION: RADIATION DOSE DELIVERED:
--- NOTE | 2022-07-16 15:20 | W.PROCNOTE ---
Date of service: 07/16/22 Time of Service: 15:21 Procedure Note Date of procedure: 07/16/22 Procedure: Right Hip Injection with Fluoroscopic Guidance Surgeon/Proceduralist/Physician: Asad Reid Procedure Diagnosis: Right Hip Osteoarthritis Procedure Indications: Odette has had persistent pain of the RIGHT hip and groin. Noninvasive measures have been tried. Previous injection was successful and thus, an injection under fluoroscopy was recommended. I had discussed the risks of the procedure and the patient elected to proceed. Procedure Description: Odette was greeted in the flouroscopy room. The correct side was identified and the consent was reviewed with the patient and signed. The patient was then placed in the supine position on the fluoroscopy table. The RIGHT hip was then prepped with Chloraprep. The anterolateral injection starting point was identiifed by bony landmarks and fluoroscopy. The skin and soft tissue in the tract of the injection was anesthetized with 1% Lidocaine. A spinal needle was then inserted deep into the hip joint at the level of the lateral femoral neck under fluoroscopic guidance. A small amount of Omnipaque solution was injected to confirm intraarticular placement. Once confirmed, the hip was injected with 5cc of 0.5% Bupivicaine and 80mg of Depo-Medrol. A bandaid was placed on the injection site. The patient tolerated the procedure well and noted improvement in pre-injection pain.
[2022-07-16] MEDS: methylPREDNISolone ACETATE 80 MG/ML VIAL IM (15:26)
[2022-07-16] MEDS: Omnipaque 300 MG/ML 10 ML BTL IJ (15:27)
[2022-07-16] MEDS: Bupivacaine 0.5% Pres-Free 10 ML VIAL 5 ML IJ (15:29)
== END 2022-07-16 00:57 ==
LOC: DI 00:38
PROVIDERS: PCP Nurse Practitioner; Visit Provider Student in an Organized Health Care Education/Training Program
DX: M25.851 Other specified joint disorders, right hip (principal); M25.551 Pain in right hip
CPT/HCPCS: 20610; 77002; J1040

== ENCOUNTER → 2022-07-22 09:32 | Outpatient (BNVA) | payer MEDICARE, MEDICAID, SELFPAY | PROVIDERS: PCP Nurse Practitioner; Visit Provider Nurse Practitioner Adult Health | DX: G43.109 Migraine with aura, not intractable, without status migrainosus (principal); G47.30 Sleep apnea, unspecified; F39 Unspecified mood [affective] disorder; G43.009 Migraine without aura, not intractable, without status migrainosus | CPT/HCPCS: 99213 ==

== ENCOUNTER → 2022-09-30 13:17 | Outpatient (BNVA) | payer MEDICARE, MEDICAID, SELFPAY | PROVIDERS: PCP Nurse Practitioner; Referring Provider Nurse Practitioner; Visit Provider Nurse Practitioner Adult Health | DX: G43.109 Migraine with aura, not intractable, without status migrainosus (principal); G47.33 Obstructive sleep apnea (adult) (pediatric); F39 Unspecified mood [affective] disorder; E11.65 Type 2 diabetes mellitus with hyperglycemia; G43.009 Migraine without aura, not intractable, without status migrainosus | CPT/HCPCS: 99213 ==

== ENCOUNTER → 2022-10-05 13:26 | Outpatient (BNVA) | payer MEDICARE, MEDICAID, SELFPAY | PROVIDERS: PCP Nurse Practitioner; Referring Provider Nurse Practitioner; Visit Provider Nurse Practitioner Gerontology | DX: N30.10 Interstitial cystitis (chronic) without hematuria (principal); N89.8 Other specified noninflammatory disorders of vagina; Z87.440 Personal history of urinary (tract) infections; E11.9 Type 2 diabetes mellitus without complications; N20.0 Calculus of kidney | CPT/HCPCS: 81003; 99214 ==

== ENCOUNTER 2022-10-05 14:10 | Outpatient (REF) | payer MEDICARE, MEDICAID, SELFPAY | END 2022-10-05 14:11 | disposition home or self-care (01) | LOC: LBN 14:10 | PROVIDERS: PCP Nurse Practitioner; Visit Provider Nurse Practitioner Gerontology | DX: N39.0 Urinary tract infection, site not specified (principal) | CPT/HCPCS: 87077; 87086; 87186 ==

== ENCOUNTER → 2022-10-08 10:04 | Outpatient (BNVA) | payer MEDICARE, MEDICAID, SELFPAY | PROVIDERS: PCP Nurse Practitioner; Referring Provider Nurse Practitioner; Visit Provider Student in an Organized Health Care Education/Training Program | DX: M25.851 Other specified joint disorders, right hip (principal); M16.11 Unilateral primary osteoarthritis, right hip | CPT/HCPCS: 99213 ==

== ENCOUNTER 2022-11-06 01:01 | Outpatient (CLI) | payer MEDICARE, MEDICAID, SELFPAY ==
[2022-11-06 10:42] LABS: HCT 45.7 % (36.0-46.0); HGB 15.4 g/dL (11.2-15.7); MCH 31.3 pg (27.0-33.0); MCHC 33.7 % (32.0-36.0); MCV 93 fL (80-95); MPV 10.5 fL (8.0-11.0); Platelet Count 186 10^3/uL (130-400); RBC 4.92 10^6/uL (3.93-5.22); RDW 12.5 % (11.7-14.6); RDW-SD 42.4 fL; WBC 6.85 10^3/uL (4.4-10.8)
[2022-11-06 10:57] LABS: Anion Gap 11.7 mmol/L (3-11); BUN 16 mg/dL (7-18); CO2 25.3 mmol/L (21.0-32.0); CREATININE 1.3 mg/dL (0.55-1.02); Calcium 9.7 mg/dL (8.5-10.1); Chloride 105 mmol/L (98-107); Estimated GFR 48.87 (mL/min/1.73m2); Glucose 148 mg/dL (74-106); Potassium 4.4 mmol/L (3.5-5.1); Sodium 142 mmol/L (136-145)
== END 2022-11-06 01:02 | disposition home or self-care (01) ==
LOC: LBO 01:03
PROVIDERS: PCP Nurse Practitioner; Visit Provider Student in an Organized Health Care Education/Training Program
DX: M16.11 Unilateral primary osteoarthritis, right hip (principal); R68.81 Early satiety; Z01.818 Encounter for other preprocedural examination
CPT/HCPCS: 36415; 80048; 85027; 72170

== ENCOUNTER 2022-11-06 09:21 | Outpatient (CLI) | payer MEDICARE, MEDICAID, SELFPAY ==
--- NOTE | 2022-11-06 09:36 | DI.RAD_ITS ---
Exam(s) XR PELVIS AP EXAM: XR PELVIS AP CLINICAL HISTORY: PRE OP R WILDA. TECHNIQUE: 2D digital imaging was performed.One images were obtained. COMPARISON: CR XR PELVIS AP from 02/21/2021 CR XR HIP LT AP LAT ONLY from 03/02/2022 FINDINGS: BONES: No acute fracture is present. No bony destructive lesion is seen. JOINTS: No dislocation present. No joint space narrowing is present. There is an old left total hip r eplacement which appears unremarkable. The right hip joint is well maintained and unchanged compared to the prior examination. SOFT TISSUE: Normal. IMPRESSION: No significant change in appearance of the pelvis compared to the prior examination. DATA REPOSITORY: RADIATION DOSE DELIVERED:
== END 2022-11-06 09:22 | disposition home or self-care (01) ==
LOC: DIORS 09:21
PROVIDERS: PCP Nurse Practitioner; Referring Provider Nurse Practitioner; Visit Provider Physician Assistant
DX: M25.851 Other specified joint disorders, right hip (principal)
CPT/HCPCS: 72170

== ENCOUNTER 2022-11-10 05:55 | Day surgery (SDC) | payer MEDICARE, MEDICAID, SELFPAY ==
--- NOTE | 2022-11-09 12:24 | W.ANESPOSTOP ---
Postoperative Evaluation Date, Time and Location Date Performed: 11/09/22 Time Performed: 12:24 Patient Location: Day [facility] Unit Assessment Mental Status: Awake (Alert & Oriented to Patient Baseline) Airway and Respiratory Function: Patent airway with normal (patient baseline) respiratory exam Cardiovascular Function: Hemodynamically Stable Hydration Status: Adequately Hydrated Nausea & Vomiting: No Nausea or Vomiting Pain: Pt. Denies Any Pain Peripheral Nerve Block: Patient did not receive a nerve block
[2022-11-10] VITALS (11 sets, daily range): BP systolic 89–124; BP diastolic 52–86; PULSE 71–87; RESP 14–18; TEMP 36–36.6; O2SAT 96–99; BMI 33.8
[2022-11-10] MEDS: Gabapentin 300 MG CAP PO (06:40)
[2022-11-10] MEDS: Lactated Ringers 1,000 ML 80 ML IV ×2 (06:50→09:25)
--- NOTE | 2022-11-10 07:00 | DI.RAD_ITS ---
Exam(s) XR HIP RT IN OR EXAM: XR HIP RT IN OR CLINICAL HISTORY: hip fracture TECHNIQUE: 2D and realtime digital imaging was performed. CONTRAST MATERIAL: Refer to procedure report. COMPARISON: CR XR PELVIS AP from 11/06/2022 FINDINGS: Fluoroscopy was provided for Dr. Reid during the performance of a placement of a right total hip replacement. Please refer to the procedure report for complete details. Ka,r=4.1 mGy IMPRESSION: RADIATION DOSE DELIVERED:
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
[2022-11-10] MEDS: ceFAZolin 1 GM/50 ML BAG IVPB (07:58)
--- NOTE | 2022-11-10 09:13 | W.PM.OP ---
Date of service: 11/10/22 Time of Service: 09:13 Operative Note Operative Note DATE OF PROCEDURE: 11/10/22 PRE-OP DIAGNOSIS: Right Hip Osteoarthritis POST-OP DIAGNOSIS: same PROCEDURE: Right Anterior Total Hip Arthroplasty with Intraoperative Navigation SURGEON: Asad Reid GEOSPATIAL DEVELOPER: Jaylene Neumann ANESTHESIA TYPE: General LMA/ETT and Spinal Refer to Anesthesia Record ESTIMATED BLOOD LOSS: 300 PATHOLOGY: none sent TOURNIQUET TIME: 0 COMPLICATIONS: None Patient was transported to: PACU Patient's condition: stable Implants: 1. Depuy [place] Acetabular Component, 52mm 2. Depuy Acetabular Liner, [id number] 3. Depuy Corail Standard Collared Femoral Stem, Size 12 4. Depuy Altrx Ceramic Femoral Head, Size 36+5mm Indications: I have seen Odette in clinic for symptoms of hip pain and chondromalacia, confirmed with radiographic findings and complete relief of symptoms with intra-articular injection. She has exhausted nonoperative methods and was having significant limitations in daily function and desired better function and less pain. I discussed the technical details of a hip replacement. I explained the risks of the procedure to include, but not limited to, bleeding, infection, pain, stiffness, fracture, damage to nerves and vessels, damage to muscles and tendons, loosening, instability, leg length inequality, need for repeat procedure, blood clot and cardiopulmonary demise. Despite these risks, she elected to proceed. Findings: There was notable chondromalacia of the superior acetabulum as well as a focal chondral defect of the superolateral femoral head. Procedure Description: Odette was greeted in the preoperative holding area where the correct side was identified and marked. The consent was reviewed with the patient and signed. The history and physical was updated. All questions were answered. She was taken back to the operating room. A spinal anesthestic was then attempted but unsuccessful. The feet were wrapped with cast padding and Coban and then placed into the boot liners and then into the boots. Care was taken to protect the skin and make sure the heels were fully down and the boots were stable. The patient was then positioned onto the HANA table. Both legs were held in a neutral position. SCDs were applied. The patient was then slid down onto a peroneal post. Prophylactic antibiotics in the form of Cefazolin were administered. 1g of Tranxemic Acid was given intravenously within 30 minutes of incision. The right leg was then prepped with Chloraprep and draped in a standard fashion. A second prep with Chloraprep was performed prior to placement of a shower-curtain type drape with Iodine impregnated skin protection. A timeout to confirm correct identity, side and site, procedure, allergies, anesthesia, and medical concerns was performed. An obliquely oriented incision was made starting lateral to the ASIS and running distal over the Tensor Fascia Brook (TFL) muscle belly toward the fibular head, approximately 10cm. The skin and soft tissue was dissected sharply, through Tung?s fascia, and to the fascia of the TFL. With the fascia and superior border of the IT band identified, the fascia was incised with a new knife just above any perforators from the IT band. The TFL muscle belly was bluntly dissected away from the fascia and moved laterally. The fat between TFL and rectus was identified to ensure the dissection was not within the TFL. Blunt dissection created space between abductors and the capsule and retractor was placed over the lateral femoral neck. The fibers of the rectus femoris tendon were identified and these were freed from the anterior capsule. A second cobra retractor was placed around the medial femoral neck. The TFL was further retracted laterally to show the deep fascia. Careful dissection through this layer identified three main crossing vessels of the lateral femoral circumflex. These were cauterized in multiple locations and then cut without any noticeable bleeding. The TFL was further released bluntly from the deep fascia to expose anterior hip capsule and fat The Mike orthopaedic retractor was then placed beneath the TFL and against sartorius and medial soft tissues to protect and retract the soft tissues. A T-capsulotomy was then performed starting at the superior lateral acetabulum and moving distally to the intertrochanteric ridge. These capsular flaps were tagged with a No. 1 Ethibond and elevated from within. The capsular flaps were released to the shoulder of the lateral neck and to the lesser trochanter to give excellent visualization of the proximal femur. A neck osteotomy was performed using an oscillating saw based on preoperative templates. This cut started in the shoulder and of the lateral neck and exited medially. The saw was at all times directed medially to avoid injury to the greater trochanter. Gross traction was applied to the leg and the osteotomy opened. The femoral head was removed with a corkscrew, making sure to protect the TFL on its exit. Traction was released after head removal. This was measured on the back table to determine the starting reamer size. Portions of the rectus obscuring visualization were minimally elevated off the superior acetabulum. An anterior retractor was placed over the anterior wall between capsule and labrum and attached to the Gripper retraction system. The femur was rotated to 90 degrees and medial capsule was fully released until the lesser trochanter was palpable and visible; the femur was returned to 30 degrees. A posterior retractor was placed similarly between capsule and labrum. This provided excellent visualization. The contents of the cotyloid fossa were removed with electrocautery and the labrum was removed with a knife. There was significant chondromalacia of the superior acetabulum. Acetabular reaming began with a 48mm reamer. This first reaming was directed anterior to posterior and medial to get down to the true floor. This was inspected and reamed until the true floor was reached. The anterior retractor was then released and entry and exit was provided by traction on the capsular flaps. I then reamed sequentially up to a 52mm reamer where good fit was obtained. The larger reamers were oriented based on anatomical reference of the anterior and lateral milan to ensure proper abduction and anteversion. Positioning and size was confirmed with the fluoroscopy. A 52mm Depuy [place] acetabular component was selected. The acetabulum was reamed around the periphery with the selected acetabular size to prevent a rim fit. The deep tissues were irrigated. The acetabular component was then impacted in a position of about 40-45 degrees of abduction and 15-20 degrees of anteversion, using the patient?s anatomy as the ultimate landmark. Fluoroscopy was used to confirm this. There was excellent mobile home installer of the acetabular component and the inserting handle was removed. The acetabular liner, Depuy [id number] polyethylene liner, was inserted and lined up with the tines of the acetabular component. There was no soft tissue interposition. The liner was then impacted into position and confirmed to be well-seated. A portion of the magalie-articular cocktail was then injected around the acetabulum into the capsule and periosteum. This cocktail consisted of 123mg of Ropivacaine, 0.25mg of Epinephrine, 0.04mg of Clonidine, and 15mg of Ketorolac, diluted to 50cc. The leg was rotated to 120 degrees. Any remaining medial capsule was released until the lesser trochanter was easily palpable. A retractor was placed medially. The lateral capsule was further released into the shoulder to allow access to the greater trochanter. A Harrison retractor was placed over the greater trochanter which allowed the trochanter to flip in front of the capsule for excellent exposure. The leg was brought down into maximal extension and 20 degrees of adduction while ensuring there was no impingement on the acetabulum. Any remnant capsule within the trochanter was released. Piriformis and obturator externis were identified and protected. There was excellent access to the proximal femur. The lateral neck remnant was removed with a rongeur. A blunt canal probe was used to identify the canal and trajectory for later broaching. A box osteotome initiated the broach course. A small curved rasp and a curved curette were used to work laterally. Broaching then began with a size 8 Corail broach. This was inserted manually around the trochanter and into the canal before mallet blows. The broach was seated to a few millimeters below the cut level based on the neck cut and the preoperative template. Sequential broaching was continued with the Dialogfeedse pneumatic broaching device until a tight fit was obtained with good rotational control of the femur. A trial standard neck was inserted along with a +1.5 trial head. The leg was brought out of extension and adduction and then reduced with traction and internal rotation. The leg was stable anteriorly in a position of 30 degrees of extension and 90 degrees of external rotation. Fluoroscopy was used to ensure there was no fracture and the stem was seated well. Leg lengths were checked with an AP pelvis and pelvic reference points. Mosec, Mobile Secretary navigation system was used to confirm appropriate positioning and leg length and offset. Going to a +5 head would correct offset and leg length. Once content with the desired offset and leg lengths, the leg was brought back into extension, external rotation and adduction. The periosteum and surrounding tissue was injected with remaining portion of the magalie-articular cocktail. The proximal femur was irrigated as well as the deep tissues. The Depuy [place] standard collared stem, size 12, was then manually inserted into the proximal femur making sure to control rotation. It was then malleted into position with light blows, giving breaks to allow bone expansion and decrease risk of fracture. The selected Depuy Altrx Ceramic Head, size 36+5mm, was then placed onto the clean and dry trunnion and secured with impaction onto the tapered fit. The leg was brought back out of extension and adduction and reduced with traction and internal rotation. Stability was confirmed with no shuck at 90 degrees of external rotation and 30 degrees of extension. No impingement through range of motion arc. Final x-ray images were obtained with fluoroscopy to confirm adequate positioning and no intraoperative fracture. The deep tissues were thoroughly irrigated with Surgiphor, betadine solution. This was allowed to sit in the wound for 3 minutes before being thoroughly irrigated out with normal saline. The capsule was then reapproximated with the previously placed Ethibond sutures. The TFL fascia was finally closed with a No. 2 Stratafix, barbed suture. Deep tissues were then reapproximated with 0 Vicryl and a running 2-0 Vicryl. The skin was closed with a running 4-0 Monocryl in a subcuticular fashion. This was reinforced with skin glue. A Mepilex silver dressing was applied. At the end of the case, all counts were correct. Odette was transferred to the hospital bed without difficulty and suffering no complications. Odette has a good prognosis. Physical therapy will start today and without restrictions, weight-bearing as tolerated. Rivaroxaban will be used for DVT prophylaxis.
[2022-11-10] MEDS: HYDROmorphone 2 MG/ML SYR IVP (10:16)
[2022-11-10] MEDS: Normal Saline 10 ML VIAL IJ (10:17)
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
--- NOTE | 2022-11-10 12:47 | W.ANESPOSTOP ---
Postoperative Evaluation Date, Time and Location Date Performed: 11/10/22 Time Performed: 12:47 Patient Location: Day Surgery Unit Vital Signs Most Recent Imported Vital Signs: Most Recent Vital Signs Temp Pulse Resp BP Pulse Ox 36.0 C L 82 16 118/84 98 11/10/22 12:07 11/10/22 12:07 11/10/22 12:07 11/10/22 12:07 11/10/22 12:07 Pain Score Most Recent Pain Score: Most Recent Pain Score Pain Level 5 11/10/22 12:07 Assessment Mental Status: Awake (Alert & Oriented to Patient Baseline) Airway and Respiratory Function: Patent airway with normal (patient baseline) respiratory exam Cardiovascular Function: Hemodynamically Stable Hydration Status: Adequately Hydrated Nausea & Vomiting: No Nausea or Vomiting Pain: Pt. Denies Any Pain Peripheral Nerve Block: Patient did not receive a nerve block
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
--- NOTE | 2022-11-10 17:42 | W.PM.DSUDISC ---
Date of service: 11/10/22 Time of Service: 13:30 Discharge Plan Disposition Patient Disposition: Home Condition: Good Discharge Details Reason For Visit: Right hip femoroacetabular impingement Attending Provider: Asad Reid Primary Care Provider: Margaret Luz Home Meds and New Rx's Prescriptions: New dexamethasone 4 mg tablet 4 mg PO DAILY Qty: 2 0RF Rx Instructions: Take one tablet once daily for two days docusate sodium [Colace] 100 mg capsule 100 mg PO BID Qty: 30 0RF oxycodone 5 mg tablet 5 mg PO Q4H PRNQty: 18 0RF Rx Instructions: Take one tablet up to every 4 hours as needed for severe postoperative pain Xarelto 10 mg tablet 10 mg PO DAILY Qty: 35 0RF Rx Instructions: for 35 days Continued atorvastatin 40 mg tablet 40 mg PO QPM Qty: 90 3RF prochlorperazine maleate 10 mg tablet 10 mg PO Q8H PRN (Reason: headaches) Qty: 30 3RF epinephrine [EpiPen 2-Sandeep] 0.3 mg/0.3 mL auto-injector 0.3 mg IM DAILY PRN (Reason: hypersensitivity reaction) Qty: 2 0RF Patient Comments: pt. reports months since she used it triamcinolone acetonide 0.1 % ointment 1 applic topical BID PRN (Reason: dermatitis) Qty: 30 0RF Rx Instructions: Apply thin layer to affected dermatitis on R shoulder, chest wall, arms, etc. topiramate [Topamax] 100 mg tablet 100 mg PO QHS Qty: 90 3RF (DME) blood-glucose meter Misc See Rx Instructions .ROUTE .MEDSUPPLY Qty: 1 0RF Rx Instructions: As directed to check blood glucose. No insulin. Dispense covered brand. (DME) lancets Misc See Rx Instructions .ROUTE .MEDSUPPLY Qty: 100 3RF Rx Instructions: As directed to check blood glucose daily. No insulin. Dispense covered brand. nystatin 100,000 unit/gram cream 1 applic topical BID PRN (Reason: perineal rash) Qty: 30 0RF calcium carbonate [Calcium 600] 600 mg calcium (1,500 mg) tablet 600 mg PO DAILY Premarin 0.625 mg/gram cream 0.625 mg VG DIRECTED Qty: 90 4RF Rx Instructions: Use 0.5 GM in the vaginal at night daily for 2 weeks then to 2-3 times a week at night omeprazole 40 mg capsule,delayed release(DR/EC) 40 mg PO DAILY Qty: 90 3RF (DME) OneTouch Verio test strips Strip See Rx Instructions .Route Qty: 100 3RF Rx Instructions: As directed to check blood glucose daily. No insulin. amitriptyline 50 mg tablet 50 mg PO DAILY Qty: 30 11RF Rx Instructions: Note dosage change Aimovig Autoinjector 140 mg/mL auto-injector 140 mg subcut QMONTH Qty: 1 11RF metformin 1,000 mg tablet 500 mg PO BIDWMEAL Trulicity 1.5 mg/0.5 mL pen injector 1.5 mg subcut QWEEK magnesium oxide 500 mg tablet 500 mg PO DAILY Qty: 90 3RF cholecalciferol (vitamin D3) [Vitamin D3] 50 mcg (2,000 unit) tablet 2,000 unit PO DAILY Qty: 90 3RF Discharge Instructions Additional Instructions: Total Hip Discharge Instructions Activity: The most important activity is to walk. You should try to take short walks a few times a day. You have no restrictions on movement or positioning, but do not try to force what you do. You will find some stiffness and weakness with hip flexion (lifting your knee). Do not try to strengthen this too early, continue to practice walking and stairs and this will come. - Outpatient physical therapy can be helpful to help return you to a normal gait and improve your flexibility and strength. This can start around 2 weeks. For some patients, it?s not necessary. Usually this is determined at the time of discharge or at the first post-operative visit. - You should wear the CORY hose on both legs for 2 weeks. Dressing: Keep the surgical dressing in place for at least one week. After the first week it may be removed and replace with light gauze and tape or nothing. It may get wet after 3 days but avoid soaking the dressing. If it gets wet, just lightly pat dry. It is important to always keep some gauze between skin folds, especially when you are sitting. Spend some time with the wound exposed when you are lying flat as the incision does wrinkle onto itself. Medications: - You have been prescribed a stronger pain medication Oxycodone for breakthrough pain, take as needed as prescribed. - You may apply ice and/or heat as well as massage or use topical Voltaren for other pain management. - You should continue your stomach acid reduction agent Omeprazole to help reduce stomach acid and reflux. - You have been prescribed dexamethasone for 2 days to help with nausea and inflammation. - You will be taking Rivaroxaban for DVT prevention unless instructed otherwise. - If you have constipation you should take Colace (which has been prescribed) or Miralax (which is available [id number]).? It takes most people 3-4 days to have a bowel movement. Follow-up: 2 weeks If you have any acute concerns or questions, please do not hesitate to contact the office at [phone]. You may contact Dr. Reid with any questions after hours through the hospital at [phone] or on his cell phone at [phone]. Stand Alone Forms: Anesthesia Discharge Inst., Robyn Alcazar (DSU) Referrals: Asad Reid MD [ [facility] STAFF PHYSICIAN] - 11/26/22 10:15 am Equipment/Supplies: Walker Activity:: Elevate Remove Dressings/Wound Care:: Do Not Remove Shower/Bathe:: Cover Diet:: As Tolerated Discharge Orders Discharge Orders: Discharge Order (Routine); Ordered 11/10/22 Ordered By: Asad Reid Discharge Data Discharge Date/Time-TO BE ENTERED AT DEPARTURE: 11/10/22 13:19 DS: Diagnosis Discharge Diagnosis (1) Femoroacetabular impingement of right hip: Status: Resolved
== END 2022-11-10 13:19 | disposition home or self-care (01) ==
PROVIDERS: PCP Nurse Practitioner; Visit Provider Student in an Organized Health Care Education/Training Program
PROC: (CPT 27130; principal; 2022-11-10 07:30)
DX: M16.11 Unilateral primary osteoarthritis, right hip (principal); K21.9 Gastro-esophageal reflux disease without esophagitis; G47.30 Sleep apnea, unspecified; E78.00 Pure hypercholesterolemia, unspecified; G43.109 Migraine with aura, not intractable, without status migrainosus; R73.01 Impaired fasting glucose
CPT/HCPCS: 20985; 27130; C1776; 97162; 97530; 73501; J0690; J1100; J1170; J1885; J2250; J2405; J2704; J3010

== ENCOUNTER 2022-11-26 12:12 | Outpatient (CLI) | payer MEDICARE, MEDICAID, SELFPAY ==
--- NOTE | 2022-11-26 09:45 | DI.RAD_ITS ---
Exam(s) XR HIP RT COMPLETE AP PELVIS XR FEMUR RT EXAM: XR FEMUR RT INDICATION: s/p R WILDA. COMPARISON: CR XR PELVIS AP from 11/06/2022 XA XR HIP RT IN OR from 11/10/2022 CR XR HIP RT COMPLETE AP PELVIS from 11/26/2022 TECHNIQUE: 2D digital imaging was performed. Two views., AP and lateral FINDINGS: There has been no change in the appearance of the bilateral hip prostheses. There are no abnormal barrientos rrounding bony lucencies. A rounded metallic foreign bodies again noted in the soft tissues of the r ight upper thigh. No abnormalities are seen distally in the femur. The knee is unremarkable as visu alized. New Impression: Stable appearance of bilateral hip prostheses. DATA REPOSITORY: RADIATION DOSE DELIVERED:
== END 2022-11-26 12:13 | disposition home or self-care (01) ==
LOC: DIORS 12:13
PROVIDERS: PCP Nurse Practitioner; Visit Provider Physician Assistant
DX: Z96.641 Presence of right artificial hip joint (principal); Z47.1 Aftercare following joint replacement surgery
CPT/HCPCS: 73552; 73502

== ENCOUNTER → 2022-12-16 12:19 | Outpatient (BNVA) | payer MEDICARE, MEDICAID, SELFPAY | PROVIDERS: PCP Nurse Practitioner; Visit Provider Nurse Practitioner Adult Health | DX: G47.30 Sleep apnea, unspecified (principal); F39 Unspecified mood [affective] disorder; G43.009 Migraine without aura, not intractable, without status migrainosus | CPT/HCPCS: 99212; 99213 ==

== ENCOUNTER 2022-12-25 11:56 | Outpatient (CLI) | payer MEDICARE, MEDICAID, SELFPAY ==
--- NOTE | 2022-12-25 11:23 | DI.RAD_ITS ---
Exam(s) XR HIP RT AP LAT ONLY EXAM: XR HIP RT AP LAT ONLY CLINICAL HISTORY: right hip pain. TECHNIQUE: 2D digital imaging was performed. Two views COMPARISON: CR XR HIP RT COMPLETE AP PELVIS from 11/26/2022 FINDINGS: BONES: No acute fracture is present. No bony destructive lesion is seen. JOINTS: No dislocation present. Been no change in the alignment of the right hip prosthesis SOFT TISSUE: Rounded metallic foreign body is again noted in the soft tissues of the upper thigh. IMPRESSION: Stable appearance of right hip prosthesis. DATA REPOSITORY: RADIATION DOSE DELIVERED:
== END 2022-12-25 11:57 | disposition home or self-care (01) ==
LOC: DIORS 11:57
PROVIDERS: PCP Nurse Practitioner; Referring Provider Nurse Practitioner; Visit Provider Student in an Organized Health Care Education/Training Program
DX: Z47.1 Aftercare following joint replacement surgery (principal); Z96.641 Presence of right artificial hip joint
CPT/HCPCS: 73502

== ENCOUNTER → 2023-02-08 10:24 | Outpatient (BNVA) | payer MEDICARE, MEDICAID, SELFPAY | PROVIDERS: PCP Nurse Practitioner; Referring Provider Nurse Practitioner; Visit Provider Student in an Organized Health Care Education/Training Program | DX: Z47.1 Aftercare following joint replacement surgery (principal); Z96.641 Presence of right artificial hip joint ==

== ENCOUNTER 2023-02-14 23:42 | Emergency (ER) | payer MEDICARE, MEDICAID, SELFPAY ==
--- NOTE | 2023-02-14 23:30 | RT.EKG_ITS ---
APPROVED REPORT Exam: Resting ECG Reason for Exam: rapid heart rate Patient Location: E HR:164 bpm ECG Measurements Heart Rate 164 AXIS DE [id number] P 0 QRSd 122 QRS -30 QT 289 T 96 QTc 476 Conclusion PSVT
--- NOTE | 2023-02-14 23:45 | RT.EKG_ITS ---
APPROVED REPORT Exam: Resting ECG Reason for Exam: rapid heart rate Patient Location: E HR:106 bpm ECG Measurements Heart Rate 106 AXIS WI 220 P 13 QRSd 92 QRS -13 QT 325 T 44 QTc 431 Conclusion Sinus tachycardia with borderline 1st degree AV block
[2023-02-14 23:47] VITALS: BP 98/74; PULSE 162; RESP 22; TEMP 36.6; O2SAT 99
[2023-02-14 23:50] VITALS: PULSE 167; RESP 19; O2SAT 100
[2023-02-14 23:53] VITALS: BP 99/85; PULSE 159; PULSE 163; RESP 25; O2SAT 96
[2023-02-14] MEDS: Adenosine 6 MG/2 ML VIAL IVP (23:54)
[2023-02-15] VITALS (47 sets, daily range): BP systolic 82–125; BP diastolic 52–82; PULSE 85–115; RESP 10–26; O2SAT 91–100
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
[2023-02-15] MEDS: Normal Saline 1,000 ML 1000 ML IV (00:10)
[2023-02-15 00:12] LABS: HCT 43.8 % (36.0-46.0); HGB 14.9 g/dL (11.2-15.7); MCH 30.8 pg (27.0-33.0); MCV 91 fL (80-95); MPV 10.4 fL (8.0-11.0); Platelet Count 171 10^3/uL (130-400); RBC 4.83 10^6/uL (3.93-5.22); RDW-SD 40.2 fL; WBC 6.81 10^3/uL (4.4-10.8)
[2023-02-15 00:30] LABS: Anion Gap 12.1 mmol/L (3-11); BUN 16 mg/dL (7-18); CO2 22.9 mmol/L (21.0-32.0); CREATININE 1.3 mg/dL (0.55-1.02); Calcium 8.7 mg/dL (8.5-10.1); Chloride 106 mmol/L (98-107); Estimated GFR 48.56 (mL/min/1.73m2); Glucose 183 mg/dL (74-106); Potassium 3.1 mmol/L (3.5-5.1); Sodium 141 mmol/L (136-145); Troponin I < 50 ng/L (<or=60)
[2023-02-15] MEDS: LORazepam 2 MG/ML VIAL 1 MG IVP (00:39)
[2023-02-15 00:47] LABS: Magnesium 1.7 mg/dL (1.8-2.4)
[2023-02-15 04:11] LABS: Troponin I 87 ng/L (<or=60)
== END 2023-02-15 06:17 | disposition home or self-care (01) ==
PROVIDERS: Emergency Provider Emergency Medicine Emergency Medical Services; PCP Nurse Practitioner
DX: I47.10 Supraventricular tachycardia, unspecified (principal); E78.5 Hyperlipidemia, unspecified; E11.9 Type 2 diabetes mellitus without complications; Z86.79 Personal history of other diseases of the circulatory system
CPT/HCPCS: 36415; 80048; 85027; 93005; 96374; 96375; 99284; 83735; 84484; 93010; 99283; J0153; J2060

== ENCOUNTER 2023-02-22 18:01 | Outpatient (REF) | payer MEDICARE, MEDICAID, SELFPAY ==
[2023-02-22 20:01] LABS: Anion Gap 10.9 mmol/L (3-11); BUN 18 mg/dL (7-18); CO2 23.1 mmol/L (21.0-32.0); CREATININE 1.5 mg/dL (0.55-1.02); Chloride 109 mmol/L (98-107); Glucose 283 mg/dL (74-106); Potassium 4.1 mmol/L (3.5-5.1); Sodium 143 mmol/L (136-145); TSH (W/Ref FT4) 0.61 uIU/mL (0.36-3.74)
== END 2023-02-22 18:02 | disposition home or self-care (01) ==
LOC: LBN 18:01
PROVIDERS: PCP Nurse Practitioner; Visit Provider Nurse Practitioner
DX: R00.0 Tachycardia, unspecified (principal); R79.89 Other specified abnormal findings of blood chemistry
CPT/HCPCS: 80048; 84443

== ENCOUNTER → 2023-03-22 09:41 | Outpatient (BNVA) | payer MEDICARE, MEDICAID, SELFPAY | PROVIDERS: PCP Nurse Practitioner; Referring Provider Nurse Practitioner; Visit Provider Internal Medicine Interventional Cardiology | DX: I47.10 Supraventricular tachycardia, unspecified (principal); E11.65 Type 2 diabetes mellitus with hyperglycemia; R35.89 Other polyuria; R63.1 Polydipsia; E87.6 Hypokalemia; E83.42 Hypomagnesemia; F41.9 Anxiety disorder, unspecified | CPT/HCPCS: 99213 ==

== ENCOUNTER → 2023-04-26 14:21 | Outpatient (BNVA) | payer MEDICARE, MEDICAID, SELFPAY | PROVIDERS: PCP Nurse Practitioner; Referring Provider Nurse Practitioner; Visit Provider Nurse Practitioner Gerontology | DX: N30.10 Interstitial cystitis (chronic) without hematuria (principal); N89.8 Other specified noninflammatory disorders of vagina; N20.0 Calculus of kidney | CPT/HCPCS: 99213 ==

== ENCOUNTER → 2023-04-29 12:50 | Outpatient (BNVA) | payer MEDICARE, MEDICAID, SELFPAY | PROVIDERS: PCP Nurse Practitioner; Referring Provider Nurse Practitioner; Visit Provider Internal Medicine Cardiovascular Disease | DX: I47.10 Supraventricular tachycardia, unspecified (principal) | CPT/HCPCS: 99213 ==

== ENCOUNTER 2023-06-04 15:40 | Outpatient (CLI) | payer MEDICARE, MEDICAID, SELFPAY ==
[2023-06-04 17:09] LABS: COMMENT (LAB VIEW ONLY) 123.52 mg/dL; Microalb ug/mg Crea 2.7 ug/mg Cr
[2023-06-04 17:13] LABS: BUN 14 mg/dL (7-18); CREATININE 1.3 mg/dL (0.55-1.02); Calculated LDL 101 mg/dL (<100); Cholesterol 176 mg/dL (<200); Estimated GFR 48.56 (mL/min/1.73m2); HDL Cholesterol 44 mg/dL (40-60); Triglyceride 155 mg/dL (<150)
[2023-06-04 17:33] LABS: Hemoglobin A1C 5.9 % (<5.7)
== END 2023-06-04 15:41 | disposition home or self-care (01) ==
LOC: LBO 15:40
PROVIDERS: PCP Nurse Practitioner; Visit Provider Internal Medicine Endocrinology, Diabetes & Metabolism
DX: E11.65 Type 2 diabetes mellitus with hyperglycemia (principal)
CPT/HCPCS: 36415; 80061; 84520; 82043; 82565; 82570; 83036

== ENCOUNTER → 2023-06-16 12:26 | Outpatient (BNVA) | payer MEDICARE, MEDICAID, SELFPAY | PROVIDERS: PCP Nurse Practitioner; Visit Provider Nurse Practitioner Adult Health | DX: G43.109 Migraine with aura, not intractable, without status migrainosus (principal); G43.009 Migraine without aura, not intractable, without status migrainosus | CPT/HCPCS: 99214 ==

== ENCOUNTER 2023-06-29 12:12 | Emergency (ER) | payer MEDICARE, MEDICAID, SELFPAY ==
[2023-06-29 12:21] VITALS: BP 119/98; PULSE 130; RESP 18; TEMP 36.8; O2SAT 98
--- NOTE | 2023-06-29 12:30 | DI.CT_ITS ---
Exam(s) CT RENAL COLIC WO EXAM: CT RENAL COLIC WO CLINICAL HISTORY: FLANK PAIN. TECHNIQUE: Imaging Protocol: Axial computed tomography images with coronal and sagittal reformatted images were created and reviewed. CONTRAST MATERIAL: Noncontrast COMPARISON: CT CT RENAL COLIC WO from 08/24/[address] CHEST PE CTA from 12/06/2021 FINDINGS: ABDOMEN: Lung Bases: Normal where visualized. Liver: Normal attenuation. No measurable mass. Gallbladder and biliary tract: Status post cholecystectomy. No radiodense calculus or dilation. Pancreas: Normal density, no calcifications or inflammatory process. Spleen: Normal. Kidneys: Normal size, contour and axis. Tiny nonobstructing stones are seen in the right kidney. No ureteral dilatation. No masses seen. Adrenal glands: Stable tiny adenomas. No follow-up recommended. Abdominal Aorta: Abdominal portion non-dilated. Soft tissues: Unremarkable. PELVIS: Bladder: Mostly obscured by artifact from hip prostheses. Bowel: Abnormally dilated appendix measuring 15 millimeters in diameter, extending retrocecally. Mild amount of surrounding inflammation in the fat. No evidence of perforation or abscess. No obstructi on or small bowel wall thickening. Moderate quantity of stool. No wall thickening. Reproductive: Status post hysterectomy. This area is obscured by artifact from hip prostheses. Peritoneal cavity: No ascites or focal collection. Bones: Bilateral hip prostheses create artifact in the pelvis.. Degenerative changes in the spine. IMPRESSION: Findings consistent with acute appendicitis. Findings called to Dr. Marroquin of the emergency department RADIATION DOSE DELIVERED: 1,136.52mGy.cm Total DLP DATA REPOSITORY: All CT scans at this facility are submitted to the National Radiology Data Registry (NRDR) Dose Index Registry (DIR) with the [employer] ([employer]). RADIATION OPTIMIZATION: All CT scans at this facility use at least one of these dose optimization te chniques: automated exposure control; mA and/or kV adjustment per patient size (includes targeted exa ms where dose is matched to clinical indication); or iterative reconstruction.
[2023-06-29 13:00] LABS: Bilirubin Negative (Negative); Blood Negative (Negative); Clarity Clear (Clear); Glucose 100 mg/dL (Negative); Ketones Negative (Negative); Leukocyte Esterase Negative (Negative); Nitrite Negative (Negative); Specific Gravity 1.015 (1.005-1.025); Urobilinogen 0.2 mg/dL (Up to 0.2)
[2023-06-29 13:01] LABS: Abs Immature Grans 0.02 10^3/uL (0.0-0.06); Absolute Basophil Count 0.06 10^3/uL (0.0-0.2); Absolute Eosinophil Count 0.26 10^3/uL (0.0-0.7); Absolute Lymphocyte Count 1.71 10^3/uL (1.2-3.4); Absolute Monocyte Count 0.56 10^3/uL (0.1-0.8); Absolute Neutrophil Count 5.48 10^3/uL (1.2-6.7); Basophils % 0.7; Eosinophils % 3.2; HCT 44.6 % (36.0-46.0); HGB 15.3 g/dL (11.2-15.7); Immature Grans % 0.2; Lymphocytes % 21.1; MCH 31.8 pg (27.0-33.0); MCHC 34.3 % (32.0-36.0); MCV 93 fL (80-95); MPV 10.2 fL (8.0-11.0); Monocytes % 6.9; Neutrophils % 67.9; Platelet Count 158 10^3/uL (130-400); RBC 4.81 10^6/uL (3.93-5.22); RDW 11.8 % (11.7-14.6); RDW-SD 40.6 fL; WBC 8.09 10^3/uL (4.4-10.8)
[2023-06-29] MEDS: Ketorolac 30 MG/ML VIAL IVP (13:08)
[2023-06-29] MEDS: Ondansetron 4 MG/2 ML VIAL IVP (13:08)
[2023-06-29] MEDS: Normal Saline 1,000 ML 1000 ML IV (13:08)
[2023-06-29 13:18] LABS: Anion Gap 8.8 mmol/L (3-11); BUN 13 mg/dL (7-18); CO2 27.2 mmol/L (21.0-32.0); CREATININE 1.3 mg/dL (0.55-1.02); Calcium 8.9 mg/dL (8.5-10.1); Chloride 107 mmol/L (98-107); Estimated GFR 48.56 (mL/min/1.73m2); Glucose 169 mg/dL (74-106); Potassium 3.8 mmol/L (3.5-5.1); Sodium 143 mmol/L (136-145)
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
[2023-06-29] MEDS: MORPHine 4 MG/ML SYR IVP ×2 (15:16→18:37)
[2023-06-29] MEDS: PIPERACILLIN/TAZO 4.5 GM in Normal Saline 100 ML IVPB (15:16)
[2023-06-29 16:05] VITALS: BP 115/87; PULSE 100; RESP 17; TEMP 37.1; O2SAT 96
[2023-06-29] MEDS: Normal Saline 1,000 ML 125 ML IV (16:32)
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
[2023-06-29 17:01] VITALS: BMI 33.8
--- NOTE | 2023-06-29 17:29 | ED.PROG_ITS ---
Date of service: 06/29/23 Time of Service: 17:29 Medical Decision Making I received signout on this patient. In brief this is a 53-year-old female with acute appendicitis. Unfortunately patient will require transfer secondary to her history of SVT. I updated the patient on this plan. I have asked health community liaison Radha [place] [facility] Patient has received piperacillin/tazobactam. She is still having some pain so we will provide morphine. 6:30 PM Patient was accepted by Dr. Richardson [place] [facility] She will [place] ED. Quality:[facility] Health Related Social Needs: No Data to Display Discharge Plan Disposition Patient Disposition: Admit to [facility] Condition: Stable Discharge Details Clinical Impression: Acute appendicitis, Nausea, Acute right flank pain Primary Care Provider: Margaret Luz ED Provider: Chiki Cummings Home Meds and New Rx's Prescriptions: No Action prochlorperazine maleate 10 mg tablet 10 mg PO Q8H PRN (Reason: headaches) Qty: 30 3RF epinephrine [EpiPen 2-Sandeep] 0.3 mg/0.3 mL auto-injector 0.3 mg IM DAILY PRN (Reason: hypersensitivity reaction) Qty: 2 0RF Patient Comments: pt. reports months since she used it triamcinolone acetonide 0.1 % ointment 1 applic topical BID PRN (Reason: dermatitis) Qty: 30 0RF Rx Instructions: Apply thin layer to affected dermatitis on R shoulder, chest wall, arms, etc. topiramate [Topamax] 100 mg tablet 100 mg PO QHS Qty: 90 3RF (DME) blood-glucose meter Misc See Rx Instructions .ROUTE .MEDSUPPLY Qty: 1 0RF Rx Instructions: As directed to check blood glucose. No insulin. Dispense covered brand. (DME) lancets Misc See Rx Instructions .ROUTE .MEDSUPPLY Qty: 100 3RF Rx Instructions: As directed to check blood glucose daily. No insulin. Dispense covered brand. nystatin 100,000 unit/gram cream 1 applic topical BID PRN (Reason: perineal rash) Qty: 30 0RF calcium carbonate [Calcium 600] 600 mg calcium (1,500 mg) tablet 600 mg PO DAILY Aimovig Autoinjector 140 mg/mL auto-injector 140 mg subcut QMONTH Qty: 1 11RF bupropion HCl [Wellbutrin XL] 300 mg tablet extended release 24 hr 300 mg PO QAM Qty: 90 2RF Premarin 0.625 mg/gram cream 0.625 mg VG DIRECTED Qty: 90 4RF Rx Instructions: Use 0.5 GM in the vaginal at night daily for 2 weeks then to 2-3 times a week at night (DME) OneTouch Verio test strips Strip See Rx Instructions .Route Qty: 100 3RF Rx Instructions: As directed to check blood glucose daily. No insulin. magnesium oxide 500 mg tablet 500 mg PO DAILY Qty: 90 3RF cholecalciferol (vitamin D3) [Vitamin D3] 50 mcg (2,000 unit) tablet 2,000 unit PO DAILY Qty: 90 3RF omeprazole 40 mg capsule,delayed release(DR/EC) 40 mg PO DAILY Qty: 90 3RF atorvastatin 40 mg tablet See Rx Instructions .ROUTE .COMPLEX Qty: 90 3RF Dose Instruction: TAKE 1 TABLET BY MOUTH EVERY EVENING Rx Instructions: TAKE 1 TABLET BY MOUTH EVERY EVENING amitriptyline 50 mg tablet 50 mg PO DAILY Qty: 30 11RF Rx Instructions: Note dosage change Trulicity 1.5 mg/0.5 mL pen injector 3 mg subcut QWEEK Discharge Data Discharge Date/Time-TO BE ENTERED AT DEPARTURE: 06/29/23 19:10
--- NOTE | 2023-06-29 17:30 | RT.EKG_ITS ---
APPROVED REPORT Exam: Resting ECG Reason for Exam: History of SVT Patient Location: E HR:86 bpm ECG Measurements Heart Rate 86 AXIS IL 261 P 58 QRSd 99 QRS -19 QT 373 T 37 QTc 447 Conclusion Sinus rhythm...normal P axis, V-rate 60- 99 Prolonged IL interval...IL >210, V-rate 50- 90 Consider anteroseptal infarct...Q >30mS, dimin R, V1-V2 Narrow complex normal sinus rhythm at a rate of 86. Left axis deviation no signs of LVH based on vol tage. Anterior Q-wave V2. First-degree AV block. QTc within normal limits. No ST segment abnormal ities no more T wave versions. T wave flattening in lead III. Appears similar to prior dated last y ear with the exception of sinus tachycardia which has resolved.
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
== END 2023-06-29 19:10 | disposition short-term general hospital (02) ==
PROVIDERS: Emergency Medicine; Emergency Provider Emergency Medicine; PCP Nurse Practitioner
DX: K35.80 Unspecified acute appendicitis; R11.0 Nausea; R10.9 Unspecified abdominal pain; E11.9 Type 2 diabetes mellitus without complications; I25.2 Old myocardial infarction; Z90.49 Acquired absence of other specified parts of digestive tract
CPT/HCPCS: 00123; 80048; 81025; 93005; 96361; 96365; 96375; 99285; 74176; 81003; 85025; 93010; 99284; J1100; J1885; J2001; J2270; J2405; J2543; J2704

== ENCOUNTER 2023-07-07 11:55 | Emergency (ER) | payer MEDICARE, MEDICAID, SELFPAY ==
[2023-07-07 11:57] VITALS: BP 129/86; PULSE 99; RESP 18; TEMP 36.4; O2SAT 99
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
--- NOTE | 2023-07-07 12:15 | DI.CT_ITS ---
Exam(s) CT ABDOMEN PELVIS W EXAM: CT ABDOMEN PELVIS W CLINICAL HISTORY: RLQ tenderness, severe pain after BM recent surger TECHNIQUE: Imaging Protocol: Axial computed tomography images with coronal and sagittal reformatted images were created and reviewed. CONTRAST MATERIAL: Intravenous: Omnipaque 350 Contrast volume:100 mL Oral: No COMPARISON: CT CT ABDOMEN PELVIS W from 12/22/[address] CHEST PE CTA from 03/19/[address] CHEST PE CTA from 12/06/[address] RENAL COLIC WO from 06/29/2023 FINDINGS: ABDOMEN: Lung Bases: Normal where visualized. Liver: Normal density. No measurable mass. Portal, Superior Mesenteric, and Splenic Veins: Unremarkable. Gallbladder and Biliary Tract: Status post cholecystectomy. No significant biliary ductal dilatation . Pancreas: Normal density, no abnormal calcifications or inflammatory process. Spleen: The spleen has a mildly mottled appearance with several tiny faint hypodensities present. Th is may be related to the enhancement pattern. However infection should also be considered. The sple en is enlarged. Adrenals: No masses seen. Kidneys: Normal size, contour and axis. Right nephrolithiasis. No obstructive uropathy. There is a tiny hypodensity in the inferior pole of the right kidney. It is too small for further characterizat ion but likely reflects a small cyst. No follow-up is warranted. Abdominal Aorta: Abdominal portion non-dilated. Atherosclerotic calcification is present. Bowel: No obstruction or bowel wall thickening. The patient is status post appendectomy. No pneumato sis is identified. Peritoneal Cavity: No ascites, collection or mesenteric inflammatory response. No free air.No focal fluid collection is seen in the pelvis to suggest an abscess. Lymph Nodes: Within normal limits. Bones: Within normal limits for the patient's age. Patient has bilateral total hip replacements. Soft Tissues: There is mild infiltration of the soft tissues around the umbilicus. There may be a ti ny fluid collection within the base of the infiltration but no drainable abscess is identified. PELVIS: Bladder: The urinary bladder is largely obscured by artifact from the patient's bilateral total hip r eplacements. No gross abnormalities identified. Reproductive Organs: Status post hysterectomy. Lymph Nodes: Within normal limits. Bones: Within normal limits for the patient's age. IMPRESSION: 1. Status post appendectomy. No intra-abdominal or pelvic abscess or free air. 2. No evidence of bowel obstruction or bowel wall thickening. 3. Mild infiltration of the soft tissues around the umbilicus which may represent a cellulitis and qu estion of a very small fluid collection but no drainable abscess is identified. Please correlate wit h physical exam. 4. Splenomegaly. RADIATION DOSE DELIVERED: 1,314.17mGy.cm Total DLP DATA REPOSITORY: All CT scans at this facility are submitted to the National Radiology Data Registry (NRDR) Dose Index Registry (DIR) with the [employer] (ACR). RADIATION OPTIMIZATION: All CT scans at this facility use at least one of these dose optimization te chniques: automated exposure control; mA and/or kV adjustment per patient size (includes targeted exa ms where dose is matched to clinical indication); or iterative reconstruction.
[2023-07-07 12:52] LABS: Lactate 1.3 mmol/L (0.6-1.4)
[2023-07-07 12:53] LABS: Abs Immature Grans 0.04 10^3/uL (0.0-0.06); Absolute Basophil Count 0.05 10^3/uL (0.0-0.2); Absolute Eosinophil Count 0.44 10^3/uL (0.0-0.7); Absolute Lymphocyte Count 2.06 10^3/uL (1.2-3.4); Absolute Monocyte Count 0.64 10^3/uL (0.1-0.8); Absolute Neutrophil Count 4.42 10^3/uL (1.2-6.7); Basophils % 0.7; Eosinophils % 5.8; HCT 44.2 % (36.0-46.0); HGB 14.6 g/dL (11.2-15.7); Immature Grans % 0.5; Lymphocytes % 26.9; MCH 31.7 pg (27.0-33.0); MCV 96 fL (80-95); MPV 10.1 fL (8.0-11.0); Monocytes % 8.4; Neutrophils % 57.7; Platelet Count 169 10^3/uL (130-400); RDW 12.4 % (11.7-14.6); RDW-SD 43.3 fL; WBC 7.65 10^3/uL (4.4-10.8)
[2023-07-07] MEDS: HYDROmorphone 2 MG/ML SYR 0.5 MG IVP (12:58)
[2023-07-07 13:05] VITALS: BP 125/86; PULSE 92; RESP 18; TEMP 36.9; O2SAT 99
[2023-07-07] MEDS: Normal Saline - Diluent 50 ML VIAL IJ (13:11)
[2023-07-07 13:15] LABS: ALT 30 U/L (14-59); AST 12 U/L (15-37); Albumin 3.1 g/dL (3.4-5.0); Alkaline Phosphatase 139 U/L (46-116); Anion Gap 11.3 mmol/L (3-11); BUN 23 mg/dL (7-18); Bilirubin, Total 0.3 mg/dL (0.2-1.0); CO2 26.7 mmol/L (21.0-32.0); CREATININE 1.4 mg/dL (0.55-1.02); Chloride 107 mmol/L (98-107); Estimated GFR 44.43 (mL/min/1.73m2); Glucose 112 mg/dL (74-106); Lipase 50 U/L (16-77); Potassium 3.7 mmol/L (3.5-5.1); Sodium 145 mmol/L (136-145); Total Protein 6.6 g/dL (6.4-8.2)
[2023-07-07] MEDS: Omnipaque 350 MG/ML 500 ML BTL-Imaging package 100 ML IJ (13:15)
[2023-07-07 13:27] LABS: Procalcitonin 0.2 ng/mL
[2023-07-07 14:13] VITALS: BP 111/90; PULSE 86; RESP 15; TEMP 36.5; O2SAT 98
== END 2023-07-07 14:14 | disposition home or self-care (01) ==
PROVIDERS: Emergency Provider Physician Assistant; PCP Nurse Practitioner
DX: S39.011A Strain of muscle, fascia and tendon of abdomen, initial encounter (principal); R10.31 Right lower quadrant pain; Z98.890 Other specified postprocedural states
CPT/HCPCS: 36415; 80053; 83690; 84145; 96374; 99285; 74177; 83605; 85025; 99283; J1170

== ENCOUNTER → 2023-09-01 02:07 | Outpatient (CLI) | payer MEDICARE, MEDICAID, SELFPAY ==
--- NOTE | 2023-09-01 09:00 | DI.MAMMO_ITS ---
Exam(s) MAMMO SCREENING EXAM: MAMMO SCREENING CLINICAL HISTORY: screening, Z12.39 TECHNIQUE: Mammograms were interpreted according to the usual protocol including computer analysis w [employer] CAD system, tomosynthesis and C-view imaging. COMPARISON: 2015 through 2022 FINDINGS: The breasts are composed of scattered fibroglandular densities, Breast Density category B. No suspicious masses or suspicious microcalcifications are seen. No skin thickening or abnormal axillary lymph nodes are seen. There has been no significant change from prior exams. IMPRESSION: BI-RADS Category 1, Negative mammogram Yearly screening mammography is recommended. Breast Density - Category B, scattered fibroglandular densities. A negative radiographic report should not delay biopsy if a dominant or clinically suspicious mass is present. Up to ten percent of cancers are not identified on mammography. A negative report may reinforce clinical impression. Adenosis and dense breasts may obscure an underlying neoplasm. False positive reports average 6 to 10%. Patient will receive a letter notifying them of these results.
== END ==
PROVIDERS: PCP Nurse Practitioner; Visit Provider Nurse Practitioner
DX: Z12.31 Encounter for screening mammogram for malignant neoplasm of breast (principal)
CPT/HCPCS: 77063; 77067

== ENCOUNTER → 2023-10-25 14:58 | Outpatient (BNVA) | payer MEDICARE, MEDICAID, SELFPAY | PROVIDERS: PCP Nurse Practitioner; Visit Provider Nurse Practitioner Gerontology | DX: N30.10 Interstitial cystitis (chronic) without hematuria (principal); N89.8 Other specified noninflammatory disorders of vagina; Z87.440 Personal history of urinary (tract) infections; N20.0 Calculus of kidney; R30.0 Dysuria | CPT/HCPCS: 99213 ==

== ENCOUNTER 2023-11-16 15:22 | Outpatient (CLI) | payer MEDICARE, MEDICAID, SELFPAY ==
--- NOTE | 2023-11-16 09:37 | DI.RAD_ITS ---
Exam(s) XR SHOULDER LT COMPLETE 2+V EXAM: XR SHOULDER LT COMPLETE 2+V CLINICAL HISTORY: left shoulder pain. TECHNIQUE: 2D digital imaging was performed of the left shoulder. Three images were obtained. Gras hey and axillary views were obtained. COMPARISON: CR XR shoulder LT complete 2+V from 01/25/2018 FINDINGS: BONES: No acute fracture is present. No bony destructive lesion is seen. JOINTS: The glenohumeral joint is well maintained. Due to the positioning the acromioclavicular join t is not ideally visualized. No significant degenerative changes seen at the acromioclavicular joint . SOFT TISSUE: Normal. IMPRESSION: No acute abnormality. DATA REPOSITORY: RADIATION DOSE DELIVERED:
== END 2023-11-16 15:23 | disposition home or self-care (01) ==
LOC: DIORS 15:23
PROVIDERS: PCP Nurse Practitioner; Visit Provider Student in an Organized Health Care Education/Training Program
DX: M75.02 Adhesive capsulitis of left shoulder
CPT/HCPCS: 20610; J1010; 73030

== ENCOUNTER 2023-11-18 15:49 | Outpatient (CLI) | payer MEDICARE, MEDICAID, SELFPAY ==
--- NOTE | 2023-11-18 09:49 | DI.RAD_ITS ---
Exam(s) XR HIP RT AP LAT ONLY EXAM: XR HIP RT AP LAT ONLY CLINICAL HISTORY: ANNUAL F/U L WILDA. TECHNIQUE: 2D digital imaging was performed. Two images were obtained. AP and lateral views were ob tained. COMPARISON: CR XR HIP RT AP LAT ONLY from 12/25/2022 FINDINGS: BONES: There are stable post operative changes of a right total hip replacement present. No fracture or dislocation. JOINTS: The orthopedic hardware is in good position. No evidence of hardware loosening. SOFT TISSUE: Normal. IMPRESSION: Stable right total hip replacement. DATA REPOSITORY: RADIATION DOSE DELIVERED:
== END 2023-11-18 15:50 | disposition home or self-care (01) ==
LOC: DIORS 15:50
PROVIDERS: PCP Nurse Practitioner; Visit Provider Student in an Organized Health Care Education/Training Program
DX: Z47.1 Aftercare following joint replacement surgery (principal); Z96.641 Presence of right artificial hip joint
CPT/HCPCS: 99213; 73502

== ENCOUNTER 2023-11-23 18:09 | Outpatient (REF) | payer MEDICARE, MEDICAID, SELFPAY | END 2023-11-23 18:10 | disposition home or self-care (01) | LOC: LBN 18:09 | PROVIDERS: PCP Nurse Practitioner; Visit Provider Nurse Practitioner | DX: R30.0 Dysuria (principal) | CPT/HCPCS: 87086 ==

== ENCOUNTER → 2023-12-15 12:25 | Outpatient (BNVA) | payer MEDICARE, MEDICAID, SELFPAY | PROVIDERS: PCP Nurse Practitioner; Visit Provider Nurse Practitioner Adult Health | DX: G43.109 Migraine with aura, not intractable, without status migrainosus (principal) | CPT/HCPCS: 99214; J1885; 96372 ==

== ENCOUNTER → 2024-02-15 08:55 | Outpatient (BNVA) | payer MEDICARE, MEDICAID, SELFPAY | PROVIDERS: PCP Nurse Practitioner; Referring Provider Nurse Practitioner; Visit Provider Student in an Organized Health Care Education/Training Program | DX: M75.02 Adhesive capsulitis of left shoulder (principal) | CPT/HCPCS: 99213; 99214 ==

== ENCOUNTER → 2024-02-15 12:16 | Outpatient (BNVA) | payer MEDICARE, MEDICAID, SELFPAY | PROVIDERS: PCP Nurse Practitioner; Visit Provider Nurse Practitioner Adult Health | DX: G43.709 Chronic migraine without aura, not intractable, without status migrainosus (principal) | CPT/HCPCS: 99214 ==

== ENCOUNTER → 2024-05-22 14:51 | Outpatient (BNVA) | payer MEDICARE, MEDICAID, SELFPAY | PROVIDERS: PCP Nurse Practitioner; Visit Provider Nurse Practitioner Gerontology | DX: N30.10 Interstitial cystitis (chronic) without hematuria (principal); N89.8 Other specified noninflammatory disorders of vagina; Z87.440 Personal history of urinary (tract) infections; N20.0 Calculus of kidney | CPT/HCPCS: 81003; 99214 ==

== ENCOUNTER → 2024-05-25 10:27 | Outpatient (BNVA) | payer OTHER, MEDICARE, MEDICAID, SELFPAY | PROVIDERS: PCP Nurse Practitioner; Referring Provider Nurse Practitioner; Visit Provider Nurse Practitioner Adult Health | CPT/HCPCS: 99214; J1885; 96372 ==

== ENCOUNTER → 2024-06-01 13:53 | Outpatient (BNVA) | payer MEDICARE, MEDICAID, SELFPAY | PROVIDERS: PCP Nurse Practitioner; Referring Provider Nurse Practitioner; Visit Provider Nurse Practitioner Gerontology | DX: N20.0 Calculus of kidney (principal); N30.10 Interstitial cystitis (chronic) without hematuria; N89.8 Other specified noninflammatory disorders of vagina; E11.65 Type 2 diabetes mellitus with hyperglycemia; N18.9 Chronic kidney disease, unspecified | CPT/HCPCS: 99214 ==

== ENCOUNTER 2024-06-03 09:26 | Emergency (ER) | payer MEDICARE, MEDICAID, SELFPAY ==
[2024-06-03] VITALS (25 sets, daily range): BP systolic 111–136; BP diastolic 70–89; PULSE 81–99; RESP 10–26; TEMP 36.6; O2SAT 96–100
--- NOTE | 2024-06-03 09:15 | RT.EKG_ITS ---
APPROVED REPORT Exam: Resting ECG Reason for Exam: Heart Palpatations Patient Location: E HR:88 bpm ECG Measurements Heart Rate 88 AXIS TN 259 P 26 QRSd 98 QRS 11 QT 368 T 53 QTc 446 Conclusion Sinus rhythm...normal P axis, V-rate 60- 99 Prolonged TN interval...TN >210, V-rate 50- 90 I have reviewed and interpreted ECG and agree with software generated interpretation.
[2024-06-03 10:25] LABS: Abs Immature Grans 0.01 10^3/uL (0.0-0.06); Absolute Basophil Count 0.05 10^3/uL (0.0-0.2); Absolute Eosinophil Count 0.24 10^3/uL (0.0-0.7); Absolute Lymphocyte Count 1.91 10^3/uL (1.2-3.4); Absolute Monocyte Count 0.48 10^3/uL (0.1-0.8); Basophils % 0.8 %; Eosinophils % 3.8 %; HCT 48.4 % (36.0-46.0); HGB 16.3 g/dL (11.2-15.7); Immature Grans % 0.2 %; Lymphocytes % 29.9 %; MCH 31.6 pg (27.0-33.0); MCHC 33.7 % (32.0-36.0); MCV 94 fL (80-95); MPV 10.6 fL (8.0-11.0); Monocytes % 7.5 %; Neutrophils % 57.8 %; Platelet Count 146 10^3/uL (130-400); RBC 5.16 10^6/uL (3.93-5.22); RDW 11.9 % (11.7-14.6); RDW-SD 41.6 fL; WBC 6.39 10^3/uL (4.4-10.8)
[2024-06-03 10:36] LABS: Bilirubin Negative (Negative); Blood Negative (Negative); Clarity Sl Cloudy (Clear); Glucose Negative (Negative); Ketones Negative (Negative); Leukocyte Esterase Trace (Negative); Nitrite Negative (Negative); Urobilinogen 0.2 mg/dL (Up to 0.2); pH 5.5 (5-8)
[2024-06-03 10:48] LABS: Bacteria Few HPF (Negative); C & S Indicated? No/Sq. Contamination; Casts Negative LPF (Negative); Crystals Negative HPF (Negative); Epithelial Cells Many HPF (Negative); Mucus Negative (Negative); Other Cells Negative (Negative)
[2024-06-03 10:48] LABS: ALT 30 U/L (14-59); AST 17 U/L (15-37); Albumin 3.5 g/dL (3.4-5.0); Alkaline Phosphatase 172 U/L (46-116); BUN 18 mg/dL (7-18); Bilirubin, Total 0.5 mg/dL (0.2-1.0); CREATININE 1.3 mg/dL (0.55-1.02); Calcium 9.1 mg/dL (8.5-10.1); Chloride 108 mmol/L (98-107); Estimated GFR 48.26 (mL/min/1.73m2); Glucose 126 mg/dL (74-106); Lipase 49 U/L (<78); Sodium 142 mmol/L (136-145); Total Protein 6.7 g/dL (6.4-8.2); Troponin I 7 ng/L (<or=51)
[2024-06-03 10:51] LABS: D-Dimer 570 ng/mlFEU (<500)
--- NOTE | 2024-06-03 11:00 | DI.CT_ITS ---
Exam(s) CT CHEST PE CTA EXAM: CT CHEST PE CTA CLINICAL HISTORY: chest pain, elevated ddimer. TECHNIQUE: Imaging Protocol: Axial CT angiography was performed with multi-slice acquisition and mu lti-planar reconstructions as well as axial, coronal and sagittal MIP reconstructions. Computer aided detection (CAD) was utilized. CONTRAST MATERIAL: Intravenous: Omnipaque 350 Contrast volume:100 ml COMPARISON: No exams were available for comparison FINDINGS: Pulmonary Arteries: No evidence of filling defect to suggest pulmonary emboli. Mediastinum and Mary Jane: No dominant adenopathy or fluid collection. Pulmonary parenchyma: Limited evaluation due to expiratory changes. No consolidation or dominant steve surable mass. Pleura: No effusion or pneumothorax. Heart: The heart is not dilated. No coronary artery calcifications are seen. Aorta: Thoracic aorta non-dilated. No dissection. Upper abdomen: No acute findings. Cholecystectomy. Bones: Unremarkable for age. Tubes, Catheters, and Lines: None Soft tissues: Unremarkable. IMPRESSION: No evidence of pulmonary embolism or other acute abnormality.. RADIATION DOSE DELIVERED: Total DLP DATA REPOSITORY: All CT scans at this facility are submitted to the National Radiology Data Registry (NRDR) Dose Index Registry (DIR) with the [employer] (ACR). RADIATION OPTIMIZATION: All CT scans at this facility use at least one of these dose optimization te chniques: automated exposure control; mA and/or kV adjustment per patient size (includes targeted exa ms where dose is matched to clinical indication); or iterative reconstruction.
[2024-06-03 11:01] LABS: COVID-19 PCR Negative (Negative); Influenza A PCR Negative (Negative); Influenza B PCR Negative (Negative); RSV PCR Negative (Negative)
[2024-06-03 11:02] LABS: Source Nasopharynx
[2024-06-03] MEDS: Normal Saline - Diluent 50 ML VIAL IJ (11:29)
[2024-06-03] MEDS: Omnipaque 350 MG/ML 100 ML BTL IJ (11:30)
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
--- NOTE | 2024-06-03 12:01 | DI.VRAD_ITS ---
PROCEDURE INFORMATION: Exam: CTA Chest With Contrast Exam date and time: 06/03/2024 11:25 AM Age: 54 years old Clinical indication: Other: Chest pain, elevated ddimer TECHNIQUE: Imaging protocol: Computed tomographic angiography of the chest with contrast. Exam focused on the arteries. 3D rendering (Not supervised by radiologist): MIP and/or 3D reconstructed images were created by the technologist. Radiation optimization: All CT scans at this facility use at least one of these dose optimization techniques: automated exposure control; mA and/or kV adjustment per patient size (includes targeted exams where dose is matched to clinical indication); or iterative reconstruction. Contrast material: OMNI 350; Contrast volume: 100 ml; Contrast route: INTRAVENOUS (IV); COMPARISON: CT CHEST PE CTA 12/06/2021 5:15 PM FINDINGS: Limitations: Mild motion artifact. Pulmonary arteries: No pulmonary embolus is appreciated. Aorta: No thoracic aortic aneurysm seen. Lungs: Faint ground-glass opacities in the posterior lungs. Pleural spaces: No pleural effusion. Heart: No pericardial effusion. Lymph nodes: No acute abnormality seen. Gallbladder and biliary ducts: Cholecystectomy. Bones/joints: No acute pertinent abnormality seen. Soft tissues: No acute pertinent abnormality seen. IMPRESSION: 1. No pulmonary embolus is appreciated. 2. Faint ground-glass opacities in both lungs, likely underinflation. Less likely considerations include edema or infection. Follow-up if clinically warranted. Dictated and Authenticated by: Lena Brian MD. Orderin Adriane Cedeño MD
[2024-06-03 12:07] LABS: Troponin I 8 ng/L (<or=51)
== END 2024-06-03 12:44 | disposition home or self-care (01) ==
PROVIDERS: Emergency Provider Physician Assistant; PCP Nurse Practitioner
DX: R07.89 Other chest pain (principal); E11.9 Type 2 diabetes mellitus without complications; I25.2 Old myocardial infarction; E78.5 Hyperlipidemia, unspecified; Z79.85 Long-term (current) use of injectable non-insulin antidiabetic drugs
CPT/HCPCS: 36415; 71275; 80053; 83690; 87637; 93005; 99285; 81003; 81015; 84484; 85025; 85379; 93010; 99284; J3490

== ENCOUNTER 2024-07-19 02:02 | Outpatient (CLI) | payer MEDICARE, MEDICAID, SELFPAY ==
[2024-07-19 10:06] LABS: Calculated LDL 59 mg/dL (<100); Cholesterol 142 mg/dL (<200); HDL Cholesterol 44 mg/dL (>or=50); Triglyceride 197 mg/dL (<150)
== END 2024-07-19 02:03 | disposition home or self-care (01) ==
LOC: LBO 02:03
PROVIDERS: PCP Nurse Practitioner; Referring Provider Nurse Practitioner Family; Visit Provider Nurse Practitioner Family
DX: I47.10 Supraventricular tachycardia, unspecified (principal); E78.00 Pure hypercholesterolemia, unspecified
CPT/HCPCS: 36415; 80061; 84443

== ENCOUNTER 2024-07-28 10:35 | Outpatient (CLI) | payer MEDICARE, MEDICAID, SELFPAY | END 2024-07-28 10:36 | disposition home or self-care (01) | PROVIDERS: PCP Nurse Practitioner; Visit Provider Nurse Practitioner Family | DX: R00.0 Tachycardia, unspecified (principal) | CPT/HCPCS: 93246 ==

== ENCOUNTER 2024-08-03 02:04 | Outpatient (CLI) | payer MEDICARE, MEDICAID, SELFPAY ==
--- NOTE | 2024-08-03 05:45 | ETT_ITS ---
APPROVED REPORT Exam: Exercise Treadmill Patient Location: Out-Patient Room/Bed: Stress Nurse: Dang David RN,Eduarda Cummings RN Ordering Provider:UBALDONestor NÚÑEZ, Contact Number: [phone] BMI: 34.60 Baseline Rhythm: Sinus Rhythm Indications: chest pain Medical History Medical History: NSTEMI,T2DM,CKD, HLD, SVT, Dissociative identity disorder, obesity, PTSD, Depression , anxiety, sleep apnea, GERD, HTN Cardiac Medications: Trulicity, Aimovig, Topamax, omeprazole, buproprion, Atorvastatin, Amitriptyline , Lisinopril Allergies: aspirin, tylenol, Ibuprofen, Aleve,adhesive, latex, oxycodone, zonisamide Cardiac Risk Factors: family HX, HTN, HLD, diabetes, obesity Previous Cardiac Procedures: ablation(August 05) Pretest Chest Pain Characteristics: none Exercise History: Indeterminate Physical Disabilities: none Lung Sounds: Clear to auscultation Heart Sounds: Regular Stress Test Details Test: Exercise stress testing was performed using a Ralph protocol. Rest Stress HR Resting HR Supine: 92 bpm Max Heart Rate (APMHR): 164 bpm Resting HR Standin bpm Target HR (85% APMHR): 139 bpm Max HR Achieved: 156 bpm % of APMHR: 95 Recovery HR: 97 bpm HR response to stress: Normal HR response to stress BP Resting BP Supine: 120/82 mmHg Resting BP Standin/86 mmHg Max BP: 172/74 mmHg Recovery BP: 132/74 mmHg BP response to stress: Normal blood pressure response to stress. ECG Resting ECG: Sinus Rhythm Ectopy: none Stress ECG: Sinus Tachycardia ST Change: No significant ST segment changes noted Arrhythmia: none Recovery ECG: Sinus Rhythm Recovery ST Change: No significant ST segment changes noted Recovery Arrhythmia: rare PVC Clinical Reason for Termination: Target HR Achieved/ general fatigue Stress Symptoms: general fatigue, 8/10 chest pressure, jaw and bilateral shoulder pain Exercise duration: 05 min59 sec Highest Stage Reached: Stage 2: 2.5 mph at 12% grade. Exercise capacity: 7.05 METs Angina Score: Non-Limiting Szymanski Treadmill Score: 1.4 Rate Pressure Product: [id number] Stress ECG Conclusion 1. Resting electrocardiogram was normal 2. Patient exercised on the Ralph protocol and completed workload of 7 METS 3. Normal heart rate and blood pressure response to exercise. The patient achieved 95% of maximal pr edicted heart rate for age 4. There was no electrocardiographic evidence of myocardial ischemia 5. There were no significant dysrhythmias Szymanski Treadmill Score is 1.4 which is Moderate risk. Stress Test Summary STAGE Time (mins) Speed (mph) Grade (%) HR BP SpO2 SYMPTOMS METS Supine 92 120/82 98 Standing 110 118/86 1 3 1.7 10 132 132/86 96 6/10 chest pressure, jaw and bilateral shoulder pain 4.5 2 6 2.5 12 154 7 1 min recovery 154 148/72 8/10 chest pressure, neck, bilateral shoulder and jaw pain 3 min recovery 122 172/74 5/10 Chest pressure, bilateral shoulder pain 6 min recovery 97 132/74 3/10 chest pressure All symptom resolved at test end. Pateint left ambulatory in no apparent distress.
== END 2024-08-03 02:24 ==
LOC: DI 02:04
PROVIDERS: PCP Nurse Practitioner; Visit Provider Internal Medicine Cardiovascular Disease
DX: R07.9 Chest pain, unspecified (principal)
CPT/HCPCS: 93016; 93018; 93017

== ENCOUNTER → 2024-08-23 08:02 | Outpatient (BNVA) | payer MEDICARE, MEDICAID, SELFPAY | PROVIDERS: PCP Nurse Practitioner; Visit Provider Nurse Practitioner Adult Health | DX: G43.109 Migraine with aura, not intractable, without status migrainosus (principal); G47.30 Sleep apnea, unspecified | CPT/HCPCS: 99214 ==

== ENCOUNTER 2024-09-04 10:46 | Emergency (ER) | payer MEDICARE, MEDICAID, SELFPAY ==
[2024-09-04 10:47] VITALS: BP 107/75; PULSE 102; RESP 18; TEMP 36.7; O2SAT 98
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
--- NOTE | 2024-09-04 11:38 | DI.RAD_ITS ---
Exam(s) XR SHOULDER RT COMPLETE 2+V EXAM: XR SHOULDER RT COMPLETE 2+V CLINICAL HISTORY: R shoulder pain. TECHNIQUE: 2D digital imaging was performed. Five views. COMPARISON: CR XR SHOULDER LT COMPLETE 2+V from 11/16/2023 FINDINGS: BONES: No acute fracture is present. No bony destructive lesion is seen. JOINTS: No dislocation present. SOFT TISSUE: Normal. IMPRESSION: Unremarkable radiographs of the right shoulder. DATA REPOSITORY: RADIATION DOSE DELIVERED:
[2024-09-04] MEDS: Cyclobenzaprine 10 MG TAB, 3 TABS/BTL PO (12:18)
== END 2024-09-04 12:22 | disposition home or self-care (01) ==
PROVIDERS: Emergency Provider Physician Assistant; PCP Nurse Practitioner
DX: M12.811 Other specific arthropathies, not elsewhere classified, right shoulder (principal)
CPT/HCPCS: 99283 ×2; 73030

== ENCOUNTER → 2024-09-20 09:08 | Outpatient (BNVA) | payer MEDICARE, MEDICAID, SELFPAY | PROVIDERS: PCP Nurse Practitioner Family; Referring Provider Nurse Practitioner; Visit Provider Student in an Organized Health Care Education/Training Program | DX: S43.431A Superior glenoid labrum lesion of right shoulder, initial encounter (principal); M12.811 Other specific arthropathies, not elsewhere classified, right shoulder; V84.4XXA Person injured while boarding or alighting from special agricultural vehicle, initial encounter; Y93.H9 Activity, other involving exterior property and land maintenance, building and construction | CPT/HCPCS: 99214 ==

== ENCOUNTER 2024-10-04 01:13 | Outpatient (CLI) | payer MEDICARE, MEDICAID, SELFPAY ==
--- NOTE | 2024-10-04 07:30 | DI.MRI_ITS ---
Exam(s) MR UPPER JOINT RT WO EXAM: MR UPPER JOINT RT WO CLINICAL HISTORY: R SHOULDER PAIN,rotator cuff arthropathy,m12.811. TECHNIQUE: Multiplanar multisequence MRI was performed. COMPARISON: CR XR SHOULDER RT COMPLETE 2+V from 09/04/2024 FINDINGS: BONES: There is no fracture or contusion pattern. JOINTS: There are moderate degenerative changes seen at the acromioclavicular joint. There is no glenohumeral joint effusion. The glenohumeral joint is normal. TENDONS: Supraspinatus: Unremarkable. Infraspinatus: Unremarkable. Subscapularis: Unremarkable. Teres Minor: Unremarkable. Biceps and [place]: Unremarkable. MUSCLES: Unremarkable. GLENOID LABRUM: Unremarkable on this noncontrast examination. SOFT TISSUES: Unremarkable. LIGAMENTS: Unremarkable. OTHER: Subacromial and subdeltoid bursae are unremarkable. IMPRESSION: 1. Moderate degenerative changes seen at the acromioclavicular joint. 2. No evidence of a rotator cuff or labral tear is seen on this noncontrast examination. DATA REPOSITORY:
== END 2024-10-04 01:33 ==
LOC: DI 01:13
PROVIDERS: PCP Nurse Practitioner Family; Visit Provider Student in an Organized Health Care Education/Training Program
DX: M12.811 Other specific arthropathies, not elsewhere classified, right shoulder (principal)
CPT/HCPCS: 73221

== ENCOUNTER 2024-10-05 10:25 | Outpatient (CLI) | payer MEDICARE, MEDICAID, SELFPAY | END 2024-10-05 10:26 | disposition home or self-care (01) | PROVIDERS: PCP Nurse Practitioner Family; Referring Provider Nurse Practitioner Family; Visit Provider Nurse Practitioner Family | DX: I47.10 Supraventricular tachycardia, unspecified (principal) | CPT/HCPCS: 93246 ==

== ENCOUNTER → 2024-10-18 09:31 | Outpatient (BNVA) | payer MEDICARE, MEDICAID, SELFPAY | PROVIDERS: PCP Nurse Practitioner Family; Referring Provider Nurse Practitioner Family; Visit Provider Student in an Organized Health Care Education/Training Program | DX: S43.431A Superior glenoid labrum lesion of right shoulder, initial encounter (principal); M54.12 Radiculopathy, cervical region; X58.XXXA Exposure to other specified factors, initial encounter | CPT/HCPCS: 99213 ==

== ENCOUNTER 2024-11-02 06:57 | Outpatient (CLI) | payer MEDICARE, MEDICAID, SELFPAY ==
--- NOTE | 2024-11-02 09:00 | CER_ITS ---
Date of service: 11/02/24 Time of Service: 09:00 Cardiac Event Recorder Referring Provider:: Nicki Toledo Indications:: Palpitations and tachycardia Cardiac Event Note: This is a cardiac event monitor. Patient was monitored for 7 days and 4 hours. Rhythm throughout was sinus with an average heart rate of 97. Minimum was 67, maximum 165 There were rare isolated ventricular ectopic beats. There was 1 ventricular triplet There were rare isolated atrial premature beats There was no atrial fibrillation, no high-grade AV block, no pauses greater than 3 seconds. Reported symptoms correlated to sinus tachycardia (rate 160) and rarely to at rial and ventricular ectopic beats
== END 2024-11-02 06:58 | disposition home or self-care (01) ==
LOC: CARDOPNVT 06:57
PROVIDERS: PCP Nurse Practitioner Family; Visit Provider Internal Medicine Cardiovascular Disease
DX: R00.2 Palpitations (principal); I49.3 Ventricular premature depolarization; R00.0 Tachycardia, unspecified
CPT/HCPCS: 93248

== ENCOUNTER 2024-11-06 12:48 | Emergency (ER) | payer MEDICARE, MEDICAID, SELFPAY ==
[2024-11-06 12:59] VITALS: BP 164/91; PULSE 96; RESP 16; TEMP 36.8; O2SAT 98
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
--- NOTE | 2024-11-06 14:04 | DI.RAD_ITS ---
Exam(s) XR CHEST 2V PA LATERAL EXAM: XR CHEST 2V PA LATERAL CLINICAL HISTORY: Right-sided rib pain status post fall. TECHNIQUE: 2D digital imaging was performed. COMPARISON: No exams were available for comparison FINDINGS: 2 views: Heart size is normal. The mediastinum is not widened. Lungs are clear. No infiltrates nor pleural effusions. No fractures evident. No pneumothorax. IMPRESSION: No acute pulmonary findings. DATA REPOSITORY: RADIATION DOSE DELIVERED:
== END 2024-11-06 14:37 | disposition home or self-care (01) ==
PROVIDERS: Emergency Provider Emergency Medicine; PCP Nurse Practitioner Family
DX: R07.89 Other chest pain (principal); Y93.02 Activity, running; W19.XXXA Unspecified fall, initial encounter
CPT/HCPCS: 99283; 99284; 76604; 71046

== ENCOUNTER 2024-11-21 08:17 | Outpatient (CLI) | payer MEDICARE, MEDICAID, SELFPAY ==
--- NOTE | 2024-11-21 09:49 | DI.RAD_ITS ---
Exam(s) XR ABDOMEN FLAT PLATE EXAM: 2D digital imaging was performed. CLINICAL HISTORY: monitoring right renal calculi,[id number]. COMPARISON: CT CT ABDOMEN PELVIS W from 07/07/2023 TECHNIQUE: Supine views of the abdomen performed. FINDINGS: BOWEL GAS PATTERN: Nondistended. Normal quantity of stool. CALCIFICATIONS: Small stone is visible in the mid upper right kidney. The kidneys are both partially obscured by overlying bowel gas and stool. OSSEOUS STRUCTURES: Bilateral hip prostheses. Degenerative changes in the lower lumbar spine. Visualized lung bases: Clear. Soft tissues: Surgical clips in the right upper and lower quadrants. IMPRESSION: 1. Nonobstructive bowel gas pattern. 2. Small stone upper to midpole of the right kidney. DATA REPOSITORY: RADIATION DOSE DELIVERED:
== END 2024-11-21 08:37 ==
PROVIDERS: PCP Nurse Practitioner Family; Visit Provider Nurse Practitioner Gerontology
DX: Z09 Encounter for follow-up examination after completed treatment for conditions other than malignant neoplasm (principal); Z87.442 Personal history of urinary calculi
CPT/HCPCS: 74018

== ENCOUNTER → 2025-01-11 03:47 | Outpatient (CLI) | payer MEDICARE, MEDICAID, SELFPAY ==
--- NOTE | 2025-01-11 09:50 | DI.MRI_ITS ---
Exam(s) MR CERVICAL SPINE WO EXAM: MR CERVICAL SPINE WO CLINICAL HISTORY: neck pain,CERVICAL RADICULOPATHY,M54.12 TECHNIQUE: Multiplanar multisequence MRI of the cervical spine was performed without intravenous contrast. COMPARISON: No exams were available for comparison FINDINGS: CERVICOMEDULLARY JUNCTION: Intact with no evidence of cerebellar tonsillar ectopia. No obvious abnormality of the odontoid process. No evidence of Chiari 1 malformation. CERVICAL SPINAL CORD: There is no abnormal signal in the cervical spinal cord and no evidence of focal cord atrophy nor focal cord swelling. OSSEOUS:There are no cervical fractures evident. No significant osseous lesions in the cervical vertebrae. INDIVIDUAL LEVELS: C2-3: No disc herniation nor central canal stenosis. No foraminal stenosis. No facet arthropathy. C3-4: No disc herniation nor central canal stenosis.No facet arthropathy. No foraminal stenosis. C4-5: No disc herniation nor central canal stenosis.No facet arthropathy. No foraminal stenosis C5-6: There is moderate chronic decreased disc height and signal. Also anterior osseous lipping. Posteriorly there is a broad disc protrusion which extends posteriorly 4 mm effacing the anterior thecal sac and compressing the cervical cord. The AP measurement of the canal at this level is 7 mm. There is no obvious abnormal signal in the cord. There is no significant facet arthropathy but there are bilateral Luschka joint osteophytes. This results in moderate bilateral foraminal stenosis. C6-7: This level exhibits mild disc space narrowing. There is annular bulging, more prominent left of center which effaces the thecal sac and contacts the anterior cervical cord at this level. AP measurement of the canal is 8 mm. There is also a unilateral left-sided Luschka joint osteophyte at this level. Facet joints appear unremarkable at this level. There is no significant foraminal stenosis at this level. C7-T1: No disc herniation nor central canal stenosis. No facet arthropathy.No foraminal stenosis. IMPRESSION: 1. Most significant level is C5-6 where there is a broad disc protrusion as described above with central canal stenosis. There is also moderate bilateral foraminal stenosis related to bilateral Luschka joint osteophytes at this level. 2. Lesser findings as described above at C6-7 level. 3. There is no significant facet arthropathy in the cervical spinal column 4. There is no abnormal signal in the cervical spinal cord. No evidence of focal cord swelling nor focal cord atrophy. No syringomyelia. DATA REPOSITORY:
== END ==
LOC: DI 03:47
PROVIDERS: PCP Nurse Practitioner Family; Visit Provider Nurse Practitioner Family
DX: M50.122 Cervical disc disorder at C5-C6 level with radiculopathy (principal)
CPT/HCPCS: 72141

== ENCOUNTER 2025-01-16 12:35 | Emergency (ER) | payer MEDICARE, MEDICAID, SELFPAY ==
--- NOTE | 2025-01-16 12:15 | RT.EKG_ITS ---
APPROVED REPORT Exam: Resting ECG Reason for Exam: chect pain; tachycardia Patient Location: E HR:91 bpm ECG Measurements Heart Rate 91 AXIS MN 285 P 63 QRSd 96 QRS 34 QT 367 T 57 QTc 450 Conclusion Sinus rhythm, rate 91 1st degree HB, present on priors, MN interval 285ms No STEMI Q waves V1-V3, V3 new compared to priors
[2025-01-16 12:39] VITALS: BP 143/81; PULSE 93; RESP 16; TEMP 36.6; O2SAT 89
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
[2025-01-16 13:02] LABS: Abs Immature Grans 0.02 10^3/uL (0.0-0.06); HCT 41.6 % (36.0-46.0); HGB 14.1 g/dL (11.2-15.7); Immature Grans % 0.3 %; MCH 31.2 pg (27.0-33.0); MCHC 33.9 % (32.0-36.0); MCV 92 fL (80-95); MPV 10.2 fL (8.0-11.0); Platelet Count 139 10^3/uL (130-400); RBC 4.52 10^6/uL (3.93-5.22); RDW 12.0 % (11.7-14.6); RDW-SD 40.7 fL; WBC 6.53 10^3/uL (4.4-10.8)
[2025-01-16 13:24] LABS: ALT 20 U/L (14-59); AST 14 U/L (15-37); Albumin 3.3 g/dL (3.4-5.0); Alkaline Phosphatase 143 U/L (46-116); Anion Gap 10.6 mmol/L (3-11); BUN 17 mg/dL (7-18); Bilirubin, Total 0.4 mg/dL (0.2-1.0); CO2 22.4 mmol/L (21.0-32.0); Calcium 8.5 mg/dL (8.5-10.1); Chloride 110 mmol/L (98-107); Glucose 118 mg/dL (74-106); Lipase 60 U/L (<78); Magnesium 2.1 mg/dL (1.8-2.4); Potassium 3.5 mmol/L (3.5-5.1); Sodium 143 mmol/L (136-145); Total Protein 6.5 g/dL (6.4-8.2); Troponin I 5 ng/L (<or=51)
[2025-01-16 13:25] LABS: D-Dimer 1014 ng/mlFEU (<500)
[2025-01-16] MEDS: Omnipaque 350 MG/ML 100 ML BTL IJ (14:11)
[2025-01-16] MEDS: Normal Saline Flush 10 ML SYR IVP (14:12)
[2025-01-16] MEDS: Normal Saline - Diluent 50 ML VIAL IJ (14:12)
--- NOTE | 2025-01-16 14:15 | DI.CT_ITS ---
Exam(s) CT CHEST PE CTA EXAM: CT CHEST PE CTA CLINICAL HISTORY: elevated dimer, tachy, CP. TECHNIQUE: Imaging Protocol: Axial CT angiography was performed with multi- slice acquisition and multi-planar and/or 3D reconstructions. Lung Computer Aided Detection (CAD) was utilized. CONTRAST MATERIAL: Intravenous: Omnipaque 350 contrast volume:100 mL COMPARISON: CT CT CHEST PE CTA from 12/06/[address] CHEST PE CTA from 06/03/2024 FINDINGS: Tracheobronchial tree: Patent where visualized. No bronchiectasis. Pulmonary parenchyma: No consolidation or dominant measurable mass. No architectural distortion. Pulmonary Arteries: No evidence of filling defect to suggest pulmonary emboli. Mediastinum and Mary Jane: No dominant adenopathy or fluid collection. The esophagus is unremarkable. Visualized thyroid gland: Unremarkable. Pleura: No effusion or pneumothorax. Heart: The heart is not dilated. No coronary artery calcifications are seen. No pericardial effusion. Aorta: Thoracic aorta non-dilated. No evidence of dissection. Upper abdomen: Status post cholecystectomy. Soft tissues: Unremarkable. Bones: Within normal limits for the patient's age.There is a subacute nondisplaced right 4th rib fracture. IMPRESSION: 1. No evidence of pulmonary embolism, thoracic aortic dissection or aneurysm. 2. There is no acute pulmonary process. 3. Subacute healing nondisplaced right 4th rib fracture. RADIATION DOSE DELIVERED: 121.34mGy.cm Total DLP DATA REPOSITORY: All CT scans at this facility are submitted to the National Radiology Data Registry (NRDR) Dose Index Registry (DIR) with the [employer] (ACR). RADIATION OPTIMIZATION: All CT scans at this facility use at least one of these dose optimization techniques: automated exposure control; mA and/or kV adjustment per patient size (includes targeted exams where dose is matched to clinical indication); or iterative reconstruction.
[2025-01-16 14:54] LABS: Troponin I 7 ng/L (<or=51)
[2025-01-16 16:30] LABS: Glucose Negative (Negative)
== END 2025-01-16 18:41 | disposition home or self-care (01) ==
PROVIDERS: Emergency Provider Emergency Medicine; PCP Nurse Practitioner Family
DX: I95.1 Orthostatic hypotension (principal); R07.9 Chest pain, unspecified; Z86.79 Personal history of other diseases of the circulatory system
CPT/HCPCS: 99284; 99285; 71275; 80053; 83690; 93005; 81003; 83735; 83880; 84484; 85025; 85379; 93010; J3490

== ENCOUNTER → 2025-01-25 07:59 | Outpatient (BNVA) | payer MEDICARE, MEDICAID, SELFPAY | PROVIDERS: PCP Nurse Practitioner Family; Visit Provider Nurse Practitioner Adult Health | DX: G43.E09 Chronic migraine with aura, not intractable, without status migrainosus (principal) | CPT/HCPCS: 99214 ==

== ENCOUNTER → 2025-01-29 08:12 | Outpatient (BNVA) | payer MEDICARE, MEDICAID, SELFPAY | PROVIDERS: PCP Nurse Practitioner Family; Referring Provider Nurse Practitioner Family; Visit Provider Nurse Practitioner Gerontology | DX: N20.0 Calculus of kidney (principal); N30.10 Interstitial cystitis (chronic) without hematuria; N89.8 Other specified noninflammatory disorders of vagina; N94.89 Other specified conditions associated with female genital organs and menstrual cycle; R39.9 Unspecified symptoms and signs involving the genitourinary system | CPT/HCPCS: 99214; 81002; 51798 ==

== ENCOUNTER 2025-01-29 09:32 | Outpatient (REF) | payer MEDICARE, MEDICAID, SELFPAY | END 2025-01-29 09:33 | disposition home or self-care (01) | LOC: LBN 09:32 | PROVIDERS: PCP Nurse Practitioner Family; Visit Provider Nurse Practitioner Gerontology | DX: N30.10 Interstitial cystitis (chronic) without hematuria (principal); R30.0 Dysuria; N94.89 Other specified conditions associated with female genital organs and menstrual cycle | CPT/HCPCS: 87077; 87086; 87186; 87480; 87510; 87660 ==

== ENCOUNTER 2025-02-12 17:07 | Outpatient (REF) | payer MEDICARE, MEDICAID, SELFPAY ==
[2025-02-12 21:22] LABS: Glucose Negative (Negative)
[2025-02-12 21:31] LABS: RBC 0-2 HPF (0-2)
== END 2025-02-12 17:08 | disposition home or self-care (01) ==
LOC: LBN 17:07
PROVIDERS: PCP Nurse Practitioner Family; Visit Provider Nurse Practitioner Gerontology
DX: R30.0 Dysuria (principal)
CPT/HCPCS: 87077; 81003; 81015; 87086; 87186

== ENCOUNTER 2025-02-16 02:49 | Outpatient (CLI) | payer MEDICARE, MEDICAID, SELFPAY ==
--- NOTE | 2025-02-16 15:05 | TELEFU_ITS ---
Documented by User: Morales Yeh 02/16/25 15:17 Date of service: 02/16/25 Time of Service: 13:00 Nutrition Note NOTE: Female, 55 y.o. Weight: 99 kg. Height: 170 cm. BMI: 34.1. MSJ: 2,089. Recommend 400-500 kcal deficit for weight loss, roughly 1600 kcal/d ay. 160 g carbs 120 g protein 53 g lipid 17 g sat fat. 30 g fiber > 30 g added sugar Client presents with esophageal irritation. Client reports that most meats bother her with the exception of salmon. Red meats makes her vomit, so she is now avoiding meat because she can't tolerate it. She also can't tolerate most types of rice. Wild rice and long grain rice is OK with quinoa. She recently had her esophagus ballooned from 6 mm to 22 mm. She enjoys sweet potatoes but avoids white potatoes. She also avoids dairy, but partially substitutes with almond milk. No cheeses or yogurt, which she used have for breakfast with granola. She has a gluten allergy (anaphylactic shock). She knows how to read labels to avoid cross-contamination. She also avoids eggs, which make her lips and ears itchy. When they are in cooked products they don't bother but on their own in any form they are troublesome. She also avoids most beans and cooked peas which make her vomit because of the texture (she can eat raw peas). She does not like processed food and prefers home-grown and farm fresh items. She reports eating salads with almonds but can't eat any sort of peppers. The only oils she uses are extra virgin olive oil and coconut oil. The client has lost weight from her peak of 298 to about 210 pounds, but has since been stuck between 210 and 220 pounds. She wants to lose a further 70 pounds but is struggling to find an eating routine because of her food intolerances. She has in the past kept a food journal tracking symptoms and intake. The gluten allergy started at ages [age] and attributes it to the introduction of processed foods to her diet. She has polyps covering stomach, and a compromised stomach lining indicative of irritation to stomach lining. She reports that her steroid medication for her pinched nerve negatively affects her energy levels. Just started an antibiotic for a bladder infection. She reports prevoisuly only having 1 bowel movement per month. She is keeping track of her bowel movements which have been improving. She is drinking smooth move tea every morning, which has helped her move bowels more often but not every day. She takes ClearLax in a drink if it's been more than 3 days. Since starting the vegan diet, her movements have improved but she still feels bloated and is throwing up a lot. A nutrition-focused physical examination was not performed. Nutrition diagnosis: Nutrition intervention: Her goal is to find a way to meet protein goals given dietary preferences and restrictions; recommended quinoa, buckwheat, soy, tofu, soy milk,vegan protein powder. Discussed ways to incorporate these foods into her diet. Offered contact info for follow-up appointments. Time Spent in Nutritional Counseling and Treatment: 60 min Documented by User: Jose Kang RDN 02/20/25 09:21 Nutrition Note NOTE: Female, 55 y.o. Weight: 99 kg. Height: 170 cm. BMI: 34.1. MSJ: 2,089. Recommend 400-500 kcal deficit for weight loss, roughly 1600 kcal/day. 160 g carbs 120 g protein 53 g lipid 17 g sat fat. 30 g fiber > 30 g added sugar Client presents with esophageal irritation. Client reports that most meats bother her with the exception of salmon. Red meats makes her vomit, so she is now avoiding meat because she can't tolerate it. She also can't tolerate most types of rice (stick . Wild rice and long grain rice is OK with quinoa. She recently had her esophagus ballooned from 6 mm to 22 mm. She enjoys sweet potatoes but avoids white potatoes. She also avoids dairy, but partially substitutes with almond milk. No cheeses or yogurt, which she used have for breakfast with granola. She has a gluten allergy (anaphylactic shock). She knows how to read labels to avoid cross-contamination. She also avoids eggs, which make her lips and ears itchy. When they are in cooked products they don't bother but on their own in any form they are troublesome. She also avoids most beans and cooked peas which make her vomit because of the texture (she can eat raw peas). She does not like processed food and prefers home-grown and farm fresh items. She reports eating salads with almonds but can't eat any sort of peppers. The only oils she uses are extra virgin olive oil and coconut oil. The client has lost weight from her peak of 298 to about 210 pounds, but has since been stuck between 210 and 220 pounds. She wants to lose a further 70 pounds but is struggling to find an eating routine because of her food intolerances. She has in the past kept a food journal tracking symptoms and intake. The gluten allergy started at ages [age] and attributes it to the introduction of processed foods to her diet. She has polyps covering stomach, and a compromised stomach lining indicative of irritation to stomach lining. She reports that her steroid medication for her pinched nerve negatively affects her energy levels. Just started an antibiotic for a bladder infection. She reports prevoisuly only having 1 bowel movement per month. She is keeping track of her bowel movements which have been improving. She is drinking smooth move tea every morning, which has helped her move bowels more often but not every day. She takes ClearLax in a drink if it's been more than 3 days. Since starting the vegan diet, her movements have improved but she still feels bloated and is throwing up a lot. A nutrition-focused physical examination was not performed. Nutrition diagnosis: Inadequate protein intake related to patient's intolerances and recent transition to vegetarian diet AEB pt interview and Nutrition intervention: Her goal is to find a way to meet protein goals given dietary preferences and restrictions; recommended quinoa, buckwheat, soy, tofu, soy milk,vegan protein powder. Discussed ways to incorporate these foods into her diet. Offered contact info for follow-up appointments.
== END 2025-02-16 02:50 | disposition home or self-care (01) ==
LOC: DS 02:49
PROVIDERS: PCP Nurse Practitioner Family; Visit Provider Dietitian, Registered
DX: Z71.3 Dietary counseling and surveillance (principal); K20.0 Eosinophilic esophagitis
CPT/HCPCS: 00123; 97802